=== PATIENT | male | born 1930 | race Caucasian/White ===

== ENCOUNTER 2018-05-31 17:57 | Emergency (ER) | payer OTHER ==
[2018-05-31] MEDS ORDERED: FENTANYL CITR 100 MCG/2 ML ONE (18:58)
[2018-05-31] MEDS ORDERED: FAMOTIDINE 20 MG/2 ML VIAL IV ONE ×2 (18:59→22:12)
[2018-05-31 19:17] LABS: Protime INR 1.39
[2018-05-31 19:31] LABS: Absolute Lymphocytes (CBC) 0.6 K/uL (0.7-4.9); Absolute Monocytes 0.5 K/uL (0.1-1.3); Absolute Neutrophil 11.8 K/uL (1.8-8.0); Basophils % 1.2 % (0-1.3); Eosinophils % 0.4 % (0-4.4); Hematocrit 46.7 % (39.6-49.0); Lymphocytes % 4.7 % (15.3-44.8); MCH 28.8 pg (27.0-35.0); MCV 88.8 fL (80-100); Monocytes % 3.8 % (3.3-12.3); RBC Red Blood Cell Count 5.26 M/uL (4.33-5.43)
--- NOTE | 2018-05-31 19:47 | RAD REPORT ---
EXAM DESCRIPTION: RAD - Chest Single View - 05/31/2018 7:09 pm CLINICAL HISTORY: Epigastric pain, chest pain radiating to the back COMPARISON: November 19, 2017 TECHNIQUE: AP portable chest image was obtained 1902 hours . FINDINGS: Chronic interstitial lung disease is present with no focal mass or consolidation. Lung mar kings are not clearly different from comparison. Defibrillator is in place. Heart is mildly enlarged but measures smaller than on the prior study. No acute failure or volume overload. No measurable pleu ral effusion and no pneumothorax. No acute bony abnormality seen. No acute aortic findings suspected. IMPRESSION: Chronic interstitial lung disease not clearly different from comparison. Mild cardiomegaly without significant failure or volume overload.
[2018-05-31 19:57] LABS: Blood Morphology Comment NOT SEEN (NOT SEEN); Platelet Estimate ADEQ
[2018-05-31 20:36] LABS: ALT/SGPT 224 U/L (12-78); Albumin 3.5 g/dL (3.4-5.0); Alkaline Phosphatase 154 U/L (45-117); BUN Blood Urea Nitrogen 21 mg/dL (7-18); Bicarbonate 30 mmol/L (21-32); Bilirubin Direct 1.6 mg/dL (0-0.2); Bilirubin Total 2.7 mg/dL (0.2-1.0); Glucose Level 196 mg/dL (74-106); Lipase 107 U/L (73-393); Magnesium 2.1 mg/dL (1.8-2.4); NT PRO-BNP 1543 pg/mL (<450); Potassium 3.9 mmol/L (3.5-5.1); Protein, Total 6.8 g/dL (6.4-8.2); Sodium Level 138 mmol/L (136-145); Troponin (Emerg Dept Use Only) < 0.02 ng/mL (0.0-0.045)
[2018-05-31 20:41] LABS: AST/SGOT 372 U/L (15-37)
--- NOTE | 2018-05-31 21:25 | RAD REPORT ---
EXAM DESCRIPTION: CT - Abdomen Pelvis W Contrast - 05/31/2018 9:15 pm CLINICAL HISTORY: Epigastric pain, history of prostate cancer COMPARISON: CT imaging May 2015 TECHNIQUE: Biphasic, helical CT imaging of the abdomen and pelvis was performed following 100 ml non -ionic IV contrast. No oral contrast administered. All CT scans are performed using dose optimization technique as appropriate and may include automated exposure control or mA/KV adjustment according to patient size. FINDINGS: Trace pleural effusion on the right. No acute lung parenchymal process. Cardiac silhouette is enlarged without pericardial thickening or effusion. A 3 centimeter area of soft tissue opacifica tion is present in the lower left chest on the left. This is similar to 2015 and is most likely gynec omastia. This may be related to prostate cancer treatment. The liver, spleen, and pancreas show no suspicious findings. Gallbladder is distended. Several small gallstones are identified. Gall bladder wall is minimally prominent. Intrahepatic and extrahepatic bi liary tree dilatation are present. No obstructing mass seen. Duct stones can be occult. Symmetric renal function is seen with no hydronephrosis or suspicious renal mass. No pyelonephritis o r acute renal parenchymal process. Renal cysts are present. No adrenal abnormality. Urinary bladder s hows no suspicious finding. No dilated bowel loops or bowel wall thickening. No appendicitis findings. No acute GI process suspec tri. No free air, free fluid or inflammatory stranding. No hernia, mass or bulky lymphadenopathy. Disc and bony degenerative changes are present. No pathologic bone process. IMPRESSION: Distended gallbladder with cholelithiasis. Intrahepatic and extrahepatic biliary tree di latation are seen. No pancreatic or duodenal mass seen. Occult duct stone is suspected. Correlation is needed with bilia ry obstructive clinical or laboratory findings. No acute or GI finding identified. Left-sided neck mass Shannen not substantially different from the 2015 comparison. Trace pleural fluid on the right.
--- NOTE | 2018-05-31 21:28 | EDPHYS ---
Physician Documentation [facility] Name: Valentin Veloz Age: 87 yrs Sex: Male : 1930 Arrival Date: 05/31/2018 Time: 18:00 Bed 23 Private MD: ED Physician Marshal Parks HPI: 05/31 21:08 This 87 yrs old Male presents to ER via Wheelchair with complaints of gs Abdominal Pain. 21:08 The patient presents with abdominal pain in the epigastric area, in the right upper gs quadrant. Onset: The symptoms/episode began/occurred acutely, today. Associated signs and symptoms: Pertinent positives: nausea and vomiting. The symptoms are described as crampy, sharp. Severity of pain: At its worst the pain was moderate in the emergency department the pain is unchanged. The patient has not experienced similar symptoms in the past. Historical: - Allergies: 18:31 Codeine; ss - PMHx: 18:31 CAD; CANCER - PROSTATE; CHF; COPD; Diabetes - NIDDM; High Cholesterol; Hypertension; ss Myocardial infarction; Pacemaker; - Immunization history:: Adult Immunizations up to date. - Social history:: Smoking status: Patient/guardian denies using tobacco. - Ebola Screening: : Patient denies exposure to infectious person Patient denies travel to an Ebola-affected area in the 21 days before illness onset. ROS: 21:08 All other systems are negative. gs Exam: 21:08 Head/Face: Normocephalic, atraumatic. Eyes: Pupils equal round and reactive to light, gs extra-ocular motions intact. Lids and lashes normal. Conjunctiva and sclera are non-icteric and not injected. Cornea within normal limits. Periorbital areas with no swelling, redness, or edema. ENT: Nares patent. No nasal discharge, no septal abnormalities noted. Tympanic membranes are normal and external auditory canals are clear. Oropharynx with no redness, swelling, or masses, exudates, or evidence of obstruction, uvula midline. Mucous membranes moist. Neck: Trachea midline, no thyromegaly or masses palpated, and no cervical lymphadenopathy. Supple, full range of motion without nuchal rigidity, or vertebral point tenderness. No Meningismus. Chest/axilla: Normal chest wall appearance and motion. Nontender with no deformity. No lesions are appreciated. Cardiovascular: Regular rate and rhythm with a normal S1 and S2. No gallops, murmurs, or rubs. Normal PMI, no JVD. No pulse deficits. Respiratory: Lungs have equal breath sounds bilaterally, clear to auscultation and percussion. No rales, rhonchi or wheezes noted. No increased work of breathing, no retractions or nasal flaring. Back: No spinal tenderness. No costovertebral tenderness. Full range of motion. Skin: Warm, dry with normal turgor. Normal color with no rashes, no lesions, and no evidence of cellulitis. MS/ Extremity: Pulses equal, no cyanosis. Neurovascular intact. Full, normal range of motion. Neuro: Awake and alert, GCS 15, oriented to person, place, time, and situation. Cranial nerves II-XII grossly intact. Motor strength 5/5 in all extremities. Sensory grossly intact. Cerebellar exam normal. Normal gait. 21:08 Constitutional: The patient appears alert, awake. 21:08 Abdomen/GI: Palpation: moderate abdominal tenderness, in the epigastric area and right upper quadrant, rebound tenderness, is not appreciated. Vital Signs: 18:31 BP 123 / 78; Pulse 72; Resp 18; Temp 97.0; Pulse Ox 96% on R/A; Weight 104.33 kg; ss Height 5 ft. 10 in. (177.80 cm); Pain 8/10; 19:52 BP 118 / 66; Pulse 68; Resp 16; Pulse Ox 96% on R/A; kr2 21:00 BP 126 / 78; Pulse 89; Resp 18; Pulse Ox 99% on R/A; kr2 22:18 BP 142 / 78; Pulse 73; Resp 18; Pulse Ox 97% ; kr2 23:49 BP 136 / 80; Pulse 72; Resp 17; Pulse Ox 99% ; kr2 18:31 Body Mass Index 33.00 (104.33 kg, 177.80 cm) ss MDM: 18:32 Patient medically screened. gs 21:08 Differential diagnosis: bowel obstruction, cholecystitis, Cholelithiasis, non-specific gs abd pain, pancreatitis. Data reviewed: vital signs, nurses notes. Counseling: I had a detailed discussion with the patient and/or guardian regarding: the historical points, exam findings, and any diagnostic results supporting the discharge/admit diagnosis, the need to transfer to another facility, for higher level of care, no gi does ercp. Response to treatment: the patient's symptoms have mildly improved after treatment. 21:27 ED course: do not have gi that does ercp will need to transfer. 05/31 18:33 Order name: Basic Metabolic Panel; Complete Time: 20:45 05/31 18:33 Order name: CBC with Diff; Complete Time: 20:24 05/31 18:33 Order name: LFT's; Complete Time: 20:45 05/31 18:33 Order name: Magnesium; Complete Time: 20:45 05/31 18:33 Order name: NT PRO-BNP; Complete Time: 20:45 05/31 18:33 Order name: PT-INR; Complete Time: 19:54 05/31 18:33 Order name: Troponin (emerg Dept Use Only); Complete Time: 20:45 05/31 18:33 Order name: XRAY Chest (1 view); Complete Time: 19:54 05/31 18:33 Order name: Lipase; Complete Time: 20:45 05/31 18:33 Order name: CT Abd/Pelvis - W/Contrast; Complete Time: 21:28 05/31 19:35 Order name: Manual Differential; Complete Time: 20:24 EDMS 05/31 20:48 Order name: Blood Culture* 05/31 20:49 Order name: Abdomen Limited US; Complete Time: 22:11 05/31 18:32 Order name: EKG; Complete Time: 18:33 05/31 18:32 Order name: EKG - Nurse/Tech; Complete Time: 18:32 05/31 18:33 Order name: Cardiac monitoring; Complete Time: 18:51 05/31 18:33 Order name: EKG - Nurse/Tech; Complete Time: 18:52 05/31 18:33 Order name: IV Saline Lock; Complete Time: 18:52 05/31 18:33 Order name: Labs collected and sent; Complete Time: 18:52 05/31 18:33 Order name: O2 Per Protocol; Complete Time: 18:52 05/31 18:33 Order name: O2 Sat Monitoring; Complete Time: 18:52 Administered Medications: 18:57 Drug: fentaNYL (PF) 25 mcg Route: IVP; Site: right forearm; kr2 19:15 Follow up: Response: No adverse reaction; Pain is decreased kr2 19:03 Drug: Pepcid 20 mg Route: IVP; Site: right forearm; kr2 20:00 Follow up: Response: No adverse reaction kr2 21:45 Drug: cefOXitin 1 grams Route: IVPB; Infused Over: 30 mins; Site: right antecubital; kr2 22:22 Follow up: Response: No adverse reaction; IV Status: Completed infusion kr2 22:08 Drug: Pepcid 20 mg Route: IVP; Site: right antecubital; kr2 22:29 Follow up: Response: No adverse reaction kr2 22:15 Drug: NS 0.9% 1000 ml Route: IV; Rate: 125 ml/hr; Site: right antecubital; kr2 23:48 Follow up: Response: No adverse reaction; IV Status: Infusion continued upon transfer kr2 22:22 Drug: Zosyn 3.375 grams Route: IVPB; Infused Over: 60 mins; Site: right antecubital; kr2 23:40 Follow up: Response: No adverse reaction; IV Status: Completed infusion kr2 Disposition: 05/31/18 21:[address] [facility]. Diagnosis is Calculus of bile duct with acute cholecystitis with obstruction. - Reason for transfer: Higher level of care. - Accepting physician is tbd. - Condition is Stable. - Problem is new. - Symptoms have improved. Signatures: Dispatcher [employer] EDMS Austyn Padilla MD MD cha Smirch, Shelby, RN RN Marshal Parks MD MD gs Reaves, Karey, RN RN kr2 Corrections: (The following items were deleted from the chart) 23:50 21:28 05/31/2018 21:[address] [facility]. Diagnosis is kr2 Calculus of bile duct with acute cholecystitis with obstruction. Reason for transfer: Higher level of care. Accepting physician is tbd. Condition is Stable. Problem is new. Symptoms have improved. gs
--- NOTE | 2018-05-31 21:28 | ER ---
Nurse's Notes [facility] Name: Valentin Veloz Age: 87 yrs Sex: Male : 1930 Arrival Date: 05/31/2018 Time: 18:00 Bed 23 Private MD: Diagnosis: Calculus of bile duct with acute cholecystitis with obstruction Presentation: 05/31 18:28 Presenting complaint: Patient states: sharp, epigastric pain that radiates towards back ss that began at 1500 this afternoon. Denies fever, feeling ill. Reports a bloating feeling in abd. Transition of care: patient was not received from another setting of care. Onset of symptoms was May 31, 2018. Risk Assessment: Do you want to hurt yourself or someone else? Patient reports no desire to harm self or others. Initial Sepsis Screen: Does the patient meet any 2 criteria? No. Patient's initial sepsis screen is negative. Does the patient have a suspected source of infection? No. Patient's initial sepsis screen is negative. Care prior to arrival: None. 18:28 Method Of Arrival: Wheelchair ss 18:28 Acuity: EMILY 2 ss Historical: - Allergies: 18:31 Codeine; ss - PMHx: 18:31 CAD; CANCER - PROSTATE; CHF; COPD; Diabetes - NIDDM; High Cholesterol; Hypertension; ss Myocardial infarction; Pacemaker; - Immunization history:: Adult Immunizations up to date. - Social history:: Smoking status: Patient/guardian denies using tobacco. - Ebola Screening: : Patient denies exposure to infectious person Patient denies travel to an Ebola-affected area in the 21 days before illness onset. Screenin:30 Abuse screen: Denies threats or abuse. Denies injuries from another. Nutritional kr2 screening: No deficits noted. Tuberculosis screening: No symptoms or risk factors identified. Fall Risk Gait- Weak (10 pts.). Assessment: 18:30 General: Appears in no apparent distress. uncomfortable, well groomed, well developed, kr2 well nourished, Behavior is calm, cooperative, appropriate for age. Pain: Complains of pain in right upper quadrant and epigastric area Pain does not radiate. Pain currently is 8 out of 10 on a pain scale. Quality of pain is described as aching, sharp, shooting, Is continuous, Alleviated by rest, Aggravated by increased activity. Neuro: Level of Consciousness is awake, alert, obeys commands, Oriented to person, place, time, situation. Cardiovascular: Capillary refill < 3 seconds in bilateral fingers Patient's skin is warm and dry. Respiratory: Airway is patent Respiratory effort is even, unlabored, Respiratory pattern is regular, symmetrical. GI: Bowel sounds present X 4 quads. Abd is soft X 4 quads Abdomen is tender to palpation in epigastric area, right upper quadrant and left upper quadrant Reports nausea. EENT: Oral mucosa is moist. Derm: Skin is intact, with poor turgor Skin is pink, warm \T\ dry. Musculoskeletal: Circulation, motion, and sensation intact. 19:30 Reassessment: Patient appears in no apparent distress at this time. Patient and/or kr2 family updated on plan of care and expected duration. Pain level reassessed. Patient is alert, oriented x 3, equal unlabored respirations, skin warm/dry/pink. States pain is decreased. 20:30 Reassessment: Patient appears in no apparent distress at this time. Patient and/or kr2 family updated on plan of care and expected duration. Pain level reassessed. Patient is alert, oriented x 3, equal unlabored respirations, skin warm/dry/pink. Patient states feeling better. 21:30 Reassessment: Patient appears in no apparent distress at this time. Patient and/or kr2 family updated on plan of care and expected duration. Pain level reassessed. Patient is alert, oriented x 3, equal unlabored respirations, skin warm/dry/pink. 22:30 Reassessment: Patient appears in no apparent distress at this time. Patient and/or kr2 family updated on plan of care and expected duration. Pain level reassessed. Patient is alert, oriented x 3, equal unlabored respirations, skin warm/dry/pink. Patient states feeling better. 23:30 Reassessment: No changes from previously documented assessment. kr2 Vital Signs: 18:31 BP 123 / 78; Pulse 72; Resp 18; Temp 97.0; Pulse Ox 96% on R/A; Weight 104.33 kg; ss Height 5 ft. 10 in. (177.80 cm); Pain 8/10; 19:52 BP 118 / 66; Pulse 68; Resp 16; Pulse Ox 96% on R/A; kr2 21:00 BP 126 / 78; Pulse 89; Resp 18; Pulse Ox 99% on R/A; kr2 22:18 BP 142 / 78; Pulse 73; Resp 18; Pulse Ox 97% ; kr2 23:49 BP 136 / 80; Pulse 72; Resp 17; Pulse Ox 99% ; kr2 18:31 Body Mass Index 33.00 (104.33 kg, 177.80 cm) ED Course: 18:00 Patient arrived in ED. mr 18:21 Marshal Parks MD is Attending Physician. gs 18:23 Frances Avitia, NORA is Primary Nurse. kr2 18:30 Triage completed. ss 18:30 Patient has correct armband on for positive identification. Placed in gown. Bed in low kr2 position. Call light in reach. Side rails up X2. Adult w/ patient. machinist helper on. Pulse ox on. NIBP on. Door closed. Warm blanket given. Head of bed elevated. 18:31 Arm band placed on right wrist. ss 18:45 Inserted saline lock: 22 gauge in right forearm, using aseptic technique. kr2 19:10 XRAY Chest (1 view) In Process Unspecified. EDMS 21:[address] via stretcher. nj 21:15 CT completed. Patient tolerated procedure well. Patient moved back from CT. nj 21:15 CT Abd/Pelvis - W/Contrast In Process Unspecified. EDMS 21:46 Abdomen Limited US In Process Unspecified. EDMS 23:46 No provider procedures requiring assistance completed. Patient transferred, IV remains kr2 in place. Administered Medications: 18:57 Drug: fentaNYL (PF) 25 mcg Route: IVP; Site: right forearm; kr2 19:15 Follow up: Response: No adverse reaction; Pain is decreased kr2 19:03 Drug: Pepcid 20 mg Route: IVP; Site: right forearm; kr2 20:00 Follow up: Response: No adverse reaction kr2 21:45 Drug: cefOXitin 1 grams Route: IVPB; Infused Over: 30 mins; Site: right antecubital; kr2 22:22 Follow up: Response: No adverse reaction; IV Status: Completed infusion kr2 22:08 Drug: Pepcid 20 mg Route: IVP; Site: right antecubital; kr2 22:29 Follow up: Response: No adverse reaction kr2 22:15 Drug: NS 0.9% 1000 ml Route: IV; Rate: 125 ml/hr; Site: right antecubital; kr2 23:48 Follow up: Response: No adverse reaction; IV Status: Infusion continued upon transfer kr2 22:22 Drug: Zosyn 3.375 grams Route: IVPB; Infused Over: 60 mins; Site: right antecubital; kr2 23:40 Follow up: Response: No adverse reaction; IV Status: Completed infusion kr2 Outcome: 21:28 ER care complete, transfer ordered by . 23:46 Transferred by ground EMS [place]. Transfer form completed. kr2 23:46 Condition: stable 23:46 Instructed on the need for transfer, Demonstrated understanding of instructions. 23:50 Patient left the ED. kr2 Signatures: Dispatcher [employer] ED JimAnny Shelby, Dago Caba RN, Gregory, MD MD Frances Avitia RN RN kr2 Corrections: (The following items were deleted from the chart) 19:20 18:57 fentaNYL (PF) 25 mcg IVP in right antecubital kr2 kr2 19:20 19:03 Pepcid 20 mg IVP in right antecubital kr2 kr2 22:22 22:08 Zosyn 3.375 grams IVPB in right antecubital over 60 mins kr2 kr2 23:44 19:54 Reassessment: Patient appears in no apparent distress at this time. Patient kr2 and/or family updated on plan of care and expected duration. Pain level reassessed. Patient is alert, oriented x 3, equal unlabored respirations, skin warm/dry/pink. States pain is decreased kr2
--- NOTE | 2018-05-31 22:02 | RAD REPORT ---
EXAM DESCRIPTION: US - Abdomen Exam Limited - 05/31/2018 9:46 pm CLINICAL HISTORY: Abdominal pain, abnormal CT study COMPARISON: None. FINDINGS: Gallbladder is distended. Multiple small gallstones are present and there is a small quant ity of sludge. No wall thickening or pericholecystic fluid. Biliary tree is not as prominent as suspe cted by the CT study. Collective findings are suspicious for duct stone. IMPRESSION: Multi stone cholelithiasis. Suboptimally visualized biliary tree does not appear dilated. However, CT findings are clear for bili mariela tree dilatation and duct stone is suspected.
[2018-05-31] MEDS ORDERED: NA CHLORIDE 0.9% 1,000 ML ONE (22:11)
[2018-05-31] MEDS ORDERED: NA CHLORIDE 0.9% 100 ML IV ONE (22:11)
[2018-05-31] MEDS ORDERED: PIPER/TAZO/NS 3.375gm 3.375 GM/100 ML BAG ONE (22:12)
[2018-05-31] MEDS ORDERED: CEFOXITIN/SWI 1gm 1 GM/10 ML SYR ONE (22:12)
[2018-05-31 23:54] VITALS: TEMP 97
[2018-05-31 23:59] VITALS: BP 136/80; O2SAT 99
--- NOTE | 2018-06-01 10:39 | EKG ---
Test Date: 2018-05-31 Test Time: 18:33:38 Report Programmer: MEASUREMENT RESULTS: Intervals: Rate: 72 ID: [id number]: [id number] QT: 450 QTc: 492 [place]: P: ID: QRS: [id number] T: -63 INTERPRETIVE STATEMENTS: Atrial fibrillation with premature ventricular or aberrantly conducted complexes Low voltage QRS Intraventricular conduction delay ST & T wave abnormality, consider inferior ischemia or digitalis effect Cannot rule out anterior infarct Prolonged QT Abnormal ECG Compared to ECG 07/25/2017 10:16:56 Low QRS voltage now present Left-axis deviation no longer present Electronically Signed On 06-01-18 10:39:19 [employer] MANAGER by Reynaldo Kim
== END 2018-05-31 23:50 | disposition short-term general hospital (02) ==
LOC: ER 17:57
DX: K80.43 Calculus of bile duct with acute cholecystitis with obstruction (principal); I10 Essential (primary) hypertension; I25.2 Old myocardial infarction; Z88.5 Allergy status to narcotic agent; Z95.0 Presence of cardiac pacemaker
CPT/HCPCS: 36415; 71045; 74177; 76705; 80048; 80076; 83690; 83735; 83880; 84484; 85025; 85610; 87040 ×2; 87205 ×3; 93005; J2543; J3010; J7030; Q9967; 99285

== ENCOUNTER 2019-01-26 12:19 | Inpatient (IN) | payer OTHER ==
--- OUTSIDE RECORDS SUMMARY | 2019-01-26 12:23 | XMS REPORT ---
:1930 [facility] Address [address] [place] [address] Dr. Dar[address] [place] [address] Care Team Providers Name Role Phone DHARMESH DIAS Unavailable Unavailable Problems This patient has no known problems. Allergies, Adverse Reactions, Alerts This patient has no known allergies or adverse reactions. Medications This patient has no known medications. Results Test Description Test Time Test Comments Text Results Atomic Results Result Comments POCT-GLUCOSE METER 2018-06-09 18:41:00 Test Item Value Reference Range Comments POC-GLUCOSE METER (BEAKER) (test 148 mg/dL 70-110 TESTED AT [facility] [address] [facility] rtqx=1781) [facility] [address] TISSUE [id number] 16:35:00Surgical Pathology Report Case: [id number] Authorizing Provider: Haroldo Figueroa MD Collected: 06/08/2018 1444 Ordering Location: [facility] PERIOPERATIVE Received: 06/08/2018 1551 SERVICES Pathologist: Anny Chapman MD Specimen: Gallbladder GALLBLADDER, CHOLECYSTECTOMY: - MARKED ACUTE AND CHRONIC CHOLECYSTITIS - CHOLELITHIASIS Signing PathologistDirect Phone Line: [phone] signed by Anny Chapman MD on 06/09/2018 at 4:35 PMCholedocholithiasis Gallbladder The specimen is received in formalin-filled container labeled with the patient's information and labeled "gallbladder". It consists of an intact gallbladder measuring 8 x 2.5 cm with a gallbladder wall thickness of 0.2 cm. The gallbladder lumen is filled with green thick fluid and multiple brown smooth stones measuring up to 0.5 cm. The mucosa is cabrera-red and velvety with yellow stippling throughout. No masses are seen.Section code: A1, margin en face; A2, gallbladder wall. CG/ewPerformed.POCT-GLUCOSE [id number] 11:52:00 Test Item Value Reference Range Comments POC-GLUCOSE METER (BEAKER) 191 mg/dL 70-110 TESTED AT [address] (test xnxm=6639) [place] [address] POCT-GLUCOSE [id number] 08:05:00 Test Item Value Reference Range Comments POC-GLUCOSE METER (BEAKER) 219 mg/dL 70-110 TESTED AT [address] (test ssce=5140) [place] [address] B-TYPE NATRIURETIC FACTOR (BNP)2018-06-09 07:22:00 Test Item Value Reference Range Comments B-TYPE NATRIURETIC PEPTIDE (BEAKER) (test 257 pg/mL 0-100 qcsa=143) POCT-GLUCOSE [id number] 21:45:00 Test Item Value Reference Range Comments POC-GLUCOSE METER (BEAKER) 165 mg/dL 70-110 TESTED AT [address] (test plhj=1617) [place] [address] RAD, CHEST, 1 VIEW, NON [id number] 18:25:00Reason for exam:->pacemaker check Should this be performed at the bedside?->YesFINAL REPORT Chest, 1 view Clinical history: pacemaker check Comparison: NoneDiscussion: 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 There is no pneumothorax. Small bilateral pleural effusions are seen with bibasilar atelectasis or airspace disease. The cardiac silhouette is enlarged with asymmetric left-sided perihilar edema. No acute osseous abnormality. Signed: [facility] Verified Date/Time: 06/08/2018 18:25:31 Reading Location: [facility] B1 [id number] Consult Reading Room POCT-GLUCOSE [id number] 16:08:00 Test Item Value Reference Range Comments POC-GLUCOSE METER (BEAKER) 154 mg/dL 70-110 TESTED AT [address] (test ivqv=7198) [place] [address] POCT-GLUCOSE [id number] 11:33:00 Test Item Value Reference Range Comments POC-GLUCOSE METER (BEAKER) 161 mg/dL 70-110 [address] (test udis=1631) [facility] [address] POCT-GLUCOSE [id number] 08:46:00 Test Item Value Reference Range Comments POC-GLUCOSE METER (BEAKER) 146 mg/dL 70-110 TESTED AT [facility] [address] [facility] (test jwut=0251) [facility] [address] [id number] 07:15:00 Test Item Value Reference Range Comments MAGNESIUM (BEAKER) (test 2.1 mg/dL 1.6-2.6 Specimen moderately hemolyzed lfol=397) [id number] 07:15:00 Test Item Value Reference Range Comments PHOSPHORUS (BEAKER) (test 3.4 mg/dL 2.3-4.7 Specimen moderately hemolyzed sokj=885) BASIC METABOLIC [id number] 07:15:00 Test Item Value Reference Range Comments SODIUM (BEAKER) (test 143 meq/L 136-145 gkjk=547) POTASSIUM (BEAKER) (test 4.3 meq/L 3.5-5.1 Specimen moderately lbuu=835) hemolyzed CHLORIDE (BEAKER) (test 97 meq/L 98-107 plmd=574) CO2 (BEAKER) (test 39 meq/L 22-29 mvtj=247) BLOOD UREA NITROGEN 10 mg/dL 7-21 (BEAKER) (test amaj=895) CREATININE (BEAKER) (test 0.63 mg/dL 0.57-1.25 Specimen moderately ekea=269) hemolyzed GLUCOSE RANDOM (BEAKER) 143 mg/dL 70-105 (test poay=522) CALCIUM (BEAKER) (test 9.4 mg/dL 8.4-10.2 hcme=982) EGFR (BEAKER) (test 121 mL/min/1.73 sq m ESTIMATED GFR IS NOT hbxc=5497) ACCURATE CREATININE CLEARANCE IN PREDICTING GLOMERULAR FILTRATION RATE. ESTIMATED GFR IS NOT APPLICABLE FOR DIALYSIS PATIENTS. HEPATIC FUNCTION [id number] 07:15:00 Test Item Value Reference Range Comments TOTAL PROTEIN (BEAKER) (test 6.1 gm/dL 6.0-8.3 Specimen moderately hemolyzed tjac=126) ALBUMIN (BEAKER) (test 3.3 g/dL 3.5-5.0 Specimen moderately hemolyzed dafc=3348) BILIRUBIN TOTAL (BEAKER) (test 1.2 mg/dL 0.2-1.2 Specimen moderately hemolyzed tjle=293) BILIRUBIN DIRECT (BEAKER) 0.5 mg/dL 0.1-0.5 Specimen moderately hemolyzed (test cyiu=686) ALKALINE PHOSPHATASE (BEAKER) 129 U/L 40-150 (test itzt=296) AST (SGOT) (BEAKER) (test 29 U/L 5-34 Specimen moderately hemolyzed tchn=286) ALT (SGPT) (BEAKER) (test 69 U/L 6-55 Specimen moderately cvmv=528) hemolyzed PROTHROMBIN [id number] 07:14:00 Test Item Value Reference Range Comments PROTIME (BEAKER) (test fnxk=864) 14.1 seconds 11.7-14.7 INR (BEAKER) (test plnc=705) 1.1 <=5.9 RECOMMENDED COUMADIN/WARFARIN INR THERAPY RANGESSTANDARD DOSE: 2.0 - 3.0 Includes: PROPHYLAXIS forvenous thrombosis, systemic embolization; TREATMENT for venous thrombosis and/or pulmonary embolus.HIGH RISK: Target INR is 2.5-3.5 for patients with mechanical heart valves.POCT-GLUCOSE [id number] 07:06:00 Test Item Value Reference Range Comments POC-GLUCOSE METER (BEAKER) 179 mg/dL 70-110 TESTED AT [facility] [address] [facility] (test iqzd=1919) [facility] [address] CBC W/PLT COUNT & AUTO [id number] 06:58:00 Test Item Value Reference Range Comments WHITE BLOOD CELL COUNT (BEAKER) (test vcli=756) 9.0 K/ L 3.5-10.5 RED BLOOD CELL COUNT (BEAKER) (test qqjd=523) 5.09 M/ L 4.63-6.08 HEMOGLOBIN (BEAKER) (test vosw=952) 14.7 GM/DL 13.7-17.5 HEMATOCRIT (BEAKER) (test hcbj=228) 46.7 % 40.1-51.0 MEAN CORPUSCULAR VOLUME (BEAKER) (test ohxj=892) 91.7 fL 79.0-92.2 MEAN CORPUSCULAR HEMOGLOBIN (BEAKER) (test 28.9 pg 25.7-32.2 onoz=634) MEAN CORPUSCULAR HEMOGLOBIN CONC (BEAKER) (test 31.5 GM/DL 32.3-36.5 ihpl=487) RED CELL DISTRIBUTION WIDTH (BEAKER) (test 14.1 % 11.6-14.4 rebt=294) PLATELET COUNT (BEAKER) (test sxqf=532) 195 K/CU MM 150-450 MEAN PLATELET VOLUME (BEAKER) (test bqyi=659) 10.8 fL 9.4-12.4 NUCLEATED RED BLOOD CELLS (BEAKER) (test 0 /100 WBC 0-0 rtfe=728) NEUTROPHILS RELATIVE PERCENT (BEAKER) (test 68 % olhp=135) LYMPHOCYTES RELATIVE PERCENT (BEAKER) (test 16 % clda=730) MONOCYTES RELATIVE PERCENT (BEAKER) (test 10 % clal=096) EOSINOPHILS RELATIVE PERCENT (BEAKER) (test 4 % iulu=443) BASOPHILS RELATIVE PERCENT (BEAKER) (test 1 % tadt=136) NEUTROPHILS ABSOLUTE COUNT (BEAKER) (test 6.09 K/ L 1.78-5.38 ucao=605) LYMPHOCYTES ABSOLUTE COUNT (BEAKER) (test 1.42 K/ L 1.32-3.57 rrqg=793) MONOCYTES ABSOLUTE COUNT (BEAKER) (test 0.89 K/ L 0.30-0.82 makq=644) EOSINOPHILS ABSOLUTE COUNT (BEAKER) (test 0.38 K/ L 0.04-0.54 rngk=963) BASOPHILS ABSOLUTE COUNT (BEAKER) (test 0.05 K/ L 0.01-0.08 vibg=977) IMMATURE GRANULOCYTES-RELATIVE PERCENT (BEAKER) 2 % 0-1 (test zauj=6711) POCT-GLUCOSE [id number] 21:03:00 Test Item Value Reference Range Comments POC-GLUCOSE METER (BEAKER) 142 mg/dL 70-110 TESTED AT [facility] [address] [facility] (test xqlx=9646) [facility] [address] [id number] 19:39:00 Test Item Value Reference Range Comments PHOSPHORUS (BEAKER) (test encv=178) 2.2 mg/dL 2.3-4.7 [id number] 19:39:00 Test Item Value Reference Range Comments MAGNESIUM (BEAKER) (test tazv=703) 1.8 mg/dL 1.6-2.6 BASIC METABOLIC [id number] 19:39:00 Test Item Value Reference Range Comments SODIUM (BEAKER) (test 139 meq/L 136-145 ecet=621) POTASSIUM (BEAKER) (test 3.2 meq/L 3.5-5.1 oiff=172) CHLORIDE (BEAKER) (test 97 meq/L 98-107 invd=959) CO2 (BEAKER) (test 35 meq/L 22-29 lckx=106) BLOOD UREA NITROGEN 12 mg/dL 7-21 (BEAKER) (test saeb=413) CREATININE (BEAKER) (test 0.68 mg/dL 0.57-1.25 uhyj=394) GLUCOSE RANDOM (BEAKER) 236 mg/dL 70-105 (test xhqm=196) CALCIUM (BEAKER) (test 9.0 mg/dL 8.4-10.2 tfjr=654) EGFR (BEAKER) (test 111 mL/min/1.73 sq m ESTIMATED GFR IS NOT kuyk=0916) ACCURATE CREATININE CLEARANCE IN PREDICTING GLOMERULAR FILTRATION RATE. ESTIMATED GFR IS NOT APPLICABLE FOR DIALYSIS PATIENTS. HEPATIC FUNCTION [id number] 19:39:00 Test Item Value Reference Range Comments TOTAL PROTEIN (BEAKER) (test rpiy=438) 5.6 gm/dL 6.0-8.3 ALBUMIN (BEAKER) (test ouxm=3645) 3.1 g/dL 3.5-5.0 BILIRUBIN TOTAL (BEAKER) (test dfuu=228) 0.9 mg/dL 0.2-1.2 BILIRUBIN DIRECT (BEAKER) (test shjd=162) 0.6 mg/dL 0.1-0.5 ALKALINE PHOSPHATASE (BEAKER) (test wfje=766) 125 U/L 40-150 AST (SGOT) (BEAKER) (test yjor=030) 22 U/L 5-34 ALT (SGPT) (BEAKER) (test zpxk=688) 71 U/L 6-55 PROTHROMBIN [id number] 19:34:00 Test Item Value Reference Range Comments PROTIME (BEAKER) (test osxw=574) 15.1 seconds 11.7-14.7 INR (BEAKER) (test gduu=770) 1.2 <=5.9 RECOMMENDED COUMADIN/WARFARIN INR THERAPY RANGESSTANDARD DOSE: 2.0 - 3.0 Includes: PROPHYLAXIS forvenous thrombosis, systemic embolization; TREATMENT for venous thrombosis and/or pulmonary embolus.HIGH RISK: Target INR is 2.5-3.5 for patients with mechanical heart valves.CBC W/PLT COUNT & AUTO [id number] 19:18:00 Test Item Value Reference Range Comments WHITE BLOOD CELL COUNT (BEAKER) (test egnp=162) 8.0 K/ L 3.5-10.5 RED BLOOD CELL COUNT (BEAKER) (test hqhj=483) 4.71 M/ L 4.63-6.08 HEMOGLOBIN (BEAKER) (test qctt=351) 13.5 GM/DL 13.7-17.5 HEMATOCRIT (BEAKER) (test dqwb=129) 42.6 % 40.1-51.0 MEAN CORPUSCULAR VOLUME (BEAKER) (test mtlv=808) 90.4 fL 79.0-92.2 MEAN CORPUSCULAR HEMOGLOBIN (BEAKER) (test 28.7 pg 25.7-32.2 wtfc=506) MEAN CORPUSCULAR HEMOGLOBIN CONC (BEAKER) (test 31.7 GM/DL 32.3-36.5 goxd=654) RED CELL DISTRIBUTION WIDTH (BEAKER) (test 14.0 % 11.6-14.4 xuim=827) PLATELET COUNT (BEAKER) (test fwwu=667) 181 K/CU MM 150-450 MEAN PLATELET VOLUME (BEAKER) (test basb=081) 10.6 fL 9.4-12.4 NUCLEATED RED BLOOD CELLS (BEAKER) (test 0 /100 WBC 0-0 eanl=453) NEUTROPHILS RELATIVE PERCENT (BEAKER) (test 65 % relg=892) LYMPHOCYTES RELATIVE PERCENT (BEAKER) (test 19 % orrz=227) MONOCYTES RELATIVE PERCENT (BEAKER) (test 10 % bmzl=154) EOSINOPHILS RELATIVE PERCENT (BEAKER) (test 3 % ofyg=851) BASOPHILS RELATIVE PERCENT (BEAKER) (test 1 % oieu=931) NEUTROPHILS ABSOLUTE COUNT (BEAKER) (test 5.19 K/ L 1.78-5.38 kppq=493) LYMPHOCYTES ABSOLUTE COUNT (BEAKER) (test 1.50 K/ L 1.32-3.57 cvno=382) MONOCYTES ABSOLUTE COUNT (BEAKER) (test 0.82 K/ L 0.30-0.82 tywn=400) EOSINOPHILS ABSOLUTE COUNT (BEAKER) (test 0.23 K/ L 0.04-0.54 gzlx=073) BASOPHILS ABSOLUTE COUNT (BEAKER) (test 0.06 K/ L 0.01-0.08 bdhd=955) IMMATURE GRANULOCYTES-RELATIVE PERCENT (BEAKER) 3 % 0-1 (test yxgc=7629) POCT-GLUCOSE [id number] 17:55:00 Test Item Value Reference Range Comments POC-GLUCOSE METER (BEAKER) 305 mg/dL 70-110 Notified NORA MAJOR/TESTED AT [facility] (test ytxz=2531) [address] [place] [address] POCT-GLUCOSE [id number] 11:56:00 Test Item Value Reference Range Comments POC-GLUCOSE METER (BEAKER) 137 mg/dL 70-110 TESTED AT [address] (test wlnq=0955) [place] [address] POCT-GLUCOSE [id number] 09:01:00 Test Item Value Reference Range Comments POC-GLUCOSE METER (BEAKER) 158 mg/dL 70-110 TESTED AT [address] (test boec=6922) [place] [address] BLOOD [id number] 05:00:00 Test Item Value Reference Range Comments CULTURE (BEAKER) (test pkdn=9372) No growth in 5 days BLOOD [id number] 05:00:00 Test Item Value Reference Range Comments CULTURE (BEAKER) (test pxqw=2128) No growth in 5 days POCT-GLUCOSE [id number] 21:31:00 Test Item Value Reference Range Comments POC-GLUCOSE METER (BEAKER) 297 mg/dL 70-110 TESTED AT [address] (test mnoh=5633) [place] [id number] POCT-GLUCOSE [id number] 17:26:00 Test Item Value Reference Range Comments POC-GLUCOSE METER (BEAKER) 154 mg/dL 70-110 TESTED AT [address] (test umkq=7490) [place] [address] POCT-GLUCOSE [id number] 15:17:00 Test Item Value Reference Range Comments POC-GLUCOSE METER (BEAKER) 154 mg/dL 70-110 TESTED AT [address] (test ajly=1628) [place] [address] [place], [id number] 13:54:00INTRA OP IMAGINGReason for exam:->ABNORMAL IMAGINGFINAL REPORT ERCP 4 views 06/06/2018 1:49 PM CLINICAL HISTORY: Instrument localization COMPARISON: None available IMPRESSION : Please correlate imaging report findings with the procedure note prepared by Dr. Hinojosa, as an intra-procedure imaging consultation was not requested. Reported fluoroscopy time: 91.0 seconds. Signed: Yunier Boyd Verified Date/Time: 06/06/2018 13:54:44 Reading Location: [facility] Radiology Reading Room Electronically signed by: YUNIER BOYD M.D. on 01:54 PMCOMPREHENSIVE METABOLIC [id number] 11:44:00 Test Item Value Reference Range Comments TOTAL PROTEIN (BEAKER) 5.9 gm/dL 6.0-8.3 (test qivj=045) ALBUMIN (BEAKER) (test 3.3 g/dL 3.5-5.0 vcyq=8815) ALKALINE PHOSPHATASE 146 U/L 40-150 (BEAKER) (test plcu=365) BILIRUBIN TOTAL (BEAKER) 1.1 mg/dL 0.2-1.2 (test jhmx=831) SODIUM (BEAKER) (test 141 meq/L 136-145 rwnt=097) POTASSIUM (BEAKER) (test 4.2 meq/L 3.5-5.1 ctgg=254) CHLORIDE (BEAKER) (test 99 meq/L 98-107 aprf=416) CO2 (BEAKER) (test 37 meq/L 22-29 loza=975) BLOOD UREA NITROGEN 10 mg/dL 7-21 (BEAKER) (test wtuf=254) CREATININE (BEAKER) (test 0.61 mg/dL 0.57-1.25 leeh=158) GLUCOSE RANDOM (BEAKER) 152 mg/dL 70-105 (test pzqd=214) CALCIUM (BEAKER) (test 9.2 mg/dL 8.4-10.2 szdz=482) AST (SGOT) (BEAKER) (test 29 U/L 5-34 rhiv=460) ALT (SGPT) (BEAKER) (test 99 U/L 6-55 vyap=169) EGFR (BEAKER) (test 125 mL/min/1.73 sq ESTIMATED GFR IS NOT vovl=5763) m ACCURATE CREATININE CLEARANCE IN PREDICTING GLOMERULAR FILTRATION RATE. ESTIMATED GFR IS NOT APPLICABLE FOR DIALYSIS PATIENTS. POCT-GLUCOSE [id number] 08:58:00 Test Item Value Reference Range Comments POC-GLUCOSE METER (BEAKER) 174 mg/dL 70-110 TESTED AT [address] (test jygq=0956) [place] [id number] CBC (HEMOGRAM ONLY)2018-06-06 06:47:00 Test Item Value Reference Range Comments WHITE BLOOD CELL COUNT (BEAKER) (test tomc=345) 7.8 K/ L 3.5-10.5 RED BLOOD CELL COUNT (BEAKER) (test xfec=399) 4.65 M/ L 4.63-6.08 HEMOGLOBIN (BEAKER) (test olys=462) 13.6 GM/DL 13.7-17.5 HEMATOCRIT (BEAKER) (test fezq=281) 42.3 % 40.1-51.0 MEAN CORPUSCULAR VOLUME (BEAKER) (test etyt=047) 91.0 fL 79.0-92.2 MEAN CORPUSCULAR HEMOGLOBIN (BEAKER) (test 29.2 pg 25.7-32.2 enga=450) MEAN CORPUSCULAR HEMOGLOBIN CONC (BEAKER) (test 32.2 GM/DL 32.3-36.5 mnyl=704) RED CELL DISTRIBUTION WIDTH (BEAKER) (test 14.2 % 11.6-14.4 xkgj=779) PLATELET COUNT (BEAKER) (test rmun=105) 161 K/CU MM 150-450 MEAN PLATELET VOLUME (BEAKER) (test uedz=900) 10.9 fL 9.4-12.4 NUCLEATED RED BLOOD CELLS (BEAKER) (test 0 /100 WBC 0-0 fjlb=429) POCT-GLUCOSE [id number] 21:43:00 Test Item Value Reference Range Comments POC-GLUCOSE METER (BEAKER) 213 mg/dL 70-110 TESTED AT [address] (test cauu=4827) [place] [address] POCT-GLUCOSE [id number] 18:37:00 Test Item Value Reference Range Comments POC-GLUCOSE METER (BEAKER) 144 mg/dL 70-110 TESTED AT [address] (test cuxc=1894) [place] [address] POCT-GLUCOSE [id number] 12:41:00 Test Item Value Reference Range Comments POC-GLUCOSE METER (BEAKER) 171 mg/dL 70-110 TESTED AT [address] (test wpdv=2789) [facility] [address] POCT-GLUCOSE [id number] 08:33:00 Test Item Value Reference Range Comments POC-GLUCOSE METER (BEAKER) 165 mg/dL 70-110 TESTED AT [address] (test bgbg=9559) [facility] [address] POCT-GLUCOSE [id number] 08:27:00 Test Item Value Reference Range Comments POC-GLUCOSE METER (BEAKER) 165 mg/dL 70-110 TESTED AT [address] (test hnbm=3476) [facility] [address] VANCOMYCIN LEVEL, [id number] 07:59:00 Test Item Value Reference Range Comments VANCOMYCIN TROUGH (BEAKER) (test oeii=577) 15.0 ug/mL 10.0-20.0 CBC (HEMOGRAM ONLY)2018-06-05 06:50:00 Test Item Value Reference Range Comments WHITE BLOOD CELL COUNT (BEAKER) (test udyy=755) 7.3 K/ L 3.5-10.5 RED BLOOD CELL COUNT (BEAKER) (test zndg=910) 5.05 M/ L 4.63-6.08 HEMOGLOBIN (BEAKER) (test rzar=807) 14.6 GM/DL 13.7-17.5 HEMATOCRIT (BEAKER) (test ijwp=244) 45.6 % 40.1-51.0 MEAN CORPUSCULAR VOLUME (BEAKER) (test dxmp=104) 90.3 fL 79.0-92.2 MEAN CORPUSCULAR HEMOGLOBIN (BEAKER) (test 28.9 pg 25.7-32.2 clzh=010) MEAN CORPUSCULAR HEMOGLOBIN CONC (BEAKER) (test 32.0 GM/DL 32.3-36.5 uiyw=345) RED CELL DISTRIBUTION WIDTH (BEAKER) (test 14.0 % 11.6-14.4 jycq=490) PLATELET COUNT (BEAKER) (test vtwp=554) 146 K/CU MM 150-450 MEAN PLATELET VOLUME (BEAKER) (test cecl=009) 10.5 fL 9.4-12.4 NUCLEATED RED BLOOD CELLS (BEAKER) (test 0 /100 WBC 0-0 dzrz=582) COMPREHENSIVE METABOLIC [id number] 05:48:00 Test Item Value Reference Range Comments TOTAL PROTEIN (BEAKER) 5.6 gm/dL 6.0-8.3 (test phqu=740) ALBUMIN (BEAKER) (test 3.1 g/dL 3.5-5.0 ypgw=3135) ALKALINE PHOSPHATASE 145 U/L 40-150 (BEAKER) (test virw=261) BILIRUBIN TOTAL (BEAKER) 1.2 mg/dL 0.2-1.2 (test gbgj=151) SODIUM (BEAKER) (test 139 meq/L 136-145 tnmb=481) POTASSIUM (BEAKER) (test 3.4 meq/L 3.5-5.1 pjxe=257) CHLORIDE (BEAKER) (test 101 meq/L 98-107 ayeq=302) CO2 (BEAKER) (test 30 meq/L 22-29 llhn=429) BLOOD UREA NITROGEN 11 mg/dL 7-21 (BEAKER) (test uxnz=371) CREATININE (BEAKER) (test 0.59 mg/dL 0.57-1.25 gsnk=032) GLUCOSE RANDOM (BEAKER) 151 mg/dL 70-105 (test zbvd=724) CALCIUM (BEAKER) (test 8.6 mg/dL 8.4-10.2 dtfg=857) AST (SGOT) (BEAKER) (test 35 U/L 5-34 zsyj=849) ALT (SGPT) (BEAKER) (test 134 U/L 6-55 euni=714) EGFR (BEAKER) (test 130 mL/min/1.73 sq ESTIMATED GFR IS NOT kyfp=4741) m ACCURATE CREATININE CLEARANCE IN PREDICTING GLOMERULAR FILTRATION RATE. ESTIMATED GFR IS NOT APPLICABLE FOR DIALYSIS PATIENTS. POCT-GLUCOSE [id number] 21:00:00 Test Item Value Reference Range Comments POC-GLUCOSE METER (BEAKER) 204 mg/dL 70-110 TESTED AT [address] (test jbnh=8484) [facility] [address] POCT-GLUCOSE [id number] 17:17:00 Test Item Value Reference Range Comments POC-GLUCOSE METER (BEAKER) 156 mg/dL 70-110 TESTED AT [place] [id number] [facility] (test idzr=7175) [facility] [address] POCT-GLUCOSE [id number] 12:42:00 Test Item Value Reference Range Comments POC-GLUCOSE METER (BEAKER) 201 mg/dL 70-110 TESTED AT [facility] [address] [facility] (test haqd=1784) [facility] [address] POCT-GLUCOSE [id number] 08:34:00 Test Item Value Reference Range Comments POC-GLUCOSE METER (BEAKER) 150 mg/dL 70-110 TESTED AT [place] [id number] [facility] (test hofr=5565) [facility] [place] [address] BASIC METABOLIC [id number] 05:20:00 Test Item Value Reference Range Comments SODIUM (BEAKER) (test 138 meq/L 136-145 qaqf=433) POTASSIUM (BEAKER) (test 3.4 meq/L 3.5-5.1 zgtl=879) CHLORIDE (BEAKER) (test 100 meq/L 98-107 rswu=700) CO2 (BEAKER) (test 32 meq/L 22-29 nnuq=468) BLOOD UREA NITROGEN 13 mg/dL 7-21 (BEAKER) (test rsdn=919) CREATININE (BEAKER) (test 0.60 mg/dL 0.57-1.25 dxza=117) GLUCOSE RANDOM (BEAKER) 143 mg/dL 70-105 (test jrwu=497) CALCIUM (BEAKER) (test 8.4 mg/dL 8.4-10.2 ymqb=282) EGFR (BEAKER) (test 128 mL/min/1.73 sq m ESTIMATED GFR IS NOT gyzl=2668) ACCURATE CREATININE CLEARANCE IN PREDICTING GLOMERULAR FILTRATION RATE. ESTIMATED GFR IS NOT APPLICABLE FOR DIALYSIS PATIENTS. CBC (HEMOGRAM ONLY)2018-06-04 05:02:00 Test Item Value Reference Range Comments WHITE BLOOD CELL COUNT (BEAKER) (test deko=070) 6.1 K/ L 3.5-10.5 RED BLOOD CELL COUNT (BEAKER) (test ezzo=751) 4.77 M/ L 4.63-6.08 HEMOGLOBIN (BEAKER) (test mily=162) 13.7 GM/DL 13.7-17.5 HEMATOCRIT (BEAKER) (test yerf=507) 43.0 % 40.1-51.0 MEAN CORPUSCULAR VOLUME (BEAKER) (test jlue=456) 90.1 fL 79.0-92.2 MEAN CORPUSCULAR HEMOGLOBIN (BEAKER) (test 28.7 pg 25.7-32.2 pbus=490) MEAN CORPUSCULAR HEMOGLOBIN CONC (BEAKER) (test 31.9 GM/DL 32.3-36.5 jlcu=181) RED CELL DISTRIBUTION WIDTH (BEAKER) (test 14.0 % 11.6-14.4 wjkm=772) PLATELET COUNT (BEAKER) (test xzvg=485) 139 K/CU MM 150-450 MEAN PLATELET VOLUME (BEAKER) (test wmzk=213) 10.8 fL 9.4-12.4 NUCLEATED RED BLOOD CELLS (BEAKER) (test 0 /100 WBC 0-0 rgsu=150) POCT-GLUCOSE [id number] 20:49:00 Test Item Value Reference Range Comments POC-GLUCOSE METER (BEAKER) 219 mg/dL 70-110 TESTED AT [address] (test qqra=5074) [place] [id number] POCT-GLUCOSE [id number] 16:44:00 Test Item Value Reference Range Comments POC-GLUCOSE METER (BEAKER) 148 mg/dL 70-110 TESTED AT [address] (test iynv=3098) [facility] [place] [address] POCT-GLUCOSE [id number] 12:31:00 Test Item Value Reference Range Comments POC-GLUCOSE METER (BEAKER) 206 mg/dL 70-110 TESTED AT [address] (test gbww=1404) [facility] [place] [address] CBC W/PLT COUNT & AUTO [id number] 08:49:00 Test Item Value Reference Range Comments WHITE BLOOD CELL COUNT (BEAKER) (test ynap=168) 9.0 K/ L 3.5-10.5 RED BLOOD CELL COUNT (BEAKER) (test oajt=750) 4.85 M/ L 4.63-6.08 HEMOGLOBIN (BEAKER) (test cajc=127) 14.1 GM/DL 13.7-17.5 HEMATOCRIT (BEAKER) (test zorg=428) 44.4 % 40.1-51.0 MEAN CORPUSCULAR VOLUME (BEAKER) (test uixi=791) 91.5 fL 79.0-92.2 MEAN CORPUSCULAR HEMOGLOBIN (BEAKER) (test 29.1 pg 25.7-32.2 bhsb=910) MEAN CORPUSCULAR HEMOGLOBIN CONC (BEAKER) (test 31.8 GM/DL 32.3-36.5 bufh=634) RED CELL DISTRIBUTION WIDTH (BEAKER) (test 14.0 % 11.6-14.4 omtg=154) PLATELET COUNT (BEAKER) (test earq=265) 145 K/CU MM 150-450 MEAN PLATELET VOLUME (BEAKER) (test nsko=364) 10.8 fL 9.4-12.4 NUCLEATED RED BLOOD CELLS (BEAKER) (test 0 /100 WBC 0-0 ihzd=924) NEUTROPHILS RELATIVE PERCENT (BEAKER) (test 82 % lzee=956) LYMPHOCYTES RELATIVE PERCENT (BEAKER) (test 7 % psle=048) MONOCYTES RELATIVE PERCENT (BEAKER) (test 9 % fbca=767) EOSINOPHILS RELATIVE PERCENT (BEAKER) (test 0 % wepp=659) BASOPHILS RELATIVE PERCENT (BEAKER) (test 0 % lrbd=039) NEUTROPHILS ABSOLUTE COUNT (BEAKER) (test 7.40 K/ L 1.78-5.38 jdxh=598) LYMPHOCYTES ABSOLUTE COUNT (BEAKER) (test 0.65 K/ L 1.32-3.57 vhre=284) MONOCYTES ABSOLUTE COUNT (BEAKER) (test 0.78 K/ L 0.30-0.82 bipk=304) EOSINOPHILS ABSOLUTE COUNT (BEAKER) (test 0.04 K/ L 0.04-0.54 maws=316) BASOPHILS ABSOLUTE COUNT (BEAKER) (test 0.03 K/ L 0.01-0.08 usvm=721) IMMATURE GRANULOCYTES-RELATIVE PERCENT (BEAKER) 1 % 0-1 (test nqin=5586) POCT-GLUCOSE [id number] 08:22:00 Test Item Value Reference Range Comments POC-GLUCOSE METER (BEAKER) 158 mg/dL 70-110 TESTED AT [facility] [address] [facility] (test byzw=2101) [facility] [place] [address] VANCOMYCIN LEVEL, [id number] 07:54:00 Test Item Value Reference Range Comments VANCOMYCIN TROUGH (BEAKER) (test vich=835) 10.9 ug/mL 10.0-20.0 BASIC METABOLIC [id number] 07:49:00 Test Item Value Reference Range Comments SODIUM (BEAKER) (test 137 meq/L 136-145 qyfb=087) POTASSIUM (BEAKER) (test 3.5 meq/L 3.5-5.1 qpkv=453) CHLORIDE (BEAKER) (test 100 meq/L 98-107 olrn=266) CO2 (BEAKER) (test 28 meq/L 22-29 urhj=322) BLOOD UREA NITROGEN 19 mg/dL 7-21 (BEAKER) (test hyty=410) CREATININE (BEAKER) (test 0.66 mg/dL 0.57-1.25 bebg=347) GLUCOSE RANDOM (BEAKER) 149 mg/dL 70-105 (test xvuu=940) CALCIUM (BEAKER) (test 8.5 mg/dL 8.4-10.2 rvgb=193) EGFR (BEAKER) (test 114 mL/min/1.73 sq m ESTIMATED GFR IS NOT decx=3335) ACCURATE CREATININE CLEARANCE IN PREDICTING GLOMERULAR FILTRATION RATE. ESTIMATED GFR IS NOT APPLICABLE FOR DIALYSIS PATIENTS. Specimen slightly ictericHEPATIC FUNCTION [id number] 07:49:00 Test Item Value Reference Range Comments TOTAL PROTEIN (BEAKER) (test wnwy=062) 5.9 gm/dL 6.0-8.3 ALBUMIN (BEAKER) (test oguf=7643) 3.4 g/dL 3.5-5.0 BILIRUBIN TOTAL (BEAKER) (test iebf=590) 2.5 mg/dL 0.2-1.2 BILIRUBIN DIRECT (BEAKER) (test rsff=263) 1.8 mg/dL 0.1-0.5 ALKALINE PHOSPHATASE (BEAKER) (test yqyq=018) 134 U/L 40-150 AST (SGOT) (BEAKER) (test sopl=682) 117 U/L 5-34 ALT (SGPT) (BEAKER) (test ynro=796) 259 U/L 6-55 Specimen slightly ictericPOCT-GLUCOSE [id number] 21:25:00 Test Item Value Reference Range Comments POC-GLUCOSE METER (BEAKER) 223 mg/dL 70-110 TESTED AT [address] (test kodh=2005) [facility] [address] POCT-GLUCOSE [id number] 17:09:00 Test Item Value Reference Range Comments POC-GLUCOSE METER (BEAKER) 161 mg/dL 70-110 TESTED AT [address] (test vafb=1180) [facility] [address] POCT-GLUCOSE [id number] 10:58:00 Test Item Value Reference Range Comments POC-GLUCOSE METER (BEAKER) 113 mg/dL 70-110 TESTED AT [facility] [address] [facility] (test yuym=7490) [facility] [address] CBC W/PLT COUNT & AUTO [id number] 09:48:00 Test Item Value Reference Range Comments WHITE BLOOD CELL COUNT (BEAKER) (test tdqx=866) 16.1 K/ L 3.5-10.5 RED BLOOD CELL COUNT (BEAKER) (test jgea=202) 4.85 M/ L 4.63-6.08 HEMOGLOBIN (BEAKER) (test veeg=539) 13.8 GM/DL 13.7-17.5 HEMATOCRIT (BEAKER) (test aial=372) 43.6 % 40.1-51.0 MEAN CORPUSCULAR VOLUME (BEAKER) (test jubf=470) 89.9 fL 79.0-92.2 MEAN CORPUSCULAR HEMOGLOBIN (BEAKER) (test 28.5 pg 25.7-32.2 wqfg=410) MEAN CORPUSCULAR HEMOGLOBIN CONC (BEAKER) (test 31.7 GM/DL 32.3-36.5 wgqu=901) RED CELL DISTRIBUTION WIDTH (BEAKER) (test 14.2 % 11.6-14.4 exic=520) PLATELET COUNT (BEAKER) (test emla=617) 181 K/CU MM 150-450 MEAN PLATELET VOLUME (BEAKER) (test lklv=756) 10.8 fL 9.4-12.4 NUCLEATED RED BLOOD CELLS (BEAKER) (test 0 /100 WBC 0-0 jlgx=677) NEUTROPHILS RELATIVE PERCENT (BEAKER) (test 87 % blgg=866) LYMPHOCYTES RELATIVE PERCENT (BEAKER) (test 5 % imnf=150) MONOCYTES RELATIVE PERCENT (BEAKER) (test 7 % pocr=228) EOSINOPHILS RELATIVE PERCENT (BEAKER) (test 0 % yqma=627) BASOPHILS RELATIVE PERCENT (BEAKER) (test 0 % zprq=352) NEUTROPHILS ABSOLUTE COUNT (BEAKER) (test 13.95 K/ L 1.78-5.38 qwac=224) LYMPHOCYTES ABSOLUTE COUNT (BEAKER) (test 0.81 K/ L 1.32-3.57 sxub=964) MONOCYTES ABSOLUTE COUNT (BEAKER) (test 1.17 K/ L 0.30-0.82 meop=522) EOSINOPHILS ABSOLUTE COUNT (BEAKER) (test 0.01 K/ L 0.04-0.54 jvfa=886) BASOPHILS ABSOLUTE COUNT (BEAKER) (test 0.02 K/ L 0.01-0.08 zmdz=483) IMMATURE GRANULOCYTES-RELATIVE PERCENT (BEAKER) 1 % 0-1 (test esrl=1630) POCT-GLUCOSE [id number] 08:08:00 Test Item Value Reference Range Comments POC-GLUCOSE METER (BEAKER) 175 mg/dL 70-110 TESTED AT [facility] [address] [facility] (test ncem=3415) [facility] [address] BASIC METABOLIC [id number] 05:28:00 Test Item Value Reference Range Comments SODIUM (BEAKER) (test 141 meq/L 136-145 djjo=052) POTASSIUM (BEAKER) (test 3.7 meq/L 3.5-5.1 Specimen slightly fdda=061) hemolyzed CHLORIDE (BEAKER) (test 104 meq/L 98-107 oamr=830) CO2 (BEAKER) (test 27 meq/L 22-29 qoir=746) BLOOD UREA NITROGEN 23 mg/dL 7-21 (BEAKER) (test qftl=519) CREATININE (BEAKER) (test 0.82 mg/dL 0.57-1.25 Specimen slightly vecv=714) hemolyzed GLUCOSE RANDOM (BEAKER) 158 mg/dL 70-105 (test hfzn=935) CALCIUM (BEAKER) (test 9.0 mg/dL 8.4-10.2 khux=094) EGFR (BEAKER) (test 89 mL/min/1.73 sq m ESTIMATED GFR IS NOT icxo=9164) ACCURATE CREATININE CLEARANCE IN PREDICTING GLOMERULAR FILTRATION RATE. ESTIMATED GFR IS NOT APPLICABLE FOR DIALYSIS PATIENTS. Specimen slightly ictericHEPATIC FUNCTION [id number] 05:28:00 Test Item Value Reference Range Comments TOTAL PROTEIN (BEAKER) (test 6.0 gm/dL 6.0-8.3 Specimen slightly hemolyzed vpbz=573) ALBUMIN (BEAKER) (test 3.4 g/dL 3.5-5.0 Specimen slightly hemolyzed ccca=8973) BILIRUBIN TOTAL (BEAKER) (test 5.7 mg/dL 0.2-1.2 Specimen slightly hemolyzed sghe=163) BILIRUBIN DIRECT (BEAKER) (test 4.0 mg/dL 0.1-0.5 Specimen slightly hemolyzed gzvv=617) ALKALINE PHOSPHATASE (BEAKER) 129 U/L 40-150 (test qafv=914) AST (SGOT) (BEAKER) (test 216 U/L 5-34 Specimen slightly hemolyzed gsqd=326) ALT (SGPT) (BEAKER) (test 358 U/L 6-55 Specimen slightly hemolyzed ssjw=304) Specimen slightly ictericFL, [id number] 00:14:00Reason for exam:-> CHOLEDOCHOLITHIASISFINAL REPORT ERCP: Comparison exam: Three C-arm images are provided. Introduction of contrast demonstrates multiple possible filling defects within the common bile duct. The final image demonstrates a stent placed across the common bile duct. A radiologist was not present duringthe performance of the procedure. Please see the procedure note for additional details. Fluoroscopy total 50.2 seconds Signed: Boris Valverde MDReport Verified Date/Time: 06/02/2018 00:14:16 Reading Location: [address] Reading Room POCT-GLUCOSE [id number] 23:14:00 Test Item Value Reference Range Comments POC-GLUCOSE METER (BEAKER) 176 mg/dL 70-110 TESTED AT [address] (test eost=6440) [place] [address] LACTIC ACID, VENOUS, WHOLE [id number] 17:47:00 Test Item Value Reference Range Comments LACTATE BLOOD VENOUS (2) 2.4 mmol/L 0.5-2.2 Specimen slightly hemolyzed (BEAKER) (test efob=4348) Specimen slightly ictericPOCT-GLUCOSE [id number] 17:31:00 Test Item Value Reference Range Comments POC-GLUCOSE METER (BEAKER) 219 mg/dL 70-110 TESTED AT [address] (test xscv=9812) [place] [address] POCT-GLUCOSE [id number] 13:48:00 Test Item Value Reference Range Comments POC-GLUCOSE METER (BEAKER) 209 mg/dL 70-110 TESTED AT [address] (test ncys=7876) [facility] [address] CBC W/PLT COUNT & AUTO [id number] 08:21:00 Test Item Value Reference Range Comments WHITE BLOOD CELL COUNT (BEAKER) (test rrfo=442) 21.6 K/ L 3.5-10.5 RED BLOOD CELL COUNT (BEAKER) (test hsqs=670) 5.77 M/ L 4.63-6.08 HEMOGLOBIN (BEAKER) (test rorc=484) 16.3 GM/DL 13.7-17.5 HEMATOCRIT (BEAKER) (test yxua=179) 52.1 % 40.1-51.0 MEAN CORPUSCULAR VOLUME (BEAKER) (test pgsq=598) 90.3 fL 79.0-92.2 MEAN CORPUSCULAR HEMOGLOBIN (BEAKER) (test 28.2 pg 25.7-32.2 ylem=454) MEAN CORPUSCULAR HEMOGLOBIN CONC (BEAKER) (test 31.3 GM/DL 32.3-36.5 dzqd=226) RED CELL DISTRIBUTION WIDTH (BEAKER) (test 13.8 % 11.6-14.4 fuxc=375) PLATELET COUNT (BEAKER) (test shhd=826) 262 K/CU MM 150-450 MEAN PLATELET VOLUME (BEAKER) (test gosq=141) 10.7 fL 9.4-12.4 NUCLEATED RED BLOOD CELLS (BEAKER) (test 0 /100 WBC 0-0 drus=409) (CELLAVISION MANUAL DIFF)2018-06-01 08:21:00 Test Item Value Reference Range Comments NEUTROPHILS - REL (CELLAVISION)(BEAKER) (test 65 % wjdd=2702) LYMPHOCYTES - REL (CELLAVISION)(BEAKER) (test 1 % xell=4426) MONOCYTES - REL (CELLAVISION)(BEAKER) (test 3 % vltw=0470) BANDS - REL (CELLAVISION)(BEAKER) (test 30 % 0-10 eofh=7324) ATYPICAL LYMPHOCYTES - REL (CELLAVISION)(BEAKER) 1 % 0-0 (test bicd=0746) NEUTROPHILS - ABS (CELLAVISION)(BEAKER) (test 14.04 K/ul 1.78-5.38 nmkw=9384) LYMPHOCYTES - ABS (CELLAVISION)(BEAKER) (test 0.22 K/ul 1.32-3.57 silx=7080) MONOCYTES - ABS (CELLAVISION)(BEAKER) (test 0.65 K/uL 0.30-0.82 wggv=9824) BANDS - ABS (CELLAVISION)(BEAKER) (test 6.48 K/uL 0.00-0.80 iyaz=5165) ATYPICAL LYMPHOCYTES - ABS (CELLAVISION)(BEAKER) 0.22 K/uL 0.00-0.00 (test rzdc=8678) TOTAL COUNTED (BEAKER) (test ehhd=7070) 100 WBC MORPHOLOGY (BEAKER) (test cmfj=219) Normal PLT MORPHOLOGY (BEAKER) (test vuvc=430) Normal POIKILOCYTES (BEAKER) (test xhkr=716) 1+ few ARTIFACT (CELLAVISION)(BEAKER) (test clju=5812) Present PLATELET CONCENTRATION (CELLAVISION)(BEAKER) Adequate (test yrbi=5066) Received comment: User comments: Slide comments:BASIC METABOLIC [id number] 08:12:00 Test Item Value Reference Range Comments SODIUM (BEAKER) (test 137 meq/L 136-145 smrh=588) POTASSIUM (BEAKER) (test 4.0 meq/L 3.5-5.1 xfif=992) CHLORIDE (BEAKER) (test 99 meq/L 98-107 qqlw=597) CO2 (BEAKER) (test 20 meq/L 22-29 qiyk=464) BLOOD UREA NITROGEN 18 mg/dL 7-21 (BEAKER) (test dgqn=781) CREATININE (BEAKER) (test 0.83 mg/dL 0.57-1.25 jxmi=290) GLUCOSE RANDOM (BEAKER) 213 mg/dL 70-105 (test vfkt=182) CALCIUM (BEAKER) (test 9.6 mg/dL 8.4-10.2 fpak=737) EGFR (BEAKER) (test 88 mL/min/1.73 sq m ESTIMATED GFR IS NOT qlad=2499) ACCURATE CREATININE CLEARANCE IN PREDICTING GLOMERULAR FILTRATION RATE. ESTIMATED GFR IS NOT APPLICABLE FOR DIALYSIS PATIENTS. Specimen moderately ictericHEPATIC FUNCTION [id number] 08:12:00 Test Item Value Reference Range Comments TOTAL PROTEIN (BEAKER) (test cxlr=238) 7.3 gm/dL 6.0-8.3 ALBUMIN (BEAKER) (test jdea=2240) 4.4 g/dL 3.5-5.0 BILIRUBIN TOTAL (BEAKER) (test dgfm=089) 5.6 mg/dL 0.2-1.2 BILIRUBIN DIRECT (BEAKER) (test jfrw=492) 3.9 mg/dL 0.1-0.5 ALKALINE PHOSPHATASE (BEAKER) (test komq=563) 166 U/L 40-150 AST (SGOT) (BEAKER) (test mpdx=144) 497 U/L 5-34 ALT (SGPT) (BEAKER) (test fkbf=356) 492 U/L 6-55 Specimen moderately ictericPOCT-GLUCOSE [id number] 06:47:00 Test Item Value Reference Range Comments POC-GLUCOSE METER (BEAKER) 222 mg/dL 70-110 TESTED AT [facility] [address] [facility] (test gcxh=8084) [facility] [address]
--- OUTSIDE RECORDS SUMMARY | 2019-01-26 12:23 | XMS REPORT | Clinical Summary ---
:1930 Author Organization [facility] Address [address] [place] [address] Care Team Providers Name Role Phone Unavailable Primary Care Provider Unavailable Allergies Active Allergy Reactions Severity Noted Date Comments Codeine 06/01/2018 "Weird dreams" Medications Medication Sig Dispensed Refills Start Date End Date Status DULoxetine Take 60 mg by 0 Active (CYMBALTA) 60 MG mouth daily. capsuleIndications : Diabetic Peripheral Neuropathy finasteride Take 5 mg by 0 Active (PROSCAR) 5 mg mouth daily. tabletIndications: benign prostatic hyperplasia with lower urinary tract sx omega-3 fatty Take 1 g by mouth 0 Active acids-fish oil 2 (two) times 340-1,000 mg Cap daily. per capsule furosemide (LASIX) Take 20 mg by 0 Active 20 MG mouth 2 (two) tabletIndications: times daily. edema metFORMIN Take 500 mg by 0 Active (GLUCOPHAGE) 500 mouth 2 (two) MG tablet times daily with breakfast and dinner. rivaroxaban Take 20 mg by 0 Active (XARELTO) 20 mg mouth daily with Tab tablet dinner. simvastatin Take 40 mg by 0 Active (ZOCOR) 40 MG mouth nightly. tablet sotalol AF Take 80 mg by 0 Active (BETAPACE AF) 80 mouth 2 (two) MG tablet times daily. tamsulosin Take 0.4 mg by 0 Active (FLOMAX) 0.4 mg mouth nightly. Cap 24 hr capsule aspirin 81 MG EC Take 81 mg by 0 Active tablet mouth daily. psyllium 0.52 gram Take 0.52 g by 0 Active capsule mouth 2 (two) times daily. calcium carbonate Take 1 tablet 0 06/09/2018 Active (TUMS) 500 mg (500 mg total) by chewable tablet mouth daily. acetaminophen Take 1 tablet 20 tablet 0 06/09/2018 Active (TYLENOL) 325 MG (325 mg total) by tablet mouth every 6 (six) hours as needed for Pain. calcium carbonate Take 1 tablet by 0 Discontinued (TUMS) 500 mg mouth 3 (three) 8 chewable tablet times daily with meals. polyethylene Take 17 g by 510 g 0 06/10/2018 glycol (GLYCOLAX) mouth daily for 9 17 gram packet 30 days. senna-docusate Take 1 tablet by 60 tablet 0 06/09/2018 (SENOKOT S) 8.6-50 mouth 2 (two) 9 mg per tablet times daily as needed for Constipation for up to 30 days. Active Problems Problem Noted Date Gallstones with biliary obstruction 06/01/2018 Encounters Date Type Specialty Care Team Description 06/08/2018 Anesthesia Event Cole Ochoa MD 06/08/2018 Surgery [place], LAPAROSCOPY,CHOLECYSTECT SARAH Fournier MD 06/06/2018 Anesthesia Event Dyan Duarte MD 06/06/2018 Anesthesia Event Gastroenterology Carola Morales, REAL ESTATE DEVELOPMENT MANAGER 06/06/2018 Surgery Gastroenterology Micaela, ERCP,BALLOON SWEEPING Sameer Traore MD 06/03/2018 Orders Only General Internal Medicine 06/01/2018 Anesthesia Event Gastroenterology Bonnie Capone, REAL ESTATE DEVELOPMENT MANAGER 06/01/2018 Surgery Gastroenterology Sharla, ERCP Jl Fox MD 06/01/2018 [facility] [place] Gallstones with biliary obstruction (Primary Dx); - Encounter Anmol-Omar Choledocholithiasis with acute cholecystitis; 06/09/2018 [place], Depression, unspecified depression type; Hyperlipidemia, unspecified hyperlipidemia type; Changela, Atrial fibrillation, unspecified type (HCC) MD Royce Hay Amna, MD Pathak, Yashash D Tirukkovallur i, Srilakshmi, MD after 01/25/2018 Social History Tobacco Use Types Packs/Day Years Used Date Former Smoker Smokeless Tobacco: Never Used Sex Assigned at Date Recorded Not on file Job Start Date Occupation Industry Not on file Not on file Not on file Travel History Travel Start Travel End No recent travel history available. Last Filed Vital Signs Vital Sign Reading Time Taken Blood Pressure 118/61 06/09/2018 2:20 PM RESUME SPECIALIST Pulse 62 06/09/2018 2:20 PM RESUME SPECIALIST Temperature 36.5 C (97.7 F) 06/09/2018 2:20 PM RESUME SPECIALIST Respiratory Rate 17 06/09/2018 2:20 PM RESUME SPECIALIST Oxygen Saturation 93% 06/09/2018 2:20 PM RESUME SPECIALIST Inhaled Oxygen Concentration - - Weight 106 kg (233 lb 9.6 oz) 06/01/2018 1:02 AM RESUME SPECIALIST Height 177.8 cm (5' 10") 06/01/2018 6:08 PM RESUME SPECIALIST Body Mass Index 33.52 06/01/2018 1:02 AM RESUME SPECIALIST Plan of Treatment Not on file Implants Explanted Type Area Flight Engineer Device Shelf Model / Identifier Expiration Serial / Lot Date Stent Bili Advanix [id number] - [facility]#[id number] Stents-Pe [place] [id number] / Implanted: Qty: 1 on 06/01/2018 by Jl Magdaleno MD [facility] SCI: PERIPHERAL REF#[id number] / Explanted: Qty: 1 on 06/06/2018 INTERV [id number] Procedures Procedure Name Priority Date/Time Associated Diagnosis Comments RHYTHM STRIP - SCAN 09/12/2018 9:20 AM CDT ARRYTHMIA IMPLANT 08/18/2018 3:51 PM REPORT - SCAN RESUME SPECIALIST ARRYTHMIA IMPLANT 06/24/2018 9:40 AM REPORT - SCAN RESUME SPECIALIST RHYTHM STRIP - SCAN 06/24/2018 9:40 AM RESUME SPECIALIST REPORT OF PROCEDURE 06/11/2018 11:22 AM - ENDOSCOPY URL RESUME SPECIALIST POCT-GLUCOSE METER Routine 06/09/2018 6:39 PM Results for this RESUME SPECIALIST procedure are in the results section. POCT-GLUCOSE METER Routine 06/09/2018 11:43 AM Results for this RESUME SPECIALIST procedure are in the results section. POCT-GLUCOSE METER Routine 06/09/2018 8:02 AM Results for this RESUME SPECIALIST procedure are in the results section. ECG 12-LEAD Routine 06/09/2018 6:25 AM RESUME SPECIALIST Procedure Note - Interface, External Ris In - 06/09/2018 6:29 AM RESUME SPECIALIST Ventricular Rate 68 BPM Atrial Rate 113 BPM QRS Duration 116 ms Q-T Interval 460 ms QTC Calculation(Bazett) 489 ms R Van Horne -53 degrees T Van Horne -68 degrees Atrial fibrillation Left axis deviation Possible Lateral infarct , age undetermined Inferior infarct , age undetermined Abnormal ECG When compared with ECG of 03-JUN-2018 05:43, No significant change was found ECG 12-LEAD Routine 06/09/2018 6:25 Results for AM RESUME SPECIALIST this procedure are in the results section. B-TYPE NATRIURETIC Routine 06/09/2018 5:49 Results for FACTOR (BNP) AM RESUME SPECIALIST this procedure are in the results section. POCT-GLUCOSE METER Routine 06/08/2018 9:37 Results for PM RESUME SPECIALIST this procedure are in the results section. XR CHEST 1 VIEW STAT 06/08/2018 6:20 Results for PORTABLE/BEDSIDE PM RESUME SPECIALIST this procedure are in the results section. POCT-GLUCOSE METER Routine 06/08/2018 4:05 Results for PM RESUME SPECIALIST this procedure are in the results section. TISSUE EXAM AP Routine 06/08/2018 2:44 Results for PM RESUME SPECIALIST this procedure are in the results section. LAPAROSCOPY,CHOLECYS 06/08/2018 1:45 Choledocholithiasis TECTOMY PM RESUME SPECIALIST POCT-GLUCOSE METER Routine 06/08/2018 11:31 Results for AM RESUME SPECIALIST this procedure are in the results section. POCT-GLUCOSE METER Routine 06/08/2018 8:43 Results for AM RESUME SPECIALIST this procedure are in the results section. POCT-GLUCOSE METER Routine 06/08/2018 7:05 Results for AM RESUME SPECIALIST this procedure are in the results section. CBC W/PLT COUNT & Routine 06/08/2018 6:36 Results for AUTO DIFFERENTIAL AM RESUME SPECIALIST this procedure are in the results section. PROTHROMBIN TIME/INR Routine 06/08/2018 6:36 Results for AM RESUME SPECIALIST this procedure are in the results section. HEPATIC FUNCTION Routine 06/08/2018 6:36 Results for PANEL AM RESUME SPECIALIST this procedure are in the results section. PHOSPHORUS Routine 06/08/2018 6:36 Results for AM RESUME SPECIALIST this procedure are in the results section. MAGNESIUM Routine 06/08/2018 6:36 Results for AM RESUME SPECIALIST this procedure are in the results section. BASIC METABOLIC Routine 06/08/2018 6:36 Results for PANEL (7) AM RESUME SPECIALIST this procedure are in the results section. CBC W/PLT COUNT & Routine 06/08/2018 6:36 Results for AUTO DIFFERENTIAL AM RESUME SPECIALIST this procedure are in the results section. POCT-GLUCOSE METER Routine 06/07/2018 9:01 Results for PM RESUME SPECIALIST this procedure are in the results section. CBC W/PLT COUNT & Routine 06/07/2018 7:00 Results for AUTO DIFFERENTIAL PM RESUME SPECIALIST this procedure are in the results section. PROTHROMBIN TIME/INR Routine 06/07/2018 7:00 Results for PM RESUME SPECIALIST this procedure are in the results section. HEPATIC FUNCTION Routine 06/07/2018 7:00 Results for PANEL PM RESUME SPECIALIST this procedure are in the results section. PHOSPHORUS Routine 06/07/2018 7:00 Results for PM RESUME SPECIALIST this procedure are in the results section. MAGNESIUM Routine 06/07/2018 7:00 Results for PM RESUME SPECIALIST this procedure are in the results section. BASIC METABOLIC Routine 06/07/2018 7:00 Results for PANEL (7) PM RESUME SPECIALIST this procedure are in the results section. CBC W/PLT COUNT & Routine 06/07/2018 7:00 Results for AUTO DIFFERENTIAL PM RESUME SPECIALIST this procedure are in the results section. POCT-GLUCOSE METER Routine 06/07/2018 5:54 Results for PM RESUME SPECIALIST this procedure are in the results section. TRANSFUSION SERVICE 06/07/2018 5:52 REPORT - SCAN PM RESUME SPECIALIST ECHOCARDIOGRAM 06/07/2018 12:20 REPORT - SCAN PM RESUME SPECIALIST PERIPHERAL VASCULAR 06/07/2018 12:20 REPORT - SCAN PM RESUME SPECIALIST POCT-GLUCOSE METER Routine 06/07/2018 11:44 Results for AM RESUME SPECIALIST this procedure are in the results section. STRESS ECHO WITH Routine 06/07/2018 9:25 Results for CONTRAST & TRACING AM RESUME SPECIALIST this procedure are in the results section. POCT-GLUCOSE METER Routine 06/07/2018 8:48 Results for AM RESUME SPECIALIST this procedure are in the results section. 2D ECHO W/ DOPPLER Routine 06/07/2018 7:55 Results for (CW/PW/COLOR) AM RESUME SPECIALIST this procedure are in the results section. POCT-GLUCOSE METER Routine 06/06/2018 9:17 Results for PM RESUME SPECIALIST this procedure are in the results section. POCT-GLUCOSE METER Routine 06/06/2018 5:22 Results for PM RESUME SPECIALIST this procedure are in the results section. TYPE AND SCREEN, Routine 06/06/2018 4:44 Results for AUTOMATED PM RESUME SPECIALIST this procedure are in the results section. POCT-GLUCOSE METER Routine 06/06/2018 2:57 Results for PM RESUME SPECIALIST this procedure are in the results section. FL ERCP Routine 06/06/2018 11:55 Results for AM RESUME SPECIALIST this procedure are in the results section. COMPREHENSIVE Routine 06/06/2018 10:02 Results for METABOLIC PANEL AM RESUME SPECIALIST this procedure are in the results section. PROCEDURE W/ C-ARM 06/06/2018 10:00 Common bile duct (CBD) AM RESUME SPECIALIST obstruction ERCP,BALLOON 06/06/2018 10:00 Common bile duct (CBD) SWEEPING AM RESUME SPECIALIST obstruction POCT-GLUCOSE METER Routine 06/06/2018 8:55 Results for AM RESUME SPECIALIST this procedure are in the results section. CBC (HEMOGRAM ONLY) Routine 06/06/2018 5:30 Results for AM RESUME SPECIALIST this procedure are in the results section. POCT-GLUCOSE METER Routine 06/05/2018 9:02 Results for PM RESUME SPECIALIST this procedure are in the results section. POCT-GLUCOSE METER Routine 06/05/2018 6:24 Results for PM RESUME SPECIALIST this procedure are in the results section. POCT-GLUCOSE METER Routine 06/05/2018 12:37 Results for PM RESUME SPECIALIST this procedure are in the results section. POCT-GLUCOSE METER Routine 06/05/2018 8:24 Results for AM RESUME SPECIALIST this procedure are in the results section. POCT-GLUCOSE METER Routine 06/05/2018 7:35 Results for AM RESUME SPECIALIST this procedure are in the results section. CBC (HEMOGRAM ONLY) Routine 06/05/2018 6:37 Results for AM RESUME SPECIALIST this procedure are in the results section. COMPREHENSIVE Routine 06/05/2018 5:00 Results for METABOLIC PANEL AM RESUME SPECIALIST this procedure are in the results section. VANCOMYCIN LEVEL, Timed 06/05/2018 5:00 Results for TROUGH AM RESUME SPECIALIST this procedure are in the results section. POCT-GLUCOSE METER Routine 06/04/2018 8:58 Results for PM RESUME SPECIALIST this procedure are in the results section. POCT-GLUCOSE METER Routine 06/04/2018 5:15 Results for PM RESUME SPECIALIST this procedure are in the results section. POCT-GLUCOSE METER Routine 06/04/2018 12:34 Results for PM RESUME SPECIALIST this procedure are in the results section. POCT-GLUCOSE METER Routine 06/04/2018 7:59 Results for AM RESUME SPECIALIST this procedure are in the results section. BASIC METABOLIC Routine 06/04/2018 4:37 Results for PANEL (7) AM RESUME SPECIALIST this procedure are in the results section. CBC (HEMOGRAM ONLY) Routine 06/04/2018 4:37 Results for AM RESUME SPECIALIST this procedure are in the results section. POCT-GLUCOSE METER Routine 06/03/2018 8:41 Results for PM RESUME SPECIALIST this procedure are in the results section. POCT-GLUCOSE METER Routine 06/03/2018 4:42 Results for PM RESUME SPECIALIST this procedure are in the results section. POCT-GLUCOSE METER Routine 06/03/2018 11:22 Results for AM RESUME SPECIALIST this procedure are in the results section. POCT-GLUCOSE METER Routine 06/03/2018 7:37 Results for AM RESUME SPECIALIST this procedure are in the results section. CBC W/PLT COUNT & Routine 06/03/2018 6:12 Results for AUTO DIFFERENTIAL AM RESUME SPECIALIST this procedure are in the results section. VANCOMYCIN LEVEL, Timed 06/03/2018 6:12 Results for TROUGH AM RESUME SPECIALIST this procedure are in the results section. CBC W/PLT COUNT & Routine 06/03/2018 6:12 Results for AUTO DIFFERENTIAL AM RESUME SPECIALIST this procedure are in the results section. HEPATIC FUNCTION Routine 06/03/2018 6:12 Results for PANEL AM RESUME SPECIALIST this procedure are in the results section. BASIC METABOLIC Routine 06/03/2018 6:12 Results for PANEL (7) AM RESUME SPECIALIST this procedure are in the results section. ECG 12-LEAD Routine 06/03/2018 5:43 Results for AM RESUME SPECIALIST this procedure are in the results section. ECG 12-LEAD Routine 06/03/2018 5:43 AM RESUME SPECIALIST Procedure Note - Interface, External Ris In - 06/03/2018 10:14 AM RESUME SPECIALIST Ventricular Rate 76 BPM Atrial Rate 86 BPM QRS Duration 114 ms Q-T Interval 396 ms QTC Calculation(Bazett) 445 ms R Van Horne -18 degrees T Van Horne 260 degrees Atrial fibrillation with premature ventricular or aberrantly conducted complexes Low voltage QRS Incomplete left bundle branch block Nonspecific T wave abnormality Abnormal ECG No previous ECGs available POCT-GLUCOSE METER Routine 06/02/2018 9:23 PM Results for this RESUME SPECIALIST procedure are in the results section. POCT-GLUCOSE METER Routine 06/02/2018 5:03 PM Results for this RESUME SPECIALIST procedure are in the results section. POCT-GLUCOSE METER Routine 06/02/2018 10:36 AM Results for this RESUME SPECIALIST procedure are in the results section. CBC W/PLT COUNT & STAT 06/02/2018 9:25 AM Results for this AUTO DIFFERENTIAL RESUME SPECIALIST procedure are in the results section. CBC W/PLT COUNT & STAT 06/02/2018 9:25 AM Results for this AUTO DIFFERENTIAL RESUME SPECIALIST procedure are in the results section. POCT-GLUCOSE METER Routine 06/02/2018 7:55 AM Results for this RESUME SPECIALIST procedure are in the results section. HEPATIC FUNCTION Routine 06/02/2018 4:35 AM Results for this PANEL RESUME SPECIALIST procedure are in the results section. BASIC METABOLIC PANEL Routine 06/02/2018 4:35 AM Results for this (7) RESUME SPECIALIST procedure are in the results section. POCT-GLUCOSE METER Routine 06/01/2018 11:12 PM Results for this RESUME SPECIALIST procedure are in the results section. REPORT OF PROCEDURE - 06/01/2018 9:45 PM ENDOSCOPY URL RESUME SPECIALIST FL ERCP Routine 06/01/2018 9:45 PM Results for this RESUME SPECIALIST procedure are in the results section. ERCP,BILIARY STENT 06/01/2018 8:00 PM Choledocholithiasis RESUME SPECIALIST ERCP 06/01/2018 8:00 PM Choledocholithiasis RESUME SPECIALIST BLOOD CULTURE Routine 06/01/2018 7:25 PM Results for this RESUME SPECIALIST procedure are in the results section. BLOOD CULTURE Routine 06/01/2018 7:25 PM Results for this RESUME SPECIALIST procedure are in the results section. POCT-GLUCOSE METER Routine 06/01/2018 5:29 PM Results for this RESUME SPECIALIST procedure are in the results section. LACTIC ACID, VENOUS Routine 06/01/2018 5:08 PM Results for this RESUME SPECIALIST procedure are in the results section. POCT-GLUCOSE METER Routine 06/01/2018 12:01 PM Results for this RESUME SPECIALIST procedure are in the results section. (CELLAVISION MANUAL Routine 06/01/2018 6:54 AM Results for this DIFF) RESUME SPECIALIST procedure are in the results section. CBC W/PLT COUNT & Routine 06/01/2018 6:54 AM Results for this AUTO DIFFERENTIAL RESUME SPECIALIST procedure are in the results section. CBC W/PLT COUNT & Routine 06/01/2018 6:54 AM Results for this AUTO DIFFERENTIAL RESUME SPECIALIST procedure are in the results section. HEPATIC FUNCTION Routine 06/01/2018 6:54 AM Results for this PANEL RESUME SPECIALIST procedure are in the results section. BASIC METABOLIC PANEL Routine 06/01/2018 6:54 AM Results for this (7) RESUME SPECIALIST procedure are in the results section. POCT-GLUCOSE METER Routine 06/01/2018 6:44 AM Results for this RESUME SPECIALIST procedure are in the results section. after 01/25/2018 Results RHYTHM STRIP - SCAN (09/12/2018 9:20 AM CDT)Only the most recent of2 resultswithin the time period is included. Narrative Performed At ARRYTHMIA IMPLANT REPORT - SCAN (08/18/2018 3:51 PM RESUME SPECIALIST)Only the most recent of2 resultswithin the time period is included. Narrative Performed At REPORT OF PROCEDURE - ENDOSCOPY URL (06/11/2018 11:22 AM RESUME SPECIALIST) Narrative Performed At POC-Glucose meter (06/09/2018 6:39 PM RESUME SPECIALIST)Only the most recent of37 resultswithin the time period is included. POC-Glucose Meter 148 (H)Comment: TESTED AT 70 - 110 mg/dL [facility] [address] [facility] [place] [address] Specimen Blood Performing Organization Address City/[facility]/Zipcode Phone Number [address] [address] CENTER ECG 12 lead (06/09/2018 6:25 AM RESUME SPECIALIST)Only the most recent of2 resultswithin the time period is included. Specimen Narrative Performed At Ventricular Rate 68 BPM GE MUSE Atrial Rate 113 BPM QRS Duration 116 ms Q-T Interval 460 ms QTC Calculation(Bazett) 489 ms R Van Horne -53 degrees T Van Horne -68 degrees Atrial fibrillation Left axis deviation Possible Lateral infarct , age undetermined Inferior infarct , age undetermined Nonspecific T wave abnormality Abnormal ECG When compared with ECG of 03-JUN-2018 05:43, Criteria for Inferior wall infarct are now present. Confirmed by Evette FRANCIS MICHAEL ([id number]) on 06/10/2018 7:07:22 AM Procedure Note Interface, External Ris In - 06/10/2018 7:07 AM RESUME SPECIALIST Ventricular Rate 68 BPM Atrial Rate 113 BPM QRS Duration 116 ms Q-T Interval 460 ms QTC Calculation(Bazett) 489 ms R Van Horne -53 degrees T Van Horne -68 degrees Atrial fibrillation Left axis deviation Possible Lateral infarct , age undetermined Inferior infarct , age undetermined Nonspecific T wave abnormality Abnormal ECG When compared with ECG of 03-JUN-2018 05:43, Criteria for Inferior wall infarct are now present. Confirmed by Evette FRANCIS MICHAEL ([id number]) on 06/10/2018 7:07:22 AM Performing Organization Address City/State/Zipcode Phone Number [place] B-type Natriuretic Factor (BNP) (06/09/2018 5:49 AM RESUME SPECIALIST) BNP 257 (H) 0 - 100 pg/mL [facility] Specimen Blood Performing Organization Address City/State/Zipcode Phone Number [facility] [address] [place] [address] [phone] CENTER XR chest 1 view portable / bedside (06/08/2018 6:20 PM RESUME SPECIALIST) Specimen Narrative Performed At FINAL REPORT GE RIS Chest, 1 view Clinical history: pacemaker check Comparison: None Discussion: 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 There is no pneumothorax. Small bilateral pleural effusions are seen with bibasilar atelectasis or airspace disease. The cardiac silhouette is enlarged with asymmetric left-sided perihilar edema. No acute osseous abnormality. Signed: Chris Edmond MD Report Verified Date/Time:06/08/2018 18:25:31 Reading Location: [facility] C013 Consult Reading Room Procedure Note Interface, External Ris In - 06/08/2018 7:19 PM RESUME SPECIALIST FINAL REPORT Chest, 1 view Clinical history: pacemaker check Comparison: None Discussion: 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 There is no pneumothorax. Small bilateral pleural effusions are seen with bibasilar atelectasis or airspace disease. The cardiac silhouette is enlarged with asymmetric left-sided perihilar edema. No acute osseous abnormality. Signed: Chris Edmond MD Report Verified Date/Time: 06/08/2018 18:25:31 Reading Location: [facility] B1 [id number] Consult Reading Room Performing Organization Address City/State/Zipcode Phone Number GE RIS Tissue Exam (06/08/2018 2:44 PM RESUME SPECIALIST) Case Report Surgical Pathology Report Case: [id number] [facility] Authorizing Provider:Haroldo Figueroa MD Collected: 06/08/2018 1444 [facility] Ordering Location: [facility] Received: 06/08/2018 1551 SERVICES Pathologist: Anny Chapman MD Specimen:Gallbladder DIAGNOSIS GALLBLADDER, CHOLECYSTECTOMY: [facility] - MARKED ACUTE AND CHRONIC CHOLECYSTITIS [facility] - CHOLELITHIASIS Signing Pathologist Direct Phone Line: [phone] CLINICAL HISTORY Choledocholithiasis [facility] SPECIMEN SOURCE Gallbladder [facility] GROSS DESCRIPTION The specimen is received in formalin-filled container labeled with the patient's information and labeled "gallbladder". It consists of an intact gallbladder measuring 8 x 2.5 cm with a gallbladder wall [facility] thickness of 0.2 cm. The gallbladder lumen is filled with green thick fluid and multiple brown smooth stones measuring up to 0.5 cm. The mucosa is cabrera-red and velvety with yellow stippling throughout. No masses are seen. [facility] Section code: A1, margin en face; A2, gallbladder wall. CG/ew MICROSCOPIC DESCRIPTION Performed. [facility] Specimen Tissue Performing Organization Address City/State/Zipcode Phone Number [facility] [address] [place] [address] CENTER CBC with platelet count + automated diff (06/08/2018 6:36 AM RESUME SPECIALIST)Only the most recent of5 resultswithin the time period is included. WBC 9.0 3.5 - 10.5 K/L [facility] RBC 5.09 4.63 - 6.08 M/L [facility] Hemoglobin 14.7 13.7 - 17.5 GM/DL [facility] Hematocrit 46.7 40.1 - 51.0 % [facility] MCV 91.7 79.0 - 92.2 fL [facility] MCH 28.9 25.7 - 32.2 pg [facility] MCHC 31.5 (L) 32.3 - 36.5 GM/DL [facility] RDW 14.1 11.6 - 14.4 % [facility] Platelets 195 150 - 450 K/CU MM [facility] MPV 10.8 9.4 - 12.4 fL [facility] nRBC 0 0 - 0 /100 WBC [facility] % Neutros 68 % [facility] % Lymphs 16 % [facility] % Monos 10 % [facility] % Eos 4 % [facility] % Baso 1 % [facility] # Neutros 6.09 (H) 1.78 - 5.38 K/L [facility] # Lymphs 1.42 1.32 - 3.57 K/L [facility] # Monos 0.89 (H) 0.30 - 0.82 K/L [facility] # Eos 0.38 0.04 - 0.54 K/L [facility] # Baso 0.05 0.01 - 0.08 K/L [facility] Immature Granulocytes-Relative 2 (H) 0 - 1 % [facility] Specimen Blood Performing Organization Address City/State/[facility] Phone Number [facility] [address] [place] [address] CENTER Prothrombin time/INR (06/08/2018 6:36 AM RESUME SPECIALIST)Only the most recent of2 resultswithin the time period is included. Protime 14.1 11.7 - 14.7 seconds [facility] INR 1.1 <=5.9 [facility] Specimen Blood Narrative Performed At RECOMMENDED COUMADIN/WARFARIN INR THERAPY [facility] RANGES STANDARD DOSE: 2.0 - 3.0 Includes: PROPHYLAXIS for venous thrombosis, systemic embolization; TREATMENT for venous thrombosis and/or pulmonary embolus. HIGH RISK: Target INR is 2.5-3.5 for patients with mechanical heart valves. Performing Organization Address City/[facility]/Zipcode Phone Number [facility] [address] [place], [place] [phone] CENTER Phosphorus (06/08/2018 6:36 AM RESUME SPECIALIST)Only the most recent of2 resultswithin the time period is included. Phosphorus 3.4Comment: Specimen 2.3 - 4.7 mg/dL [facility] hemolyzed [facility] Specimen Blood Performing Organization Address [facility] Phone Number [address] [phone] CENTER Magnesium (06/08/2018 6:36 AM RESUME SPECIALIST)Only the most recent of2 resultswithin the time period is included. Magnesium 2.1Comment: Specimen 1.6 - 2.6 mg/dL [facility] hemolyzed [facility] Specimen Blood Performing Organization Address [facility] Phone Number [address] [address] [phone] [place] Hepatic function panel (06/08/2018 6:36 AM RESUME SPECIALIST)Only the most recent of5 resultswithin the time period is included. Protein, Total 6.1Comment: Specimen 6.0 - 8.3 gm/dL [facility] hemolyzed [facility] Albumin 3.3 (L)Comment: Specimen 3.5 - 5.0 g/dL [facility] moderately hemolyzed [facility] Total Bilirubin 1.2Comment: Specimen 0.2 - 1.2 mg/dL [facility] hemolyzed [facility] Bilirubin, Direct 0.5Comment: Specimen 0.1 - 0.5 mg/dL [facility] moderately hemolyzed [facility] Alkaline Phosphatase 129 40 - 150 U/L [facility] AST 29Comment: Specimen 5 - 34 U/L [facility] moderately hemolyzed [facility] ALT 69 (H)Comment: Specimen 6 - 55 U/L [facility] Spec[facility] Blood Performing Organization Address City/[facility]/Zipcode Phone Number [facility] [address] [place] [address] [phone] [place] Basic Metabolic Panel (06/08/2018 6:36 AM RESUME SPECIALIST)Only the most recent of6 resultswithin the time period is included. Sodium 143 136 - 145 meq/L [facility] Potassium 4.3Comment: Specimen 3.5 - 5.1 meq/L [facility] hemolyzed [facility] Chloride 97 (L) 98 - 107 meq/L [facility] CO2 39 (H) 22 - 29 meq/L [facility] BUN 10 7 - 21 mg/dL [facility] Creatinine 0.63Comment: Specimen 0.57 - 1.25 mg/dL [facility] hemolyzed [facility] Glucose 143 (H) 70 - 105 mg/dL [facility] Calcium 9.4 8.4 - 10.2 mg/dL [facility] EGFR 121Comment: ESTIMATED GFR IS mL/min/1.73 sq m [facility] NOT ACCURATE CREATININE [facility] CLEARANCE IN PREDICTING GLOMERULAR FILTRATION RATE. ESTIMATED GFR IS NOT APPLICABLE FOR DIALYSIS PATIENTS. Specimen Blood Performing Organization Address [facility]/Zipcode Phone Number [facility] [address] [place] [address] [place] TRANSFUSION SERVICE REPORT - SCAN (06/07/2018 5:52 PM RESUME SPECIALIST) Narrative Performed At ECHOCARDIOGRAM REPORT - SCAN (06/07/2018 12:20 PM RESUME SPECIALIST) Narrative Performed At PERIPHERAL VASCULAR REPORT - SCAN (06/07/2018 12:20 PM RESUME SPECIALIST) Narrative Performed At STRESS ECHO With Contrast & Tracing (06/07/2018 9:25 AM RESUME SPECIALIST) Ejection Fraction [facility] ECHO HEARTLAB MKCKESSON CPACS Specimen Narrative Performed At Stress Echocardiography Report [facility] ECHO HEARTLAB MKCK[facility] Demographics Patient Name Daniel VELOZ of Study06/07/2018 [id number] Gender Male Visit Number [id number] [id number] Room [id number] Number Date of Birth2Referring Sweta Aviles Physician Age87 year(s)Content Architect Shannon Olivarez [facility] Interpreting Chon Soria MD Physician Fellow Letty Guardado MD Procedure Type of Study Stress procedure:STRESS ECHO/TMT W/DOP&TRAC (Routine) Indications:Pre-op. Clinical History HGB 13.6 HCT 42.3 % DM, A-fib, CAD, PPM, HLD Contrast Medium: Definity. Amount - 2 ml Height: 70 inches Weight: 105.69 kg (233 lbs) BSA: 2.23 m^2 BMI: 33.43 kg/m^2 HR: 78 bpm BP: 126/65 mmHg Rest ECG Atrial fibrillation with incomplete LBBB Standing HR:80 bpmStanding BP:126/65 mmHg Stress Stress Type: Pharmacologic Peak HR: 151 bpm HR Response: Normal Peak BP: 125/66 mmHg BP Response: Normal Predicted HR: 134 bpm HR BP Product: 82119 % of predicted HR: 113Max Infusion: 40 mcg/kg/min Test Duration: 24:50 min Reason for Termination: Target heart rate Stress Interpretation Target heart rate was achieved. Baseline findings: Paradoxical motion of the septum is noted likely due to pacemaker. Mild global hypokinesis. Mid dose (20mcg) findings: All segments contract normally with appropriate augmentation of LV function. High dose (40mcg): All segments contract normally with appropriate augmentation of LV function. Appropriate blood pressure and heart rate response to escalating doses of dobutamine. Results Global LVEF (rest): Mildly depressed (LVEF 40-50%) Global LVEF (stress): Normal (LVEF >50%) ECG Atrial fibrillation with incomplete LBBB. No significant ST-T wave changes. Arrhythmias Multifocal PVCs. Occasional triplets. Symptoms No symptoms during stress test. Stress Protocol: Pharmacologic - Dobutamine +--------+-----+------+ +------+-----+--- -----+--+--------+----+------+ !Stage # !Time !Dosage!Other !Dosage!Heart!Blood !CP!Pain!Pain!Pain! !! !!Medication!!Rate !Pressure!!Location!Type!Action! +--------+-----+------+ +------+-----+--- -----+--+--------+----+------+ !1.0 !02:30!10.00 !!!88 !118/63!!!! ! +--------+-----+------+ +------+-----+--- -----+--+--------+----+------+ !2.0 !06:20!20.00 !!!110!125/66 !!!!! +--------+-----+------+ +------+-----+--- -----+--+--------+----+------+ !3.0 !09:00!30.00 !!!118!118/67 !!!!! +--------+-----+------+ +------+-----+--- -----+--+--------+----+------+ !4.0 !11:40!40.00 !!!151!121/63 !!!!! +--------+-----+------+ +------+-----+--- -----+--+--------+----+------+ !Recovery!24:50!!! !80 !123/65!!!! ! +--------+-----+------+ +------+-----+--- -----+--+--------+----+------+ Summary This is a negative Echocardiographic Stress Test. Previous Study No prior studies available for comparison. Signature Procedure Note Interface, External Ris In - 06/07/2018 11:46 AM RESUME SPECIALIST Stress Echocardiography Report Demographics Patient Name VALENTIN VELOZ Date of Study 06/07/2018 Gender Male Visit Number [id number] Race Room Number [id number] Number Date of 1930 Referring Sweta Aviles Physician Age 87 year(s) Content Architect Shannon Olivarez [facility] Interpreting Chon Soria MD Physician Fellow Letty Guardado MD Procedure Type of Study Stress procedure:STRESS ECHO/TMT W/DOP&TRAC (Routine) Indications:Pre-op. Clinical History HGB 13.6 HCT 42.3 % DM, A-fib, CAD, PPM, HLD Contrast Medium: Definity. Amount - 2 ml Height: 70 inches Weight: 105.69 kg (233 lbs) BSA: 2.23 m^2 BMI: 33.43 kg/m^2 HR: 78 bpm BP: 126/65 mmHg Rest ECG Atrial fibrillation with incomplete LBBB Standing HR:80 bpmStanding BP:126/65 mmHg Stress Stress Type: Pharmacologic Peak HR: 151 bpm HR Response: Normal Peak BP: 125/66 mmHg BP Response: Normal Predicted HR: 134 bpm HR BP Product: 01780 % of predicted HR: 113 Max Infusion: 40 mcg/kg/min Test Duration: 24:50 min Reason for Termination: Target heart rate Stress Interpretation Target heart rate was achieved. Baseline findings: Paradoxical motion of the septum is noted likely due to pacemaker. Mild global hypokinesis. Mid dose (20mcg) findings: All segments contract normally with appropriate augmentation of LV function. High dose (40mcg): All segments contract normally with appropriate augmentation of LV function. Appropriate blood pressure and heart rate response to escalating doses of dobutamine. Results Global LVEF (rest): Mildly depressed (LVEF 40-50%) Global LVEF (stress): Normal (LVEF >50%) ECG Atrial fibrillation with incomplete LBBB. No significant ST-T wave changes. Arrhythmias Multifocal PVCs. Occasional triplets. Symptoms No symptoms during stress test. Stress Protocol: Pharmacologic - Dobutamine +--------+-----+------+ +------+-----+--------+--+--------+----+------ + !Stage # !Time !Dosage!Other !Dosage!Heart!Blood !CP!Pain !Pain!Pain ! ! ! ! !Medication! !Rate !Pressure! !Location!Type!Action ! +--------+-----+------+ +------+-----+--------+--+--------+----+------ + !1.0 !02:30!10.00 ! ! !88 !118/63 ! ! ! ! ! +--------+-----+------+ +------+-----+--------+--+--------+----+------ + !2.0 !06:20!20.00 ! ! !110 !125/66 ! ! ! ! ! +--------+-----+------+ +------+-----+--------+--+--------+----+------ + !3.0 !09:00!30.00 ! ! !118 !118/67 ! ! ! ! ! +--------+-----+------+ +------+-----+--------+--+--------+----+------ + !4.0 !11:40!40.00 ! ! !151 !121/63 ! ! ! ! ! +--------+-----+------+ +------+-----+--------+--+--------+----+------ + !Recovery!24:50! ! ! !80 !123/65 ! ! ! ! ! +--------+-----+------+ +------+-----+--------+--+--------+----+------ + Summary This is a negative Echocardiographic Stress Test. Previous Study No prior studies available for comparison. Signature Performing Organization Address City/State/Zipcode Phone Number [facility] ECHO HEARTLAB [employer] 2D Echo W/Doppler(CW/PW/Color) (06/07/2018 7:55 AM RESUME SPECIALIST) Ejection Fraction [facility] ECHO HEARTMusic Cave Studios [facility] Specimen Narrative Performed At Transthoracic Echocardiography Report (TTE) [facility] [employer] Demographics Patient Name VALENTIN VELOZ Date of Study 06/07/2018 [id number] GenderMale Visit Number [id number] WaltCaamelia [id number] Room Number 2454 Number Date of Birth1930 Referring Physician Krishan Rios Age87 year(s) Content Architect Samir Jain InterpretingChon Soria MD Physician Fellow Letty Guardado MD Procedure Type of Study TTE procedure:2DECHO W DOPPLER(CW/PW/COLOR) (Routine) Indications:Preop cardiac evaluation. Clinical History HGB 13.6 HCT 42.3 % CHF COPD CAD DM HTN SC PACEMAKER Contrast Medium: Definity. Height: 70 inches Weight: 105.69 kg (233 lbs) BSA: 2.23 m^2 BMI: 33.43 kg/m^2 HR: 69 bpm BP: 95/51 mmHg Summary 1. Normal LV size. LV function is mildly reduced. LVEF is 45-49% 2. Diastology: Inconclusive due to pacing 3. Normal RV size. Depressed RV function 4. No significant valvular heart disease 5. Mild TR. Estimated PASP is 45-50 mm Hg 6. No pericardial effusion Previous Study No previous study available for comparison. Signature Findings Technical Quality: Technically difficult exam. Rhythm/BPIrregular rhythm during the exam. Left Ventricle LV endocardium is incompletely visualized despite IV ultrasound enhancing agent. Th e left ventricle is chamber size (by vol index) is normal (male - LVED vol - 34-74ml/m2). Mi ld concentric LV hypertrophy. LV EF by Loja's method of disk assessment is mi ldly reduced (45-49%) . De gree of diastolic dysfunction (LAP assessment) is in conclusive due to arrhythmia . Left AtriumLA is incompletely visualized. LA size appears mildly enlarged (35-41 ml/m2) based on available views . Right VentricleNormal RV size. Depressed RV function RV pacing wire is visualized . Right Atrium The RA is partially visualized. RA appears enlarged based on available views. Aortic Valve Mild AoV cusp thickening. Mi ld AoV cusp calcification. Ao V cusp mobility is normal . Mitral Valve MV is partially visualized. No rmal MV structure by available views. Tr phyllis mitral regurgitation. Tricuspid ValveTV structure is normal. Mi ld tricuspid regurgitation. Es timated peak systolic pressure is at least 45-50 mm Hg. Pulmonic Valve Normal PV structure and function by limited views an d Doppler. AortaAortic root size (SInus of Valsalva diameter) is no rmal . PericardiumNo significant pericardial effusion is visualized. IVC/SVC/PA/PV/PleuralThe estimated RA pressure by IVC dynamics 11-15mmHg . Chambers/Structures Left Atrium LA Volume: 90.47 ml LA Area: 29.26 cm^2 LA Vol. Index: 41 ml/m^2 Left Ventricle LVIDd: 5.26 cm LVEDV:131.65 ml LVIDs: 4.67 cm LVESV:73.75 ml LV Septum Diastolic: 1.06 cmLVEF 2D Cube: 48.7 % LV Septum Systolic: 1.12 cm LV PW Diastolic: 1.17 cmLV FS: 11.2 % LV PW Systolic: 1.07 cm LVEDV Loja's:78.29 mlLVEDVI: 35 ml/m^2 LVESV Loja's:45.95 mlLVESVI: 21 ml/m^2 LVEF Loja's: 41.3 % LVOT Diameter: 2.13 cm LVEF: 44 % Right Ventricle TAPSE: 2.68 cm Aorta Ao Root S of Urmila.: 3.28 cm Doppler/Quantitative Measurements Aortic Valve Peak Velocity: 1.05 m/s Mean Velocity: 0.76 m/s Peak Gradient: 4.44 mmHgMean Gradient: 2.6 mmHg AV Area (continuity): 2.82 cm^2 AV VTI: 23.05 cm AV DVI: 0.79 LVOT Peak Velocity: 0.9 m/sPeak Gradient: 3.29 mmHg Mean Velocity: 0.62 m/s Mean Gradient: 1.76 mmHg LVOT Diameter: 2.13 cmLVOT VTI: 18.23 cm LVOT Area: 3.56 cm^2LVOT SV:64.93 ml LVOT CO: 4.48 l/min LVOT CI: 2.01 l/min/m^2 Tricuspid Valve TR Velocity: 3.03 m/s TR Gradient: 36.75 mmHg Procedure Note Interface, External Ris In - 06/07/2018 11:40 AM RESUME SPECIALIST Transthoracic Echocardiography Report (TTE) Demographics Patient Name VALENTIN VELOZ Date of Study 06/07/2018 Gender Male Visit Number [id number] Race Room Number 2454 Number Date of 1930 Referring Physician Krishan Rios Age 87 year(s) Content Architect Samir Jain Interpreting Chon Soria MD Physician Fellow Letty Guardado MD Procedure Type of Study TTE procedure:2DECHO W DOPPLER(CW/PW/COLOR) (Routine) Indications:Preop cardiac evaluation. Clinical History HGB 13.6 HCT 42.3 % CHF COPD CAD DM HTN SC PACEMAKER Contrast Medium: Definity. Height: 70 inches Weight: 105.69 kg (233 lbs) BSA: 2.23 m^2 BMI: 33.43 kg/m^2 HR: 69 bpm BP: 95/51 mmHg Summary 1. Normal LV size. LV function is mildly reduced. LVEF is 45-49% 2. Diastology: Inconclusive due to pacing 3. Normal RV size. Depressed RV function 4. No significant valvular heart disease 5. Mild TR. Estimated PASP is 45-50 mm Hg 6. No pericardial effusion Previous Study No previous study available for comparison. Signature Findings Technical Quality: Technically difficult exam. Rhythm/BP Irregular rhythm during the exam. Left Ventricle LV endocardium is incompletely visualized despite IV ultrasound enhancing agent. The left ventricle is chamber size (by vol index) is normal (male - LVED vol - 34-74ml/m2). Mild concentric LV hypertrophy. LVEF by Loja's method of disk assessment is mildly reduced (45-49%) . Degree of diastolic dysfunction (LAP assessment) is inconclusive due to arrhythmia . Left Atrium LA is incompletely visualized. LA size appears mildly enlarged (35-41 ml/m2) based on available views . Right Ventricle Normal RV size. Depressed RV function RV pacing wire is visualized . Right Atrium The RA is partially visualized. RA appears enlarged based on available views. Aortic Valve Mild AoV cusp thickening. Mild AoV cusp calcification. AoV cusp mobility is normal . Mitral Valve MV is partially visualized. Normal MV structure by available views. Trace mitral regurgitation. Tricuspid Valve TV structure is normal. Mild tricuspid regurgitation. Estimated peak systolic pressure is at least 45-50 mmHg. Pulmonic Valve Normal PV structure and function by limited views and Doppler. Aorta Aortic root size (SInus of Valsalva diameter) is normal . Pericardium No significant pericardial effusion is visualized. IVC/SVC/PA/PV/Pleural The estimated RA pressure by IVC dynamics 11-15mmHg . Chambers/Structures Left Atrium LA Volume: 90.47 ml LA Area: 29.26 cm^2 LA Vol. Index: 41 ml/m^2 Left Ventricle LVIDd: 5.26 cm LVEDV:131.65 ml LVIDs: 4.67 cm LVESV:73.75 ml LV Septum Diastolic: 1.06 cm LVEF 2D Cube: 48.7 % LV Septum Systolic: 1.12 cm LV PW Diastolic: 1.17 cm LV FS: 11.2 % LV PW Systolic: 1.07 cm LVEDV Loja's:78.29 ml LVEDVI: 35 ml/m^2 LVESV Loja's:45.95 ml LVESVI: 21 ml/m^2 LVEF Loja's: 41.3 % LVOT Diameter: 2.13 cm LVEF: 44 % Right Ventricle TAPSE: 2.68 cm Aorta Ao Root S of Urmila.: 3.28 cm Doppler/Quantitative Measurements Aortic Valve Peak Velocity: 1.05 m/s Mean Velocity: 0.76 m/s Peak Gradient: 4.44 mmHg Mean Gradient: 2.6 mmHg AV Area (continuity): 2.82 cm^2 AV VTI: 23.05 cm AV DVI: 0.79 LVOT Peak Velocity: 0.9 m/s Peak Gradient: 3.29 mmHg Mean Velocity: 0.62 m/s Mean Gradient: 1.76 mmHg LVOT Diameter: 2.13 cm LVOT VTI: 18.23 cm LVOT Area: 3.56 cm^2 LVOT SV:64.93 ml LVOT CO: 4.48 l/min LVOT CI: 2.01 l/min/m^2 Tricuspid Valve TR Velocity: 3.03 m/s TR Gradient: 36.75 mmHg Performing Organization Address City/State/Zipcode Phone Number [facility] ECHO HEARTLAB MKCKESSON CPACS Type and screen, automated (06/06/2018 4:44 PM RESUME SPECIALIST) ABO/RH AUTOMATED (BEAKER) O POSITIVE [facility] Ab Scrn NEGATIVE [facility] Specimen Blood Performing Organization Address [facility] Phone Number [facility] [address] [place], [place] [phone] [place] ERCP (06/06/2018 11:55 AM RESUME SPECIALIST)Only the most recent of2 resultswithin the time period is included. Specimen Narrative Performed At FINAL REPORT [facility] ERCP 4 views 06/06/2018 1:49 PM CLINICAL HISTORY: Instrument localization COMPARISON: None available IMPRESSION: Please correlate imaging report findings with the procedure note prepared by Dr. Hinojosa, as an intra-procedure imaging consultation was not requested. Reported fluoroscopy time: 91.0 seconds. Signed: Yunier Esparza MD Report Verified Date/Time:06/06/2018 13:54:44 Reading Location: [facility] Radiology Reading Room Procedure Note Interface, External Ris In - 06/06/2018 1:57 PM RESUME SPECIALIST FINAL REPORT ERCP 4 views 06/06/2018 1:49 PM CLINICAL HISTORY: Instrument localization COMPARISON: None available IMPRESSION: Please correlate imaging report findings with the procedure note prepared by Dr. Hinojosa, as an intra-procedure imaging consultation was not requested. Reported fluoroscopy time: 91.0 seconds. Signed: Yunier Esparza MD Report Verified Date/Time: 06/06/2018 13:54:44 Reading Location: [facility] Radiology Reading Room Performing Organization Address City/[facility] Phone Number [facility] Comprehensive metabolic panel (06/06/2018 10:02 AM RESUME SPECIALIST)Only the most recent of2 resultswithin the time period is included. Protein, Total 5.9 (L) 6.0 - 8.3 gm/dL [facility] Albumin 3.3 (L) 3.5 - 5.0 g/dL [facility] Alkaline Phosphatase 146 40 - 150 U/L [facility] Total Bilirubin 1.1 0.2 - 1.2 mg/dL [facility] Sodium 141 136 - 145 meq/L [facility] Potassium 4.2 3.5 - 5.1 meq/L [facility] Chloride 99 98 - 107 meq/L [facility] CO2 37 (H) 22 - 29 meq/L [facility] BUN 10 7 - 21 mg/dL [facility] Creatinine 0.61 0.57 - 1.25 mg/dL [facility] Glucose 152 (H) 70 - 105 mg/dL [facility] Calcium 9.2 8.4 - 10.2 mg/dL [facility] AST 29 5 - 34 U/L [facility] ALT 99 (H) 6 - 55 U/L [facility] EGFR 125Comment: ESTIMATED mL/min/1.73 sq m [facility] GFR IS NOT ACCURATE [facility] CREATININE CLEARANCE IN PREDICTING GLOMERULAR FILTRATION RATE. ESTIMATED GFR IS NOT APPLICABLE FOR DIALYSIS PATIENTS. Specimen Blood Performing Organization Address City/State/Zipcode Phone Number [facility] [address] [place] [address] CENTER CBC (Hemogram only) (06/06/2018 5:30 AM RESUME SPECIALIST)Only the most recent of3 resultswithin the time period is included. WBC 7.8 3.5 - 10.5 K/L [facility] RBC 4.65 4.63 - 6.08 M/L [facility] Hemoglobin 13.6 (L) 13.7 - 17.5 GM/DL [facility] Hematocrit 42.3 40.1 - 51.0 % [facility] MCV 91.0 79.0 - 92.2 fL [facility] MCH 29.2 25.7 - 32.2 pg [facility] MCHC 32.2 (L) 32.3 - 36.5 GM/DL [facility] RDW 14.2 11.6 - 14.4 % [facility] Platelets 161 150 - 450 K/CU MM [facility] MPV 10.9 9.4 - 12.4 fL [facility] nRBC 0 0 - 0 /100 WBC [facility] Specimen Blood Performing Organization Address [facility] Phone Number [address] [address] [place] Vancomycin level, trough (06/05/2018 5:00 AM RESUME SPECIALIST)Only the most recent of2 resultswithin the time period is included. Vancomycin Tr 15.0 10.0 - 20.0 ug/mL [facility] Specimen Blood Performing Organization Address [facility] Phone Number [address] [address] [phone] [place] REPORT OF PROCEDURE - ENDOSCOPY URL (06/01/2018 9:45 PM RESUME SPECIALIST) Narrative Performed At Blood culture (06/01/2018 7:25 PM RESUME SPECIALIST)Only the most recent of2 resultswithin the time period is included. Result No growth in 5 days [facility] Specimen Blood Performing Organization Address City/[facility] Cent[facility]ode Phone Number [address] [address] CENTER Lactic acid, venous, whole blood (06/01/2018 5:08 PM RESUME SPECIALIST) Lactate, Venous 2.4 (H)Comment: Specimen 0.5 - 2.2 mmol/L [facility] slightly hemolyzed [facility] [place] Specimen Blood Narrative Performed At Specimen slightly icteric [facility] Performing Organization Address City/State/Zipcode Phone Number [facility] [address] [place] [address] [phone] CENTER Manual Differential (06/01/2018 6:54 AM RESUME SPECIALIST) % Neutros 65 % [facility] % Lymphs 1 % [facility] % Monos 3 % [facility] % Bands 30 (H) 0 - 10 % [facility] % Atypical Lymphs 1 (H) 0 - 0 % [facility] # Neutros 14.04 (H) 1.78 - 5.38 K/ul [facility] # Lymphs 0.22 (L) 1.32 - 3.57 K/ul [facility] # Monos 0.65 0.30 - 0.82 K/uL [facility] # Bands 6.48 (H) 0.00 - 0.80 K/uL [facility] # Atypical Lymphs 0.22 (H) 0.00 - 0.00 K/uL [facility] Total Counted 100 [facility] WBC Morphology Normal [facility] Platelet Morphology Normal [facility] Poikilocytes 1+ few [facility] Artifact Present [facility] Platelet Conc Adequate [facility] Specimen Blood Narrative Performed At Received comment: [facility] User comments: Slide comments: Performing Organization Address City/State/Zipcode Phone Number [facility] [address] [place] [address] [phone] CENTER after 01/25/2018 Insurance Payer Benefit Plan / Group Subscriber ID Type Phone Address MEDICARE MEDICARE A B xxxxxxxxxxx Medicare Advance Directives For more information, please contact:[facility] [place], [place] [phone] Code Status Date Activated Date Inactivated Comments Full Code 06/01/2018 1:33 AM This code status was determined by: Patient
[2019-01-26] MEDS ORDERED: CEFTRIAXONE/SWI 1gm 1 GM/10 ML SYR ONE (13:34)
[2019-01-26] MEDS ORDERED: VANCOMYCIN 1.75 GM in NA CHLORIDE 0.9% 500 ML IVPB ONE (14:00)
[2019-01-26] MEDS ORDERED: VANCOMYCIN 1.5 GM in NA CHLORIDE 0.9% 500 ML IVPB ONE (14:00)
[2019-01-26 14:05] LABS: Absolute Lymphocytes (CBC) 1.7 K/uL (0.7-4.9); Basophils % 0.3 % (0-1.3); Hematocrit 38.6 % (39.6-49.0); Lymphocytes % 15.7 % (15.3-44.8); RBC Red Blood Cell Count 4.83 M/uL (4.33-5.43)
[2019-01-26 14:31] LABS: BUN Blood Urea Nitrogen 22 mg/dL (7-18); Bicarbonate 31 mmol/L (21-32); Glucose Level 98 mg/dL (74-106); Potassium 4.6 mmol/L (3.5-5.1); Sodium Level 140 mmol/L (136-145)
--- NOTE | 2019-01-26 14:48 | RAD REPORT ---
EXAM DESCRIPTION: RAD - Foot Left 3 View - 01/26/2019 2:38 pm CLINICAL HISTORY: Left Foot pain FINDINGS: No fracture or dislocation is seen. Osteoporosis Mild degenerative changes involve the first DIP joint.
--- NOTE | 2019-01-26 15:32 | RAD REPORT ---
EXAM DESCRIPTION: US - Extremity Venous Uni Ltd - 01/26/2019 3:01 pm CLINICAL HISTORY: Left leg pain and swelling COMPARISON: None. TECHNIQUE: Real-time sonographic evaluation of the left lower extremity deep venous system was perfo rmed. FINDINGS: Normal compressibility, flow augmentation, phasic flow and spontaneous flow are identified in the left lower extremity common femoral, superficial femoral, popliteal and posterior tibial vein s. No intraluminal filling defects seen. IMPRESSION: No DVT in the left lower extremity.
--- NOTE | 2019-01-26 16:19 | ER ---
Nurse's Notes [facility] Name: Valentin Veloz Age: 88 yrs Sex: Male : 1930 Arrival Date: 01/26/2019 Time: 12:23 Bed 8 Private MD: Diagnosis: Cellulitis, swelling and eccymosis to left leg and foot Presentation: 01/26 12:55 Presenting complaint: Patient states[facility] foot, pt denies injury, also denies fever, SOB or chest pain. Transition of care: patient was not received from another setting of care. Onset of symptoms was January 26, 2019. Risk Assessment: Do you want to hurt yourself or someone else? Patient reports no desire to harm self or others. Initial Sepsis Screen: Does the patient meet any 2 criteria? No. Patient's initial sepsis screen is negative. Care prior to arrival: None. 12:55 Method Of Arrival: Ambulatory 12:55 Acuity: EMILY 3 ph 19:44 Initial Sepsis Screen: Does the patient have a suspected source of infection? No. jd3 Patient's initial sepsis screen is negative. Historical: - Allergies: 12:56 Codeine; ph - PMHx: 12:56 CAD; CANCER - PROSTATE; CHF; COPD; Diabetes - NIDDM; High Cholesterol; Hypertension; ph Myocardial infarction; Pacemaker; - Immunization history:: Adult Immunizations unknown. - Social history:: Smoking status: unknown. - Ebola Screening: : Patient negative for fever greater than or equal to 101.5 degrees Fahrenheit, and additional compatible Ebola Virus Disease symptoms. Screenin:20 Abuse screen: Denies threats or abuse. Denies injuries from another. Nutritional sg screening: No deficits noted. Tuberculosis screening: No symptoms or risk factors identified. Never had TB. Fall Risk None identified. Assessment: 14:20 General: Appears in no apparent distress. well groomed, well developed, well nourished, sg Behavior is calm, cooperative, appropriate for age. Pain: Complains of pain in left foot Quality of pain is described as aching, sharp, throbbing. Neuro: Level of Consciousness is awake, alert, obeys commands, Oriented to person, place, time, situation, Clinical Specialty Rep are equal bilaterally Moves all extremities. Speech is normal, Facial symmetry appears normal. Cardiovascular: Capillary refill is sluggish in bilateral fingers toes Patient's skin is warm and dry. Chest pain is denied. Respiratory: Airway is patent Respiratory effort is even, unlabored, Respiratory pattern is regular, symmetrical. GI: Abdomen is round non-distended, obese, Bowel sounds present X 4 quads. Reports normal bowel habits, tolerance of fluids, tolerance of food. : No signs and/or symptoms were reported regarding the genitourinary system. EENT: No signs and/or symptoms were reported regarding the EENT system. Derm: Skin is pink, warm \\T\\ dry. Bruising that is dark purple, yellow, on left foot. Musculoskeletal: Circulation, motion, and sensation intact. Range of motion: intact in all extremities, Swelling present in left foot. 14:42 Reassessment: Left voicemail with ultrasound to get ETA. sv 15:25 Reassessment: Patient appears in no apparent distress at this time. Patient and/or sg family updated on plan of care and expected duration. Pain level reassessed. pt sitting upright in bed at this time, pt family at bedside at this time. 16:57 Reassessment: Patient appears in no apparent distress at this time. Patient and/or sg family updated on plan of care and expected duration. Pain level reassessed. Patient is alert, oriented x 3, equal unlabored respirations, skin warm/dry/pink. at bedside at this time. 17:30 Reassessment: Patient appears in no apparent distress at this time. Patient and/or sg family updated on plan of care and expected duration. Pain level reassessed. pt given Heart Healthy tray, tolerated well. pt awaiting admission/transfer at this time, pt stated understanding. will continue to monitor. 18:00 Reassessment: Patient appears in no apparent distress at this time. pt to be sg transferred to receiving facility, pt reports " I want to stay here, I dont want to go up into the medical center." notified, awaiting to speak with pt at this time, will continue to monitor. 19:23 General: Appears in no apparent distress. comfortable, well groomed, Behavior is calm, jd3 cooperative, appropriate for age. Pain: Denies pain. Neuro: Level of Consciousness is awake, alert, obeys commands, Oriented to person, place, time, situation. Cardiovascular: Patient's skin is warm and dry. Respiratory: Airway is patent Respiratory effort is even, unlabored, Respiratory pattern is regular, symmetrical, Denies cough, shortness of breath. GI: Abdomen is round non-distended, Patient currently denies constipation, diarrhea, nausea, vomiting. : No signs and/or symptoms were reported regarding the genitourinary system. EENT: No signs and/or symptoms were reported regarding the EENT system. Derm: Skin is intact, Skin is dry, Skin is normal, Skin temperature is warm Bruising that is dark purple, yellow, on left foot. Musculoskeletal: Circulation, motion, and sensation intact. Range of motion: intact in all extremities, Swelling present in left foot. 20:00 Reassessment: Patient appears in no apparent distress at this time. Patient and/or jd3 family updated on plan of care and expected duration. Pain level reassessed. Patient is alert, oriented x 3, equal unlabored respirations, skin warm/dry/pink. Vital Signs: 12:56 BP 127 / 73; Pulse 61; Resp 18; Temp 97.7; Pulse Ox 95% on R/A; Weight 104.33 kg; Pain ph 4/10; 13:30 BP 132 / 72; Pulse 68; Resp 17; Pulse Ox 96% ; sg 14:30 BP 130 / 70; Pulse 67; Resp 18; Pulse Ox 96% on R/A; sg 15:50 BP 132 / 77; Pulse 67; Resp 17; Pulse Ox 96% on R/A; sg 16:52 BP 148 / 80; Pulse 66; Resp 17; Pulse Ox 96% on R/A; Pain 3/10; sg 19:25 BP 133 / 97; Pulse 79; Resp 17 S; Pulse Ox 96% on R/A; jd3 ED Course: 12:23 Patient arrived in ED. mr 12:32 Angel Carrillo MD is Attending Physician. kdr 12:56 Triage completed. ph 12:57 Arm band placed on Patient placed in an exam room, on a stretcher. ph 13:15 Patient has correct armband on for positive identification. Bed in low position. Call sg light in reach. Side rails up X2. Pulse ox on. Sitter at bedside. 13:35 Servando Emerson RN is Primary Nurse. sg 13:45 First set of blood cultures drawn by me. sg 13:45 Missed attempt(s): 20 gauge in left antecubital area. Bleeding controlled, band aid sg applied, catheter tip intact. 14:00 Initial lab(s) drawn, by me, sent to lab. Second set of blood cultures drawn by me. sg Inserted saline lock: 22 gauge in right forearm, using aseptic technique. Blood collected. 14:40 Foot Left 3 View XRAY In Process Unspecified. EDMS 15:03 US Extremity Venous Unilateral Ltd In Process Unspecified. EDMS 16:39 Assisted with urinal. sg 18:50 Ed Tran DO is Hospitalizing Provider. kdr 19:07 Primary Nurse role handed off by Servando Emerson RN ea 19:07 Mira Jaffe, NORA is Primary Nurse. ea 19:59 No provider procedures requiring assistance completed. Patient admitted, IV remains in jd3 place. Administered Medications: 14:00 Drug: Rocephin - (cefTRIAXone) 1 grams {Note: medication administered slow IV push as sg per pharmacy instructions.} Route: IVPB; Infused Over: 30 mins; Site: right forearm; 14:20 Follow up: Response: No adverse reaction sg 14:20 Drug: vancoMYCIN 1.5 grams {Note: 1.75 grams administered as per pharamacy order.} sg Route: IVPB; Rate: calculated rate; Site: right forearm; 14:49 Follow up: IV Pause: 01/26/2019 14:49; IV Pause Reason: Patient to Ultrasound sg 15:10 Follow up: IV Resume: 01/26/2019 15:10; IV Resume Reason: Patient returned from sg Ultrasound Outcome: 16:17 ER care complete, transfer ordered by . kdr 18:52 Decision to Hospitalize by Provider. kdr 19:59 Admitted to Med/surg accompanied by tech, via wheelchair, room 221, with chart, Report jd3 called to Iliana MELENDEZ 19:59 Condition: stable 19:59 Instructed on the need for admit, Demonstrated understanding of instructions. 20:21 Patient left the ED. jd3 Signatures: Dispatcher [employer] Ronna Yuen RN RN Servando Emerson RN RN Angel Carrillo MD MD kdr Rivera, Nickie Mejía RN RN Mira Jaffe RN RN ea Davies, Jonathon, RN RN jd3
--- NOTE | 2019-01-26 16:20 | EDPHYS ---
Physician Documentation [facility] Name: Valentin Veloz Age: 88 yrs Sex: Male : 1930 Arrival Date: 01/26/2019 Time: 12:23 Bed 8 Private MD: ED Physician Angel Carrillo HPI: 01/26 16:10 This 88 yrs old Male presents to ER via Ambulatory with complaints of left kdr foot Swelling. 16:10 The patient presents with an abrasion, swelling, tenderness. The complaints affect the kdr left foot. Context: The problem was sustained at home, resulted from an unknown cause, Mechanism of Injury: Unknown the patient can fully bear weight, the patient is able to ambulate, with mild difficulty. Onset: The symptoms/episode began/occurred suddenly, 2 day(s) ago. Modifying factors: The symptoms are alleviated by nothing, the symptoms are aggravated by weight bearing, movement, wearing shoes. Associated signs and symptoms: The patient has no apparent associated signs or symptoms. Severity of symptoms: At their worst the symptoms were mild, moderate, just prior to arrival, in the emergency department the symptoms are unchanged. The patient has not experienced similar symptoms in the past. The patient has not recently seen a physician, The patient has been recently seen by a physician: the patient's primary care provider. Historical: - Allergies: 12:56 Codeine; ph - PMHx: 12:56 CAD; CANCER - PROSTATE; CHF; COPD; Diabetes - NIDDM; High Cholesterol; Hypertension; ph Myocardial infarction; Pacemaker; - Immunization history:: Adult Immunizations unknown. - Social history:: Smoking status: unknown. - Ebola Screening: : Patient negative for fever greater than or equal to 101.5 degrees Fahrenheit, and additional compatible Ebola Virus Disease symptoms. ROS: 16:10 Constitutional: Negative for fever, chills, and weight loss, Eyes: Negative for injury, kdr pain, redness, and discharge, ENT: Negative for injury, pain, and discharge, Neck: Negative for injury, pain, and swelling, Cardiovascular: Negative for chest pain, palpitations, and edema, Respiratory: Negative for shortness of breath, cough, wheezing, and pleuritic chest pain, Abdomen/GI: Negative for abdominal pain, nausea, vomiting, diarrhea, and constipation, Back: Negative for injury and pain, : Negative for injury, bleeding, discharge, and swelling, Neuro: Negative for headache, weakness, numbness, tingling, and seizure activity. Psych: Negative for depression, anxiety, suicide ideation, homicidal ideation, and hallucinations, Allergy/Immunology: Negative for hives, rash, and allergies, Endocrine: Negative for neck swelling, polydipsia, polyuria, polyphagia, and marked weight changes, Hematologic/Lymphatic: Negative for swollen nodes, abnormal bleeding, and unusual bruising. 16:10 MS/extremity: Positive for abrasion, swelling, tenderness, of the lateral aspect of left foot, medial aspect of left foot, left huitron, anterior aspect of left ankle and dorsum of left foot. 16:10 Skin: Positive for discoloration, ecchymosis, erythema, of the lateral side of left foot, lateral side of left heel, left Achilles, left lateral malleolus, left medial malleolus, medial aspect of left heel and instep of left foot. Exam: 16:10 Constitutional: This is a well developed, well nourished patient who is awake, alert, kdr and in no acute distress. Head/Face: Normocephalic, atraumatic. Neck: Trachea midline, no thyromegaly or masses palpated, and no cervical lymphadenopathy. Supple, full range of motion without nuchal rigidity, or vertebral point tenderness. No Meningismus. Chest/axilla: Normal chest wall appearance and motion. Nontender with no deformity. No lesions are appreciated. Cardiovascular: Regular rate and rhythm with a normal S1 and S2. No gallops, murmurs, or rubs. Normal PMI, no JVD. No pulse deficits. Respiratory: Lungs have equal breath sounds bilaterally, clear to auscultation and percussion. No rales, rhonchi or wheezes noted. No increased work of breathing, no retractions or nasal flaring. Abdomen/GI: Soft, non-tender, with normal bowel sounds. No distension or tympany. No guarding or rebound. No evidence of tenderness throughout. 16:10 Back: No spinal tenderness. No costovertebral tenderness. Full range of motion. Skin: Warm, dry with normal turgor. Normal color with no rashes, no lesions, and no evidence of cellulitis. Neuro: Awake and alert, GCS 15, oriented to person, place, time, and situation. Cranial nerves II-XII grossly intact. Motor strength 5/5 in all extremities. Sensory grossly intact. Cerebellar exam normal. Normal gait. Psych: Awake, alert, with orientation to person, place and time. Behavior, mood, and affect are within normal limits. 16:10 Abdomen/GI: Inspection: obese 16:10 Musculoskeletal/extremity: Extremities: grossly normal except: abrasion, decreased ROM, ecchymosis, erythema, laceration, pain, swelling, tenderness. Vital Signs: 12:56 BP 127 / 73; Pulse 61; Resp 18; Temp 97.7; Pulse Ox 95% on R/A; Weight 104.33 kg; Pain ph 4/10; 13:30 BP 132 / 72; Pulse 68; Resp 17; Pulse Ox 96% ; sg 14:30 BP 130 / 70; Pulse 67; Resp 18; Pulse Ox 96% on R/A; sg 15:50 BP 132 / 77; Pulse 67; Resp 17; Pulse Ox 96% on R/A; sg 16:52 BP 148 / 80; Pulse 66; Resp 17; Pulse Ox 96% on R/A; Pain 3/10; sg 19:25 BP 133 / 97; Pulse 79; Resp 17 S; Pulse Ox 96% on R/A; jd3 MDM: 16:10 Data reviewed: vital signs, nurses notes, lab test result(s), radiologic studies. kdr Counseling: I had a detailed discussion with the patient and/or guardian regarding: the historical points, exam findings, and any diagnostic results supporting the discharge/admit diagnosis, lab results, radiology results. 16:17 Patient medically screened. kdr 18:52 ED course: The patient refused to be transferred to the [place]. We did get acceptance but kdr the patient stated he did not want to go [place]. 01/26 13:28 Order name: CBC with Diff; Complete Time: 15:14 kdr 01/26 13:28 Order name: Chem 7; Complete Time: 15:14 kdr 01/26 13:28 Order name: US Extremity Venous Unilateral Ltd; Complete Time: 16:09 kdr 01/26 13:28 Order name: Foot Left 3 View XRAY; Complete Time: 15:14 kdr 01/26 13:28 Order name: Blood Culture Adult (2) kdr 01/26 16:39 Order name: Diet Heart Healthy; Complete Time: 16:40 sg Administered Medications: 14:00 Drug: Rocephin - (cefTRIAXone) 1 grams {Note: medication administered slow IV push as sg per pharmacy instructions.} Route: IVPB; Infused Over: 30 mins; Site: right forearm; 14:20 Follow up: Response: No adverse reaction 14:20 Drug: vancoMYCIN 1.5 grams {Note: 1.75 grams administered as per pharamacy order.} sg Route: IVPB; Rate: calculated rate; Site: right forearm; 14:49 Follow up: IV Pause: 01/26/2019 14:49; IV Pause Reason: Patient to Ultrasound sg 15:10 Follow up: IV Resume: 01/26/2019 15:10; IV Resume Reason: Patient returned from sg Ultrasound Disposition: 01/26/19 18:52 Hospitalization ordered by Ed Tran for Inpatient Admission. Preliminary diagnosis is Cellulitis, swelling and eccymosis to left leg and foot. - Bed requested for Telemetry/MedSurg (Inpatient). - Status is Inpatient Admission. jd3 - Condition is Fair. - Problem is new. - Symptoms have improved. UTI on Admission? No Signatures: Dispatcher [employer] EDMS Diane Shepherd RN RN Servando Emerson RN RN Angel Carrillo MD MD kdr Hall, Patricia, RN RN Ramón Rojas RN RN jd3 Corrections: (The following items were deleted from the chart) 18:49 16:17 01/26/2019 16:17 Transfer ordered to [facility]. Diagnosis is custom; Cellulitis of Left Foot and Ankle. Reason for transfer: Higher level of care. Accepting physician is [place] [facility]. Condition is Fair. Problem is new. Symptoms are unchanged. kdr 19:40 18:52 Hospitalization Ordered by Ed Tran DO for Inpatient Admission. Preliminary diagnosis is Cellulitis, swelling and eccymosis to left leg and foot. Bed requested for Telemetry/MedSurg (Inpatient). Status is Inpatient Admission. Condition is Fair. Problem is new. Symptoms have improved. UTI on Admission? No. kdr 20:21 19:40 01/26/2019 18:52 Hospitalization Ordered by Ed Tran DO for Inpatient jd3 Admission. Preliminary diagnosis is Cellulitis, swelling and eccymosis to left leg and foot. Bed requested for Telemetry/MedSurg (Inpatient). Status is Inpatient Admission. Condition is Fair. Problem is new. Symptoms have improved. UTI on Admission? No. mw
--- NOTE | 2019-01-26 19:02 | P.HP ---
Certification for Inpatient Patient admitted to: Inpatient With expected LOS: >2 Midnights Patient will require the following post-hospital care: Home Health Services Practitioner: I am a practitioner with admitting privileges, knowledge of patient current condition, hospital course, and medical plan of care. Services: Services provided to patient in accordance with Admission requirements found in Title 42 Section 412.3 of the Code of Federal Regulations Patient History Date of Service: 01/26/19 Primary Care Provider: [facility] Reason for admission: Pain, erythema and swelling to the left lower extremity History of Present Illness: 88-year-old male presented to the emergency room with increasing pain , swelling and erythema to the left lower extremity. Patient with underlying diabetes mellitus type 2, [id number], atrial fibrillation on chronic anti coalition therapy with pacemaker, COPD, diabetic neuropathy and CHF. Patient reported 2 days ago that he start to have increasing pain, swelling and erythema to the left lower extremity. Pain was about a 5/10. He did not report any fall that he could recall. Patient does have diabetic neuropathy. Pain continued to get worse. He denied any fever, chills, chest pain or shortness of breath. He came to the ER for further evaluation. In the ER patient evaluated. White count 10.8, hemoglobin 12.2. Sodium 140, potassium 4.6. BUN of 22, creatinine 0.68 with a GFR of 90. Glucose 98. Patient had noticeable ecchymosis, erythema, swelling to the left lower extremity. X-ray shows no fracture. Venous Doppler negative for DVT. Due to the severity of his symptoms the patient was admitted for treatment and further evaluation. When I saw the patient ER, he appeared comfortable. Patient was to be transferred to the [facility] but patient declined the transfer. Allergies No Known Allergies Allergy (Verified 07/25/17 12:48) Home medications list reviewed: Yes Home Medications: Albuterol Neb [Proventil 0.083% Neb Soln] 1 vial IH QIDP PRN 04/15/17 Albuterol Sulfate [Proair Respiclick] 2 puff IH Q6HP PRN 04/15/17 Aspirin [Aspirin EC 81 MG] 81 mg PO DAILY 04/15/17 Budesonide/Formoterol Fumarate [Symbicort 160-4.5 Mcg Inhaler] 2 puff IH BID Cholecalciferol (Vitamin D3) [Vitamin D3] 400 unit PO DAILY 04/15/17 Colchicine 0.6 mg PO DAILY 04/15/17 Cyanocobalamin (Vitamin B-12) [B-12] 500 mcg PO DAILY 04/15/17 Gabapentin [Neurontin*] 300 mg PO BID 04/15/17 Metformin HCl [Glucophage*] 500 mg PO BIDWM 04/15/17 Polyvinyl Alcohol [Artificial Tears] 1 drop EACH EYE QID 04/15/17 Rivaroxaban [Xarelto] 20 mg PO 1700 04/15/17 Furosemide [Lasix*] 40 mg PO DAILY #30 tab 07/27/17 - Past Medical/Surgical History Diabetic: Yes -: Diabetes mellitus type 2, non-insulin dependent -: History [place], CAD -: Diabetic neuropathy -: COPD -: Diastolic CHF -: AFib, chronic anti coagulation therapy, pacemaker -: History prostate cancer -: pacer/ defib, back surgery, protate surgery, TURP -: BACK SURGERIES X3 -: PROSTATE SURGERY -: TURP Psychosocial/ Personal History: Patient lives with son - Family History Father -: Heart disease Mother -: Heart disease - Social History Smoking Status: Unknown if ever smoked Alcohol use: No CD- Drugs: No Caffeine use: No Place of Residence: Home Review of Systems General: As per HPI Eyes: Unremarkable ENT: Unremarkable Respiratory: Unremarkable Cardiovascular: Edema, As per HPI Gastrointestinal: Unremarkable Genitourinary: Unremarkable Musculoskeletal: Leg Pain, Foot Pain, Pedal edema, As per HPI Integumentary: Bruising, As per HPI Neurological: Unremarkable Lymphatics: Unremarkable Physical Examination - Physical Exam General: Alert, In no apparent distress, Oriented x3, Cooperative HEENT: Atraumatic, Normocephalic, PERRLA, Mucous membr. moist/pink Neck: Supple, No Thyromegaly Respiratory: Clear to auscultation bilaterally, Normal air movement Cardiovascular: Normal pulses, Regular rate/rhythm Gastrointestinal: Normal bowel sounds, Soft and benign, Non-distended, No tenderness, No masses, No rebound, No guarding Musculoskeletal: Other (Erythema, swelling and ecchymosis to the left lower extremity primarily to the foot. Mild pain noted. Erythema noted of the foot and slightly above the ankle. 1 to 2+ edema noted) Integumentary: Other (As above) Neurological: Normal speech, Normal strength at 5/5 x4 extr, Normal tone, Normal affect, Other (Patient uses cane at home) - Studies Laboratory Data (last 24 hrs) 01/26/19 13:53: Sodium 140, Potassium 4.6, BUN 22 H, Creatinine 0.68, Glucose 98 01/26/19 13:53: WBC 10.8, Hgb 12.2 L, Hct 38.6 L, Plt Count 238 Assessment and Plan - Plan Impression: Left lower extremity cellulitis with ecchymosis on chronic anti coagulation therapy Chronic atrial fibrillation on chronic anti coagulation therapy with pacemaker Acute on chronic diastolic CHF Diabetes mellitus type 2, non insulin dependent Diabetic neuropathy COPD Fall risk Plan: Left lower extremity cellulitis with ecchymosis on chronic anti coagulation therapy: Patient will be admitted for further evaluation and treatment. Patient was to be transferred but patient declined transfer to the [facility]. Therefore patient admitted to this hospital. Will continue with vancomycin and cefepime IV for the cellulitis. Blood cultures obtained. Patient previously on Xarelto 20 mg daily. Will decrease to 15 mg daily due to the ecchymosis. What physical therapy assess ambulation. Patient would benefit with home health and physical therapy at discharge. X-ray shows no fracture. Venous Doppler negative. Will provide medication for pain. Will elevate leg when sitting or lying. Anticipate discharge in the next 2-3 days with clinical improvement. Daytime hospitalist team will continue his care. Chronic atrial fibrillation on chronic anti coagulation therapy with pacemaker: Xarelto has been decreased to 15 mg daily. Will need to obtain and restart other home medication. Will monitor and adjust appropriately. Acute on chronic diastolic CHF: Mild pitting edema noted to the lower extremities. Will increase Lasix to 40 mg twice daily. Previous previously on 40 mg daily. Will teach on 1500 cc per day fluid restriction. Diabetes mellitus type 2, non insulin dependent: Will hold metformin at this time. Will provide insulin sliding scale and Accu-Cheks. Diabetic neuropathy: Restart home medication of gabapentin 300 mg 1 pill twice daily. Will provide medication for pain as needed. Will physical therapy assess ambulation. Patient would benefit with home health at discharge. COPD: Continue COPD medication. Maintain sats above 90%. Fall risk: Physical therapy assess ambulation. Fall precaution in place. Patient would benefit with home health and physical therapy at discharge Discharge Plan: Home Plan to discharge in: 72 Hours - Advance Directives Does patient have a Living Will: No Does patient have a Durable POA for Healthcare: No - Code Status/Comfort Care Code Status Assessed: Yes (Patient is full code) Time Spent Managing Pts Care (In Minutes): 55
[2019-01-26] MEDS ORDERED: TRAMADOL HCL 50 MG TAB PO PRN (19:54)
[2019-01-26] MEDS ORDERED: ACETAMINOPHEN 500 MG TAB PO PRN (19:54)
[2019-01-26] MEDS ORDERED: ONDANSETRON 4 MG/2 ML VIAL IV PRN (19:54)
[2019-01-26] MEDS ORDERED: HYDROCODONE/APAP 5/325 MG TAB PO PRN (19:54)
[2019-01-26] MEDS ORDERED: ALBUTEROL 2.5 MG/3 ML NEB SOL NEB PRN (21:00)
[2019-01-26] MEDS: INSULIN -REGULAR HUMAN 50 UNIT/0.5 ML ML SQ SCH (21:00)
[2019-01-26] MEDS: GABAPENTIN 300 MG CAP PO SCH (21:06)
[2019-01-26] MEDS: ARFORMOTEROL TARTRATE 15 MCG/2 ML VIAL.NEB NEB SCH (22:15)
[2019-01-26] MEDS: IPRATROPIUM BROM 0.5MG/2.5ML NEB PRN (22:15)
[2019-01-27] MEDS ORDERED: VANCOMYCIN 1 GM/VIAL ONE (00:52)
[2019-01-27] MEDS ORDERED: NA CHLORIDE 0.9% 500 ML ONE (00:55)
[2019-01-27] MEDS ORDERED: VANCOMYCIN 2 GM in NA CHLORIDE 0.9% 500 ML IVPB SCH (02:00)
[2019-01-27 04:39] LABS: Urine Appearance CLEAR; Urine Bilirubin NEGATIVE (NEG); Urine Blood NEGATIVE (NEG); Urine Color YELLOW; Urine Glucose NEGATIVE (NEG); Urine Microscopic Reflex ORDER UMIC; Urine Protein NEGATIVE (NEG); Urine Urobilinogen 0.2 mg/dL (0.2-1.0)
[2019-01-27 04:53] LABS: Urine Bacteria <20 /HPF (NONE SEEN); Urine Culture Reflex Order REFLEXED; Urine RBC <5 /HPF (NONE SEEN)
[2019-01-27 06:36] LABS: Absolute Lymphocytes (CBC) 1.8 K/uL (0.7-4.9); Basophils % 0.3 % (0-1.3); Hematocrit 41.4 % (39.6-49.0); Lymphocytes % 19.9 % (15.3-44.8); RBC Red Blood Cell Count 5.17 M/uL (4.33-5.43)
[2019-01-27 06:45] LABS: BUN Blood Urea Nitrogen 16 mg/dL (7-18); Bicarbonate 31 mmol/L (21-32); Glucose Level 112 mg/dL (74-106); Magnesium 2.4 mg/dL (1.8-2.4); Potassium 4.2 mmol/L (3.5-5.1); Sodium Level 140 mmol/L (136-145)
[2019-01-27] MEDS: INSULIN -REGULAR HUMAN 50 UNIT/0.5 ML ML SQ SCH ×4 (07:30→21:00)
[2019-01-27] MEDS: ARFORMOTEROL TARTRATE 15 MCG/2 ML VIAL.NEB NEB SCH ×2 (08:15→20:00)
[2019-01-27] MEDS ORDERED: CEFEPIME/SWI 1gm 10 ML IV SCH (09:00)
[2019-01-27] MEDS ORDERED: CEFEPIME 1 GM/VIAL IV SCH ×2 (09:00)
[2019-01-27] MEDS: FUROSEMIDE 40 MG TABLET PO SCH ×2 (11:00→16:31)
[2019-01-27] MEDS: GABAPENTIN 300 MG CAP PO SCH ×2 (11:01→21:24)
--- NOTE | 2019-01-27 11:19 | P.PN ---
Subjective Date of Service: 01/27/19 Primary Care Provider: [facility] Chief Complaint: Pain, erythema and swelling to the left lower extremity Patient seen and examined at bedside with RN. Chart reviewed. Case discussed with patient at bedside. Currently patient is doing much better than before. No complaints to offer at this time. Review of Systems 10-point ROS is otherwise unremarkable Physical Examination - Vital Signs Temperature: 97.3 F Blood Pressure: 135/60 Pulse: 55 Respirations: 17 Pulse Ox (%): 98 - Physical Exam General: Alert, In no apparent distress HEENT: Atraumatic, PERRLA, EOMI Neck: Supple, JVD not distended Respiratory: Clear to auscultation bilaterally, Normal air movement Cardiovascular: Regular rate/rhythm, Normal S1 S2 Gastrointestinal: Normal bowel sounds, No tenderness Musculoskeletal: Tenderness, Warmth, Other (Left lower foot with increased swelling erythema and tenderness. Mild bruising noted on the dorsal aspect as well.) Integumentary: No rashes Neurological: Normal speech, Normal tone, Normal affect Lymphatics: No axilla or inguinal lymphadenopathy - Studies Laboratory Data (last 24 hrs) 01/26/19 13:53: Sodium 140, Potassium 4.6, BUN 22 H, Creatinine 0.68, Glucose 98 01/26/19 13:53: WBC 10.8, Hgb 12.2 L, Hct 38.6 L, Plt Count 238 Microbiology Data (last 24 hrs): 01/26/19 14:00 Blood - Blood Anaerobic Blood Culture - Final Medications List Reviewed: Yes Assessment And Plan - Current Problems (Diagnosis) (1) Cellulitis of left leg Onset Date: 11/06/16 Current Visit: No Status: Acute Plan: Left lower leg cellulitis most likely secondary to chronic edema -ultrasound of the leg negative for any acute DVT -foot x-ray negative for any acute fractures -will continue with IV antibiotics at this time switched to doxycycline -elevated wrapped the leg here in the hospital (2) Congestive heart failure with left ventricular systolic dysfunction Onset Date: 04/16/17 Current Visit: No Status: Chronic (3) Atrial fibrillation Onset Date: 04/16/17 Current Visit: No Status: Chronic Qualifiers: Atrial fibrillation type: chronic Qualified Code(s): I48.2 - Chronic atrial fibrillation (4) COPD (chronic obstructive pulmonary disease) Current Visit: No Status: Chronic Qualifiers: COPD type: chronic bronchitis (5) Diabetes mellitus Onset Date: 04/16/17 Current Visit: No Status: Chronic Qualifiers: Diabetes mellitus type: type 2 Diabetes mellitus long-term insulin use: without 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
--- NOTE | 2019-01-27 12:50 | RAD REPORT ---
EXAM DESCRIPTION: CT - Low Extremity Wo Cont - 01/27/2019 12:33 pm CLINICAL HISTORY: Left leg pain, left leg soft tissue swelling, skin discoloration COMPARISON: Left foot films January 26 TECHNIQUE: Axial 2 millimeter thick images of the left lower extremity performed with sagittal and c oronal reformatted images generated and reviewed. The CT scan was performed using dose optimization techniques as appropriate to a performed exam incl uding one or more of the following: Automated exposure control, adjustment of the mA and/or kV accord ing to patient size (this includes techniques or standardized protocols for targeted exams where dose is matched to indication/reason for exam) and use of iterative reconstruction technique. FINDINGS: A small effusion is present at the knee joint. Advanced degenerative changes are seen in t he medial and lateral compartments with marginal spurring and lateral compartment narrowing. Degenera tive meniscal calcifications are present. Prominent patella femoral joint space narrowing seen with m arginal spurring. Sub chondral degenerative cystic changes are seen. Patella primarily articulates wi th the lateral femoral condyle. No fractures identified. There is no cortical thinning or disruption of the tibia and fibula. No dest ructive bone process or other acute finding seen. Patient has degenerative change at the tibiotalar j oint space. No destructive component. Soft tissue edema is present in the subcutaneous tissues. This involves the left leg from knee to ank le. No air or foreign body in the soft tissues. No drainable fluid collection. No hematoma, mass, ish ma or other acute finding of the musculature. IMPRESSION: Edema changes are present in the subcutaneous fatty tissues left lower leg. No air, fore ign body or focal fluid collection. Moderate knee and more mild to moderate ankle degenerative changes are present as detailed. No acute or destructive bone process seen.
[2019-01-27] MEDS: RIVAROXABAN 15 MG TABLET PO SCH (16:28)
[2019-01-27] MEDS: DOXYCYCLINE 100 MG in NA CHLORIDE 0.9% 100 ML IVPB SCH (21:25)
[2019-01-28 05:34] LABS: Absolute Lymphocytes (CBC) 1.8 K/uL (0.7-4.9); Basophils % 0.5 % (0-1.3); Hematocrit 38.3 % (39.6-49.0); Lymphocytes % 20.5 % (15.3-44.8); RBC Red Blood Cell Count 4.83 M/uL (4.33-5.43)
[2019-01-28 05:56] LABS: BUN Blood Urea Nitrogen 16 mg/dL (7-18); Bicarbonate 32 mmol/L (21-32); Glucose Level 120 mg/dL (74-106); Magnesium 2.4 mg/dL (1.8-2.4); Potassium 3.3 mmol/L (3.5-5.1); Sodium Level 141 mmol/L (136-145)
[2019-01-28] MEDS ORDERED: POTASSIUM 25 MEQ EFFERV TAB PO ONE (06:04)
[2019-01-28] MEDS: INSULIN -REGULAR HUMAN 50 UNIT/0.5 ML ML SQ SCH ×4 (07:30→21:00)
[2019-01-28] MEDS: ARFORMOTEROL TARTRATE 15 MCG/2 ML VIAL.NEB NEB SCH ×2 (07:55→20:15)
[2019-01-28] MEDS: IPRATROPIUM BROM 0.5MG/2.5ML NEB PRN (07:55)
[2019-01-28] MEDS: FUROSEMIDE 40 MG TABLET PO SCH ×2 (08:15→16:14)
[2019-01-28] MEDS: GABAPENTIN 300 MG CAP PO SCH ×2 (08:15→20:16)
[2019-01-28] MEDS: DOXYCYCLINE 100 MG in NA CHLORIDE 0.9% 100 ML IVPB SCH ×2 (08:15→20:16)
--- NOTE | 2019-01-28 11:05 | P.PN ---
Subjective Date of Service: 01/28/19 Primary Care Provider: [facility] Chief Complaint: Pain, erythema and swelling to the left lower extremity Patient seen and examined at bedside with RN. Chart reviewed. Case discussed with patient at bedside. Currently patient is doing much better than before. No complaints to offer at this time. Review of Systems 10-point ROS is otherwise unremarkable Physical Examination - Vital Signs Temperature: 98 F Blood Pressure: 123/61 Pulse: 76 Respirations: 18 Pulse Ox (%): 98 - Physical Exam General: Alert, In no apparent distress HEENT: Atraumatic, PERRLA, EOMI Neck: Supple, JVD not distended Respiratory: Clear to auscultation bilaterally, Normal air movement Cardiovascular: Regular rate/rhythm, Normal S1 S2 Gastrointestinal: Normal bowel sounds, No tenderness Musculoskeletal: Erythema, Tenderness, Warmth Integumentary: No rashes Neurological: Normal speech, Normal tone, Normal affect Lymphatics: No axilla or inguinal lymphadenopathy - Studies Microbiology Data (last 24 hrs): 01/26/19 14:00 Blood - Blood Anaerobic Blood Culture - Final Medications List Reviewed: Yes Assessment And Plan - Current Problems (Diagnosis) (1) Cellulitis of left leg Onset Date: 11/06/16 Current Visit: No Status: Acute Plan: Left lower leg cellulitis most likely secondary to chronic edema -ultrasound of the leg negative for any acute DVT -foot x-ray negative for any acute fractures -Currently on IV doxycycline. Will continue. -elevated wrapped the leg here in the hospital (2) Congestive heart failure with left ventricular systolic dysfunction Onset Date: 04/16/17 Current Visit: No Status: Chronic (3) Atrial fibrillation Onset Date: 04/16/17 Current Visit: No Status: Chronic Qualifiers: Atrial fibrillation type: chronic Qualified Code(s): I48.2 - Chronic atrial fibrillation (4) COPD (chronic obstructive pulmonary disease) Current Visit: No Status: Chronic Qualifiers: COPD type: chronic bronchitis (5) Diabetes mellitus Onset Date: 04/16/17 Current Visit: No Status: Chronic Qualifiers: Diabetes mellitus type: type 2 Diabetes mellitus chcf insulin use: without chcf use Diabetes mellitus complication status: with unspecified complications (6) Hyperlipidemia Current Visit: No Status: Chronic Qualifiers: Hyperlipidemia type: unspecified Qualified Code(s): E78.5 - Hyperlipidemia , unspecified (7) Hypertension Current Visit: No Status: Chronic Qualifiers: Hypertension type: essential hypertension Qualified Code(s): I10 - Essential (primary) hypertension - Plan Pending clinical improvement at this time Discharge Plan: Home Plan to discharge in: Greater than 2 days - Code Status/Comfort Care Code Status Assessed: Yes Critical Care: No
[2019-01-28] MEDS: RIVAROXABAN 15 MG TABLET PO SCH (16:14)
[2019-01-29 02:24] VITALS: O2SAT 95
[2019-01-29 04:43] VITALS: BMI 32.5
[2019-01-29 06:29] LABS: Absolute Lymphocytes (CBC) 1.8 K/uL (0.7-4.9); Basophils % 0.4 % (0-1.3); Hematocrit 39.8 % (39.6-49.0); Lymphocytes % 21.1 % (15.3-44.8); MPV 8.6 fL (7.6-11.3); RBC Red Blood Cell Count 5.05 M/uL (4.33-5.43)
[2019-01-29 06:42] LABS: BUN Blood Urea Nitrogen 18 mg/dL (7-18); Bicarbonate 32 mmol/L (21-32); Glucose Level 126 mg/dL (74-106); Magnesium 2.3 mg/dL (1.8-2.4); Potassium 3.4 mmol/L (3.5-5.1); Sodium Level 140 mmol/L (136-145)
[2019-01-29] MEDS: INSULIN -REGULAR HUMAN 50 UNIT/0.5 ML ML SQ SCH ×2 (07:30→11:30)
[2019-01-29] MEDS: ARFORMOTEROL TARTRATE 15 MCG/2 ML VIAL.NEB NEB SCH (07:50)
[2019-01-29] MEDS: DOXYCYCLINE 100 MG in NA CHLORIDE 0.9% 100 ML IVPB SCH (08:20)
[2019-01-29] MEDS: FUROSEMIDE 40 MG TABLET PO SCH (08:21)
[2019-01-29] MEDS: GABAPENTIN 300 MG CAP PO SCH (08:21)
[2019-01-29] MEDS ORDERED: POTASSIUM 25 MEQ EFFERV TAB PO ONE (09:00)
--- NOTE | 2019-01-29 12:09 | P.DS ---
Admission Date: 01/26/19 Discharge Date: 01/29/19 Primary Care Provider: [facility] Disposition: ROUTINE DISCHARGE Discharge Condition: GOOD Reason for Admission: Pain, erythema and swelling to the left lower extremity - Problems (1) Cellulitis of left leg Onset Date: 11/06/16 Current Visit: No Status: Acute (2) Congestive heart failure with left ventricular systolic dysfunction Onset Date: 04/16/17 Current Visit: No Status: Chronic (3) Atrial fibrillation Onset Date: 04/16/17 Current Visit: No Status: Chronic Qualifiers: Atrial fibrillation type: chronic Qualified Code(s): I48.2 - Chronic atrial fibrillation (4) COPD (chronic obstructive pulmonary disease) Current Visit: No Status: Chronic Qualifiers: COPD type: chronic bronchitis (5) Diabetes mellitus Onset Date: 04/16/17 Current Visit: No Status: Chronic Qualifiers: Diabetes mellitus type: type 2 Diabetes mellitus care home insulin use: without 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 Patient with underlying diabetes mellitus type 2, [id number], atrial fibrillation on chronic anti coalition therapy with pacemaker, COPD, diabetic neuropathy and CHF. Patient reported 2 days ago that he start to have increasing pain, swelling and erythema to the left lower extremity. Pain was about a 5/10. He did not report any fall that he could recall. Patient does have diabetic neuropathy. Pain continued to get worse. He denied any fever, chills, chest pain or shortness of breath. He came to the ER for further evaluation. In the ER patient evaluated. White count 10.8, hemoglobin 12.2. Sodium 140, potassium 4.6. BUN of 22, creatinine 0.68 with a GFR of 90. Glucose 98. Patient had noticeable ecchymosis, erythema, swelling to the left lower extremity. X-ray shows no fracture. Venous Doppler negative for DVT. Due to the severity of his symptoms the patient was admitted for treatment and further evaluation. When I saw the patient ER, he appeared comfortable. Patient was to be transferred to the [facility] but patient declined the transfer. Hospital Course: Overall during the hospital stay Pt remained stable. Pt was admitted to the hospital for LLE cellulitis. Was Started on IV abx. Had marked improvement and thus was DC on PO abx. Vital Signs/Physical Exam: Temp Pulse Resp BP Pulse Ox 97.1 F 79 20 124/82 98 01/29/19 09:00 01/29/19 09:00 01/29/19 09:00 01/29/19 09:00 01/29/19 09:00 General: Alert, In no apparent distress HEENT: Atraumatic, PERRLA, EOMI Neck: Supple, JVD not distended Respiratory: Clear to auscultation bilaterally, Normal air movement Cardiovascular: Regular rate/rhythm, Normal S1 S2 Gastrointestinal: Normal bowel sounds, No tenderness Musculoskeletal: No tenderness Integumentary: No rashes Neurological: Normal speech, Normal tone, Normal affect Lymphatics: No axilla or inguinal lymphadenopathy Laboratory Data at Discharge: WBC 8.7 K/uL (4.3-10.9) 01/29/19 06:18 Hgb 13.1 g/dL (13.6-17.9) L 01/29/19 06:18 Hct 39.8 % (39.6-49.0) 01/29/19 06:18 Plt Count 229 K/uL (152-406) 01/29/19 06:18 Sodium 140 mmol/L (136-145) 01/29/19 06:18 Potassium 3.4 mmol/L (3.5-5.1) L 01/29/19 06:18 BUN 18 mg/dL (7-18) 01/29/19 06:18 Creatinine 0.68 mg/dL (0.55-1.3) 01/29/19 06:18 Glucose 126 mg/dL (74-106) H 01/29/19 06:18 Magnesium 2.3 mg/dL (1.8-2.4) 01/29/19 06:18 Home Medications: Albuterol Neb [Proventil 0.083% Neb Soln] 1 vial IH QIDP PRN 04/15/17 Albuterol Sulfate [Proair Respiclick] 2 puff IH BID 04/15/17 Aspirin [Aspirin EC 81 MG] 81 mg PO DAILY 04/15/17 Budesonide/Formoterol Fumarate [Symbicort 160-4.5 Mcg Inhaler] 2 puff IH BID Cholecalciferol (Vitamin D3) [Vitamin D3] 400 unit PO DAILY 04/15/17 Cyanocobalamin (Vitamin B-12) [B-12] 500 mcg PO DAILY 04/15/17 Gabapentin [Neurontin*] 300 mg PO BID 04/15/17 Metformin HCl [Glucophage*] 500 mg PO BIDWM 04/15/17 Polyvinyl Alcohol [Artificial Tears] 1 drop EACH EYE QID 04/15/17 Rivaroxaban [Xarelto] 20 mg PO 1700 04/15/17 Furosemide [Lasix*] 40 mg PO DAILY #30 tab 07/27/17 Doxycycline Hyclate 100 mg PO BID #28 tablet 01/29/19 New Medications: Doxycycline Hyclate 100 mg PO BID #28 tablet Diet: Regular Activity: Ad alessio
[2019-01-29 14:05] VITALS: BP 120/73; TEMP 97.6
== END 2019-01-29 14:56 | disposition home or self-care (01) | DRG 602 ==
LOC: ER 12:19 → ERHOLD 18:49 → 2ND 19:53
PROVIDERS: ADMIT Family Medicine; ATTEND Family Medicine
DX: L03.116 Cellulitis of left lower limb (principal); I50.33 Acute on chronic diastolic (congestive) heart failure; I25.10 Atherosclerotic heart disease of native coronary artery without angina pectoris; J44.9 Chronic obstructive pulmonary disease, unspecified; E11.40 Type 2 diabetes mellitus with diabetic neuropathy, unspecified; I48.2 Chronic atrial fibrillation; E78.5 Hyperlipidemia, unspecified; I10 Essential (primary) hypertension; I25.2 Old myocardial infarction; Z91.81 History of falling; Z79.01 Long term (current) use of anticoagulants; Z85.46 Personal history of malignant neoplasm of prostate
CPT/HCPCS: 36415; 73700; 80048; 81003; 81015; 82962; 83735; 84132; 84145; 85025; 87040; 87086; 87088; 93971; 94640; 96365; 96375; 97116; 97161; 99285; J0692; J0696; J7605

== ENCOUNTER 2019-06-23 16:10 | Emergency (ER) | payer OTHER ==
--- OUTSIDE RECORDS SUMMARY | 2019-06-23 16:13 | XMS REPORT ---
:1930 [facility] Address [address] [place] [address] Dr. Darling [address] [place] [address] Care Team Providers Name Role Phone DHARMESH [...] (BEAKER) (test 148 mg/dL 70-110 TESTED AT [facility] [address] [facility] htvu=[id number]) [facility] [address] TISSUE [id number] 16:35:00Surgical Pathology Report Case: [id number] Authorizing Provider: Haroldo Figueroa MD Collected: 06/08/2018 1444 Ordering Location: 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 CG/ewPerformed.POCT-GLUCOSE [id number] 11:52:00 Test Item Value Reference Range Comments POC-GLUCOSE METER (BEAKER) 191 mg/dL 70-110 TESTED AT [address] (test xdrs=6016) [place] [address] POCT-GLUCOSE [id number] 08:05:00 Test Item Value Reference Range Comments POC-GLUCOSE METER (BEAKER) 219 mg/dL 70-110 TESTED AT [address] (test yxjv=5099) [place] [address] B-TYPE NATRIURETIC FACTOR (BNP)2018-06-09 07:22:00 Test Item Value Reference Range Comments B-TYPE NATRIURETIC PEPTIDE (BEAKER) (test 257 pg/mL 0-100 sfqe=864) POCT-GLUCOSE [id number] 21:45:00 Test Item Value Reference Range Comments POC-GLUCOSE METER (BEAKER) 165 mg/dL 70-110 TESTED AT [address] (test gmdj=9328) [place] [address] RAD, CHEST, 1 VIEW, NON [id number] 18:25:00Reason for exam:->pacemaker check Should this be performed at the bedside?->YesFINAL REPORT Chest, 1 view Clinical history: pacemaker check Comparison: NoneDiscussion: 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 There is no pneumothorax. Small bilateral pleural effusions are seen with bibasilar atelectasis or airspace disease. The cardiac silhouette is enlarged with asymmetric left-sided perihilar edema. No acute osseous abnormality. Signed: Elieser Edmond [facility] Verified Date/Time: 06/08/2018 18:25:31 Reading Location: [facility] B1 [id number] Consult Reading Room POCT-GLUCOSE [id number] 16:08:00 Test Item Value Reference Range Comments POC-GLUCOSE METER (BEAKER) 154 mg/dL 70-110 TESTED AT [address] (test ctlh=4464) [place] [address] POCT-GLUCOSE [id number] 11:33:00 Test Item Value Reference Range Comments POC-GLUCOSE METER (BEAKER) 161 mg/dL 70-110 [address] (test okjj=0949) [facility] [address] POCT-GLUCOSE [id number] 08:46:00 Test Item Value Reference Range Comments POC-GLUCOSE METER (BEAKER) 146 mg/dL 70-110 TESTED AT [facility] [address] [facility] (test rogc=8236) [facility] [address] [id number] 07:15:00 Test Item Value Reference Range Comments MAGNESIUM (BEAKER) (test 2.1 mg/dL 1.6-2.6 Specimen moderately hemolyzed vjgd=498) [id number] 07:15:00 Test Item Value Reference Range Comments PHOSPHORUS (BEAKER) (test 3.4 mg/dL 2.3-4.7 Specimen moderately hemolyzed kvam=978) BASIC METABOLIC [id number] 07:15:00 Test Item Value Reference Range Comments SODIUM (BEAKER) (test 143 meq/L 136-145 vgwy=814) POTASSIUM (BEAKER) (test 4.3 meq/L 3.5-5.1 Specimen moderately tafl=209) hemolyzed CHLORIDE (BEAKER) (test 97 meq/L 98-107 dsoh=153) CO2 (BEAKER) (test 39 meq/L 22-29 vzyn=262) BLOOD UREA NITROGEN 10 mg/dL 7-21 (BEAKER) (test kfqn=456) CREATININE (BEAKER) (test 0.63 mg/dL 0.57-1.25 Specimen moderately rtxc=061) hemolyzed GLUCOSE RANDOM (BEAKER) 143 mg/dL 70-105 (test ygwe=660) CALCIUM (BEAKER) (test 9.4 mg/dL 8.4-10.2 mwvq=251) EGFR (BEAKER) (test 121 mL/min/1.73 sq m ESTIMATED GFR IS NOT ndir=9739) ACCURATE CREATININE CLEARANCE IN PREDICTING GLOMERULAR FILTRATION RATE. ESTIMATED GFR IS NOT APPLICABLE FOR DIALYSIS PATIENTS. HEPATIC FUNCTION [id number] 07:15:00 Test Item Value Reference Range Comments TOTAL PROTEIN (BEAKER) (test 6.1 gm/dL 6.0-8.3 Specimen moderately hemolyzed dfbb=911) ALBUMIN (BEAKER) (test 3.3 g/dL 3.5-5.0 Specimen moderately hemolyzed xlpm=3056) BILIRUBIN TOTAL (BEAKER) (test 1.2 mg/dL 0.2-1.2 Specimen moderately hemolyzed zwpa=897) BILIRUBIN DIRECT (BEAKER) 0.5 mg/dL 0.1-0.5 Specimen moderately hemolyzed (test tbtf=522) ALKALINE PHOSPHATASE (BEAKER) 129 U/L 40-150 (test sjyo=809) AST (SGOT) (BEAKER) (test 29 U/L 5-34 Specimen moderately hemolyzed qvso=576) ALT (SGPT) (BEAKER) (test 69 U/L 6-55 Specimen moderately pqff=911) hemolyzed PROTHROMBIN [id number] 07:14:00 Test Item Value Reference Range Comments PROTIME (BEAKER) (test tyih=756) 14.1 seconds 11.7-14.7 INR (BEAKER) (test rufi=981) 1.1 <=5.9 RECOMMENDED COUMADIN/WARFARIN INR THERAPY RANGESSTANDARD DOSE: 2.0 - 3.0 Includes: PROPHYLAXIS forvenous thrombosis, systemic embolization; TREATMENT for venous thrombosis and/or pulmonary embolus.HIGH RISK: Target INR is 2.5-3.5 for patients with mechanical heart valves.POCT-GLUCOSE [id number] 07:06:00 Test Item Value Reference Range Comments POC-GLUCOSE METER (BEAKER) 179 mg/dL 70-110 TESTED AT [facility] [address] [facility] (test nzra=2306) [facility] [address] CBC W/PLT COUNT & AUTO [id number] 06:58:00 Test Item Value Reference Range Comments WHITE BLOOD CELL COUNT (BEAKER) (test oarb=069) 9.0 K/ L 3.5-10.5 RED BLOOD CELL COUNT (BEAKER) (test ycon=576) 5.09 M/ L 4.63-6.08 HEMOGLOBIN (BEAKER) (test eefl=114) 14.7 GM/DL 13.7-17.5 HEMATOCRIT (BEAKER) (test odft=916) 46.7 % 40.1-51.0 MEAN CORPUSCULAR VOLUME (BEAKER) (test cujm=548) 91.7 fL 79.0-92.2 MEAN CORPUSCULAR HEMOGLOBIN (BEAKER) (test 28.9 pg 25.7-32.2 mazj=128) MEAN CORPUSCULAR HEMOGLOBIN CONC (BEAKER) (test 31.5 GM/DL 32.3-36.5 qidd=646) RED CELL DISTRIBUTION WIDTH (BEAKER) (test 14.1 % 11.6-14.4 gwhb=989) PLATELET COUNT (BEAKER) (test oxuy=268) 195 K/CU MM 150-450 MEAN PLATELET VOLUME (BEAKER) (test yzdd=912) 10.8 fL 9.4-12.4 NUCLEATED RED BLOOD CELLS (BEAKER) (test 0 /100 WBC 0-0 jqkp=535) NEUTROPHILS RELATIVE PERCENT (BEAKER) (test 68 % ukuf=001) LYMPHOCYTES RELATIVE PERCENT (BEAKER) (test 16 % cbfb=042) MONOCYTES RELATIVE PERCENT (BEAKER) (test 10 % sslq=602) EOSINOPHILS RELATIVE PERCENT (BEAKER) (test 4 % ilmb=347) BASOPHILS RELATIVE PERCENT (BEAKER) (test 1 % jwbn=029) NEUTROPHILS ABSOLUTE COUNT (BEAKER) (test 6.09 K/ L 1.78-5.38 txjc=752) LYMPHOCYTES ABSOLUTE COUNT (BEAKER) (test 1.42 K/ L 1.32-3.57 eahu=267) MONOCYTES ABSOLUTE COUNT (BEAKER) (test 0.89 K/ L 0.30-0.82 aejh=012) EOSINOPHILS ABSOLUTE COUNT (BEAKER) (test 0.38 K/ L 0.04-0.54 gbbc=675) BASOPHILS ABSOLUTE COUNT (BEAKER) (test 0.05 K/ L 0.01-0.08 vsbc=567) IMMATURE GRANULOCYTES-RELATIVE PERCENT (BEAKER) 2 % 0-1 (test nijy=1820) POCT-GLUCOSE [id number] 21:03:00 Test Item Value Reference Range Comments POC-GLUCOSE METER (BEAKER) 142 mg/dL 70-110 TESTED AT [facility] [address] [facility] (test nzaz=3561) [facility] [address] [id number] 19:39:00 Test Item Value Reference Range Comments PHOSPHORUS (BEAKER) (test qdrc=072) 2.2 mg/dL 2.3-4.7 [id number] 19:39:00 Test Item Value Reference Range Comments MAGNESIUM (BEAKER) (test qegy=809) 1.8 mg/dL 1.6-2.6 BASIC METABOLIC [id number] 19:39:00 Test Item Value Reference Range Comments SODIUM (BEAKER) (test 139 meq/L 136-145 hdgd=701) POTASSIUM (BEAKER) (test 3.2 meq/L 3.5-5.1 zjwt=636) CHLORIDE (BEAKER) (test 97 meq/L 98-107 ggjr=937) CO2 (BEAKER) (test 35 meq/L 22-29 gocb=800) BLOOD UREA NITROGEN 12 mg/dL 7-21 (BEAKER) (test amch=088) CREATININE (BEAKER) (test 0.68 mg/dL 0.57-1.25 lwed=276) GLUCOSE RANDOM (BEAKER) 236 mg/dL 70-105 (test lytx=514) CALCIUM (BEAKER) (test 9.0 mg/dL 8.4-10.2 xals=998) EGFR (BEAKER) (test 111 mL/min/1.73 sq m ESTIMATED GFR IS NOT lnid=6310) ACCURATE CREATININE CLEARANCE IN PREDICTING GLOMERULAR FILTRATION RATE. ESTIMATED GFR IS NOT APPLICABLE FOR DIALYSIS PATIENTS. HEPATIC FUNCTION [id number] 19:39:00 Test Item Value Reference Range Comments TOTAL PROTEIN (BEAKER) (test lkfy=694) 5.6 gm/dL 6.0-8.3 ALBUMIN (BEAKER) (test emxp=1424) 3.1 g/dL 3.5-5.0 BILIRUBIN TOTAL (BEAKER) (test hnqk=592) 0.9 mg/dL 0.2-1.2 BILIRUBIN DIRECT (BEAKER) (test wufe=210) 0.6 mg/dL 0.1-0.5 ALKALINE PHOSPHATASE (BEAKER) (test svfx=472) 125 U/L 40-150 AST (SGOT) (BEAKER) (test rluv=143) 22 U/L 5-34 ALT (SGPT) (BEAKER) (test bvbx=075) 71 U/L 6-55 PROTHROMBIN [id number] 19:34:00 Test Item Value Reference Range Comments PROTIME (BEAKER) (test fasl=679) 15.1 seconds 11.7-14.7 INR (BEAKER) (test fdon=242) 1.2 <=5.9 RECOMMENDED COUMADIN/WARFARIN INR THERAPY RANGESSTANDARD DOSE: 2.0 - 3.0 Includes: PROPHYLAXIS forvenous thrombosis, systemic embolization; TREATMENT for venous thrombosis and/or pulmonary embolus.HIGH RISK: Target INR is 2.5-3.5 for patients with mechanical heart valves.CBC W/PLT COUNT & AUTO [id number] 19:18:00 Test Item Value Reference Range Comments WHITE BLOOD CELL COUNT (BEAKER) (test kmei=889) 8.0 K/ L 3.5-10.5 RED BLOOD CELL COUNT (BEAKER) (test cweg=323) 4.71 M/ L 4.63-6.08 HEMOGLOBIN (BEAKER) (test izsv=850) 13.5 GM/DL 13.7-17.5 HEMATOCRIT (BEAKER) (test nblv=817) 42.6 % 40.1-51.0 MEAN CORPUSCULAR VOLUME (BEAKER) (test cuwm=432) 90.4 fL 79.0-92.2 MEAN CORPUSCULAR HEMOGLOBIN (BEAKER) (test 28.7 pg 25.7-32.2 hzhh=204) MEAN CORPUSCULAR HEMOGLOBIN CONC (BEAKER) (test 31.7 GM/DL 32.3-36.5 swso=202) RED CELL DISTRIBUTION WIDTH (BEAKER) (test 14.0 % 11.6-14.4 awix=825) PLATELET COUNT (BEAKER) (test szex=159) 181 K/CU MM 150-450 MEAN PLATELET VOLUME (BEAKER) (test ewwf=339) 10.6 fL 9.4-12.4 NUCLEATED RED BLOOD CELLS (BEAKER) (test 0 /100 WBC 0-0 gxwx=387) NEUTROPHILS RELATIVE PERCENT (BEAKER) (test 65 % wpmz=489) LYMPHOCYTES RELATIVE PERCENT (BEAKER) (test 19 % ytxe=342) MONOCYTES RELATIVE PERCENT (BEAKER) (test 10 % shpv=242) EOSINOPHILS RELATIVE PERCENT (BEAKER) (test 3 % gsfe=585) BASOPHILS RELATIVE PERCENT (BEAKER) (test 1 % bpfr=649) NEUTROPHILS ABSOLUTE COUNT (BEAKER) (test 5.19 K/ L 1.78-5.38 ujik=296) LYMPHOCYTES ABSOLUTE COUNT (BEAKER) (test 1.50 K/ L 1.32-3.57 mzjo=229) MONOCYTES ABSOLUTE COUNT (BEAKER) (test 0.82 K/ L 0.30-0.82 dggr=437) EOSINOPHILS ABSOLUTE COUNT (BEAKER) (test 0.23 K/ L 0.04-0.54 trjf=382) BASOPHILS ABSOLUTE COUNT (BEAKER) (test 0.06 K/ L 0.01-0.08 hsds=527) IMMATURE GRANULOCYTES-RELATIVE PERCENT (BEAKER) 3 % 0-1 (test ywbp=5938) POCT-GLUCOSE [id number] 17:55:00 Test Item Value Reference Range Comments POC-GLUCOSE METER (BEAKER) 305 mg/dL 70-110 Notified NORA MAJOR/TESTED AT [facility] (test ghcw=5520) [address] [place] [address] POCT-GLUCOSE [id number] 11:56:00 Test Item Value Reference Range Comments POC-GLUCOSE METER (BEAKER) 137 mg/dL 70-110 TESTED AT [address] (test izgi=0204) [place] [address] POCT-GLUCOSE [id number] 09:01:00 Test Item Value Reference Range Comments POC-GLUCOSE METER (BEAKER) 158 mg/dL 70-110 TESTED AT [address] (test xybq=3687) [place] [address] BLOOD [id number] 05:00:00 Test Item Value Reference Range Comments CULTURE (BEAKER) (test cscx=7178) No growth in 5 days BLOOD [id number] 05:00:00 Test Item Value Reference Range Comments CULTURE (BEAKER) (test svke=8095) No growth in 5 days POCT-GLUCOSE [id number] 21:31:00 Test Item Value Reference Range Comments POC-GLUCOSE METER (BEAKER) 297 mg/dL 70-110 TESTED AT [address] (test pqvn=8943) [place] [id number] POCT-GLUCOSE [id number] 17:26:00 Test Item Value Reference Range Comments POC-GLUCOSE METER (BEAKER) 154 mg/dL 70-110 TESTED AT [address] (test opoq=3703) [place] [address] POCT-GLUCOSE [id number] 15:17:00 Test Item Value Reference Range Comments POC-GLUCOSE METER (BEAKER) 154 mg/dL 70-110 TESTED AT [address] (test xqaw=2843) [place] [address] [place], [id number] 13:54:00INTRA OP IMAGINGReason for exam:->ABNORMAL IMAGINGFINAL REPORT ERCP 4 views 06/06/2018 1:49 PM CLINICAL HISTORY: Instrument localization COMPARISON: None available IMPRESSION : Please correlate imaging report findings with the procedure note prepared by Dr. Hinojosa, as an intra-procedure imaging consultation was not requested. Reported fluoroscopy time: 91.0 seconds. Signed: Yunier Boyd Verified Date/Time: 06/06/2018 13:54:44 Reading Location: [facility] Radiology Reading Room Electronically signed by: YUNIER BOYD M.D. on 01:54 PMCOMPREHENSIVE METABOLIC [id number] 11:44:00 Test Item Value Reference Range Comments TOTAL PROTEIN (BEAKER) 5.9 gm/dL 6.0-8.3 (test jvnj=362) ALBUMIN (BEAKER) (test 3.3 g/dL 3.5-5.0 bymf=5989) ALKALINE PHOSPHATASE 146 U/L 40-150 (BEAKER) (test ouzs=427) BILIRUBIN TOTAL (BEAKER) 1.1 mg/dL 0.2-1.2 (test ppsu=198) SODIUM (BEAKER) (test 141 meq/L 136-145 xfoj=477) POTASSIUM (BEAKER) (test 4.2 meq/L 3.5-5.1 ozcv=446) CHLORIDE (BEAKER) (test 99 meq/L 98-107 mdwp=482) CO2 (BEAKER) (test 37 meq/L 22-29 wwrz=169) BLOOD UREA NITROGEN 10 mg/dL 7-21 (BEAKER) (test bkxe=542) CREATININE (BEAKER) (test 0.61 mg/dL 0.57-1.25 ntfh=752) GLUCOSE RANDOM (BEAKER) 152 mg/dL 70-105 (test jnxd=022) CALCIUM (BEAKER) (test 9.2 mg/dL 8.4-10.2 bhab=843) AST (SGOT) (BEAKER) (test 29 U/L 5-34 cjvn=140) ALT (SGPT) (BEAKER) (test 99 U/L 6-55 vnkh=797) EGFR (BEAKER) (test 125 mL/min/1.73 sq ESTIMATED GFR IS NOT vbej=6355) m ACCURATE CREATININE CLEARANCE IN PREDICTING GLOMERULAR FILTRATION RATE. ESTIMATED GFR IS NOT APPLICABLE FOR DIALYSIS PATIENTS. POCT-GLUCOSE [id number] 08:58:00 Test Item Value Reference Range Comments POC-GLUCOSE METER (BEAKER) 174 mg/dL 70-110 TESTED AT [address] (test ient=4665) [place] [id number] CBC (HEMOGRAM ONLY)2018-06-06 06:47:00 Test Item Value Reference Range Comments WHITE BLOOD CELL COUNT (BEAKER) (test otgn=812) 7.8 K/ L 3.5-10.5 RED BLOOD CELL COUNT (BEAKER) (test gtiv=054) 4.65 M/ L 4.63-6.08 HEMOGLOBIN (BEAKER) (test pozm=939) 13.6 GM/DL 13.7-17.5 HEMATOCRIT (BEAKER) (test zxll=160) 42.3 % 40.1-51.0 MEAN CORPUSCULAR VOLUME (BEAKER) (test bngl=759) 91.0 fL 79.0-92.2 MEAN CORPUSCULAR HEMOGLOBIN (BEAKER) (test 29.2 pg 25.7-32.2 rgjh=694) MEAN CORPUSCULAR HEMOGLOBIN CONC (BEAKER) (test 32.2 GM/DL 32.3-36.5 tnkt=289) RED CELL DISTRIBUTION WIDTH (BEAKER) (test 14.2 % 11.6-14.4 toos=195) PLATELET COUNT (BEAKER) (test jabz=517) 161 K/CU MM 150-450 MEAN PLATELET VOLUME (BEAKER) (test symm=387) 10.9 fL 9.4-12.4 NUCLEATED RED BLOOD CELLS (BEAKER) (test 0 /100 WBC 0-0 noxe=617) POCT-GLUCOSE [id number] 21:43:00 Test Item Value Reference Range Comments POC-GLUCOSE METER (BEAKER) 213 mg/dL 70-110 TESTED AT [address] (test uavu=6560) [place] [id number] POCT-GLUCOSE [id number] 18:37:00 Test Item Value Reference Range Comments POC-GLUCOSE METER (BEAKER) 144 mg/dL 70-110 TESTED AT [address] (test xngp=2280) [place] [address] POCT-GLUCOSE [id number] 12:41:00 Test Item Value Reference Range Comments POC-GLUCOSE METER (BEAKER) 171 mg/dL 70-110 TESTED AT [address] (test dzxm=3200) [facility] [address] POCT-GLUCOSE [id number] 08:33:00 Test Item Value Reference Range Comments POC-GLUCOSE METER (BEAKER) 165 mg/dL 70-110 TESTED AT [address] (test kcjd=0801) [facility] [address] POCT-GLUCOSE [id number] 08:27:00 Test Item Value Reference Range Comments POC-GLUCOSE METER (BEAKER) 165 mg/dL 70-110 TESTED AT [address] (test elyz=4016) [facility] [address] VANCOMYCIN LEVEL, [id number] 07:59:00 Test Item Value Reference Range Comments VANCOMYCIN TROUGH (BEAKER) (test wlae=892) 15.0 ug/mL 10.0-20.0 CBC (HEMOGRAM ONLY)2018-06-05 06:50:00 Test Item Value Reference Range Comments WHITE BLOOD CELL COUNT (BEAKER) (test fblx=639) 7.3 K/ L 3.5-10.5 RED BLOOD CELL COUNT (BEAKER) (test fzey=072) 5.05 M/ L 4.63-6.08 HEMOGLOBIN (BEAKER) (test krqy=642) 14.6 GM/DL 13.7-17.5 HEMATOCRIT (BEAKER) (test turi=384) 45.6 % 40.1-51.0 MEAN CORPUSCULAR VOLUME (BEAKER) (test itez=056) 90.3 fL 79.0-92.2 MEAN CORPUSCULAR HEMOGLOBIN (BEAKER) (test 28.9 pg 25.7-32.2 ghig=437) MEAN CORPUSCULAR HEMOGLOBIN CONC (BEAKER) (test 32.0 GM/DL 32.3-36.5 vshv=932) RED CELL DISTRIBUTION WIDTH (BEAKER) (test 14.0 % 11.6-14.4 cdbc=522) PLATELET COUNT (BEAKER) (test iads=679) 146 K/CU MM 150-450 MEAN PLATELET VOLUME (BEAKER) (test homm=156) 10.5 fL 9.4-12.4 NUCLEATED RED BLOOD CELLS (BEAKER) (test 0 /100 WBC 0-0 fooq=123) COMPREHENSIVE METABOLIC [id number] 05:48:00 Test Item Value Reference Range Comments TOTAL PROTEIN (BEAKER) 5.6 gm/dL 6.0-8.3 (test diva=673) ALBUMIN (BEAKER) (test 3.1 g/dL 3.5-5.0 dofl=6677) ALKALINE PHOSPHATASE 145 U/L 40-150 (BEAKER) (test penk=566) BILIRUBIN TOTAL (BEAKER) 1.2 mg/dL 0.2-1.2 (test pahu=011) SODIUM (BEAKER) (test 139 meq/L 136-145 yrvu=974) POTASSIUM (BEAKER) (test 3.4 meq/L 3.5-5.1 zhoh=797) CHLORIDE (BEAKER) (test 101 meq/L 98-107 iwce=663) CO2 (BEAKER) (test 30 meq/L 22-29 sfwg=963) BLOOD UREA NITROGEN 11 mg/dL 7-21 (BEAKER) (test pkii=012) CREATININE (BEAKER) (test 0.59 mg/dL 0.57-1.25 rykm=681) GLUCOSE RANDOM (BEAKER) 151 mg/dL 70-105 (test czye=850) CALCIUM (BEAKER) (test 8.6 mg/dL 8.4-10.2 vvao=579) AST (SGOT) (BEAKER) (test 35 U/L 5-34 iuxc=655) ALT (SGPT) (BEAKER) (test 134 U/L 6-55 rgar=682) EGFR (BEAKER) (test 130 mL/min/1.73 sq ESTIMATED GFR IS NOT ndcu=4579) m ACCURATE CREATININE CLEARANCE IN PREDICTING GLOMERULAR FILTRATION RATE. ESTIMATED GFR IS NOT APPLICABLE FOR DIALYSIS PATIENTS. POCT-GLUCOSE [id number] 21:00:00 Test Item Value Reference Range Comments POC-GLUCOSE METER (BEAKER) 204 mg/dL 70-110 TESTED AT [address] (test fawh=7188) [facility] [address] POCT-GLUCOSE [id number] 17:17:00 Test Item Value Reference Range Comments POC-GLUCOSE METER (BEAKER) 156 mg/dL 70-110 TESTED AT [place] [id number] [facility] (test lxys=9208) [facility] [address] POCT-GLUCOSE [id number] 12:42:00 Test Item Value Reference Range Comments POC-GLUCOSE METER (BEAKER) 201 mg/dL 70-110 TESTED AT [facility] [address] [facility] (test dzvp=4780) [facility] [address] POCT-GLUCOSE [id number] 08:34:00 Test Item Value Reference Range Comments POC-GLUCOSE METER (BEAKER) 150 mg/dL 70-110 TESTED AT [place] [id number] [facility] (test mdgi=1324) [facility] [address] BASIC METABOLIC [id number] 05:20:00 Test Item Value Reference Range Comments SODIUM (BEAKER) (test 138 meq/L 136-145 qprk=816) POTASSIUM (BEAKER) (test 3.4 meq/L 3.5-5.1 qtgu=946) CHLORIDE (BEAKER) (test 100 meq/L 98-107 rqdh=103) CO2 (BEAKER) (test 32 meq/L 22-29 hdcu=014) BLOOD UREA NITROGEN 13 mg/dL 7-21 (BEAKER) (test gdjc=217) CREATININE (BEAKER) (test 0.60 mg/dL 0.57-1.25 mebg=706) GLUCOSE RANDOM (BEAKER) 143 mg/dL 70-105 (test wdyz=545) CALCIUM (BEAKER) (test 8.4 mg/dL 8.4-10.2 wpiw=025) EGFR (BEAKER) (test 128 mL/min/1.73 sq m ESTIMATED GFR IS NOT yumo=6152) ACCURATE CREATININE CLEARANCE IN PREDICTING GLOMERULAR FILTRATION RATE. ESTIMATED GFR IS NOT APPLICABLE FOR DIALYSIS PATIENTS. CBC (HEMOGRAM ONLY)2018-06-04 05:02:00 Test Item Value Reference Range Comments WHITE BLOOD CELL COUNT (BEAKER) (test xfyi=361) 6.1 K/ L 3.5-10.5 RED BLOOD CELL COUNT (BEAKER) (test vgxu=773) 4.77 M/ L 4.63-6.08 HEMOGLOBIN (BEAKER) (test nprm=947) 13.7 GM/DL 13.7-17.5 HEMATOCRIT (BEAKER) (test yepo=435) 43.0 % 40.1-51.0 MEAN CORPUSCULAR VOLUME (BEAKER) (test eyjh=176) 90.1 fL 79.0-92.2 MEAN CORPUSCULAR HEMOGLOBIN (BEAKER) (test 28.7 pg 25.7-32.2 utns=370) MEAN CORPUSCULAR HEMOGLOBIN CONC (BEAKER) (test 31.9 GM/DL 32.3-36.5 ffvv=122) RED CELL DISTRIBUTION WIDTH (BEAKER) (test 14.0 % 11.6-14.4 rfrg=177) PLATELET COUNT (BEAKER) (test ysrs=842) 139 K/CU MM 150-450 MEAN PLATELET VOLUME (BEAKER) (test owdw=972) 10.8 fL 9.4-12.4 NUCLEATED RED BLOOD CELLS (BEAKER) (test 0 /100 WBC 0-0 bykr=884) POCT-GLUCOSE [id number] 20:49:00 Test Item Value Reference Range Comments POC-GLUCOSE METER (BEAKER) 219 mg/dL 70-110 TESTED AT [address] (test oyoo=1347) [place] [id number] POCT-GLUCOSE [id number] 16:44:00 Test Item Value Reference Range Comments POC-GLUCOSE METER (BEAKER) 148 mg/dL 70-110 TESTED AT [address] (test zdnu=0525) [facility] [address] POCT-GLUCOSE [id number] 12:31:00 Test Item Value Reference Range Comments POC-GLUCOSE METER (BEAKER) 206 mg/dL 70-110 TESTED AT [address] (test wzsz=4520) [facility] [id number] CBC W/PLT COUNT & AUTO [id number] 08:49:00 Test Item Value Reference Range Comments WHITE BLOOD CELL COUNT (BEAKER) (test llvk=837) 9.0 K/ L 3.5-10.5 RED BLOOD CELL COUNT (BEAKER) (test dxxe=823) 4.85 M/ L 4.63-6.08 HEMOGLOBIN (BEAKER) (test ylck=063) 14.1 GM/DL 13.7-17.5 HEMATOCRIT (BEAKER) (test qvjs=444) 44.4 % 40.1-51.0 MEAN CORPUSCULAR VOLUME (BEAKER) (test oeph=372) 91.5 fL 79.0-92.2 MEAN CORPUSCULAR HEMOGLOBIN (BEAKER) (test 29.1 pg 25.7-32.2 mtxg=197) MEAN CORPUSCULAR HEMOGLOBIN CONC (BEAKER) (test 31.8 GM/DL 32.3-36.5 hbhs=197) RED CELL DISTRIBUTION WIDTH (BEAKER) (test 14.0 % 11.6-14.4 ddcl=102) PLATELET COUNT (BEAKER) (test rhns=747) 145 K/CU MM 150-450 MEAN PLATELET VOLUME (BEAKER) (test arot=781) 10.8 fL 9.4-12.4 NUCLEATED RED BLOOD CELLS (BEAKER) (test 0 /100 WBC 0-0 wqlx=347) NEUTROPHILS RELATIVE PERCENT (BEAKER) (test 82 % trgq=313) LYMPHOCYTES RELATIVE PERCENT (BEAKER) (test 7 % fqgj=928) MONOCYTES RELATIVE PERCENT (BEAKER) (test 9 % fmnd=103) EOSINOPHILS RELATIVE PERCENT (BEAKER) (test 0 % wapv=191) BASOPHILS RELATIVE PERCENT (BEAKER) (test 0 % rvll=312) NEUTROPHILS ABSOLUTE COUNT (BEAKER) (test 7.40 K/ L 1.78-5.38 bjus=825) LYMPHOCYTES ABSOLUTE COUNT (BEAKER) (test 0.65 K/ L 1.32-3.57 dgrp=928) MONOCYTES ABSOLUTE COUNT (BEAKER) (test 0.78 K/ L 0.30-0.82 xvnn=402) EOSINOPHILS ABSOLUTE COUNT (BEAKER) (test 0.04 K/ L 0.04-0.54 jute=725) BASOPHILS ABSOLUTE COUNT (BEAKER) (test 0.03 K/ L 0.01-0.08 vqhp=453) IMMATURE GRANULOCYTES-RELATIVE PERCENT (BEAKER) 1 % 0-1 (test ooup=8970) POCT-GLUCOSE [id number] 08:22:00 Test Item Value Reference Range Comments POC-GLUCOSE METER (BEAKER) 158 mg/dL 70-110 TESTED AT [facility] [address] [facility] (test fzob=7198) [facility] [address] VANCOMYCIN LEVEL, [id number] 07:54:00 Test Item Value Reference Range Comments VANCOMYCIN TROUGH (BEAKER) (test rqjd=286) 10.9 ug/mL 10.0-20.0 BASIC METABOLIC [id number] 07:49:00 Test Item Value Reference Range Comments SODIUM (BEAKER) (test 137 meq/L 136-145 mwrz=332) POTASSIUM (BEAKER) (test 3.5 meq/L 3.5-5.1 iglx=602) CHLORIDE (BEAKER) (test 100 meq/L 98-107 rumh=926) CO2 (BEAKER) (test 28 meq/L 22-29 jdue=338) BLOOD UREA NITROGEN 19 mg/dL 7-21 (BEAKER) (test tdpr=950) CREATININE (BEAKER) (test 0.66 mg/dL 0.57-1.25 spql=908) GLUCOSE RANDOM (BEAKER) 149 mg/dL 70-105 (test cnzb=869) CALCIUM (BEAKER) (test 8.5 mg/dL 8.4-10.2 ticd=877) EGFR (BEAKER) (test 114 mL/min/1.73 sq m ESTIMATED GFR IS NOT gmey=5917) ACCURATE CREATININE CLEARANCE IN PREDICTING GLOMERULAR FILTRATION RATE. ESTIMATED GFR IS NOT APPLICABLE FOR DIALYSIS PATIENTS. Specimen slightly ictericHEPATIC FUNCTION [id number] 07:49:00 Test Item Value Reference Range Comments TOTAL PROTEIN (BEAKER) (test nqif=526) 5.9 gm/dL 6.0-8.3 ALBUMIN (BEAKER) (test muty=7967) 3.4 g/dL 3.5-5.0 BILIRUBIN TOTAL (BEAKER) (test dmqf=593) 2.5 mg/dL 0.2-1.2 BILIRUBIN DIRECT (BEAKER) (test qkrs=199) 1.8 mg/dL 0.1-0.5 ALKALINE PHOSPHATASE (BEAKER) (test huir=845) 134 U/L 40-150 AST (SGOT) (BEAKER) (test ofof=012) 117 U/L 5-34 ALT (SGPT) (BEAKER) (test shlm=608) 259 U/L 6-55 Specimen slightly ictericPOCT-GLUCOSE [id number] 21:25:00 Test Item Value Reference Range Comments POC-GLUCOSE METER (BEAKER) 223 mg/dL 70-110 TESTED AT [address] (test gwpk=8682) [facility] [address] POCT-GLUCOSE [id number] 17:09:00 Test Item Value Reference Range Comments POC-GLUCOSE METER (BEAKER) 161 mg/dL 70-110 TESTED AT [address] (test xnif=7715) [facility] [address] POCT-GLUCOSE [id number] 10:58:00 Test Item Value Reference Range Comments POC-GLUCOSE METER (BEAKER) 113 mg/dL 70-110 TESTED AT [facility] [address] [facility] (test leev=7642) [facility] [address] CBC W/PLT COUNT & AUTO [id number] 09:48:00 Test Item Value Reference Range Comments WHITE BLOOD CELL COUNT (BEAKER) (test atcm=996) 16.1 K/ L 3.5-10.5 RED BLOOD CELL COUNT (BEAKER) (test wbdy=440) 4.85 M/ L 4.63-6.08 HEMOGLOBIN (BEAKER) (test znpy=416) 13.8 GM/DL 13.7-17.5 HEMATOCRIT (BEAKER) (test sihe=361) 43.6 % 40.1-51.0 MEAN CORPUSCULAR VOLUME (BEAKER) (test tdvh=236) 89.9 fL 79.0-92.2 MEAN CORPUSCULAR HEMOGLOBIN (BEAKER) (test 28.5 pg 25.7-32.2 rdsn=877) MEAN CORPUSCULAR HEMOGLOBIN CONC (BEAKER) (test 31.7 GM/DL 32.3-36.5 mdtx=781) RED CELL DISTRIBUTION WIDTH (BEAKER) (test 14.2 % 11.6-14.4 czfq=869) PLATELET COUNT (BEAKER) (test vihc=568) 181 K/CU MM 150-450 MEAN PLATELET VOLUME (BEAKER) (test llie=806) 10.8 fL 9.4-12.4 NUCLEATED RED BLOOD CELLS (BEAKER) (test 0 /100 WBC 0-0 tdzc=744) NEUTROPHILS RELATIVE PERCENT (BEAKER) (test 87 % xhzh=848) LYMPHOCYTES RELATIVE PERCENT (BEAKER) (test 5 % asnx=558) MONOCYTES RELATIVE PERCENT (BEAKER) (test 7 % xasp=657) EOSINOPHILS RELATIVE PERCENT (BEAKER) (test 0 % wswz=864) BASOPHILS RELATIVE PERCENT (BEAKER) (test 0 % cjem=301) NEUTROPHILS ABSOLUTE COUNT (BEAKER) (test 13.95 K/ L 1.78-5.38 eden=870) LYMPHOCYTES ABSOLUTE COUNT (BEAKER) (test 0.81 K/ L 1.32-3.57 pert=216) MONOCYTES ABSOLUTE COUNT (BEAKER) (test 1.17 K/ L 0.30-0.82 rdll=513) EOSINOPHILS ABSOLUTE COUNT (BEAKER) (test 0.01 K/ L 0.04-0.54 tcrm=724) BASOPHILS ABSOLUTE COUNT (BEAKER) (test 0.02 K/ L 0.01-0.08 quwj=578) IMMATURE GRANULOCYTES-RELATIVE PERCENT (BEAKER) 1 % 0-1 (test line=0994) POCT-GLUCOSE [id number] 08:08:00 Test Item Value Reference Range Comments POC-GLUCOSE METER (BEAKER) 175 mg/dL 70-110 TESTED AT [facility] [address] [facility] (test whwn=0170) [facility] [address] BASIC METABOLIC [id number] 05:28:00 Test Item Value Reference Range Comments SODIUM (BEAKER) (test 141 meq/L 136-145 vcuq=868) POTASSIUM (BEAKER) (test 3.7 meq/L 3.5-5.1 Specimen slightly hcmp=844) hemolyzed CHLORIDE (BEAKER) (test 104 meq/L 98-107 lmqz=243) CO2 (BEAKER) (test 27 meq/L 22-29 raro=291) BLOOD UREA NITROGEN 23 mg/dL 7-21 (BEAKER) (test ynpk=868) CREATININE (BEAKER) (test 0.82 mg/dL 0.57-1.25 Specimen slightly fzhw=648) hemolyzed GLUCOSE RANDOM (BEAKER) 158 mg/dL 70-105 (test ctkq=127) CALCIUM (BEAKER) (test 9.0 mg/dL 8.4-10.2 hlnc=468) EGFR (BEAKER) (test 89 mL/min/1.73 sq m ESTIMATED GFR IS NOT iqiy=7109) ACCURATE CREATININE CLEARANCE IN PREDICTING GLOMERULAR FILTRATION RATE. ESTIMATED GFR IS NOT APPLICABLE FOR DIALYSIS PATIENTS. Specimen slightly ictericHEPATIC FUNCTION [id number] 05:28:00 Test Item Value Reference Range Comments TOTAL PROTEIN (BEAKER) (test 6.0 gm/dL 6.0-8.3 Specimen slightly hemolyzed ndvl=484) ALBUMIN (BEAKER) (test 3.4 g/dL 3.5-5.0 Specimen slightly hemolyzed ogdc=7107) BILIRUBIN TOTAL (BEAKER) (test 5.7 mg/dL 0.2-1.2 Specimen slightly hemolyzed vavc=491) BILIRUBIN DIRECT (BEAKER) (test 4.0 mg/dL 0.1-0.5 Specimen slightly hemolyzed miyy=190) ALKALINE PHOSPHATASE (BEAKER) 129 U/L 40-150 (test bzym=623) AST (SGOT) (BEAKER) (test 216 U/L 5-34 Specimen slightly hemolyzed jgwm=820) ALT (SGPT) (BEAKER) (test 358 U/L 6-55 Specimen slightly hemolyzed cncd=903) Specimen slightly ictericFL, [id number] 00:14:00Reason for exam:-> CHOLEDOCHOLITHIASISFINAL REPORT ERCP: Comparison [...] MDReport Verified Date/Time: 06/02/2018 00:14:16 Reading Location: [address] Reading Room POCT-GLUCOSE [id number] 23:14:00 Test Item Value Reference Range Comments POC-GLUCOSE METER (BEAKER) 176 mg/dL 70-110 TESTED AT [address] (test xfmk=8823) [place] [address] LACTIC ACID, VENOUS, WHOLE [id number] 17:47:00 Test Item Value Reference Range Comments LACTATE BLOOD VENOUS (2) 2.4 mmol/L 0.5-2.2 Specimen slightly hemolyzed (BEAKER) (test qtac=7372) Specimen slightly ictericPOCT-GLUCOSE [id number] 17:31:00 Test Item Value Reference Range Comments POC-GLUCOSE METER (BEAKER) 219 mg/dL 70-110 TESTED AT [address] (test oyom=0823) [place] [address] POCT-GLUCOSE [id number] 13:48:00 Test Item Value Reference Range Comments POC-GLUCOSE METER (BEAKER) 209 mg/dL 70-110 TESTED AT [address] (test knvb=6112) [facility] [address] CBC W/PLT COUNT & AUTO [id number] 08:21:00 Test Item Value Reference Range Comments WHITE BLOOD CELL COUNT (BEAKER) (test muwv=234) 21.6 K/ L 3.5-10.5 RED BLOOD CELL COUNT (BEAKER) (test eqvy=470) 5.77 M/ L 4.63-6.08 HEMOGLOBIN (BEAKER) (test dllt=353) 16.3 GM/DL 13.7-17.5 HEMATOCRIT (BEAKER) (test nayq=771) 52.1 % 40.1-51.0 MEAN CORPUSCULAR VOLUME (BEAKER) (test jdcn=849) 90.3 fL 79.0-92.2 MEAN CORPUSCULAR HEMOGLOBIN (BEAKER) (test 28.2 pg 25.7-32.2 urwf=617) MEAN CORPUSCULAR HEMOGLOBIN CONC (BEAKER) (test 31.3 GM/DL 32.3-36.5 lary=600) RED CELL DISTRIBUTION WIDTH (BEAKER) (test 13.8 % 11.6-14.4 ywvd=221) PLATELET COUNT (BEAKER) (test omhj=131) 262 K/CU MM 150-450 MEAN PLATELET VOLUME (BEAKER) (test lqzh=665) 10.7 fL 9.4-12.4 NUCLEATED RED BLOOD CELLS (BEAKER) (test 0 /100 WBC 0-0 saiu=940) (CELLAVISION MANUAL DIFF)2018-06-01 08:21:00 Test Item Value Reference Range Comments NEUTROPHILS - REL (CELLAVISION)(BEAKER) (test 65 % mvmp=5027) LYMPHOCYTES - REL (CELLAVISION)(BEAKER) (test 1 % dhme=0616) MONOCYTES - REL (CELLAVISION)(BEAKER) (test 3 % ahag=5595) BANDS - REL (CELLAVISION)(BEAKER) (test 30 % 0-10 ekyq=5201) ATYPICAL LYMPHOCYTES - REL (CELLAVISION)(BEAKER) 1 % 0-0 (test zoxf=8643) NEUTROPHILS - ABS (CELLAVISION)(BEAKER) (test 14.04 K/ul 1.78-5.38 kqvn=5551) LYMPHOCYTES - ABS (CELLAVISION)(BEAKER) (test 0.22 K/ul 1.32-3.57 rggx=7755) MONOCYTES - ABS (CELLAVISION)(BEAKER) (test 0.65 K/uL 0.30-0.82 fwgm=2066) BANDS - ABS (CELLAVISION)(BEAKER) (test 6.48 K/uL 0.00-0.80 agsv=8181) ATYPICAL LYMPHOCYTES - ABS (CELLAVISION)(BEAKER) 0.22 K/uL 0.00-0.00 (test ccsr=5066) TOTAL COUNTED (BEAKER) (test ynoz=8176) 100 WBC MORPHOLOGY (BEAKER) (test idmy=156) Normal PLT MORPHOLOGY (BEAKER) (test mbsg=188) Normal POIKILOCYTES (BEAKER) (test cusz=494) 1+ few ARTIFACT (CELLAVISION)(BEAKER) (test xawb=6661) Present PLATELET CONCENTRATION (CELLAVISION)(BEAKER) Adequate (test ywar=3326) Received comment: User comments: Slide comments:BASIC METABOLIC [id number] 08:12:00 Test Item Value Reference Range Comments SODIUM (BEAKER) (test 137 meq/L 136-145 mkej=576) POTASSIUM (BEAKER) (test 4.0 meq/L 3.5-5.1 okmz=988) CHLORIDE (BEAKER) (test 99 meq/L 98-107 goap=008) CO2 (BEAKER) (test 20 meq/L 22-29 cqeu=661) BLOOD UREA NITROGEN 18 mg/dL 7-21 (BEAKER) (test ygbl=986) CREATININE (BEAKER) (test 0.83 mg/dL 0.57-1.25 uxsh=279) GLUCOSE RANDOM (BEAKER) 213 mg/dL 70-105 (test stow=021) CALCIUM (BEAKER) (test 9.6 mg/dL 8.4-10.2 evdc=108) EGFR (BEAKER) (test 88 mL/min/1.73 sq m ESTIMATED GFR IS NOT beue=9521) ACCURATE CREATININE CLEARANCE IN PREDICTING GLOMERULAR FILTRATION RATE. ESTIMATED GFR IS NOT APPLICABLE FOR DIALYSIS PATIENTS. Specimen moderately ictericHEPATIC FUNCTION [id number] 08:12:00 Test Item Value Reference Range Comments TOTAL PROTEIN (BEAKER) (test qqvg=643) 7.3 gm/dL 6.0-8.3 ALBUMIN (BEAKER) (test ikqt=1025) 4.4 g/dL 3.5-5.0 BILIRUBIN TOTAL (BEAKER) (test srql=349) 5.6 mg/dL 0.2-1.2 BILIRUBIN DIRECT (BEAKER) (test mgkb=694) 3.9 mg/dL 0.1-0.5 ALKALINE PHOSPHATASE (BEAKER) (test zffl=656) 166 U/L 40-150 AST (SGOT) (BEAKER) (test aoej=346) 497 U/L 5-34 ALT (SGPT) (BEAKER) (test xgxa=953) 492 U/L 6-55 Specimen moderately ictericPOCT-GLUCOSE [id number] 06:47:00 Test Item Value Reference Range Comments POC-GLUCOSE METER (BEAKER) 222 mg/dL 70-110 TESTED AT [facility] [address] [facility] (test kjfc=9101) [facility] [address]
[2019-06-23] MEDS ORDERED: DERMABOND SKIN ADHESIVE TOP ONE (16:42)
[2019-06-23] MEDS ORDERED: TETANUS & DIPHTHERIA TOX,ADULT 0.5 ML VIAL ONE (16:42)
--- NOTE | 2019-06-23 16:59 | RAD REPORT ---
EXAM DESCRIPTION: CT - Head C Spine Mpr Wo Con - 06/23/2019 4:37 pm CLINICAL HISTORY: Head and neck injury status post fall. Head and neck pain COMPARISON: None. TECHNIQUE: Computed axial tomography of the head and cervical spine was obtained. Sagittal and coronal reconstruction was performed. All CT scans are performed using dose optimization technique as appropriate and may include automated exposure control or mA/KV adjustment according to patient size. FINDINGS: A 3.6 centimeter lens shaped mass is present along the left frontal convexity. The ventricles are normal caliber. Low-density within the left cerebellum likely secondary to old inf arction. A cervical fracture is not visualized. No dislocation is noted. Central disc herniations C2-3 Spondylosis C3-4, C4-5, C5-6 and C6-7. Central disc herniation C5-6. Moderate central spinal stenosis . Moderate to marked foraminal stenosis IMPRESSION: 3.6 centimeter lens shaped mass is present along the left frontal convexity. This can be seen with meningioma as well as an isodense epidural hematoma. It is recommended that the patient zavala ve a CT scan with contrast for further evaluation. The examination was discussed with Harvey in the Emergency Room Cervical fracture is not visualized
--- NOTE | 2019-06-23 17:07 | RAD REPORT ---
EXAM DESCRIPTION: CT - Facial Bones W/ Mpr - 06/23/2019 4:37 pm CLINICAL HISTORY: Facial injury status post fall COMPARISON: None TECHNIQUE: Computed axial tomography of the face was obtained. Coronal and sagittal reconstruction w as performed. All CT scans are performed using dose optimization technique as appropriate and may include automated exposure control or mA/KV adjustment according to patient size. FINDINGS: Laceration involves the nose. No acute fracture. Couple of tiny densities are present with in the nasal soft tissue. I suspect these are chronic which should be correlated clinically. A TMJ dislocation is not noted. The globes are intact. Fluid within the sinuses is not seen. IMPRESSION: Negative for a facial fracture.
[2019-06-23 17:30] LABS: Absolute Lymphocytes (CBC) 1.5 K/uL (0.7-4.9); Basophils % 0.5 % (0-1.3); Hematocrit 39.6 % (39.6-49.0); Lymphocytes % 20.5 % (15.3-44.8); MPV 8.5 fL (7.6-11.3); RBC Red Blood Cell Count 5.03 M/uL (4.33-5.43)
[2019-06-23 17:32] LABS: Protime INR 1.36
[2019-06-23 17:45] LABS: Albumin 3.2 g/dL (3.4-5.0); Bilirubin Total 0.3 mg/dL (0.2-1.0); Potassium 3.6 mmol/L (3.5-5.1); Protein, Total 6.5 g/dL (6.4-8.2)
--- NOTE | 2019-06-23 17:47 | RAD REPORT ---
EXAM DESCRIPTION: CT - Head Brain W Cont - 06/23/2019 5:36 pm CLINICAL HISTORY: Brain mass COMPARISON: Unenhanced CT head June 23, 2019 TECHNIQUE: Computed axial tomography of the head was obtained..enhanced images obtained. 50 cc Isovu e-[address] scans are performed using dose optimization technique as appropriate and may include automated exposure control or mA/KV adjustment according to patient size. FINDINGS: The 3.6 centimeter lens shaped mass along the left frontal convexity demonstrates enhancem ent consistent with a meningioma. There is no surrounding vasogenic edema IMPRESSION: 3.6 centimeter meningioma along the left frontal convexity.
--- NOTE | 2019-06-23 19:06 | ER ---
Nurse's Notes [facility] Name: Valentin Veloz Age: 88 yrs Sex: Male : 1930 Arrival Date: 06/23/2019 Time: 16:14 Bed 26 Private MD: Diagnosis: Meningioma;Laceration without foreign body of nose;Fall on same level, unspecified Presentation: 06/23 16:17 Presenting complaint: Patient states: Lost balance and fell while ambulating in restroom approximately 30 minutes ago. Denies LOC. + blood thinners. C/o pain to L side of forehead. and nose. Avulsion noted to bridge of nose. Care prior to arrival: None. Mechanism of Injury: Fall from standing position. Trauma event details: Injury occurred in the [facility], Injury occurred: at home. Injury occurred: June 23, 2019 Injury occurred at: 16:00. 16:17 Acuity: EMILY 2 ss 16:17 Method Of Arrival: Wheelchair ss 16:17 Transition of care: patient was not received from another setting of care. Onset of ss symptoms was June 23, 2019. Risk Assessment: Do you want to hurt yourself or someone else? Patient reports no desire to harm self or others. Initial Sepsis Screen: Does the patient have a suspected source of infection? No. Patient's initial sepsis screen is negative. 16:20 Initial Sepsis Screen: Does the patient meet any 2 criteria? No. Patient's initial ca1 sepsis screen is negative. Trauma Activation: Alert Physician: ED Physician; Name: ; Notified At: ; Arrived At: Physician: General Surgeon; Name: ; Notified At: ; Arrived At: Physician: Radiology; Name: ; Notified At: ; Arrived At: Physician: Respiratory; Name: ; Notified At: ; Arrived At: Physician: Lab; Name: ; Notified At: ; Arrived At: Historical: - Allergies: 16:26 Codeine; ss - PMHx: 16:26 CAD; CANCER - PROSTATE; CHF; Diabetes - NIDDM; COPD; High Cholesterol; Hypertension; ss Myocardial infarction; Pacemaker; - Immunization history: Last tetanus immunization: - up to date. - Social history:: Smoking status: Patient/guardian denies using tobacco. - Ebola Screening: : Patient denies exposure to infectious person Patient denies travel to an Ebola-affected area in the 21 days before illness onset. Screenin:20 Nutritional screening: No deficits noted. Fall Risk Fall in past 12 months (25 points). ca1 Ambulatory Aid- Crutches/Cane/Walker (15 pts). Mental Status- Overestimates/Forgets Limitations (15 pts.). Total [place] Fall Scale indicates High Risk Score (45 or more points). Fall prevention measures have been instituted. Side Rails Up X 2 Family Present and informed to notify staff if the need to leave the bedside As available patient and family educated on Fall Prevention Program and Strategies. 16:24 Abuse screen: Denies threats or abuse. Denies injuries from another. Tuberculosis ca1 screening: No symptoms or risk factors identified. Primary Survey: 16:24 NO uncontrolled hemorrhage observed. A: The patient is alert. Airway: patent. ca1 Breathing/Chest: Respiratory pattern: regular, Respiratory effort: spontaneous, unlabored, Chest inspection: symmetrical rise and fall of the chest. Circulation: Heart tones present. Pulses: palpable bilateral radial, brachial, femoral, popliteal, posterior tibial and and dorsalis pedis arteries.. Skin color: pink, Skin temperature: warm, dry. Disability Alert. Exposure/Environment: All clothing and personal items were removed. Forensic evidence collection is not deemed to be indicated at this time. Items placed in patient belonging bag. There is no evidence of uncontrolled external bleeding. Obvious injury(ies) are noted at this time: Abrasion on L elbow, partially avulsed skin on top of nose, A warming method has been applied: A warm blanket has been provided to the patient. 17:12 Reassessment Airway Airway Breathing/Chest Respiratory pattern Regular Respiratory ca1 effort Spontaneous Unlabored Breath sounds Clear Chest inspection Symmetrical Circulation Heart tones Present Pulses Palpable Color Muir Temperature Warm Dry Disability Alert. Assessment: 16:15 Reassessment: THANH Gabriel at bedside. ca1 16:20 General: Appears in no apparent distress. comfortable, Behavior is calm, cooperative, ca1 appropriate for age. Pain: Complains of pain in forehead and nose Pain does not radiate. Pain currently is 3 out of 10 on a pain scale. Neuro: Level of Consciousness is awake, alert, obeys commands, Oriented to person, place, time, situation, none. Cardiovascular: Heart tones S1 S2 present Capillary refill < 3 seconds Patient's skin is warm and dry. Respiratory: Airway is patent Respiratory effort is even, unlabored, Respiratory pattern is regular, symmetrical, Breath sounds are clear bilaterally. 16:20 GI: Abdomen is round non-distended, Bowel sounds present X 4 quads. Abd is soft and non ca1 tender X 4 quads. : No signs and/or symptoms were reported regarding the genitourinary system. EENT: No signs and/or symptoms were reported regarding the EENT system. Derm: Skin is fragile, is thin, Skin is pink, warm \T\ dry. Musculoskeletal: Circulation, motion, and sensation intact. Capillary refill < 3 seconds, Range of motion: intact in all extremities. Injury Description: Abrasion sustained to palmar aspect of left forearm is dirty, was sustained less than 30 minutes ago. Avulsion sustained to nose is partial was sustained less than 30 minutes ago. 17:58 Reassessment: Patient appears in no apparent distress at this time. Patient is alert, ca1 oriented x 3, equal unlabored respirations, skin warm/dry/pink. 18:45 Reassessment: Patient appears in no apparent distress at this time. Patient is alert, ca1 oriented x 3, equal unlabored respirations, skin warm/dry/pink. THANH Gabriel at bedside discussing CT result. Vital Signs: 16:18 Resp 18; Temp 98.2; Weight 102.06 kg; Height 5 ft. 10 in. (177.80 cm); Pain 4/10; ss 16:46 BP 148 / 65; Pulse 87; em 17:11 BP 112 / 83; Pulse 79; Resp 17 S; Pulse Ox 92% on R/A; ca1 17:58 BP 123 / 69; Pulse 82; Resp 17 S; Pulse Ox 92% on R/A; ca1 18:48 BP 136 / 75; Pulse 78; Resp 18 S; Pulse Ox 91% on R/A; ca1 16:18 Body Mass Index 32.28 (102.06 kg, 177.80 cm) ss Sharath Coma Score: 16:18 Eye Response: spontaneous(4). Verbal Response: oriented(5). Motor Response: obeys ss commands(6). Total: 15. Trauma Score (Adult): 16:18 Eye Response: spontaneous(1); Verbal Response: oriented(1); Motor Response: obeys ss commands(2); Systolic BP: > 89 mm Hg(4); Respiratory Rate: 10 to 29 per min(4); [place] Score: 15; Trauma Score: 12 ED Course: 16:14 Patient arrived in ED. ss 16:15 Chanelle Varela RN is Primary Nurse. ca1 16:19 Harvey Duque NP is PHCP. pm1 16:19 Angel Carrillo MD is Attending Physician. pm1 16:20 Pulse ox on. NIBP on. Warm blanket given. ca1 16:20 Arm band placed on right wrist. Patient wound covered with wet dressing at this time ca1 per provider instruction. 16:20 Thermoregulation: warm blanket given to patient. ca1 16:23 Triage completed. ss 16:24 Patient has correct armband on for positive identification. Bed in low position. Call ca1 light in reach. Side rails up X2. 16:24 Patient maintains SpO2 saturation greater than 95% on room air. ca1 16:38 CT Head C Spine In Process Unspecified. EDMS 16:38 CT Facial Bones W/O Con In Process Unspecified. EDMS 16:58 Radiology exam delayed due to lab results not completed at this time. (BUN/Creatinine) nj IV insertion attempt and/or patient not having appropriate IV at this time. 17:10 Inserted saline lock: 22 gauge in right antecubital area, using aseptic technique. em 17:36 CT Head Brain w Cont In Process Unspecified. EDMS 18:00 Wound care: to laceration located on nose was cleaned with Hibiclens, irrigated with ca1 normal saline, dressed with 4X4s, Patient tolerated well. 18:47 Assist provider with laceration repair on nose that was between 2.6 to 7.5 cm using ca1 Dermabond. Set up tray. Performed by Harvey Duque NP Patient tolerated well. 19:18 IV discontinued, intact, bleeding controlled, No redness/swelling at site. Pressure ca1 dressing applied. Administered Medications: 16:46 Drug: Tetanus-Diphtheria Toxoid Adult 0.5 ml {Photographer: [employer]. Exp: em 07/06/2021. Lot #: [id number]. } Route: IM; Site: right gluteus; 17:09 Follow up: Response: No adverse reaction em Output: 18:48 Urine: 0ml; Total: 0ml. ca1 Outcome: 19:04 Discharge ordered by . pm1 19:18 Discharged to home via wheelchair, with family. ca1 19:18 Condition: stable 19:18 Discharge instructions given to patient, Instructed on discharge instructions, follow up and referral plans. Demonstrated understanding of instructions, follow-up care, wound care. 19:18 Patient's length of stay in the Emergency Department was greater than [address] has ca1 to be repeated with contrast upon recommendation of RadiologistPatient's length of stay extended due to 19:19 Patient left the ED. ca1 Signatures: Dispatcher [employer] EDVickey Mckinney, GUSTAVO KIDDN Naida Post RN RN ss Harvey Duque NP WRONG ADDRESS CLERK pm1 Dago Sotelo Cheryl, RN RN ca1 Corrections: (The following items were deleted from the chart) 18:48 16:29 No provider procedures requiring assistance completed. ca1 ca1
--- NOTE | 2019-06-23 19:06 | EDPHYS ---
Physician Documentation [facility] Name: Valentin Veloz Age: 88 yrs Sex: Male : 1930 Arrival Date: 06/23/2019 Time: 16:14 Bed 26 Private MD: ED Physician Angel Carrillo HPI: 06/23 16:38 This 88 yrs old Male presents to ER via Wheelchair with complaints of Fall pm1 Injury. 16:38 Details of fall: The patient fell from an upright position, while standing, from pm1 wheelchair, and struck floor and possibly the edge of the door jam per son. Onset: The symptoms/episode began/occurred just prior to arrival. Associated injuries: The patient sustained injury to the head, Laceration to bridge of nose. Severity of symptoms: in the emergency department the symptoms are actually worse. The patient has not experienced similar symptoms in the past. The patient has not recently seen a physician. Patient was getting up from his wheelchair and fell forward presenting with laceration to bridge of his nose and contusion to forehead. No LOC or neck pain. Patient's fall was witnessed by his son who helped him get up. Patient without any pain present to any other location than the bridge of his nose. Historical: - Allergies: 16:26 Codeine; ss - PMHx: 16:26 CAD; CANCER - PROSTATE; CHF; Diabetes - NIDDM; COPD; High Cholesterol; Hypertension; ss Myocardial infarction; Pacemaker; - Immunization history: Last tetanus immunization: - up to date. - Social history:: Smoking status: Patient/guardian denies using tobacco. - Ebola Screening: : Patient denies exposure to infectious person Patient denies travel to an Ebola-affected area in the 21 days before illness onset. ROS: 16:38 Constitutional: Negative for fever, chills, and weight loss, Eyes: Negative for injury, pm1 pain, redness, and discharge, ENT: Negative for injury, pain, and discharge, Neck: Negative for injury, pain, and swelling, Cardiovascular: Negative for chest pain, palpitations, and edema, Respiratory: Negative for shortness of breath, cough, wheezing, and pleuritic chest pain, Abdomen/GI: Negative for abdominal pain, nausea, vomiting, diarrhea, and constipation, Back: Negative for injury and pain, MS/Extremity: Negative for injury and deformity. 16:38 Neuro: Negative for headache, weakness, numbness, tingling, and seizure. 16:38 Skin: Positive for laceration(s), of the nose, forehead contusion. Exam: 16:38 Constitutional: This is a well developed, well nourished patient who is awake, alert, pm1 and in no acute distress. 16:38 Eyes: Pupils equal round and reactive to light, extra-ocular motions intact. Lids and lashes normal. Conjunctiva and sclera are non-icteric and not injected. Cornea within normal limits. Periorbital areas with no swelling, redness, or edema. ENT: Nares patent. No nasal discharge, no septal abnormalities noted. Tympanic membranes are normal and external auditory canals are clear. Oropharynx with no redness, swelling, or masses, exudates, or evidence of obstruction, uvula midline. Mucous membranes moist. Neck: Trachea midline, no thyromegaly or masses palpated, and no cervical lymphadenopathy. Supple, full range of motion without nuchal rigidity, or vertebral point tenderness. No Meningismus. Chest/axilla: Normal chest wall appearance and motion. Nontender with no deformity. No lesions are appreciated. Cardiovascular: Regular rate and rhythm with a normal S1 and S2. No gallops, murmurs, or rubs. Normal PMI, no JVD. No pulse deficits. Respiratory: Lungs have equal breath sounds bilaterally, clear to auscultation and percussion. No rales, rhonchi or wheezes noted. No increased work of breathing, no retractions or nasal flaring. Back: No spinal tenderness. No costovertebral tenderness. Full range of motion. Skin: Warm, dry with normal turgor. Normal color with no rashes, no lesions, and no evidence of cellulitis. MS/ Extremity: Pulses equal, no cyanosis. Neurovascular intact. Full, normal range of motion. 16:38 Head/face: Noted is no obvious of injury or deformity except contusion, that is superficial, of the forehead, a laceration(s), of the bridge of nose, of the irregular flap. 16:38 Neuro: Orientation: is normal, Motor: is normal, moves all fours. Vital Signs: 16:18 Resp 18; Temp 98.2; Weight 102.06 kg; Height 5 ft. 10 in. (177.80 cm); Pain 4/10; ss 16:46 BP 148 / 65; Pulse 87; em 17:11 BP 112 / 83; Pulse 79; Resp 17 S; Pulse Ox 92% on R/A; ca1 17:58 BP 123 / 69; Pulse 82; Resp 17 S; Pulse Ox 92% on R/A; ca1 18:48 BP 136 / 75; Pulse 78; Resp 18 S; Pulse Ox 91% on R/A; ca1 16:18 Body Mass Index 32.28 (102.06 kg, 177.80 cm) ss Pilot Coma Score: 16:18 Eye Response: spontaneous(4). Verbal Response: oriented(5). Motor Response: obeys ss commands(6). Total: 15. Trauma Score (Adult): 16:18 Eye Response: spontaneous(1); Verbal Response: oriented(1); Motor Response: obeys ss commands(2); Systolic BP: > 89 mm Hg(4); Respiratory Rate: 10 to 29 per min(4); Sharath Score: 15; Trauma Score: 12 Laceration: 21:23 Wound Repair of 3cm ( 1.2in ) subcutaneous laceration to bridge of nose. Irregularly pm1 shaped.. Distal neuro/vascular/tendon intact. Wound prep: Extensive cleansing with hibiclenz by nurse, Wound irrigation with saline by nurse, Wound explored extensively, Copious irrigation. Skin closed with 1-0 Adhesive skin closure using Dermabond. Patient tolerated well. MDM: 16:25 Patient medically screened. pm1 17:04 Data reviewed: vital signs. Counseling: I had a detailed discussion with the patient pm1 and/or guardian regarding: Need for additional imaging of the brain with IV contrast to evaluate the mass seen by Dr. Eddy to determine if mass or blood. 19:04 Data interpreted: Pulse oximetry: on room air is 91 %. Interpretation: normal for COPD pm1 hx. 19:04 Counseling: I had a detailed discussion with the patient and/or guardian regarding: the pm1 historical points, exam findings, and any diagnostic results supporting the discharge/admit diagnosis, lab results, radiology results, the need for outpatient follow up, Patient with history of prostate cancer. Stressed need to follow up meningioma. With history of cancer, size, and gender higher possibility meningioma is cancerous, to return to the emergency department if symptoms worsen or persist or if there are any questions or concerns that arise at home. 06/23 17:12 Order name: CBC with Diff; Complete Time: 17:51 pm1 06/23 17:12 Order name: PT-INR; Complete Time: 17:51 pm1 06/23 16:28 Order name: CT Head C Spine; Complete Time: 17:11 pm1 06/23 16:28 Order name: CT Facial Bones W/O Con; Complete Time: 17:51 pm1 06/23 16:51 Order name: CT Head Brain w Cont; Complete Time: 18:02 pm1 06/23 17:12 Order name: CMP; Complete Time: 17:51 pm1 06/23 16:28 Order name: Dermabond; Complete Time: 16:32 pm1 Administered Medications: 16:46 Drug: Tetanus-Diphtheria Toxoid Adult 0.5 ml {Tag Meter Operator: Jugo. Exp: em 07/06/2021. Lot #: [id number]. } Route: IM; Site: right gluteus; 17:09 Follow up: Response: No adverse reaction em Disposition: 06/23/19 19:04 Discharged to Home. Impression: Meningioma, Laceration without foreign body of nose, Fall on same level, unspecified. - Condition is Stable. - Discharge Instructions: Facial Laceration, Meningioma. - Medication Reconciliation Form, Thank You Letter, Antibiotic Education, Prescription Opioid Use form. - Follow up: Emergency Department; When: As needed; Reason: Worsening of condition. Follow up: Private Physician; When: 2 - 3 days; Reason: Recheck today's complaints, Continuance of care, Re-evaluation by your physician. - Problem is new. - Symptoms have improved. Addendum: 06/26/2019 06:42 Co-signature as Attending Physician, Angel Carrillo MD I agree with the assessment and k dr plan of care. PA/CHILD'S NURSE's history reviewed, patient interviewed, and examined. Signatures: Dispatcher [employer] EDRI Angel Carirllo MD MD kdr Munoz, Edgar, SALES AGENT PROTECTIVE SERVICE SALES AGENT PROTECTIVE SERVICE em Naida Crawford RN RN ss Harvey Duque, CHILD'S NURSE CHILD'S NURSE pm1 Chanelle Varela RN RN ca1 Corrections: (The following items were deleted from the chart) 06/23 19:19 19:04 06/23/2019 19:04 Discharged to Home. Impression: Meningioma; Laceration without ca1 foreign body of nose; Fall on same level, unspecified. Condition is Stable. Forms are Medication Reconciliation Form, Thank You Letter, Antibiotic Education, Prescription Opioid Use. Follow up: Emergency Department; When: As needed; Reason: Worsening of condition. Follow up: Private Physician; When: 2 - 3 days; Reason: Recheck today's complaints, Continuance of care, Re-evaluation by your physician. Problem is new. Symptoms have improved. pm1
[2019-06-23 20:24] VITALS: BP 136/75
[2019-06-23 20:36] VITALS: TEMP 98.8; O2SAT 100
== END 2019-06-23 19:19 | disposition home or self-care (01) ==
LOC: ER 16:10
PROC: 0JQ10ZZ Repair Face Subcutaneous Tissue and Fascia, Open Approach (ICD-10-PCS; principal; 2019-06-23)
DX: S01.21XA Laceration without foreign body of nose, initial encounter (principal); D32.9 Benign neoplasm of meninges, unspecified; W01.198A Fall on same level from slipping, tripping and stumbling with subsequent striking against other object, initial encounter; Y93.9 Activity, unspecified; Y92.9 Unspecified place or not applicable; I10 Essential (primary) hypertension; Z23 Encounter for immunization; Z88.5 Allergy status to narcotic agent; Z85.46 Personal history of malignant neoplasm of prostate; Z95.0 Presence of cardiac pacemaker
CPT/HCPCS: 85025; 36415; 85610; 80053; 70460; 70450; 72125; 70486; 76377; 90471; 90714; 99285; 12013; Q9967

== ENCOUNTER 2019-09-09 15:12 | Emergency (ER) | payer OTHER ==
--- OUTSIDE RECORDS SUMMARY | 2019-09-09 15:16 | XMS REPORT ---
:1930 [facility] Address [address] [place] [address] Dr. 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 CG/ewPerformed.POCT-GLUCOSE [id number] 11:52:00 Test Item Value Reference Range Comments POC-GLUCOSE METER (BEAKER) 191 mg/dL 70-110 TESTED AT [address] (test lkoc=3288) [place] [address] POCT-GLUCOSE [id number] 08:05:00 Test Item Value Reference Range Comments POC-GLUCOSE METER (BEAKER) 219 mg/dL 70-110 TESTED AT [address] (test kpvp=0288) [place] [address] B-TYPE NATRIURETIC FACTOR (BNP)2018-06-09 07:22:00 Test Item Value Reference Range Comments B-TYPE NATRIURETIC PEPTIDE (BEAKER) (test 257 pg/mL 0-100 tvrh=834) POCT-GLUCOSE [id number] 21:45:00 Test Item Value Reference Range Comments POC-GLUCOSE METER (BEAKER) 165 mg/dL 70-110 TESTED AT [address] (test jmdw=2597) [place] [address] RAD, CHEST, 1 VIEW, NON [id number] 18:25:00Reason for exam:->pacemaker check Should this be performed at the bedside?->YesFINAL REPORT Chest, 1 view Clinical history: pacemaker check Comparison: NoneDiscussion: 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 There is no pneumothorax. Small bilateral pleural effusions are seen with bibasilar atelectasis or airspace disease. The cardiac silhouette is enlarged with asymmetric left-sided perihilar edema. No acute osseous abnormality. Signed: Eliesre Edmond [facility] Verified Date/Time: 06/08/2018 18:25:31 Reading Location: [facility] B1 [id number] Consult Reading Room POCT-GLUCOSE [id number] 16:08:00 Test Item Value Reference Range Comments POC-GLUCOSE METER (BEAKER) 154 mg/dL 70-110 TESTED AT [address] (test zqtw=0509) [place] [address] POCT-GLUCOSE [id number] 11:33:00 Test Item Value Reference Range Comments POC-GLUCOSE METER (BEAKER) 161 mg/dL 70-110 [address] (test zeqs=9476) [facility] [address] POCT-GLUCOSE [id number] 08:46:00 Test Item Value Reference Range Comments POC-GLUCOSE METER (BEAKER) 146 mg/dL 70-110 TESTED AT [facility] [address] [facility] (test usdm=9895) [facility] [address] [id number] 07:15:00 Test Item Value Reference Range Comments MAGNESIUM (BEAKER) (test 2.1 mg/dL 1.6-2.6 Specimen moderately hemolyzed xcsf=834) [id number] 07:15:00 Test Item Value Reference Range Comments PHOSPHORUS (BEAKER) (test 3.4 mg/dL 2.3-4.7 Specimen moderately hemolyzed nliw=680) BASIC METABOLIC [id number] 07:15:00 Test Item Value Reference Range Comments SODIUM (BEAKER) (test 143 meq/L 136-145 riaa=249) POTASSIUM (BEAKER) (test 4.3 meq/L 3.5-5.1 Specimen moderately chhz=913) hemolyzed CHLORIDE (BEAKER) (test 97 meq/L 98-107 fyjq=896) CO2 (BEAKER) (test 39 meq/L 22-29 gqto=941) BLOOD UREA NITROGEN 10 mg/dL 7-21 (BEAKER) (test newp=334) CREATININE (BEAKER) (test 0.63 mg/dL 0.57-1.25 Specimen moderately wrhv=045) hemolyzed GLUCOSE RANDOM (BEAKER) 143 mg/dL 70-105 (test cxgi=673) CALCIUM (BEAKER) (test 9.4 mg/dL 8.4-10.2 dood=012) EGFR (BEAKER) (test 121 mL/min/1.73 sq m ESTIMATED GFR IS NOT clkx=9604) ACCURATE CREATININE CLEARANCE IN PREDICTING GLOMERULAR FILTRATION RATE. ESTIMATED GFR IS NOT APPLICABLE FOR DIALYSIS PATIENTS. HEPATIC FUNCTION [id number] 07:15:00 Test Item Value Reference Range Comments TOTAL PROTEIN (BEAKER) (test 6.1 gm/dL 6.0-8.3 Specimen moderately hemolyzed mmfl=533) ALBUMIN (BEAKER) (test 3.3 g/dL 3.5-5.0 Specimen moderately hemolyzed aztk=9647) BILIRUBIN TOTAL (BEAKER) (test 1.2 mg/dL 0.2-1.2 Specimen moderately hemolyzed aaat=080) BILIRUBIN DIRECT (BEAKER) 0.5 mg/dL 0.1-0.5 Specimen moderately hemolyzed (test zbzi=758) ALKALINE PHOSPHATASE (BEAKER) 129 U/L 40-150 (test vnej=062) AST (SGOT) (BEAKER) (test 29 U/L 5-34 Specimen moderately hemolyzed ipyq=894) ALT (SGPT) (BEAKER) (test 69 U/L 6-55 Specimen moderately iizb=678) hemolyzed PROTHROMBIN [id number] 07:14:00 Test Item Value Reference Range Comments PROTIME (BEAKER) (test qzei=049) 14.1 seconds 11.7-14.7 INR (BEAKER) (test jmpb=918) 1.1 <=5.9 RECOMMENDED COUMADIN/WARFARIN INR THERAPY RANGESSTANDARD DOSE: 2.0 - 3.0 Includes: PROPHYLAXIS forvenous thrombosis, systemic embolization; TREATMENT for venous thrombosis and/or pulmonary embolus.HIGH RISK: Target INR is 2.5-3.5 for patients with mechanical heart valves.POCT-GLUCOSE [id number] 07:06:00 Test Item Value Reference Range Comments POC-GLUCOSE METER (BEAKER) 179 mg/dL 70-110 TESTED AT [facility] [address] [facility] (test rucj=2457) [facility] [address] CBC W/PLT COUNT & AUTO [id number] 06:58:00 Test Item Value Reference Range Comments WHITE BLOOD CELL COUNT (BEAKER) (test yqfb=196) 9.0 K/ L 3.5-10.5 RED BLOOD CELL COUNT (BEAKER) (test qdys=091) 5.09 M/ L 4.63-6.08 HEMOGLOBIN (BEAKER) (test kuqb=814) 14.7 GM/DL 13.7-17.5 HEMATOCRIT (BEAKER) (test thcm=294) 46.7 % 40.1-51.0 MEAN CORPUSCULAR VOLUME (BEAKER) (test mcey=733) 91.7 fL 79.0-92.2 MEAN CORPUSCULAR HEMOGLOBIN (BEAKER) (test 28.9 pg 25.7-32.2 eoym=169) MEAN CORPUSCULAR HEMOGLOBIN CONC (BEAKER) (test 31.5 GM/DL 32.3-36.5 ahic=833) RED CELL DISTRIBUTION WIDTH (BEAKER) (test 14.1 % 11.6-14.4 dbho=274) PLATELET COUNT (BEAKER) (test vemw=283) 195 K/CU MM 150-450 MEAN PLATELET VOLUME (BEAKER) (test lgkr=677) 10.8 fL 9.4-12.4 NUCLEATED RED BLOOD CELLS (BEAKER) (test 0 /100 WBC 0-0 fwid=808) NEUTROPHILS RELATIVE PERCENT (BEAKER) (test 68 % auqm=497) LYMPHOCYTES RELATIVE PERCENT (BEAKER) (test 16 % laos=910) MONOCYTES RELATIVE PERCENT (BEAKER) (test 10 % vupq=304) EOSINOPHILS RELATIVE PERCENT (BEAKER) (test 4 % wmqy=313) BASOPHILS RELATIVE PERCENT (BEAKER) (test 1 % gsmy=381) NEUTROPHILS ABSOLUTE COUNT (BEAKER) (test 6.09 K/ L 1.78-5.38 bwnp=427) LYMPHOCYTES ABSOLUTE COUNT (BEAKER) (test 1.42 K/ L 1.32-3.57 phkr=703) MONOCYTES ABSOLUTE COUNT (BEAKER) (test 0.89 K/ L 0.30-0.82 hypl=748) EOSINOPHILS ABSOLUTE COUNT (BEAKER) (test 0.38 K/ L 0.04-0.54 sped=509) BASOPHILS ABSOLUTE COUNT (BEAKER) (test 0.05 K/ L 0.01-0.08 jxqr=295) IMMATURE GRANULOCYTES-RELATIVE PERCENT (BEAKER) 2 % 0-1 (test vcdn=4904) POCT-GLUCOSE [id number] 21:03:00 Test Item Value Reference Range Comments POC-GLUCOSE METER (BEAKER) 142 mg/dL 70-110 TESTED AT [facility] [address] [facility] (test kdng=2474) [facility] [address] [id number] 19:39:00 Test Item Value Reference Range Comments PHOSPHORUS (BEAKER) (test enca=915) 2.2 mg/dL 2.3-4.7 [id number] 19:39:00 Test Item Value Reference Range Comments MAGNESIUM (BEAKER) (test kmxt=533) 1.8 mg/dL 1.6-2.6 BASIC METABOLIC [id number] 19:39:00 Test Item Value Reference Range Comments SODIUM (BEAKER) (test 139 meq/L 136-145 bbpp=381) POTASSIUM (BEAKER) (test 3.2 meq/L 3.5-5.1 fbah=634) CHLORIDE (BEAKER) (test 97 meq/L 98-107 knwz=797) CO2 (BEAKER) (test 35 meq/L 22-29 ngay=587) BLOOD UREA NITROGEN 12 mg/dL 7-21 (BEAKER) (test droj=844) CREATININE (BEAKER) (test 0.68 mg/dL 0.57-1.25 ytki=441) GLUCOSE RANDOM (BEAKER) 236 mg/dL 70-105 (test ezpl=848) CALCIUM (BEAKER) (test 9.0 mg/dL 8.4-10.2 tgux=797) EGFR (BEAKER) (test 111 mL/min/1.73 sq m ESTIMATED GFR IS NOT froh=9403) ACCURATE CREATININE CLEARANCE IN PREDICTING GLOMERULAR FILTRATION RATE. ESTIMATED GFR IS NOT APPLICABLE FOR DIALYSIS PATIENTS. HEPATIC FUNCTION [id number] 19:39:00 Test Item Value Reference Range Comments TOTAL PROTEIN (BEAKER) (test jaic=277) 5.6 gm/dL 6.0-8.3 ALBUMIN (BEAKER) (test rqfh=3621) 3.1 g/dL 3.5-5.0 BILIRUBIN TOTAL (BEAKER) (test objm=277) 0.9 mg/dL 0.2-1.2 BILIRUBIN DIRECT (BEAKER) (test vttp=041) 0.6 mg/dL 0.1-0.5 ALKALINE PHOSPHATASE (BEAKER) (test qzhl=486) 125 U/L 40-150 AST (SGOT) (BEAKER) (test vwop=929) 22 U/L 5-34 ALT (SGPT) (BEAKER) (test uhak=296) 71 U/L 6-55 PROTHROMBIN [id number] 19:34:00 Test Item Value Reference Range Comments PROTIME (BEAKER) (test cqhx=928) 15.1 seconds 11.7-14.7 INR (BEAKER) (test zchd=015) 1.2 <=5.9 RECOMMENDED COUMADIN/WARFARIN INR THERAPY RANGESSTANDARD DOSE: 2.0 - 3.0 Includes: PROPHYLAXIS forvenous thrombosis, systemic embolization; TREATMENT for venous thrombosis and/or pulmonary embolus.HIGH RISK: Target INR is 2.5-3.5 for patients with mechanical heart valves.CBC W/PLT COUNT & AUTO [id number] 19:18:00 Test Item Value Reference Range Comments WHITE BLOOD CELL COUNT (BEAKER) (test ibif=231) 8.0 K/ L 3.5-10.5 RED BLOOD CELL COUNT (BEAKER) (test adkb=893) 4.71 M/ L 4.63-6.08 HEMOGLOBIN (BEAKER) (test grvv=221) 13.5 GM/DL 13.7-17.5 HEMATOCRIT (BEAKER) (test iyyw=429) 42.6 % 40.1-51.0 MEAN CORPUSCULAR VOLUME (BEAKER) (test xyfs=356) 90.4 fL 79.0-92.2 MEAN CORPUSCULAR HEMOGLOBIN (BEAKER) (test 28.7 pg 25.7-32.2 ypxe=472) MEAN CORPUSCULAR HEMOGLOBIN CONC (BEAKER) (test 31.7 GM/DL 32.3-36.5 epll=996) RED CELL DISTRIBUTION WIDTH (BEAKER) (test 14.0 % 11.6-14.4 gvcq=465) PLATELET COUNT (BEAKER) (test qbcc=297) 181 K/CU MM 150-450 MEAN PLATELET VOLUME (BEAKER) (test qdhj=015) 10.6 fL 9.4-12.4 NUCLEATED RED BLOOD CELLS (BEAKER) (test 0 /100 WBC 0-0 uokv=027) NEUTROPHILS RELATIVE PERCENT (BEAKER) (test 65 % gfza=919) LYMPHOCYTES RELATIVE PERCENT (BEAKER) (test 19 % majy=355) MONOCYTES RELATIVE PERCENT (BEAKER) (test 10 % vrqp=493) EOSINOPHILS RELATIVE PERCENT (BEAKER) (test 3 % nxlc=892) BASOPHILS RELATIVE PERCENT (BEAKER) (test 1 % ubnh=791) NEUTROPHILS ABSOLUTE COUNT (BEAKER) (test 5.19 K/ L 1.78-5.38 pouz=680) LYMPHOCYTES ABSOLUTE COUNT (BEAKER) (test 1.50 K/ L 1.32-3.57 wxsz=494) MONOCYTES ABSOLUTE COUNT (BEAKER) (test 0.82 K/ L 0.30-0.82 xufw=711) EOSINOPHILS ABSOLUTE COUNT (BEAKER) (test 0.23 K/ L 0.04-0.54 naip=614) BASOPHILS ABSOLUTE COUNT (BEAKER) (test 0.06 K/ L 0.01-0.08 afli=147) IMMATURE GRANULOCYTES-RELATIVE PERCENT (BEAKER) 3 % 0-1 (test sbjg=7999) POCT-GLUCOSE [id number] 17:55:00 Test Item Value Reference Range Comments POC-GLUCOSE METER (BEAKER) 305 mg/dL 70-110 Notified NORA MAJOR/TESTED AT [facility] (test lhfm=8191) [address] [place] [address] POCT-GLUCOSE [id number] 11:56:00 Test Item Value Reference Range Comments POC-GLUCOSE METER (BEAKER) 137 mg/dL 70-110 TESTED AT [address] (test gnpm=2834) [place] [address] POCT-GLUCOSE [id number] 09:01:00 Test Item Value Reference Range Comments POC-GLUCOSE METER (BEAKER) 158 mg/dL 70-110 TESTED AT [address] (test kpvp=5453) [place] [address] BLOOD [id number] 05:00:00 Test Item Value Reference Range Comments CULTURE (BEAKER) (test elqc=4738) No growth in 5 days BLOOD [id number] 05:00:00 Test Item Value Reference Range Comments CULTURE (BEAKER) (test yrld=8589) No growth in 5 days POCT-GLUCOSE [id number] 21:31:00 Test Item Value Reference Range Comments POC-GLUCOSE METER (BEAKER) 297 mg/dL 70-110 TESTED AT [address] (test eyoy=6273) [place] [address] POCT-GLUCOSE [id number] 17:26:00 Test Item Value Reference Range Comments POC-GLUCOSE METER (BEAKER) 154 mg/dL 70-110 TESTED AT [address] (test opap=9913) [place] [address] POCT-GLUCOSE [id number] 15:17:00 Test Item Value Reference Range Comments POC-GLUCOSE METER (BEAKER) 154 mg/dL 70-110 TESTED AT [address] (test uepb=3619) [place] [address] [place], [id number] 13:54:00INTRA OP IMAGINGReason for exam:->ABNORMAL IMAGINGFINAL REPORT ERCP 4 views 06/06/2018 1:49 PM CLINICAL HISTORY: Instrument localization COMPARISON: None available IMPRESSION : Please correlate imaging report findings with the procedure note prepared by Dr. Hinojosa, as an intra-procedure imaging consultation was not requested. Reported fluoroscopy time: 91.0 seconds. Signed: Yunier Boyd Verified Date/Time: 06/06/2018 13:54:44 Reading Location: [facility] Radiology Reading Room Electronically signed by: YUNIER BOYD M.D. on 01:54 PMCOMPREHENSIVE METABOLIC [id number] 11:44:00 Test Item Value Reference Range Comments TOTAL PROTEIN (BEAKER) 5.9 gm/dL 6.0-8.3 (test ggtt=541) ALBUMIN (BEAKER) (test 3.3 g/dL 3.5-5.0 gmpk=2711) ALKALINE PHOSPHATASE 146 U/L 40-150 (BEAKER) (test bara=895) BILIRUBIN TOTAL (BEAKER) 1.1 mg/dL 0.2-1.2 (test qjqy=138) SODIUM (BEAKER) (test 141 meq/L 136-145 ceza=574) POTASSIUM (BEAKER) (test 4.2 meq/L 3.5-5.1 drjs=652) CHLORIDE (BEAKER) (test 99 meq/L 98-107 ufdq=351) CO2 (BEAKER) (test 37 meq/L 22-29 dcyn=540) BLOOD UREA NITROGEN 10 mg/dL 7-21 (BEAKER) (test rztu=557) CREATININE (BEAKER) (test 0.61 mg/dL 0.57-1.25 rqzu=252) GLUCOSE RANDOM (BEAKER) 152 mg/dL 70-105 (test xsvg=874) CALCIUM (BEAKER) (test 9.2 mg/dL 8.4-10.2 yori=703) AST (SGOT) (BEAKER) (test 29 U/L 5-34 bxux=989) ALT (SGPT) (BEAKER) (test 99 U/L 6-55 frkg=103) EGFR (BEAKER) (test 125 mL/min/1.73 sq ESTIMATED GFR IS NOT wfjd=5440) m ACCURATE CREATININE CLEARANCE IN PREDICTING GLOMERULAR FILTRATION RATE. ESTIMATED GFR IS NOT APPLICABLE FOR DIALYSIS PATIENTS. POCT-GLUCOSE [id number] 08:58:00 Test Item Value Reference Range Comments POC-GLUCOSE METER (BEAKER) 174 mg/dL 70-110 TESTED AT [address] (test dgjj=9614) [place] [id number] CBC (HEMOGRAM ONLY)2018-06-06 06:47:00 Test Item Value Reference Range Comments WHITE BLOOD CELL COUNT (BEAKER) (test jrcq=036) 7.8 K/ L 3.5-10.5 RED BLOOD CELL COUNT (BEAKER) (test gvyi=605) 4.65 M/ L 4.63-6.08 HEMOGLOBIN (BEAKER) (test auvs=598) 13.6 GM/DL 13.7-17.5 HEMATOCRIT (BEAKER) (test mhje=178) 42.3 % 40.1-51.0 MEAN CORPUSCULAR VOLUME (BEAKER) (test fkog=349) 91.0 fL 79.0-92.2 MEAN CORPUSCULAR HEMOGLOBIN (BEAKER) (test 29.2 pg 25.7-32.2 exdj=966) MEAN CORPUSCULAR HEMOGLOBIN CONC (BEAKER) (test 32.2 GM/DL 32.3-36.5 kkki=195) RED CELL DISTRIBUTION WIDTH (BEAKER) (test 14.2 % 11.6-14.4 irri=774) PLATELET COUNT (BEAKER) (test sbqk=246) 161 K/CU MM 150-450 MEAN PLATELET VOLUME (BEAKER) (test anwv=540) 10.9 fL 9.4-12.4 NUCLEATED RED BLOOD CELLS (BEAKER) (test 0 /100 WBC 0-0 jvtx=552) POCT-GLUCOSE [id number] 21:43:00 Test Item Value Reference Range Comments POC-GLUCOSE METER (BEAKER) 213 mg/dL 70-110 TESTED AT [address] (test kxqt=0232) [place] [id number] POCT-GLUCOSE [id number] 18:37:00 Test Item Value Reference Range Comments POC-GLUCOSE METER (BEAKER) 144 mg/dL 70-110 TESTED AT [address] (test dnay=9229) [place] [address] POCT-GLUCOSE [id number] 12:41:00 Test Item Value Reference Range Comments POC-GLUCOSE METER (BEAKER) 171 mg/dL 70-110 TESTED AT [address] (test uhfl=6711) [facility] [address] POCT-GLUCOSE [id number] 08:33:00 Test Item Value Reference Range Comments POC-GLUCOSE METER (BEAKER) 165 mg/dL 70-110 TESTED AT [address] (test onhs=7739) [facility] [address] POCT-GLUCOSE [id number] 08:27:00 Test Item Value Reference Range Comments POC-GLUCOSE METER (BEAKER) 165 mg/dL 70-110 TESTED AT [address] (test pcyc=3714) [facility] [address] VANCOMYCIN LEVEL, [id number] 07:59:00 Test Item Value Reference Range Comments VANCOMYCIN TROUGH (BEAKER) (test dgks=556) 15.0 ug/mL 10.0-20.0 CBC (HEMOGRAM ONLY)2018-06-05 06:50:00 Test Item Value Reference Range Comments WHITE BLOOD CELL COUNT (BEAKER) (test yetu=287) 7.3 K/ L 3.5-10.5 RED BLOOD CELL COUNT (BEAKER) (test uhzq=730) 5.05 M/ L 4.63-6.08 HEMOGLOBIN (BEAKER) (test xown=558) 14.6 GM/DL 13.7-17.5 HEMATOCRIT (BEAKER) (test kfyv=918) 45.6 % 40.1-51.0 MEAN CORPUSCULAR VOLUME (BEAKER) (test vkfa=043) 90.3 fL 79.0-92.2 MEAN CORPUSCULAR HEMOGLOBIN (BEAKER) (test 28.9 pg 25.7-32.2 nsna=965) MEAN CORPUSCULAR HEMOGLOBIN CONC (BEAKER) (test 32.0 GM/DL 32.3-36.5 daot=066) RED CELL DISTRIBUTION WIDTH (BEAKER) (test 14.0 % 11.6-14.4 dmxn=012) PLATELET COUNT (BEAKER) (test viei=134) 146 K/CU MM 150-450 MEAN PLATELET VOLUME (BEAKER) (test dqhf=790) 10.5 fL 9.4-12.4 NUCLEATED RED BLOOD CELLS (BEAKER) (test 0 /100 WBC 0-0 fpue=135) COMPREHENSIVE METABOLIC [id number] 05:48:00 Test Item Value Reference Range Comments TOTAL PROTEIN (BEAKER) 5.6 gm/dL 6.0-8.3 (test rldj=710) ALBUMIN (BEAKER) (test 3.1 g/dL 3.5-5.0 avjf=3280) ALKALINE PHOSPHATASE 145 U/L 40-150 (BEAKER) (test xdxg=283) BILIRUBIN TOTAL (BEAKER) 1.2 mg/dL 0.2-1.2 (test becn=753) SODIUM (BEAKER) (test 139 meq/L 136-145 rqgx=594) POTASSIUM (BEAKER) (test 3.4 meq/L 3.5-5.1 qcpg=311) CHLORIDE (BEAKER) (test 101 meq/L 98-107 ukle=389) CO2 (BEAKER) (test 30 meq/L 22-29 tsbh=761) BLOOD UREA NITROGEN 11 mg/dL 7-21 (BEAKER) (test zzmj=013) CREATININE (BEAKER) (test 0.59 mg/dL 0.57-1.25 rwkl=939) GLUCOSE RANDOM (BEAKER) 151 mg/dL 70-105 (test lhsv=156) CALCIUM (BEAKER) (test 8.6 mg/dL 8.4-10.2 fttg=904) AST (SGOT) (BEAKER) (test 35 U/L 5-34 ctbb=928) ALT (SGPT) (BEAKER) (test 134 U/L 6-55 avpj=024) EGFR (BEAKER) (test 130 mL/min/1.73 sq ESTIMATED GFR IS NOT xobo=1392) m ACCURATE CREATININE CLEARANCE IN PREDICTING GLOMERULAR FILTRATION RATE. ESTIMATED GFR IS NOT APPLICABLE FOR DIALYSIS PATIENTS. POCT-GLUCOSE [id number] 21:00:00 Test Item Value Reference Range Comments POC-GLUCOSE METER (BEAKER) 204 mg/dL 70-110 TESTED AT [address] (test nygr=0940) [facility] [address] POCT-GLUCOSE [id number] 17:17:00 Test Item Value Reference Range Comments POC-GLUCOSE METER (BEAKER) 156 mg/dL 70-110 TESTED AT [place] [id number] [facility] (test sngm=3426) [facility] [address] POCT-GLUCOSE [id number] 12:42:00 Test Item Value Reference Range Comments POC-GLUCOSE METER (BEAKER) 201 mg/dL 70-110 TESTED AT [facility] [address] [facility] (test rhhr=5697) [facility] [address] POCT-GLUCOSE [id number] 08:34:00 Test Item Value Reference Range Comments POC-GLUCOSE METER (BEAKER) 150 mg/dL 70-110 TESTED AT [place] [id number] [facility] (test wtol=2848) [facility] [address] BASIC METABOLIC [id number] 05:20:00 Test Item Value Reference Range Comments SODIUM (BEAKER) (test 138 meq/L 136-145 kxai=632) POTASSIUM (BEAKER) (test 3.4 meq/L 3.5-5.1 ytcn=817) CHLORIDE (BEAKER) (test 100 meq/L 98-107 nnpw=938) CO2 (BEAKER) (test 32 meq/L 22-29 absv=966) BLOOD UREA NITROGEN 13 mg/dL 7-21 (BEAKER) (test gwya=917) CREATININE (BEAKER) (test 0.60 mg/dL 0.57-1.25 cvab=557) GLUCOSE RANDOM (BEAKER) 143 mg/dL 70-105 (test xctx=731) CALCIUM (BEAKER) (test 8.4 mg/dL 8.4-10.2 qfim=634) EGFR (BEAKER) (test 128 mL/min/1.73 sq m ESTIMATED GFR IS NOT blar=4989) ACCURATE CREATININE CLEARANCE IN PREDICTING GLOMERULAR FILTRATION RATE. ESTIMATED GFR IS NOT APPLICABLE FOR DIALYSIS PATIENTS. CBC (HEMOGRAM ONLY)2018-06-04 05:02:00 Test Item Value Reference Range Comments WHITE BLOOD CELL COUNT (BEAKER) (test utaj=702) 6.1 K/ L 3.5-10.5 RED BLOOD CELL COUNT (BEAKER) (test ddkg=090) 4.77 M/ L 4.63-6.08 HEMOGLOBIN (BEAKER) (test ovbf=473) 13.7 GM/DL 13.7-17.5 HEMATOCRIT (BEAKER) (test rith=280) 43.0 % 40.1-51.0 MEAN CORPUSCULAR VOLUME (BEAKER) (test uvki=816) 90.1 fL 79.0-92.2 MEAN CORPUSCULAR HEMOGLOBIN (BEAKER) (test 28.7 pg 25.7-32.2 whgo=443) MEAN CORPUSCULAR HEMOGLOBIN CONC (BEAKER) (test 31.9 GM/DL 32.3-36.5 tknw=209) RED CELL DISTRIBUTION WIDTH (BEAKER) (test 14.0 % 11.6-14.4 yloe=717) PLATELET COUNT (BEAKER) (test hrxx=806) 139 K/CU MM 150-450 MEAN PLATELET VOLUME (BEAKER) (test lkck=672) 10.8 fL 9.4-12.4 NUCLEATED RED BLOOD CELLS (BEAKER) (test 0 /100 WBC 0-0 kgor=593) POCT-GLUCOSE [id number] 20:49:00 Test Item Value Reference Range Comments POC-GLUCOSE METER (BEAKER) 219 mg/dL 70-110 TESTED AT [address] (test hiud=5255) [place] [id number] POCT-GLUCOSE [id number] 16:44:00 Test Item Value Reference Range Comments POC-GLUCOSE METER (BEAKER) 148 mg/dL 70-110 TESTED AT [address] (test uphw=5606) [facility] [id number] POCT-GLUCOSE [id number] 12:31:00 Test Item Value Reference Range Comments POC-GLUCOSE METER (BEAKER) 206 mg/dL 70-110 TESTED AT [address] (test eryp=6569) [facility] [id number] CBC W/PLT COUNT & AUTO [id number] 08:49:00 Test Item Value Reference Range Comments WHITE BLOOD CELL COUNT (BEAKER) (test lzjm=814) 9.0 K/ L 3.5-10.5 RED BLOOD CELL COUNT (BEAKER) (test fuki=958) 4.85 M/ L 4.63-6.08 HEMOGLOBIN (BEAKER) (test wkkb=166) 14.1 GM/DL 13.7-17.5 HEMATOCRIT (BEAKER) (test jlit=051) 44.4 % 40.1-51.0 MEAN CORPUSCULAR VOLUME (BEAKER) (test fiku=901) 91.5 fL 79.0-92.2 MEAN CORPUSCULAR HEMOGLOBIN (BEAKER) (test 29.1 pg 25.7-32.2 bgwd=165) MEAN CORPUSCULAR HEMOGLOBIN CONC (BEAKER) (test 31.8 GM/DL 32.3-36.5 bjyk=310) RED CELL DISTRIBUTION WIDTH (BEAKER) (test 14.0 % 11.6-14.4 qbpk=091) PLATELET COUNT (BEAKER) (test llqa=685) 145 K/CU MM 150-450 MEAN PLATELET VOLUME (BEAKER) (test fevl=792) 10.8 fL 9.4-12.4 NUCLEATED RED BLOOD CELLS (BEAKER) (test 0 /100 WBC 0-0 zdve=474) NEUTROPHILS RELATIVE PERCENT (BEAKER) (test 82 % efhn=731) LYMPHOCYTES RELATIVE PERCENT (BEAKER) (test 7 % lcbr=204) MONOCYTES RELATIVE PERCENT (BEAKER) (test 9 % hrcx=271) EOSINOPHILS RELATIVE PERCENT (BEAKER) (test 0 % bfiu=793) BASOPHILS RELATIVE PERCENT (BEAKER) (test 0 % hrvh=901) NEUTROPHILS ABSOLUTE COUNT (BEAKER) (test 7.40 K/ L 1.78-5.38 wfbl=036) LYMPHOCYTES ABSOLUTE COUNT (BEAKER) (test 0.65 K/ L 1.32-3.57 lgnm=009) MONOCYTES ABSOLUTE COUNT (BEAKER) (test 0.78 K/ L 0.30-0.82 paqw=038) EOSINOPHILS ABSOLUTE COUNT (BEAKER) (test 0.04 K/ L 0.04-0.54 mnit=639) BASOPHILS ABSOLUTE COUNT (BEAKER) (test 0.03 K/ L 0.01-0.08 izpj=463) IMMATURE GRANULOCYTES-RELATIVE PERCENT (BEAKER) 1 % 0-1 (test gshv=8737) POCT-GLUCOSE [id number] 08:22:00 Test Item Value Reference Range Comments POC-GLUCOSE METER (BEAKER) 158 mg/dL 70-110 TESTED AT [facility] [address] [facility] (test wuty=7204) [facility] [id number] VANCOMYCIN LEVEL, [id number] 07:54:00 Test Item Value Reference Range Comments VANCOMYCIN TROUGH (BEAKER) (test swfu=794) 10.9 ug/mL 10.0-20.0 BASIC METABOLIC [id number] 07:49:00 Test Item Value Reference Range Comments SODIUM (BEAKER) (test 137 meq/L 136-145 xfnd=012) POTASSIUM (BEAKER) (test 3.5 meq/L 3.5-5.1 dwda=681) CHLORIDE (BEAKER) (test 100 meq/L 98-107 vjbp=568) CO2 (BEAKER) (test 28 meq/L 22-29 xhnb=320) BLOOD UREA NITROGEN 19 mg/dL 7-21 (BEAKER) (test llqf=537) CREATININE (BEAKER) (test 0.66 mg/dL 0.57-1.25 snmq=854) GLUCOSE RANDOM (BEAKER) 149 mg/dL 70-105 (test derm=327) CALCIUM (BEAKER) (test 8.5 mg/dL 8.4-10.2 opfm=996) EGFR (BEAKER) (test 114 mL/min/1.73 sq m ESTIMATED GFR IS NOT wfis=6723) ACCURATE CREATININE CLEARANCE IN PREDICTING GLOMERULAR FILTRATION RATE. ESTIMATED GFR IS NOT APPLICABLE FOR DIALYSIS PATIENTS. Specimen slightly ictericHEPATIC FUNCTION [id number] 07:49:00 Test Item Value Reference Range Comments TOTAL PROTEIN (BEAKER) (test hauw=759) 5.9 gm/dL 6.0-8.3 ALBUMIN (BEAKER) (test zmeg=5177) 3.4 g/dL 3.5-5.0 BILIRUBIN TOTAL (BEAKER) (test lozb=477) 2.5 mg/dL 0.2-1.2 BILIRUBIN DIRECT (BEAKER) (test aful=320) 1.8 mg/dL 0.1-0.5 ALKALINE PHOSPHATASE (BEAKER) (test gtrk=176) 134 U/L 40-150 AST (SGOT) (BEAKER) (test zrdz=529) 117 U/L 5-34 ALT (SGPT) (BEAKER) (test vfxc=530) 259 U/L 6-55 Specimen slightly ictericPOCT-GLUCOSE [id number] 21:25:00 Test Item Value Reference Range Comments POC-GLUCOSE METER (BEAKER) 223 mg/dL 70-110 TESTED AT [address] (test tuqe=8777) [facility] [id number] POCT-GLUCOSE [id number] 17:09:00 Test Item Value Reference Range Comments POC-GLUCOSE METER (BEAKER) 161 mg/dL 70-110 TESTED AT [address] (test wnyp=0102) [facility] [facility] [address] POCT-GLUCOSE [id number] 10:58:00 Test Item Value Reference Range Comments POC-GLUCOSE METER (BEAKER) 113 mg/dL 70-110 TESTED AT [facility] [address] [facility] (test cfve=0170) [facility] [address] CBC W/PLT COUNT & AUTO [id number] 09:48:00 Test Item Value Reference Range Comments WHITE BLOOD CELL COUNT (BEAKER) (test ksor=456) 16.1 K/ L 3.5-10.5 RED BLOOD CELL COUNT (BEAKER) (test tbrq=494) 4.85 M/ L 4.63-6.08 HEMOGLOBIN (BEAKER) (test utmp=030) 13.8 GM/DL 13.7-17.5 HEMATOCRIT (BEAKER) (test jpqy=675) 43.6 % 40.1-51.0 MEAN CORPUSCULAR VOLUME (BEAKER) (test fwqq=292) 89.9 fL 79.0-92.2 MEAN CORPUSCULAR HEMOGLOBIN (BEAKER) (test 28.5 pg 25.7-32.2 uvqg=920) MEAN CORPUSCULAR HEMOGLOBIN CONC (BEAKER) (test 31.7 GM/DL 32.3-36.5 jwbp=218) RED CELL DISTRIBUTION WIDTH (BEAKER) (test 14.2 % 11.6-14.4 kayu=906) PLATELET COUNT (BEAKER) (test axui=268) 181 K/CU MM 150-450 MEAN PLATELET VOLUME (BEAKER) (test xfgq=157) 10.8 fL 9.4-12.4 NUCLEATED RED BLOOD CELLS (BEAKER) (test 0 /100 WBC 0-0 qkhf=199) NEUTROPHILS RELATIVE PERCENT (BEAKER) (test 87 % kmyk=158) LYMPHOCYTES RELATIVE PERCENT (BEAKER) (test 5 % xixm=013) MONOCYTES RELATIVE PERCENT (BEAKER) (test 7 % hwbg=948) EOSINOPHILS RELATIVE PERCENT (BEAKER) (test 0 % sppp=664) BASOPHILS RELATIVE PERCENT (BEAKER) (test 0 % pexj=096) NEUTROPHILS ABSOLUTE COUNT (BEAKER) (test 13.95 K/ L 1.78-5.38 wghd=562) LYMPHOCYTES ABSOLUTE COUNT (BEAKER) (test 0.81 K/ L 1.32-3.57 dziw=732) MONOCYTES ABSOLUTE COUNT (BEAKER) (test 1.17 K/ L 0.30-0.82 nyha=617) EOSINOPHILS ABSOLUTE COUNT (BEAKER) (test 0.01 K/ L 0.04-0.54 phbi=082) BASOPHILS ABSOLUTE COUNT (BEAKER) (test 0.02 K/ L 0.01-0.08 cnbi=239) IMMATURE GRANULOCYTES-RELATIVE PERCENT (BEAKER) 1 % 0-1 (test wdrl=4728) POCT-GLUCOSE [id number] 08:08:00 Test Item Value Reference Range Comments POC-GLUCOSE METER (BEAKER) 175 mg/dL 70-110 TESTED AT [facility] [address] [facility] (test cttr=8033) [facility] [address] BASIC METABOLIC [id number] 05:28:00 Test Item Value Reference Range Comments SODIUM (BEAKER) (test 141 meq/L 136-145 zujc=180) POTASSIUM (BEAKER) (test 3.7 meq/L 3.5-5.1 Specimen slightly qlxt=006) hemolyzed CHLORIDE (BEAKER) (test 104 meq/L 98-107 ypji=877) CO2 (BEAKER) (test 27 meq/L 22-29 ltbl=243) BLOOD UREA NITROGEN 23 mg/dL 7-21 (BEAKER) (test ybqt=540) CREATININE (BEAKER) (test 0.82 mg/dL 0.57-1.25 Specimen slightly erzh=980) hemolyzed GLUCOSE RANDOM (BEAKER) 158 mg/dL 70-105 (test hkhx=512) CALCIUM (BEAKER) (test 9.0 mg/dL 8.4-10.2 dldg=792) EGFR (BEAKER) (test 89 mL/min/1.73 sq m ESTIMATED GFR IS NOT rexq=2948) ACCURATE CREATININE CLEARANCE IN PREDICTING GLOMERULAR FILTRATION RATE. ESTIMATED GFR IS NOT APPLICABLE FOR DIALYSIS PATIENTS. Specimen slightly ictericHEPATIC FUNCTION [id number] 05:28:00 Test Item Value Reference Range Comments TOTAL PROTEIN (BEAKER) (test 6.0 gm/dL 6.0-8.3 Specimen slightly hemolyzed zmmq=522) ALBUMIN (BEAKER) (test 3.4 g/dL 3.5-5.0 Specimen slightly hemolyzed jpib=6334) BILIRUBIN TOTAL (BEAKER) (test 5.7 mg/dL 0.2-1.2 Specimen slightly hemolyzed ydiq=384) BILIRUBIN DIRECT (BEAKER) (test 4.0 mg/dL 0.1-0.5 Specimen slightly hemolyzed vmib=944) ALKALINE PHOSPHATASE (BEAKER) 129 U/L 40-150 (test ezyp=083) AST (SGOT) (BEAKER) (test 216 U/L 5-34 Specimen slightly hemolyzed jvza=117) ALT (SGPT) (BEAKER) (test 358 U/L 6-55 Specimen slightly hemolyzed qwcd=334) Specimen slightly ictericFL, [id number] 00:14:00Reason for exam:-> CHOLEDOCHOLITHIASISFINAL REPORT ERCP: Comparison [...] MDReport Verified Date/Time: 06/02/2018 00:14:16 Reading Location: [address] Reading Room POCT-GLUCOSE [id number] 23:14:00 Test Item Value Reference Range Comments POC-GLUCOSE METER (BEAKER) 176 mg/dL 70-110 TESTED AT [address] (test foqs=5950) [place] [address] LACTIC ACID, VENOUS, WHOLE [id number] 17:47:00 Test Item Value Reference Range Comments LACTATE BLOOD VENOUS (2) 2.4 mmol/L 0.5-2.2 Specimen slightly hemolyzed (BEAKER) (test ncsk=0143) Specimen slightly ictericPOCT-GLUCOSE [id number] 17:31:00 Test Item Value Reference Range Comments POC-GLUCOSE METER (BEAKER) 219 mg/dL 70-110 TESTED AT [address] (test tmfp=9780) [place] [address] POCT-GLUCOSE [id number] 13:48:00 Test Item Value Reference Range Comments POC-GLUCOSE METER (BEAKER) 209 mg/dL 70-110 TESTED AT [address] (test owrn=2361) [facility] [address] CBC W/PLT COUNT & AUTO [id number] 08:21:00 Test Item Value Reference Range Comments WHITE BLOOD CELL COUNT (BEAKER) (test bkue=009) 21.6 K/ L 3.5-10.5 RED BLOOD CELL COUNT (BEAKER) (test cmmb=364) 5.77 M/ L 4.63-6.08 HEMOGLOBIN (BEAKER) (test wltz=026) 16.3 GM/DL 13.7-17.5 HEMATOCRIT (BEAKER) (test faoo=635) 52.1 % 40.1-51.0 MEAN CORPUSCULAR VOLUME (BEAKER) (test bfco=304) 90.3 fL 79.0-92.2 MEAN CORPUSCULAR HEMOGLOBIN (BEAKER) (test 28.2 pg 25.7-32.2 xeog=385) MEAN CORPUSCULAR HEMOGLOBIN CONC (BEAKER) (test 31.3 GM/DL 32.3-36.5 aaey=298) RED CELL DISTRIBUTION WIDTH (BEAKER) (test 13.8 % 11.6-14.4 pand=859) PLATELET COUNT (BEAKER) (test njjs=737) 262 K/CU MM 150-450 MEAN PLATELET VOLUME (BEAKER) (test gxbn=698) 10.7 fL 9.4-12.4 NUCLEATED RED BLOOD CELLS (BEAKER) (test 0 /100 WBC 0-0 axdf=637) (CELLAVISION MANUAL DIFF)2018-06-01 08:21:00 Test Item Value Reference Range Comments NEUTROPHILS - REL (CELLAVISION)(BEAKER) (test 65 % aoor=5347) LYMPHOCYTES - REL (CELLAVISION)(BEAKER) (test 1 % hvkg=1385) MONOCYTES - REL (CELLAVISION)(BEAKER) (test 3 % pryj=5767) BANDS - REL (CELLAVISION)(BEAKER) (test 30 % 0-10 cvjd=0543) ATYPICAL LYMPHOCYTES - REL (CELLAVISION)(BEAKER) 1 % 0-0 (test mgkk=5434) NEUTROPHILS - ABS (CELLAVISION)(BEAKER) (test 14.04 K/ul 1.78-5.38 xxrb=4958) LYMPHOCYTES - ABS (CELLAVISION)(BEAKER) (test 0.22 K/ul 1.32-3.57 dzuh=0456) MONOCYTES - ABS (CELLAVISION)(BEAKER) (test 0.65 K/uL 0.30-0.82 fhmd=6739) BANDS - ABS (CELLAVISION)(BEAKER) (test 6.48 K/uL 0.00-0.80 vjmv=5950) ATYPICAL LYMPHOCYTES - ABS (CELLAVISION)(BEAKER) 0.22 K/uL 0.00-0.00 (test hvbs=0144) TOTAL COUNTED (BEAKER) (test ggzr=3107) 100 WBC MORPHOLOGY (BEAKER) (test kiic=266) Normal PLT MORPHOLOGY (BEAKER) (test ilvp=247) Normal POIKILOCYTES (BEAKER) (test hgzb=405) 1+ few ARTIFACT (CELLAVISION)(BEAKER) (test xvmz=3305) Present PLATELET CONCENTRATION (CELLAVISION)(BEAKER) Adequate (test yhps=9401) Received comment: User comments: Slide comments:BASIC METABOLIC [id number] 08:12:00 Test Item Value Reference Range Comments SODIUM (BEAKER) (test 137 meq/L 136-145 hgzb=703) POTASSIUM (BEAKER) (test 4.0 meq/L 3.5-5.1 vtqn=330) CHLORIDE (BEAKER) (test 99 meq/L 98-107 uudi=358) CO2 (BEAKER) (test 20 meq/L 22-29 yjtg=941) BLOOD UREA NITROGEN 18 mg/dL 7-21 (BEAKER) (test rtgu=061) CREATININE (BEAKER) (test 0.83 mg/dL 0.57-1.25 cndg=326) GLUCOSE RANDOM (BEAKER) 213 mg/dL 70-105 (test owuy=113) CALCIUM (BEAKER) (test 9.6 mg/dL 8.4-10.2 vjyz=647) EGFR (BEAKER) (test 88 mL/min/1.73 sq m ESTIMATED GFR IS NOT munu=0983) ACCURATE CREATININE CLEARANCE IN PREDICTING GLOMERULAR FILTRATION RATE. ESTIMATED GFR IS NOT APPLICABLE FOR DIALYSIS PATIENTS. Specimen moderately ictericHEPATIC FUNCTION [id number] 08:12:00 Test Item Value Reference Range Comments TOTAL PROTEIN (BEAKER) (test gafu=727) 7.3 gm/dL 6.0-8.3 ALBUMIN (BEAKER) (test zsfg=8822) 4.4 g/dL 3.5-5.0 BILIRUBIN TOTAL (BEAKER) (test nuit=658) 5.6 mg/dL 0.2-1.2 BILIRUBIN DIRECT (BEAKER) (test eyua=028) 3.9 mg/dL 0.1-0.5 ALKALINE PHOSPHATASE (BEAKER) (test ghuf=564) 166 U/L 40-150 AST (SGOT) (BEAKER) (test ebyk=577) 497 U/L 5-34 ALT (SGPT) (BEAKER) (test ofdd=201) 492 U/L 6-55 Specimen moderately ictericPOCT-GLUCOSE [id number] 06:47:00 Test Item Value Reference Range Comments POC-GLUCOSE METER (BEAKER) 222 mg/dL 70-110 TESTED AT [facility] [address] [facility] (test hidv=8923) [facility] [address]
[2019-09-09] MEDS ORDERED: LIDOCAINE VISCOUS 2% SOLN 15 ML UDC ONE (16:26)
[2019-09-09 17:08] LABS: Absolute Lymphocytes (CBC) 1.7 K/uL (0.7-4.9); Basophils % 0.4 % (0-1.3); Hematocrit 41.4 % (39.6-49.0); Lymphocytes % 11.2 % (15.3-44.8); MPV 8.7 fL (7.6-11.3); RBC Red Blood Cell Count 5.39 M/uL (4.33-5.43)
[2019-09-09 17:09] LABS: Protime INR 1.45
[2019-09-09 17:33] LABS: ALT/SGPT 17 U/L (12-78); AST/SGOT 12 U/L (15-37); Albumin 3.6 g/dL (3.4-5.0); Alkaline Phosphatase 94 U/L (45-117); BUN Blood Urea Nitrogen 20 mg/dL (7-18); Bicarbonate 33 mmol/L (21-32); Bilirubin Total 0.4 mg/dL (0.2-1.0); Glucose Level 122 mg/dL (74-106); Potassium 4.4 mmol/L (3.5-5.1); Protein, Total 7.4 g/dL (6.4-8.2); Sodium Level 141 mmol/L (136-145)
[2019-09-09] MEDS ORDERED: ONDANSETRON 4 MG/2 ML VIAL ONE (17:37)
[2019-09-09] MEDS ORDERED: FENTANYL CITR 100 MCG/2 ML ONE (17:37)
--- NOTE | 2019-09-09 18:23 | RAD REPORT ---
EXAM DESCRIPTION: CT - Abdomen Pelvis W Contrast - 09/09/2019 5:57 pm CLINICAL HISTORY: Abdominal pain hematuria COMPARISON: 2017 and 2013 TECHNIQUE: Computed axial tomography of the abdomen pelvis was obtained. 100 cc Isovue-300 was admin istered intravenously. Oral contrast was not requested which limits evaluation of bowel. All CT scans are performed using dose optimization technique as appropriate and may include automated exposure control or mA/KV adjustment according to patient size. FINDINGS: Small right pleural effusion Cholecystectomy. Pneumobilia. A small right adrenal nodule unchanged probably an adenoma. Small hepatic cysts. Spleen, pancreas, and left adrenal gland unremarkable. Small renal cysts. There is no evidence of diverticulitis. Normal appendix Abdominal aorta is ectatic with an AP diameter of 26 millimeters Small inguinal hernias contain fat IMPRESSION: Small right pleural effusion No acute abnormality involving the abdomen/pelvis
--- NOTE | 2019-09-09 18:41 | ER ---
Nurse's Notes [facility] Name: Valentin Veloz Age: 88 yrs Sex: Male : 1930 Arrival Date: 09/09/2019 Time: 15:16 Bed 4 Private MD: Diagnosis: Retention of urine;Hematuria;Urinary tract infection, site not specified Presentation: 09/08 15:18 Chief complaint: Patient states: Reports trouble peeing this morning, blood and clots ca1 in the urine. Reports similar symptoms about a year ago. Reports history of prostate cancer. Denies fever, cough and congestions. Reports burning, urinary urgency and frequency. Coronavirus screen: Patient denies fever greater than 100.4F, cough, shortness of breath, or difficulty breathing. Proceed with normal triage process. Ebola Screen: Patient negative for fever greater than or equal to 101.5 degrees Fahrenheit, and additional compatible Ebola Virus Disease symptoms Patient denies exposure to infectious person. Patient denies travel to an Ebola-affected area in the 21 days before illness onset. No symptoms or risks identified at this time. Initial Sepsis Screen: Does the patient meet any 2 criteria? No. Patient's initial sepsis screen is negative. Does the patient have a suspected source of infection? No. Patient's initial sepsis screen is negative. Risk Assessment: Do you want to hurt yourself or someone else? Patient reports no desire to harm self or others. Onset of symptoms was September 09, 2019. 15:18 Method Of Arrival: Ambulatory ca1 15:18 Acuity: EMILY 3 ca1 Triage Assessment: 15:20 General: Appears in no apparent distress. comfortable, Behavior is cooperative, bp appropriate for age, anxious. Pain: Denies pain. EENT: No deficits noted. Neuro: No deficits noted. Cardiovascular: No deficits noted. Respiratory: No deficits noted. GI: No signs and/or symptoms were reported involving the gastrointestinal system. : Reports HEMATURIA. Derm: No deficits noted. Musculoskeletal: No deficits noted. Historical: - Allergies: 15:25 Codeine; ca1 - PMHx: 15:25 CAD; CANCER - PROSTATE; CHF; COPD; Diabetes - NIDDM; High Cholesterol; Hypertension; ca1 Myocardial infarction; Pacemaker; - Immunization history:: Adult Immunizations up to date, Pneumococcal vaccine is up to date, Flu vaccine is up to date. - Social history:: Smoking status: Patient denies any tobacco usage or history of. Screenin:38 Abuse screen: Denies threats or abuse. Denies injuries from another. Nutritional bp screening: No deficits noted. Tuberculosis screening: No symptoms or risk factors identified. Fall Risk None identified. Assessment: 15:38 General: SEE TRIAGE NOTE. bp 16:41 Reassessment: Patient appears in no apparent distress at this time. unable to retract em foreskin and insert Carcamo, provider notified, unable to obtain UA, moderate amount of bloody urine noted while trying to inserting catheter, pt reports relief from procedure. 17:13 Reassessment: UNABLE TO PASS CARCAMO WITH PROVIDER ASSISTANCE. bp 18:22 Reassessment: PT RETURNED FROM CT. DISPO PENDING CT RESULTS. bp 19:10 Reassessment: Patient appears in no apparent distress at this time. Patient and/or jb4 family updated on plan of care and expected duration. Pain level reassessed. Patient is alert, oriented x 3, equal unlabored respirations, skin warm/dry/pink. Pt reports pain is better. Given a warm blanket per request. placed on 2L NC due to desat to 84% on RA. 19:20 Reassessment: O2 increased to 95 % on 2L NC. jb4 21:43 Reassessment: Patient appears in no apparent distress at this time. Patient and/or rv family updated on plan of care and expected duration. Pain level reassessed. Patient is alert, oriented x 3, equal unlabored respirations, skin warm/dry/pink. repositioned patient to comfort. bladder scanning done. denies any pain at the moment. able to urinate by himself. instructed patient to provide urine sample, urinal placed within reach of patient. updated on the plan of care. ff up done regarding transfer. 22:03 Reassessment: [facility] DECLINED THE PATIENT'S CASE. PATIENT UPDATED BY THANH SRIVASTAVA. rv PATIENT IS TRYING TO GIVE URINE SAMPLE AT THE MOMENT. UPDATED ON THE PLAN OF CARE, DISCHARGE IF ABLE TO URINATE OR TRANSFER IF UNABLE TO URINATE. Vital Signs: 15:18 BP 130 / 84; Pulse 74; Resp 16 S; Temp 97.6(O); Pulse Ox 98% on R/A; Weight 107.5 kg ca1 (R); Height 5 ft. 9 in. (175.26 cm) (R); Pain 7/10; 16:39 BP 158 / 82; Pulse 87; Resp 18; Pulse Ox 97% on R/A; em 17:30 BP 138 / 79; Pulse 83; Resp 16; Pulse Ox 91% ; bp 18:23 BP 116 / 70; Pulse 84; Resp 16; Pulse Ox 94% ; bp 19:30 BP 125 / 72; Pulse 78; Resp 18; Pulse Ox 97% on 2 lpm NC; jb4 20:00 BP 118 / 77; Pulse 78; Resp 16; Pulse Ox 95% on 2 lpm NC; rv 21:00 BP 132 / 67; Pulse 70; Resp 16; Pulse Ox 95% on 2 lpm NC; rv 21:30 BP 95 / 61; Pulse 76; Resp 16; Pulse Ox 95% on 2 lpm NC; rv 22:00 BP 126 / 69; Pulse 77; Resp 16; Pulse Ox 94% on 2 lpm NC; rv 15:18 Body Mass Index 35.00 (107.50 kg, 175.26 cm) ca1 ED Course: 15:16 Patient arrived in ED. fj1 15:24 Triage completed. ca1 15:25 Arm band placed on right wrist. ca1 15:26 Kenan Harris, RN is Primary Nurse. bp 15:31 Harvey Duque NP is PHCP. pm1 15:31 Angel Carrillo MD is Attending Physician. pm1 15:38 Patient has correct armband on for positive identification. Bed in low position. Call bp light in reach. Side rails up X2. 15:52 Bladder scan completed. 339 mL. em 16:50 Initial lab(s) drawn, by [facility], sent to lab. Inserted saline lock: 20 gauge in right em antecubital area, using aseptic technique. Blood collected. 16:58 Radiology exam delayed due to lab results not completed at this time. (BUN/Creatinine). bq 17:57 CT Abd/Pelvis - IV Contrast Only In Process Unspecified. EDMS 19:23 Primary Nurse role handed off by Kenan Harris, NORA jb4 19:23 Beau Welch, RN is Primary Nurse. jb4 19:35 called [facility] spoke to [facility] she stated they needed the papers refaxed. mw2 19:37 Refaxed patients clinicals to the [place]. mw2 20:43 Called [facility] back spoke to [facility] she stated they got the patients clinicals and will mw2 have the Doctor look at them. 21:57 [facility] called back and stated they are declining the transfer and to tell mw2 the patient that he needs to come in on Wednesday or Wednesday for a Urology walk-in. Administered Medications: 17:40 Drug: fentaNYL (PF) 25 mcg Route: IVP; Site: right antecubital; bp 19:00 Follow up: Response: No adverse reaction; Pain is decreased; RASS: Alert and Calm (0) jb4 17:40 Drug: Zofran (Ondansetron) 4 mg Route: IVP; Site: right antecubital; bp 19:00 Follow up: Response: No adverse reaction jb4 Outcome: 18:40 ER care complete, transfer ordered by MD. pm1 22:44 Discharge ordered by MD. pm1 23:44 Patient left the ED. mw2 Signatures: Dispatcher [employer] EDDebby Means Edgar, RN RN Harvey Parnell, ORTHOPEDIC PHYSICIAN ORTHOPEDIC PHYSICIAN pm1 Beau Welch, RN NORA jb4 Kenan Harris RN RN Emy Valero mw2 Mychal Myers RN NROA Chanelle Varela RN Amador Arguello fj
--- NOTE | 2019-09-09 18:41 | EDPHYS ---
Physician Documentation [facility] Name: Valentin Veloz Age: 88 yrs Sex: Male : 1930 Arrival Date: 09/09/2019 Time: 15:16 Bed 4 Private MD: ED Physician Angel Carrillo HPI: 09/08 15:59 This 88 yrs old Male presents to ER via Ambulatory with complaints of pm1 Hematuria and Urinary retention. 15:59 The patient presents with urinary symptoms, retention, Hematuria. Onset: The pm1 symptoms/episode began/occurred this morning. Modifying factors: The symptoms are alleviated by nothing, the symptoms are aggravated by inability to urinate. Associated signs and symptoms: Pertinent positives: abdominal pain, suprapubic area, Pertinent negatives: constipation, fever, nausea, vomiting. Severity of symptoms: in the emergency department the symptoms are actually worse. The patient has experienced similar episodes in the past, a few times. It is unknown whether or not the patient has recently seen a physician. Patient reports hematuria with burning this AM. After urinating this AM he has not been able to urinate. Historical: - Allergies: 15:25 Codeine; ca1 - PMHx: 15:25 CAD; CANCER - PROSTATE; CHF; COPD; Diabetes - NIDDM; High Cholesterol; Hypertension; ca1 Myocardial infarction; Pacemaker; - Immunization history:: Adult Immunizations up to date, Pneumococcal vaccine is up to date, Flu vaccine is up to date. - Social history:: Smoking status: Patient denies any tobacco usage or history of. ROS: 15:59 Constitutional: Negative for fever, chills, and weight loss, Cardiovascular: Negative pm1 for chest pain, palpitations, and edema, Respiratory: Negative for shortness of breath, cough, wheezing, and pleuritic chest pain. 15:59 Back: Negative for injury and pain. 15:59 Skin: Negative for injury, rash, and discoloration, Neuro: Negative for headache, weakness, numbness, tingling, and seizure. 15:59 Abdomen/GI: Positive for abdominal pain, of the suprapubic area, Negative for nausea, vomiting, and diarrhea. 15:59 : Positive for hematuria, burning with urination, retention, Negative for flank pain. 15:59 All other systems are negative. Exam: 16:00 : 339 mL retained urine per bladder scanner. pm1 16:00 Constitutional: This is a well developed, well nourished patient who is awake, alert, pm1 and in no acute distress. Head/Face: Normocephalic, atraumatic. Neck: Trachea midline, no thyromegaly or masses palpated, and no cervical lymphadenopathy. Supple, full range of motion without nuchal rigidity, or vertebral point tenderness. No Meningismus. Chest/axilla: Normal chest wall appearance and motion. Nontender with no deformity. No lesions are appreciated. Cardiovascular: Regular rate and rhythm with a normal S1 and S2. No gallops, murmurs, or rubs. Normal PMI, no JVD. No pulse deficits. Respiratory: Lungs have equal breath sounds bilaterally, clear to auscultation and percussion. No rales, rhonchi or wheezes noted. No increased work of breathing, no retractions or nasal flaring. 16:00 Back: No spinal tenderness. No costovertebral tenderness. Full range of motion. Skin: Warm, dry with normal turgor. Normal color with no rashes, no lesions, and no evidence of cellulitis. MS/ Extremity: Pulses equal, no cyanosis. Neurovascular intact. Full, normal range of motion. 16:00 Abdomen/GI: Inspection: abdomen appears normal, Bowel sounds: normal, Palpation: soft, in all quadrants, moderate abdominal tenderness, in the suprapubic area, mass, is not appreciated, rebound tenderness, is not appreciated. 16:00 : Male external genitalia: tenderness, of the head of penis and shaft of penis is noted, phimosis with 3 mm opening. 16:00 Neuro: Orientation: is normal, Mentation: is normal, Motor: is normal, moves all fours. Vital Signs: 15:18 BP 130 / 84; Pulse 74; Resp 16 S; Temp 97.6(O); Pulse Ox 98% on R/A; Weight 107.5 kg ca1 (R); Height 5 ft. 9 in. (175.26 cm) (R); Pain 7/10; 16:39 BP 158 / 82; Pulse 87; Resp 18; Pulse Ox 97% on R/A; em 17:30 BP 138 / 79; Pulse 83; Resp 16; Pulse Ox 91% ; bp 18:23 BP 116 / 70; Pulse 84; Resp 16; Pulse Ox 94% ; bp 19:30 BP 125 / 72; Pulse 78; Resp 18; Pulse Ox 97% on 2 lpm NC; jb4 20:00 BP 118 / 77; Pulse 78; Resp 16; Pulse Ox 95% on 2 lpm NC; rv 21:00 BP 132 / 67; Pulse 70; Resp 16; Pulse Ox 95% on 2 lpm NC; rv 21:30 BP 95 / 61; Pulse 76; Resp 16; Pulse Ox 95% on 2 lpm NC; rv 22:00 BP 126 / 69; Pulse 77; Resp 16; Pulse Ox 94% on 2 lpm NC; rv 15:18 Body Mass Index 35.00 (107.50 kg, 175.26 cm) ca1 MDM: 15:33 Patient medically screened. pm1 18:33 Data reviewed: vital signs. Data interpreted: Pulse oximetry: on room air is 94 %. pm1 Interpretation: normal. Counseling: I had a detailed discussion with the patient and/or guardian regarding: the historical points, exam findings, and any diagnostic results supporting the discharge/admit diagnosis, lab results, radiology results, the need to transfer to another facility, [facility] does not immediately have the required specialist. 22:20 Physician consultation: [facility] MD Tiburcio MARCH called back with Dr. Dey and declined pm1 transfer because he has a history of the patient who has had multiple episodes of hematuria and multiple cystoscopies on an outpatient basis. If he were to be transferred to the [facility], they would just discharge him home to follow up with urology on Wednesday or Wednesday. With the current pandemic, they would only accept him if he requires an immediate suprapubic catheter which he does not feel that he needs. 22:27 ED course: Patient was able to urinate by himself and empty his bladder. pm1 22:36 ED course: Patient was able to urinate and empty his bladder without catheterization pm1 therefore I discharge the patient to follow up with his urology as recommended by [facility] . 09/08 15:40 Order name: Urine Microscopic Only; Complete Time: 22:42 pm1 09/08 16:48 Order name: CBC with Diff; Complete Time: 17:22 pm1 09/08 16:48 Order name: CMP; Complete Time: 17:35 pm1 09/08 16:48 Order name: PT-INR; Complete Time: 17:22 pm1 09/08 16:48 Order name: CT Abd/Pelvis - IV Contrast Only; Complete Time: 18:30 pm1 09/08 22:42 Order name: Urine Culture [facility] 09/08 15:40 Order name: Bladder Scanner; Complete Time: 15:52 pm1 09/08 15:42 Order name: Teixeira; Complete Time: 17:13 pm1 09/08 16:48 Order name: IV Saline Lock; Complete Time: 17:13 pm1 Administered Medications: 17:40 Drug: fentaNYL (PF) 25 mcg Route: IVP; Site: right antecubital; bp 19:00 Follow up: Response: No adverse reaction; Pain is decreased; RASS: Alert and Calm (0) jb4 17:40 Drug: Zofran (Ondansetron) 4 mg Route: IVP; Site: right antecubital; bp 19:00 Follow up: Response: No adverse reaction jb4 Disposition: 09/09 06:42 Co-signature as Attending Physician, Angel Carrillo MD I agree with the assessment and kdr plan of care. Disposition: 09/09/19 22:44 Discharged to Home. Impression: Retention of urine, Hematuria, Urinary tract infection, site not specified. - Condition is Stable. - Discharge Instructions: Hematuria, Adult, Acute Urinary Retention, Male, Urinary Tract Infection, Adult. - Prescriptions for Macrobid 100 mg Oral Capsule - take 1 capsule by ORAL route every 12 hours for 10 days; 20 capsule. - Medication Reconciliation Form, Thank You Letter, Antibiotic Education, Prescription Opioid Use form. - Follow up: Emergency Department; When: As needed; Reason: Worsening of condition. Follow up: Private Physician; When: 2 - 3 days; Reason: Recheck today's complaints, Continuance of care, Re-evaluation by your physician. - Problem is new. - Symptoms have improved. Signatures: Dispatcher [employer] [facility] Angel Carrillo MD MD kdr Marinas, Patrick, NP [employer]EL[employer] pm1 Kenan Harris RN RN bp Emy Valero mw2 Chanelle Varela RN RN ca1 Bryson, James RN jb4 Corrections: (The following items were deleted from the chart) 09/08 22:43 18:40 09/09/2019 18:40 Transfer ordered to [facility]. Diagnosis pm1 is Retention of urine; Hematuria, unspecified. Reason for transfer: Specialty. Accepting physician is [facility]. Condition is Stable. Problem is new. Symptoms have improved. pm1 22:44 22:43 09/09/2019 18:40 Transfer ordered to [facility]. Diagnosis pm1 is Urinary tract infection, site not specifiedRetention of urine; Hematuria, unspecified. Reason for transfer: Specialty. Accepting physician is [facility]. Condition is Stable. Problem is new. Symptoms have improved. pm1 23:44 22:44 09/09/2019 22:44 Discharged to Home. Impression: Retention of urine; Hematuria; mw2 Urinary tract infection, site not specified. Condition is Stable. Forms are Medication Reconciliation Form, Thank You Letter, Antibiotic Education, Prescription Opioid Use. Follow up: Emergency Department; When: As needed; Reason: Worsening of condition. Follow up: Private Physician; When: 2 - 3 days; Reason: Recheck today's complaints, Continuance of care, Re-evaluation by your physician. Problem is new. Symptoms have improved. pm1
[2019-09-09] MEDS ORDERED: METOPROLOL TAR 50 MG TAB ONE (22:01)
[2019-09-09] MEDS ORDERED: METOPROLOL TARTRATE 5 MG/5 ML INJ IV ONE (22:01)
[2019-09-09 22:41] LABS: Urine Bacteria >50 /HPF (NONE SEEN); Urine RBC TNTC /HPF (NONE SEEN)
[2019-09-09] MEDS ORDERED: CEFTRIAXONE/SWI 1gm 1 GM/10 ML SYR ONE (22:56)
[2019-09-09 23:50] VITALS: TEMP 97.6
[2019-09-10 00:32] VITALS: BP 126/69; O2SAT 94
== END 2019-09-09 23:44 | disposition home or self-care (01) ==
LOC: ER 15:12
DX: N39.0 Urinary tract infection, site not specified (principal); R31.9 Hematuria, unspecified; I10 Essential (primary) hypertension; I25.2 Old myocardial infarction; Z95.0 Presence of cardiac pacemaker; Z85.46 Personal history of malignant neoplasm of prostate; Z88.5 Allergy status to narcotic agent
CPT/HCPCS: 87088; 85025; 87086; 36415; 85610; 87077; 87186; 81015; 80053; 74177; 96375; 96374; 99284; Q9967; J3010; J0696; J2405

== ENCOUNTER 2020-04-18 16:33 | Inpatient (IN) | payer OTHER ==
--- OUTSIDE RECORDS SUMMARY | 2020-04-18 17:26 | XMS REPORT | Continuity of Care Document ---
:1930 Author Organization [facility] t Address [address] [place] [address] Care Team Providers Name Role Phone SHAKIR DIAS Attending Clinician Unavailable SHAKIR DIAS Admitting Clinician Unavailable Problems Condition Condition Condition Status Onset Resolution Last Treating Co mments Source Name Details Category Date Date Treatment Clinician Date Gallstones Gallstones Disease Active 2017-[address] with with 2-12 [facility] - biliary biliary 00:00: Medical obstructio obstructio 00 Ce nter n n Allergies, Adverse Reactions, Alerts Allergy Allergy Status Severity Reaction(s) Onset Inactive Treating Comm ents Source Name Type Date Date Clinician Erik Isabel Active 2017-06 "[facility] ty to 2-12 dreams" [facility] - adverse 00:00: Medical reaction 00 Center s Social History Social Habit Start Date Stop Date Quantity Comments Source Sex Assigned At [facility] Tobacco use and 2018-06-09 2018-06-09 Never used [facility] - exposure 00:00:00 00:00:00 [facility] Center Smoking Status Start Date Stop Date Source Former smoker 2018-06-09 00:00:00 2018-06-09 00:00:00 [facility] Medications Ordered Filled Start Stop Current Ordering Indication Dosage Frequency Signature Comments Components Source Medication Medication Date Date Medication? Clinician (SIG) Name Name DULoxetine 2017-06 Yes diabetic 60mg QD Take [address] [facility] (CYMBALTA) 2-20 peripheral by mouth [facility] - 60 MG 21:08: neuropathy daily. [facility] capsule 37 Center finasteride 2017-06 Yes benign 5mg QD Take [address] [facility] (PROSCAR) 5 2-20 prostatic by mouth [facility] - mg tablet 21:08: hyperplasia daily. Medical 37 with lower Center urinary tract sx omega-3 2017-06 Yes 1g Q.5D Take [address] [facility] fatty 2-20 by mouth 2 [facility] - acids-fish 21:08: (two) Medica l oil 37 times Center 340-1,000 daily. mg Cap per capsule furosemide 2017-06 Yes edema 20mg Q.5D Take [address] [facility] (LASIX) 20 2-20 by mouth 2 [place] - MG tablet 21:08: (two) Medical 37 times Center daily. metFORMIN 2017-06 Yes 500mg Take [address] [facility] (GLUCOPHAGE 2-20 mg by [facility] - ) 500 MG 21:08: mouth 2 Medica l tablet 37 (two) Center times daily with breakfast and dinner. rivaroxaban 2017-06 Yes 20mg Take [address] [facility] (XARELTO) 2-20 by mouth [facility] - 20 mg Tab 21:08: daily with Me dical tablet 37 dinner. [place] simvastatin 2017-06 Yes 40mg QD Take [address] (ZOCOR) 40 2-20 by mouth [facility] - MG tablet 21:08: nightly. [facility] 37 Center sotalol AF 2017-06 Yes 80mg Q.5D Take [address] (BETAPACE 2-20 by mouth 2 [facility] - AF) 80 MG 21:08: (two) Medical tablet 37 times Center daily. tamsulosin 2017-06 Yes .4mg QD Take 0.[address] [facility] (FLOMAX) 2-20 mg by [facility] - 0.4 mg Cap 21:08: mouth Medica l 24 hr 37 nightly. [place] capsule aspirin 81 2017-06 Yes 81mg QD Take [address] MG EC 2-20 by mouth [facility] - tablet 21:08: daily. Medical Center psyllium 2017-06 Yes .52g Q.5D Take 0.[address] [facility] [facility] 0.52 gram 2-20 g by mouth [facility] - capsule 21:08: 2 (two) Medical 37 times Center daily. calcium 2017-06 Yes 500mg QD Take [address] [facility] carbonate 2-20 tablet [facility] - (TUMS) 500 00:00: (500 mg Medi tiffanie mg chewable 00 total) by Ism ter tablet mouth daily. acetaminoph 2017-06 Yes 325mg Take [address] [facility] en 2-20 tablet [facility] - (TYLENOL) 00:00: (325 mg Medic al 325 MG 00 total) by Center tablet mouth every 6 (six) hours as needed for Pain. Procedures This patient has no known procedures. Results Test Description Test Time Test Comments Results Result Comments Source POCT-GLUCOSE METER 2018-06-09 18:41:00 Test Item Value Reference Range Interpretation Comme nts POC-GLUCOSE METER ([facility]) (test 148 mg/dL 70-110 H TESTED AT [facility] [address] [place] [address] code = 1538) [facility] 7[address] TISSUE [id number] 16:35:00Surgical Pathology Report Case: [id number] Authorizing Provider: Haroldo Figueroa MD Collected: 06/08/2018 1444 Ordering Location: [facility] Received: 06/08/2018 1551 SERVICES Pathologist: Anny Chapman MD Specimen: Gallbladder GALLBLADDER, CHOLECYSTECTOMY: - 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 CG/ewPerformed. POCT-GLUCOSE [id number] 11:52:00 Test Item Value Reference Range Interpretation Comments POC-GLUCOSE METER 191 mg/dL 70-110 H TESTED AT [facility] 6720 ([facility]) (test code = VITOR Perez [facility] 1538) [id number] POCT-GLUCOSE [id number] 08:05:00 Test Item Value Reference Range Interpretation Comments POC-GLUCOSE METER 219 mg/dL 70-110 H TESTED AT [place] [address] ([facility]) (test code = V[address] [place] 1538) [id number] B-TYPE NATRIURETIC FACTOR (BNP)2018-06-09 07:22:00 Test Item Value Reference Range Interpretation Comments B-TYPE NATRIURETIC PEPTIDE ([facility]) 257 pg/mL 0-100 H (test code = 700) POCT-GLUCOSE [id number] 21:45:00 Test Item Value Reference Range Interpretation Comments POC-GLUCOSE METER 165 mg/dL 70-110 H TESTED AT [place] [address] ([facility]) (test code = [place] 1538) [id number] RAD, CHEST, 1 VIEW, NON [id number] 18:25:00Reason for exam:->pacemaker check Should this be performed at the bedside?->YesFINAL REPORT Chest, 1 view Clinical history: pacemaker check Comparison: None Discussion: 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 There is no pneumothorax. Small bilateral pleural effusions are seen with bibasilar atelectasis or airspace disease. The cardiac silhouette is enlarged with asymmetric left-sided perihilar edema. No acute osseous abnormality. Signed: Chris Edmond MDReport Verified Date/Time: 06/08/2018 18:25:31 Reading Location: [address] Consult Reading Room -GLUCOSE [id number] 16:08:00 Test Item Value Reference Range Interpretation Comments POC-GLUCOSE METER 154 mg/dL 70-110 H TESTED AT [place] [address] ([facility]) (test code = VIT[address] Perez [facility] 1538) [id number] POCT-GLUCOSE [id number] 11:33:00 Test Item Value Reference Range Interpretation Comments POC-GLUCOSE METER 161 mg/dL 70-110 H TESTED AT [place] [address] ([facility]) (test code = VITOR Perez [facility] 1538) [id number] POCT-GLUCOSE [id number] 08:46:00 Test Item Value Reference Range Interpretation Comments POC-GLUCOSE METER 146 mg/dL 70-110 H TESTED AT [place] [address] ([facility]) (test code = VITOR Perez [facility] 1538) [id number] 07:15:00 Test Item Value Reference Range Interpretation Comments MAGNESIUM (BEAKER) 2.1 mg/dL 1.6-2.6 Specimen moderately (test code = 627) hemolyzed [id number] 07:15:00 Test Item Value Reference Range Interpretation Comments PHOSPHORUS (BEAKER) 3.4 mg/dL 2.3-4.7 Specimen moderately (test code = 604) hemolyzed BASIC METABOLIC [id number] 07:15:00 Test Item Value Reference Range Interpretation Comments SODIUM (BEAKER) 143 meq/L 136-145 (test code = 381) POTASSIUM (BEAKER) 4.3 meq/L 3.5-5.1 Specimen moderately (test code = 379) hemolyzed CHLORIDE (BEAKER) 97 meq/L 98-107 L (test code = 382) CO2 (BEAKER) (test 39 meq/L 22-29 H code = 355) BLOOD UREA NITROGEN 10 mg/dL 7-21 (BEAKER) (test code = 354) CREATININE (BEAKER) 0.63 mg/dL 0.57-1.25 Specimen moderately (test code = 358) hemolyzed GLUCOSE RANDOM 143 mg/dL 70-105 H (BEAKER) (test code = 652) CALCIUM (BEAKER) 9.4 mg/dL 8.4-10.2 (test code = 697) EGFR (BEAKER) (test 121 mL/min/1.73 ESTIM ATED GFR IS code = 1092) sq m NOT ACCURATE CREATININE CLEARANCE IN PREDICTING GLOMERULAR FILTRATION RATE . ESTIMATED GFR I S NOT APPLICABLE FOR DIALYSIS PATIEN TS. HEPATIC FUNCTION [id number] 07:15:00 Test Item Value Reference Range Interpretation Comments TOTAL PROTEIN (BEAKER) 6.1 gm/dL 6.0-8.3 Speci men moderately (test code = 770) hemolyzed ALBUMIN (BEAKER) (test 3.3 g/dL 3.5-5.0 L Speci men moderately code = 1145) hemolyzed BILIRUBIN TOTAL 1.2 mg/dL 0.2-1.2 Specimen mod erately (BEAKER) (test code = hemoly zed 377) BILIRUBIN DIRECT 0.5 mg/dL 0.1-0.5 Specimen mo derately (BEAKER) (test code = hemoly zed 706) ALKALINE PHOSPHATASE 129 U/L 40-150 (BEAKER) (test code = 346) AST (SGOT) (BEAKER) 29 U/L 5-34 Specimen moderately (test code = 353) hemolyzed ALT (SGPT) (BEAKER) 69 U/L 6-55 H Specimen moderately (test code = 347) hemolyzed PROTHROMBIN [id number] 07:14:00 Test Item Value Reference Range Interpretation Comments PROTIME (BEAKER) (test code = 14.1 seconds 11.7-14.7 759) INR (BEAKER) (test code = 370) 1.1 <=5.9 RECOMMENDED COUMADIN/WARFARIN INR THERAPY RANGESSTANDARD DOSE: 2.0 - 3.0 Includes: PROPHYLAXIS forvenous thrombosis, systemic embolization; TREATMENT for venous thrombosis and/or pulmonary embolus.HIGH RISK: Target INR is 2.5-3.5 for patients with mechanical heart valves.POCT-GLUCOSE [id number] 07:06:00 Test Item Value Reference Range Interpretation Comments POC-GLUCOSE METER 179 mg/dL 70-110 H TESTED AT [facility] 6720 ([facility]) (test code = [place] 1538) [id number] CBC W/PLT COUNT & AUTO [id number] 06:58:00 Test Item Value Reference Range Interpretation Comments WHITE BLOOD CELL COUNT (BEAKER) 9.0 K/ L 3.5-10.5 (test code = 775) RED BLOOD CELL COUNT (BEAKER) 5.09 M/ L 4.63-6.08 (test code = 761) HEMOGLOBIN (BEAKER) (test code = 14.7 GM/DL 13.7-17.5 410) HEMATOCRIT (BEAKER) (test code = 46.7 % 40.1-51.0 411) MEAN CORPUSCULAR VOLUME (BEAKER) 91.7 fL 79.0-92.2 (test code = 753) MEAN CORPUSCULAR HEMOGLOBIN 28.9 pg 25.7-32.2 (BEAKER) (test code = 751) MEAN CORPUSCULAR HEMOGLOBIN CONC 31.5 GM/DL 32.3-36.5 L (BEAKER) (test code = 752) RED CELL DISTRIBUTION WIDTH 14.1 % 11.6-14.4 (BEAKER) (test code = 412) PLATELET COUNT (BEAKER) (test 195 K/CU MM 150-450 code = 756) MEAN PLATELET VOLUME (BEAKER) 10.8 fL 9.4-12.4 (test code = 754) NUCLEATED RED BLOOD CELLS 0 /100 WBC 0-0 (BEAKER) (test code = 413) NEUTROPHILS RELATIVE PERCENT 68 % (BEAKER) (test code = 429) LYMPHOCYTES RELATIVE PERCENT 16 % (BEAKER) (test code = 430) MONOCYTES RELATIVE PERCENT 10 % (BEAKER) (test code = 431) EOSINOPHILS RELATIVE PERCENT 4 % (BEAKER) (test code = 432) BASOPHILS RELATIVE PERCENT 1 % (BEAKER) (test code = 437) NEUTROPHILS ABSOLUTE COUNT 6.09 K/ L 1.78-5.38 H (BEAKER) (test code = 670) LYMPHOCYTES ABSOLUTE COUNT 1.42 K/ L 1.32-3.57 (BEAKER) (test code = 414) MONOCYTES ABSOLUTE COUNT (BEAKER) 0.89 K/ L 0.30-0.82 H (test code = 415) EOSINOPHILS ABSOLUTE COUNT 0.38 K/ L 0.04-0.54 (BEAKER) (test code = 416) BASOPHILS ABSOLUTE COUNT (BEAKER) 0.05 K/ L 0.01-0.08 (test code = 417) IMMATURE GRANULOCYTES-RELATIVE 2 % 0-1 H PERCENT (BEAKER) (test code = 2801) POCT-GLUCOSE [id number] 21:03:00 Test Item Value Reference Range Interpretation Comments POC-GLUCOSE METER 142 mg/dL 70-110 H TESTED AT [facility] 6720 (BEAKER) (test code = [address] [place] [address]) [id number] 19:39:00 Test Item Value Reference Range Interpretation Comments PHOSPHORUS (BEAKER) (test code = 2.2 mg/dL 2.3-4.7 L 604) [id number] 19:39:00 Test Item Value Reference Range Interpretation Comments MAGNESIUM (BEAKER) (test code = 1.8 mg/dL 1.6-2.6 627) BASIC METABOLIC [id number] 19:39:00 Test Item Value Reference Range Interpretation Comments SODIUM (BEAKER) 139 meq/L 136-145 (test code = 381) POTASSIUM (BEAKER) 3.2 meq/L 3.5-5.1 L (test code = 379) CHLORIDE (BEAKER) 97 meq/L 98-107 L (test code = 382) CO2 (BEAKER) (test 35 meq/L 22-29 H code = 355) BLOOD UREA NITROGEN 12 mg/dL 7-21 (BEAKER) (test code = 354) CREATININE (BEAKER) 0.68 mg/dL 0.57-1.25 (test code = 358) GLUCOSE RANDOM 236 mg/dL 70-105 H (BEAKER) (test code = 652) CALCIUM (BEAKER) 9.0 mg/dL 8.4-10.2 (test code = 697) EGFR (BEAKER) (test 111 mL/min/1.73 ESTIM ATED GFR IS code = 1092) sq m NOT ACCURATE CREATININE CLEARANCE IN PREDICTING GLOMERULAR FILTRATION RATE . ESTIMATED GFR I S NOT APPLICABLE FOR DIALYSIS PATIEN TS. HEPATIC FUNCTION [id number] 19:39:00 Test Item Value Reference Range Interpretation Comments TOTAL PROTEIN (BEAKER) (test code = 5.6 gm/dL 6.0-8.3 L 770) ALBUMIN (BEAKER) (test code = 1145) 3.1 g/dL 3.5-5.0 L BILIRUBIN TOTAL (BEAKER) (test code 0.9 mg/dL 0.2-1.2 = 377) BILIRUBIN DIRECT (BEAKER) (test 0.6 mg/dL 0.1-0.5 H code = 706) ALKALINE PHOSPHATASE (BEAKER) (test 125 U/L 40-150 code = 346) AST (SGOT) (BEAKER) (test code = 22 U/L 5-34 353) ALT (SGPT) (BEAKER) (test code = 71 U/L 6-55 H 347) PROTHROMBIN [id number] 19:34:00 Test Item Value Reference Range Interpretation Comments PROTIME (BEAKER) (test code = 15.1 seconds 11.7-14.7 H 759) INR (BEAKER) (test code = 370) 1.2 <=5.9 RECOMMENDED COUMADIN/WARFARIN INR THERAPY RANGESSTANDARD DOSE: 2.0 - 3.0 Includes: PROPHYLAXIS forvenous thrombosis, systemic embolization; TREATMENT for venous thrombosis and/or pulmonary embolus.HIGH RISK: Target INR is 2.5-3.5 for patients with mechanical heart valves.CBC W/PLT COUNT & AUTO DIFFERENTIAL 2018-06-07 19:18:00 Test Item Value Reference Range Interpretation Comments WHITE BLOOD CELL COUNT (BEAKER) 8.0 K/ L 3.5-10.5 (test code = 775) RED BLOOD CELL COUNT (BEAKER) 4.71 M/ L 4.63-6.08 (test code = 761) HEMOGLOBIN (BEAKER) (test code = 13.5 GM/DL 13.7-17.5 L 410) HEMATOCRIT (BEAKER) (test code = 42.6 % 40.1-51.0 411) MEAN CORPUSCULAR VOLUME (BEAKER) 90.4 fL 79.0-92.2 (test code = 753) MEAN CORPUSCULAR HEMOGLOBIN 28.7 pg 25.7-32.2 (BEAKER) (test code = 751) MEAN CORPUSCULAR HEMOGLOBIN CONC 31.7 GM/DL 32.3-36.5 L (BEAKER) (test code = 752) RED CELL DISTRIBUTION WIDTH 14.0 % 11.6-14.4 (BEAKER) (test code = 412) PLATELET COUNT (BEAKER) (test 181 K/CU MM 150-450 code = 756) MEAN PLATELET VOLUME (BEAKER) 10.6 fL 9.4-12.4 (test code = 754) NUCLEATED RED BLOOD CELLS 0 /100 WBC 0-0 (BEAKER) (test code = 413) NEUTROPHILS RELATIVE PERCENT 65 % (BEAKER) (test code = 429) LYMPHOCYTES RELATIVE PERCENT 19 % (BEAKER) (test code = 430) MONOCYTES RELATIVE PERCENT 10 % (BEAKER) (test code = 431) EOSINOPHILS RELATIVE PERCENT 3 % (BEAKER) (test code = 432) BASOPHILS RELATIVE PERCENT 1 % (BEAKER) (test code = 437) NEUTROPHILS ABSOLUTE COUNT 5.19 K/ L 1.78-5.38 (BEAKER) (test code = 670) LYMPHOCYTES ABSOLUTE COUNT 1.50 K/ L 1.32-3.57 (BEAKER) (test code = 414) MONOCYTES ABSOLUTE COUNT (BEAKER) 0.82 K/ L 0.30-0.82 (test code = 415) EOSINOPHILS ABSOLUTE COUNT 0.23 K/ L 0.04-0.54 (BEAKER) (test code = 416) BASOPHILS ABSOLUTE COUNT (BEAKER) 0.06 K/ L 0.01-0.08 (test code = 417) IMMATURE GRANULOCYTES-RELATIVE 3 % 0-1 H PERCENT ([facility]) (test code = 2801) POCT-GLUCOSE [id number] 17:55:00 Test Item Value Reference Range Interpretation Comments POC-GLUCOSE METER 305 mg/dL 70-110 H Notified R Levar MAJOR/TESTED ([facility]) (test code = AT [place] [address] [address]IN [address]) [facility] [address] POCT-GLUCOSE [id number] 11:56:00 Test Item Value Reference Range Interpretation Comments POC-GLUCOSE METER 137 mg/dL 70-110 H TESTED AT [place] [address] ([facility]) (test code = VITOR Perez [facility] 1538) [id number] POCT-GLUCOSE [id number] 09:01:00 Test Item Value Reference Range Interpretation Comments POC-GLUCOSE METER 158 mg/dL 70-110 H TESTED AT [place] [address] ([facility]) (test code = VITOR Perez [facility] 1538) [address] BLOOD [id number] 05:00:00 Test Item Value Reference Range Interpretation Comments CULTURE (BEAKER) (test No growth in 5 days code = 1095) BLOOD [id number] 05:00:00 Test Item Value Reference Range Interpretation Comments CULTURE (BEAKER) (test No growth in 5 days code = 1095) POCT-GLUCOSE [id number] 21:31:00 Test Item Value Reference Range Interpretation Comments POC-GLUCOSE METER 297 mg/dL 70-110 H TESTED AT [place] [address] ([facility]) (test code = VITOR Perez [facility] 1538) [id number] POCT-GLUCOSE [id number] 17:26:00 Test Item Value Reference Range Interpretation Comments POC-GLUCOSE METER 154 mg/dL 70-110 H TESTED AT [place] [address] ([facility]) (test code = VITOR Perez [facility] 1538) [address] POCT-GLUCOSE [id number] 15:17:00 Test Item Value Reference Range Interpretation Comments POC-GLUCOSE METER 154 mg/dL 70-110 H TESTED AT [place] [address] ([facility]) (test code = VITOR Perez [facility] 1538) [address] [place], [id number] 13:54:00INTRA OP IMAGINGReason for exam:->ABNORMAL IMAGING FINAL REPORT ERCP 4 views 06/06/2018 1:49 PM CLINICAL HISTORY: Instrument localization COMPARISON: None available IMPRESSION: Please correlate imaging report findings with the procedure note prepared by Dr. Hinojosa, as an intra-procedure imaging consultation was not requested. Reported fluoroscopy time: 91.0 seconds. Signed: Yunier Esparza Verified Date/Time: 06/06/2018 13:54:44 Reading Location: [facility] Radiology Reading Room COMPREHENSIVE METABOLIC [id number] 11:44:00 Test Item Value Reference Range Interpretation Comments TOTAL PROTEIN 5.9 gm/dL 6.0-8.3 L (BEAKER) (test code = 770) ALBUMIN (BEAKER) 3.3 g/dL 3.5-5.0 L (test code = 1145) ALKALINE PHOSPHATASE 146 U/L 40-150 (BEAKER) (test code = 346) BILIRUBIN TOTAL 1.1 mg/dL 0.2-1.2 (BEAKER) (test code = 377) SODIUM (BEAKER) (test 141 meq/L 136-145 code = 381) POTASSIUM (BEAKER) 4.2 meq/L 3.5-5.1 (test code = 379) CHLORIDE (BEAKER) 99 meq/L 98-107 (test code = 382) CO2 (BEAKER) (test 37 meq/L 22-29 H code = 355) BLOOD UREA NITROGEN 10 mg/dL 7-21 (BEAKER) (test code = 354) CREATININE (BEAKER) 0.61 mg/dL 0.57-1.25 (test code = 358) GLUCOSE RANDOM 152 mg/dL 70-105 H (BEAKER) (test code = 652) CALCIUM (BEAKER) 9.2 mg/dL 8.4-10.2 (test code = 697) AST (SGOT) (BEAKER) 29 U/L 5-34 (test code = 353) ALT (SGPT) (BEAKER) 99 U/L 6-55 H (test code = 347) EGFR (BEAKER) (test 125 ESTIMATE D GFR IS code = 1092) mL/min/1.73 sq NOT ACCURA TE m CREATININE CLEARANCE IN PREDICTING GLOMERULAR FILTRATION RATE . ESTIMATED GFR I S NOT APPLICABLE FOR DIALYSIS PATIEN TS. POCT-GLUCOSE [id number] 08:58:00 Test Item Value Reference Range Interpretation Comments POC-GLUCOSE METER 174 mg/dL 70-110 H TESTED AT [place] [address] ([facility]) (test code = VITOR Perez [place] 1538) [id number] CBC (HEMOGRAM ONLY)2018-06-06 06:47:00 Test Item Value Reference Range Interpretation Comments WHITE BLOOD CELL COUNT (BEAKER) 7.8 K/ L 3.5-10.5 (test code = 775) RED BLOOD CELL COUNT (BEAKER) 4.65 M/ L 4.63-6.08 (test code = 761) HEMOGLOBIN (BEAKER) (test code = 13.6 GM/DL 13.7-17.5 L 410) HEMATOCRIT (BEAKER) (test code = 42.3 % 40.1-51.0 411) MEAN CORPUSCULAR VOLUME (BEAKER) 91.0 fL 79.0-92.2 (test code = 753) MEAN CORPUSCULAR HEMOGLOBIN 29.2 pg 25.7-32.2 (BEAKER) (test code = 751) MEAN CORPUSCULAR HEMOGLOBIN CONC 32.2 GM/DL 32.3-36.5 L (BEAKER) (test code = 752) RED CELL DISTRIBUTION WIDTH 14.2 % 11.6-14.4 (BEAKER) (test code = 412) PLATELET COUNT (BEAKER) (test 161 K/CU MM 150-450 code = 756) MEAN PLATELET VOLUME (BEAKER) 10.9 fL 9.4-12.4 (test code = 754) NUCLEATED RED BLOOD CELLS 0 /100 WBC 0-0 (BEAKER) (test code = 413) POCT-GLUCOSE [id number] 21:43:00 Test Item Value Reference Range Interpretation Comments POC-GLUCOSE METER 213 mg/dL 70-110 H TESTED AT [place] [address] ([facility]) (test code = VITOR Perez [facility] 1538) [id number] POCT-GLUCOSE [id number] 18:37:00 Test Item Value Reference Range Interpretation Comments POC-GLUCOSE METER 144 mg/dL 70-110 H TESTED AT [place] [address] ([facility]) (test code = [facility] Ana [facility] 1538) [address] POCT-GLUCOSE [id number] 12:41:00 Test Item Value Reference Range Interpretation Comments POC-GLUCOSE METER 171 mg/dL 70-110 H TESTED AT [place] [address] ([facility]) (test code = [place] Perez [facility] 1538) [id number] POCT-GLUCOSE [id number] 08:33:00 Test Item Value Reference Range Interpretation Comments POC-GLUCOSE METER 165 mg/dL 70-110 H TESTED AT [place] [address] ([facility]) (test code = [facility] Ana [facility] 1538) [id number] POCT-GLUCOSE [id number] 08:27:00 Test Item Value Reference Range Interpretation Comments POC-GLUCOSE METER 165 mg/dL 70-110 H TESTED AT [place] [address] ([facility]) (test code = [facility] 1538) [id number] VANCOMYCIN LEVEL, [id number] 07:59:00 Test Item Value Reference Range Interpretation Comments VANCOMYCIN TROUGH ([facility]) (test 15.0 ug/mL 10.0-20.0 code = 522) CBC (HEMOGRAM ONLY)2018-06-05 06:50:00 Test Item Value Reference Range Interpretation Comments WHITE BLOOD CELL COUNT ([facility]) 7.3 K/ L 3.5-10.5 (test code = 775) RED BLOOD CELL COUNT ([facility]) 5.05 M/ L 4.63-6.08 (test code = 761) HEMOGLOBIN ([facility]) (test code = 14.6 GM/DL 13.7-17.5 410) HEMATOCRIT ([facility]) (test code = 45.6 % 40.1-51.0 411) MEAN CORPUSCULAR VOLUME ([facility]) 90.3 fL 79.0-92.2 (test code = 753) MEAN CORPUSCULAR HEMOGLOBIN 28.9 pg 25.7-32.2 (AKER) (test code = 751) MEAN CORPUSCULAR HEMOGLOBIN CONC 32.0 GM/DL 32.3-36.5 L ([facility]) (test code = 752) RED CELL DISTRIBUTION WIDTH 14.0 % 11.6-14.4 (AKER) (test code = 412) PLATELET COUNT ([facility]) (test 146 K/CU MM 150-450 L code = 756) MEAN PLATELET VOLUME (BEAKER) 10.5 fL 9.4-12.4 (test code = 754) NUCLEATED RED BLOOD CELLS 0 /100 WBC 0-0 (BEAKER) (test code = 413) COMPREHENSIVE METABOLIC [id number] 05:48:00 Test Item Value Reference Range Interpretation Comments TOTAL PROTEIN 5.6 gm/dL 6.0-8.3 L (BEAKER) (test code = 770) ALBUMIN (BEAKER) 3.1 g/dL 3.5-5.0 L (test code = 1145) ALKALINE PHOSPHATASE 145 U/L 40-150 (BEAKER) (test code = 346) BILIRUBIN TOTAL 1.2 mg/dL 0.2-1.2 (BEAKER) (test code = 377) SODIUM (BEAKER) (test 139 meq/L 136-145 code = 381) POTASSIUM (BEAKER) 3.4 meq/L 3.5-5.1 L (test code = 379) CHLORIDE (BEAKER) 101 meq/L 98-107 (test code = 382) CO2 (BEAKER) (test 30 meq/L 22-29 H code = 355) BLOOD UREA NITROGEN 11 mg/dL 7-21 (BEAKER) (test code = 354) CREATININE (BEAKER) 0.59 mg/dL 0.57-1.25 (test code = 358) GLUCOSE RANDOM 151 mg/dL 70-105 H (BEAKER) (test code = 652) CALCIUM (BEAKER) 8.6 mg/dL 8.4-10.2 (test code = 697) AST (SGOT) (BEAKER) 35 U/L 5-34 H (test code = 353) ALT (SGPT) (BEAKER) 134 U/L 6-55 H (test code = 347) EGFR (BEAKER) (test 130 ESTIMATE D GFR IS code = 1092) mL/min/1.73 sq NOT ACCURA TE m CREATININE CLEARANCE IN PREDICTING GLOMERULAR FILTRATION RATE . ESTIMATED GFR I S NOT APPLICABLE FOR DIALYSIS PATIEN TS. POCT-GLUCOSE [id number] 21:00:00 Test Item Value Reference Range Interpretation Comments POC-GLUCOSE METER 204 mg/dL 70-110 H TESTED AT [facility] 6720 ([facility]) (test code = [place] 1538) [id number] POCT-GLUCOSE [id number] 17:17:00 Test Item Value Reference Range Interpretation Comments POC-GLUCOSE METER 156 mg/dL 70-110 H TESTED AT [facility] 6720 ([facility] (test code = BANNERMONIQUE Perez [facility] 1538) [id number] POCT-GLUCOSE [id number] 12:42:00 Test Item Value Reference Range Interpretation Comments POC-GLUCOSE METER 201 mg/dL 70-110 H TESTED AT [facility] 6720 (BEAKER) (test code = [facility] Ana [facility] 1538) [address] POCT-GLUCOSE [id number] 08:34:00 Test Item Value Reference Range Interpretation Comments POC-GLUCOSE METER 150 mg/dL 70-110 H TESTED AT [facility] 67 ([facility] (test code = [facility] 1538) [address] BASIC METABOLIC [id number] 05:20:00 Test Item Value Reference Range Interpretation Comments SODIUM (BEAKER) 138 meq/L 136-145 (test code = 381) POTASSIUM (BEAKER) 3.4 meq/L 3.5-5.1 L (test code = 379) CHLORIDE (BEAKER) 100 meq/L 98-107 (test code = 382) CO2 (BEAKER) (test 32 meq/L 22-29 H code = 355) BLOOD UREA NITROGEN 13 mg/dL 7-21 (BEAKER) (test code = 354) CREATININE (BEAKER) 0.60 mg/dL 0.57-1.25 (test code = 358) GLUCOSE RANDOM 143 mg/dL 70-105 H (BEAKER) (test code = 652) CALCIUM (BEAKER) 8.4 mg/dL 8.4-10.2 (test code = 697) EGFR (BEAKER) (test 128 mL/min/1.73 ESTIM ATED GFR IS code = 1092) sq m NOT ACCURATE CREATININE CLEARANCE IN PREDICTING GLOMERULAR FILTRATION RATE . ESTIMATED GFR I S NOT APPLICABLE FOR DIALYSIS PATIEN TS. CBC (HEMOGRAM ONLY)2018-06-04 05:02:00 Test Item Value Reference Range Interpretation Comments WHITE BLOOD CELL COUNT (BEAKER) 6.1 K/ L 3.5-10.5 (test code = 775) RED BLOOD CELL COUNT (BEAKER) 4.77 M/ L 4.63-6.08 (test code = 761) HEMOGLOBIN (BEAKER) (test code = 13.7 GM/DL 13.7-17.5 410) HEMATOCRIT (BEAKER) (test code = 43.0 % 40.1-51.0 411) MEAN CORPUSCULAR VOLUME (BEAKER) 90.1 fL 79.0-92.2 (test code = 753) MEAN CORPUSCULAR HEMOGLOBIN 28.7 pg 25.7-32.2 (BEAKER) (test code = 751) MEAN CORPUSCULAR HEMOGLOBIN CONC 31.9 GM/DL 32.3-36.5 L (BEAKER) (test code = 752) RED CELL DISTRIBUTION WIDTH 14.0 % 11.6-14.4 (BEAKER) (test code = 412) PLATELET COUNT (AKER) (test 139 K/CU MM 150-450 L code = 756) MEAN PLATELET VOLUME (BEAKER) 10.8 fL 9.4-12.4 (test code = 754) NUCLEATED RED BLOOD CELLS 0 /100 WBC 0-0 ([facility]) (test code = 413) POCT-GLUCOSE [id number] 20:49:00 Test Item Value Reference Range Interpretation Comments POC-GLUCOSE METER 219 mg/dL 70-110 H TESTED AT [place] [address] ([facility]) (test code = [facility] 1538) [id number] POCT-GLUCOSE [id number] 16:44:00 Test Item Value Reference Range Interpretation Comments POC-GLUCOSE METER 148 mg/dL 70-110 H TESTED AT [place] [address] ([facility]) (test code = [facility] 1538) [address] POCT-GLUCOSE [id number] 12:31:00 Test Item Value Reference Range Interpretation Comments POC-GLUCOSE METER 206 mg/dL 70-110 H TESTED AT [place] [address] ([facility]) (test code = [facility] 1538) [address] CBC W/PLT COUNT & AUTO [id number] 08:49:00 Test Item Value Reference Range Interpretation Comments WHITE BLOOD CELL COUNT (BEAKER) 9.0 K/ L 3.5-10.5 (test code = 775) RED BLOOD CELL COUNT (BEAKER) 4.85 M/ L 4.63-6.08 (test code = 761) HEMOGLOBIN (BEAKER) (test code = 14.1 GM/DL 13.7-17.5 410) HEMATOCRIT (BEAKER) (test code = 44.4 % 40.1-51.0 411) MEAN CORPUSCULAR VOLUME (BEAKER) 91.5 fL 79.0-92.2 (test code = 753) MEAN CORPUSCULAR HEMOGLOBIN 29.1 pg 25.7-32.2 (BEAKER) (test code = 751) MEAN CORPUSCULAR HEMOGLOBIN CONC 31.8 GM/DL 32.3-36.5 L (BEAKER) (test code = 752) RED CELL DISTRIBUTION WIDTH 14.0 % 11.6-14.4 (BEAKER) (test code = 412) PLATELET COUNT (BEAKER) (test 145 K/CU MM 150-450 L code = 756) MEAN PLATELET VOLUME (BEAKER) 10.8 fL 9.4-12.4 (test code = 754) NUCLEATED RED BLOOD CELLS 0 /100 WBC 0-0 (BEAKER) (test code = 413) NEUTROPHILS RELATIVE PERCENT 82 % (BEAKER) (test code = 429) LYMPHOCYTES RELATIVE PERCENT 7 % (BEAKER) (test code = 430) MONOCYTES RELATIVE PERCENT 9 % (BEAKER) (test code = 431) EOSINOPHILS RELATIVE PERCENT 0 % (BEAKER) (test code = 432) BASOPHILS RELATIVE PERCENT 0 % (BEAKER) (test code = 437) NEUTROPHILS ABSOLUTE COUNT 7.40 K/ L 1.78-5.38 H (BEAKER) (test code = 670) LYMPHOCYTES ABSOLUTE COUNT 0.65 K/ L 1.32-3.57 L (BEAKER) (test code = 414) MONOCYTES ABSOLUTE COUNT (BEAKER) 0.78 K/ L 0.30-0.82 (test code = 415) EOSINOPHILS ABSOLUTE COUNT 0.04 K/ L 0.04-0.54 (BEAKER) (test code = 416) BASOPHILS ABSOLUTE COUNT (BEAKER) 0.03 K/ L 0.01-0.08 (test code = 417) IMMATURE GRANULOCYTES-RELATIVE 1 % 0-1 PERCENT (BEAKER) (test code = 2801) POCT-GLUCOSE [id number] 08:22:00 Test Item Value Reference Range Interpretation Comments POC-GLUCOSE METER 158 mg/dL 70-110 H TESTED AT [facility] 6720 (BEAKER) (test code = [place] 1538) [id number] VANCOMYCIN LEVEL, [id number] 07:54:00 Test Item Value Reference Range Interpretation Comments VANCOMYCIN TROUGH (BEAKER) (test 10.9 ug/mL 10.0-20.0 code = 522) BASIC METABOLIC [id number] 07:49:00 Test Item Value Reference Range Interpretation Comments SODIUM (BEAKER) 137 meq/L 136-145 (test code = 381) POTASSIUM (BEAKER) 3.5 meq/L 3.5-5.1 (test code = 379) CHLORIDE (BEAKER) 100 meq/L 98-107 (test code = 382) CO2 (BEAKER) (test 28 meq/L 22-29 code = 355) BLOOD UREA NITROGEN 19 mg/dL 7-21 (BEAKER) (test code = 354) CREATININE (BEAKER) 0.66 mg/dL 0.57-1.25 (test code = 358) GLUCOSE RANDOM 149 mg/dL 70-105 H (BEAKER) (test code = 652) CALCIUM (BEAKER) 8.5 mg/dL 8.4-10.2 (test code = 697) EGFR (BEAKER) (test 114 mL/min/1.73 ESTIM ATED GFR IS code = 1092) sq m NOT ACCURATE CREATININE CLEARANCE IN PREDICTING GLOMERULAR FILTRATION RATE . ESTIMATED GFR I S NOT APPLICABLE FOR DIALYSIS PATIEN TS. Specimen slightly ictericHEPATIC FUNCTION [id number] 07:49:00 Test Item Value Reference Range Interpretation Comments TOTAL PROTEIN (BEAKER) (test code = 5.9 gm/dL 6.0-8.3 L 770) ALBUMIN (BEAKER) (test code = 1145) 3.4 g/dL 3.5-5.0 L BILIRUBIN TOTAL (BEAKER) (test code 2.5 mg/dL 0.2-1.2 H = 377) BILIRUBIN DIRECT (BEAKER) (test 1.8 mg/dL 0.1-0.5 H code = 706) ALKALINE PHOSPHATASE (BEAKER) (test 134 U/L 40-150 code = 346) AST (SGOT) (BEAKER) (test code = 117 U/L 5-34 H 353) ALT (SGPT) (BEAKER) (test code = 259 U/L 6-55 H 347) Specimen slightly ictericPOCT-GLUCOSE [id number] 21:25:00 Test Item Value Reference Range Interpretation Comments POC-GLUCOSE METER 223 mg/dL 70-110 H TESTED AT [facility] 6720 (BEAKER) (test code = [place] 1538) [address] POCT-GLUCOSE [id number] 17:09:00 Test Item Value Reference Range Interpretation Comments POC-GLUCOSE METER 161 mg/dL 70-110 H TESTED AT [place] [id number] (BEAKER) (test code = VITOR Perez [place] 1538) [address] POCT-GLUCOSE [id number] 10:58:00 Test Item Value Reference Range Interpretation Comments POC-GLUCOSE METER 113 mg/dL 70-110 H TESTED AT [place] [address] (BEAKER) (test code = VITOR Perez [facility] 1538) [address] CBC W/PLT COUNT & AUTO [id number] 09:48:00 Test Item Value Reference Range Interpretation Comments WHITE BLOOD CELL COUNT (BEAKER) 16.1 K/ L 3.5-10.5 H (test code = 775) RED BLOOD CELL COUNT (BEAKER) 4.85 M/ L 4.63-6.08 (test code = 761) HEMOGLOBIN (BEAKER) (test code = 13.8 GM/DL 13.7-17.5 410) HEMATOCRIT (BEAKER) (test code = 43.6 % 40.1-51.0 411) MEAN CORPUSCULAR VOLUME (BEAKER) 89.9 fL 79.0-92.2 (test code = 753) MEAN CORPUSCULAR HEMOGLOBIN 28.5 pg 25.7-32.2 (BEAKER) (test code = 751) MEAN CORPUSCULAR HEMOGLOBIN CONC 31.7 GM/DL 32.3-36.5 L (BEAKER) (test code = 752) RED CELL DISTRIBUTION WIDTH 14.2 % 11.6-14.4 (BEAKER) (test code = 412) PLATELET COUNT (BEAKER) (test 181 K/CU MM 150-450 code = 756) MEAN PLATELET VOLUME (BEAKER) 10.8 fL 9.4-12.4 (test code = 754) NUCLEATED RED BLOOD CELLS 0 /100 WBC 0-0 (BEAKER) (test code = 413) NEUTROPHILS RELATIVE PERCENT 87 % (BEAKER) (test code = 429) LYMPHOCYTES RELATIVE PERCENT 5 % (BEAKER) (test code = 430) MONOCYTES RELATIVE PERCENT 7 % (BEAKER) (test code = 431) EOSINOPHILS RELATIVE PERCENT 0 % (BEAKER) (test code = 432) BASOPHILS RELATIVE PERCENT 0 % (BEAKER) (test code = 437) NEUTROPHILS ABSOLUTE COUNT 13.95 K/ L 1.78-5.38 H (BEAKER) (test code = 670) LYMPHOCYTES ABSOLUTE COUNT 0.81 K/ L 1.32-3.57 L (BEAKER) (test code = 414) MONOCYTES ABSOLUTE COUNT (BEAKER) 1.17 K/ L 0.30-0.82 H (test code = 415) EOSINOPHILS ABSOLUTE COUNT 0.01 K/ L 0.04-0.54 L (BEAKER) (test code = 416) BASOPHILS ABSOLUTE COUNT (BEAKER) 0.02 K/ L 0.01-0.08 (test code = 417) IMMATURE GRANULOCYTES-RELATIVE 1 % 0-1 PERCENT (BEAKER) (test code = 2801) POCT-GLUCOSE [id number] 08:08:00 Test Item Value Reference Range Interpretation Comments POC-GLUCOSE METER 175 mg/dL 70-110 H TESTED AT [facility] 6720 (BEAKER) (test code = VITOR Perez [facility] 1538) [address] BASIC METABOLIC [id number] 05:28:00 Test Item Value Reference Range Interpretation Comments SODIUM (BEAKER) 141 meq/L 136-145 (test code = 381) POTASSIUM (BEAKER) 3.7 meq/L 3.5-5.1 Specimen slightly (test code = 379) hemolyzed CHLORIDE (BEAKER) 104 meq/L 98-107 (test code = 382) CO2 (BEAKER) (test 27 meq/L 22-29 code = 355) BLOOD UREA NITROGEN 23 mg/dL 7-21 H (BEAKER) (test code = 354) CREATININE (BEAKER) 0.82 mg/dL 0.57-1.25 Specimen slightly (test code = 358) hemolyzed GLUCOSE RANDOM 158 mg/dL 70-105 H (BEAKER) (test code = 652) CALCIUM (BEAKER) 9.0 mg/dL 8.4-10.2 (test code = 697) EGFR (BEAKER) (test 89 mL/min/1.73 ESTIMA SAKINA GFR IS code = 1092) sq m NOT ACCURATE CREATININE CLEARANCE IN PREDICTING GLOMERULAR FILTRATION RATE . ESTIMATED GFR I S NOT APPLICABLE FOR DIALYSIS PATIEN TS. Specimen slightly ictericHEPATIC FUNCTION [id number] 05:28:00 Test Item Value Reference Range Interpretation Comments TOTAL PROTEIN (BEAKER) 6.0 gm/dL 6.0-8.3 Speci men slightly (test code = 770) hemolyzed ALBUMIN (BEAKER) (test 3.4 g/dL 3.5-5.0 L Speci men slightly code = 1145) hemolyzed BILIRUBIN TOTAL 5.7 mg/dL 0.2-1.2 H Specimen sli ghtly (BEAKER) (test code = hemoly zed 377) BILIRUBIN DIRECT 4.0 mg/dL 0.1-0.5 H Specimen sl ightly (BEAKER) (test code = hemoly zed 706) ALKALINE PHOSPHATASE 129 U/L 40-150 (BEAKER) (test code = 346) AST (SGOT) (BEAKER) 216 U/L 5-34 H Specimen slightly (test code = 353) hemolyzed ALT (SGPT) (BEAKER) 358 U/L 6-55 H Specimen slightly (test code = 347) hemolyzed Specimen slightly ictericFL, [id number] 00:14:00Reason for exam:->CHOLEDOCHOLITHIASISFINAL REPORT ERCP: Comparison exam: Three C-arm images [...] MDReport Verified Date/Time: 06/02/2018 00:14:16 Reading Location: [address] Reading Room POCT-GLUCOSE [id number] 23:14:00 Test Item Value Reference Range Interpretation Comments POC-GLUCOSE METER 176 mg/dL 70-110 H TESTED AT [facility] 6720 (BEAKER) (test code = [place] 1538) [address] LACTIC ACID, VENOUS, WHOLE [id number] 17:47:00 Test Item Value Reference Range Interpretation Comments LACTATE BLOOD VENOUS 2.4 mmol/L 0.5-2.2 H Specime n slightly (2) (BEAKER) (test hemolyzed code = 2872) Specimen slightly ictericPOCT-GLUCOSE [id number] 17:31:00 Test Item Value Reference Range Interpretation Comments POC-GLUCOSE METER 219 mg/dL 70-110 H TESTED AT [facility] 67 ([facility]) (test code = VITOR Perez [place] 1538) [address] POCT-GLUCOSE [id number] 13:48:00 Test Item Value Reference Range Interpretation Comments POC-GLUCOSE METER 209 mg/dL 70-110 H TESTED AT [facility] 67 ([facility]) (test code = VITOR Perez [place] 1538) [address] CBC W/PLT COUNT & AUTO [id number] 08:21:00 Test Item Value Reference Range Interpretation Comments WHITE BLOOD CELL COUNT (BEAKER) 21.6 K/ L 3.5-10.5 H (test code = 775) RED BLOOD CELL COUNT (BEAKER) 5.77 M/ L 4.63-6.08 (test code = 761) HEMOGLOBIN (BEAKER) (test code = 16.3 GM/DL 13.7-17.5 410) HEMATOCRIT (BEAKER) (test code = 52.1 % 40.1-51.0 H 411) MEAN CORPUSCULAR VOLUME (BEAKER) 90.3 fL 79.0-92.2 (test code = 753) MEAN CORPUSCULAR HEMOGLOBIN 28.2 pg 25.7-32.2 (BEAKER) (test code = 751) MEAN CORPUSCULAR HEMOGLOBIN CONC 31.3 GM/DL 32.3-36.5 L (BEAKER) (test code = 752) RED CELL DISTRIBUTION WIDTH 13.8 % 11.6-14.4 (BEAKER) (test code = 412) PLATELET COUNT (BEAKER) (test 262 K/CU MM 150-450 code = 756) MEAN PLATELET VOLUME (BEAKER) 10.7 fL 9.4-12.4 (test code = 754) NUCLEATED RED BLOOD CELLS 0 /100 WBC 0-0 (BEAKER) (test code = 413) (CELLAVISION MANUAL DIFF)2018-06-01 08:21:00 Test Item Value Reference Range Interpretation Comments NEUTROPHILS - REL 65 % (CELLAVISION)(BEAKER) (test code = 2816) LYMPHOCYTES - REL 1 % (CELLAVISION)(BEAKER) (test code = 2817) MONOCYTES - REL 3 % (CELLAVISION)(BEAKER) (test code = 2818) BANDS - REL (CELLAVISION)(BEAKER) 30 % 0-10 H (test code = 2826) ATYPICAL LYMPHOCYTES - REL 1 % 0-0 H (CELLAVISION)(BEAKER) (test code = 2829) NEUTROPHILS - ABS 14.04 K/ul 1.78-5.38 H (CELLAVISION)(BEAKER) (test code = 2830) LYMPHOCYTES - ABS 0.22 K/ul 1.32-3.57 L (CELLAVISION)(BEAKER) (test code = 2831) MONOCYTES - ABS 0.65 K/uL 0.30-0.82 (CELLAVISION)(BEAKER) (test code = 2832) BANDS - ABS (CELLAVISION)(BEAKER) 6.48 K/uL 0.00-0.80 H (test code = 2840) ATYPICAL LYMPHOCYTES - ABS 0.22 K/uL 0.00-0.00 H (CELLAVISION)(BEAKER) (test code = 2858) TOTAL COUNTED (BEAKER) (test code 100 = 1351) WBC MORPHOLOGY (BEAKER) (test code Normal = 487) PLT MORPHOLOGY (BEAKER) (test code Normal = 486) POIKILOCYTES (BEAKER) (test code = 1+ few 966) ARTIFACT (CELLAVISION)(BEAKER) Present (test code = 3432) PLATELET CONCENTRATION Adequate (CELLAVISION)(BEAKER) (test code = 3438) Received comment: User comments: Slide comments:BASIC METABOLIC [id number] 08:12:00 Test Item Value Reference Range Interpretation Comments SODIUM (BEAKER) 137 meq/L 136-145 (test code = 381) POTASSIUM (BEAKER) 4.0 meq/L 3.5-5.1 (test code = 379) CHLORIDE (BEAKER) 99 meq/L 98-107 (test code = 382) CO2 (BEAKER) (test 20 meq/L 22-29 L code = 355) BLOOD UREA NITROGEN 18 mg/dL 7-21 (BEAKER) (test code = 354) CREATININE (BEAKER) 0.83 mg/dL 0.57-1.25 (test code = 358) GLUCOSE RANDOM 213 mg/dL 70-105 H (BEAKER) (test code = 652) CALCIUM (BEAKER) 9.6 mg/dL 8.4-10.2 (test code = 697) EGFR (BEAKER) (test 88 mL/min/1.73 ESTIMA SAKINA GFR IS code = 1092) sq m NOT ACCURATE CREATININE CLEARANCE IN PREDICTING GLOMERULAR FILTRATION RATE . ESTIMATED GFR I S NOT APPLICABLE FOR DIALYSIS PATIEN TS. Specimen moderately ictericHEPATIC FUNCTION [id number] 08:12:00 Test Item Value Reference Range Interpretation Comments TOTAL PROTEIN (BEAKER) (test code = 7.3 gm/dL 6.0-8.3 770) ALBUMIN (BEAKER) (test code = 1145) 4.4 g/dL 3.5-5.0 BILIRUBIN TOTAL (BEAKER) (test code 5.6 mg/dL 0.2-1.2 H = 377) BILIRUBIN DIRECT (BEAKER) (test 3.9 mg/dL 0.1-0.5 H code = 706) ALKALINE PHOSPHATASE (BEAKER) (test 166 U/L 40-150 H code = 346) AST (SGOT) (BEAKER) (test code = 497 U/L 5-34 H 353) ALT (SGPT) (BEAKER) (test code = 492 U/L 6-55 H 347) Specimen moderately ictericPOCT-GLUCOSE [id number] 06:47:00 Test Item Value Reference Range Interpretation Comments POC-GLUCOSE METER 222 mg/dL 70-110 H TESTED AT [facility] 6720 (BEAKER) (test code = [place] 1536) [id number]
--- OUTSIDE RECORDS SUMMARY | 2020-04-18 17:26 | XMS REPORT | Clinical Summary ---
:1930 [facility] Address [address] [place] [address] Care Team Providers Name Role Phone Unavailable Primary Care Provider Unavailable Allergies Active Allergy Reactions Severity Noted Date Comments Codeine 06/01/2018 "Weird dreams" Medications Medication Sig Dispensed Refills Start Date End Date Status DULoxetine (CYMBALTA) Take 60 mg by 0 Active 60 MG mouth daily. capsuleIndications: diabetic peripheral neuropathy finasteride (PROSCAR) Take 5 mg by mouth 0 Active 5 mg daily. tabletIndications: benign prostatic hyperplasia with lower urinary tract sx omega-3 fatty Take 1 g by mouth 0 Active acids-fish oil 2 (two) times 340-1,000 mg Cap per daily. capsule furosemide (LASIX) 20 Take 20 mg by 0 Active MG tabletIndications: mouth 2 (two) edema times daily. metFORMIN (GLUCOPHAGE) Take 500 mg by 0 Active 500 MG tablet mouth 2 (two) times daily with breakfast and dinner. rivaroxaban (XARELTO) Take 20 mg by 0 Active 20 mg Tab tablet mouth daily with dinner. simvastatin (ZOCOR) 40 Take 40 mg by 0 Active MG tablet mouth nightly. sotalol AF (BETAPACE Take 80 mg by 0 Active AF) 80 MG tablet mouth 2 (two) times daily. tamsulosin (FLOMAX) Take 0.4 mg by 0 Active 0.4 mg Cap 24 hr mouth nightly. capsule aspirin 81 MG EC Take 81 mg by 0 Active tablet mouth daily. psyllium 0.52 gram Take 0.52 g by 0 Active capsule mouth 2 (two) times daily. calcium carbonate Take 1 tablet (500 0 06/09/2018 Active (TUMS) 500 mg chewable mg total) by mouth tablet daily. acetaminophen Take 1 tablet (325 20 tablet 0 06/09/2018 Active (TYLENOL) 325 MG mg total) by mouth tablet every 6 (six) hours as needed for Pain. Active Problems Problem Noted Date Gallstones with biliary obstruction 06/01/2018 Social History Tobacco Use Types Packs/Day Years Used Date Former Smoker Smokeless Tobacco: Never Used Sex Assigned at Date Recorded Not on file Last Filed Vital Signs Not on file Plan of Treatment Not on file Results Not on fileafter 04/18/2019 Advance Directives For more information, please contact: [phone] Code Status Date Activated Date Inactivated Comments Full Code 06/01/2018 1:33 AM This code status was determined by: Patient
--- NOTE | 2020-04-18 17:54 | RAD REPORT ---
EXAM DESCRIPTION: RAD - Chest Single View - 04/18/2020 5:45 pm CLINICAL HISTORY: SOB COMPARISON: Portable May 2018, CT study August 2019 TECHNIQUE: AP portable chest image was obtained 04/18/2020 5:45 pm . FINDINGS: Lung volumes are normal range in similar to comparison. Left-sided defibrillator remains i n place. Right-sided pleural effusion is present obscuring the right heart border and right hemidiaph ragm. Baseline interstitial pattern is similar to comparison. Prominent vasculature not significantly different from comparison. Trachea is midline. Heart size within normal range. No pneumothorax. No a cute bony abnormality seen. No acute aortic findings suspected. IMPRESSION: Small to moderate right-sided pleural effusion similar or slightly increased from August 2019 [address] imaging. Mildly prominent vasculature and lung markings similar to comparison.
[2020-04-18 18:14] LABS: Urine Blood NEGATIVE (NEG); Urine Glucose NEGATIVE (NEG); Urine Protein NEGATIVE (NEG); Urine Specific Gravity 1.015 (1.005-1.030)
[2020-04-18 18:27] LABS: Protime INR 3.91
[2020-04-18 18:37] LABS: Absolute Lymphocytes (CBC) 1.3 K/uL (0.7-4.9); Basophils % 0.3 % (0-1.3); Lymphocytes % 13.3 % (15.3-44.8); MPV 8.4 fL (7.6-11.3); RBC Red Blood Cell Count 5.06 M/uL (4.33-5.43)
[2020-04-18 18:41] LABS: Urine Bacteria <20 /HPF (NONE SEEN); Urine RBC <5 /HPF (NONE SEEN)
[2020-04-18 18:42] LABS: Urine Culture Reflex Order REFLEXED; Urine Mucus 1+ /HPF (NONE SEEN)
[2020-04-18 18:49] LABS: ALT/SGPT 18 U/L (12-78); AST/SGOT 16 U/L (15-37); Albumin 3.5 g/dL (3.4-5.0); Alkaline Phosphatase 77 U/L (45-117); BUN Blood Urea Nitrogen 25 mg/dL (7-18); Bicarbonate 35 mmol/L (21-32); Bilirubin Direct 0.2 mg/dL (0-0.2); Bilirubin Total 0.7 mg/dL (0.2-1.0); Glucose Level 118 mg/dL (74-106); Magnesium 1.9 mg/dL (1.8-2.4); NT PRO-BNP 2398 pg/mL (<450); Potassium 3.1 mmol/L (3.5-5.1); Sodium Level 142 mmol/L (136-145); Troponin (Emerg Dept Use Only) < 0.02 ng/mL (0.0-0.045)
--- NOTE | 2020-04-18 19:17 | ER ---
Nurse's Notes [facility] Name: Valentin Veloz Age: 89 yrs Sex: Male : 1930 Arrival Date: 04/18/2020 Time: 16:34 Bed 27 Private MD: Diagnosis: Pleural effusion in other conditions classified elsewhere;Unspecified combined systolic (congestive) and diastolic (congestive) heart failure;Dyspnea Presentation: 04/18 16:36 Chief complaint: Chief complaint: Patient states: SOB that has been going on "for a sv long time." [facility]. 16:47 Coronavirus screen: Client denies travel out of the [place] in the last 14 days. At this sv time, the client does not indicate any symptoms associated with coronavirus-19. Ebola Screen: No symptoms or risks identified at this time. Initial Sepsis Screen: Does the patient meet any 2 criteria? No. Patient's initial sepsis screen is negative. Does the patient have a suspected source of infection? No. Patient's initial sepsis screen is negative. Risk Assessment: Do you want to hurt yourself or someone else? Patient reports no desire to harm self or others. Onset of symptoms is unknown. 16:47 Method Of Arrival: Wheelchair sv 16:47 Acuity: EMILY 2 sv Historical: - Allergies: 16:36 Codeine; sv - PMHx: 16:36 COPD; Hypertension; CAD; CANCER - PROSTATE; CHF; Diabetes - NIDDM; High Cholesterol; sv Myocardial infarction; Pacemaker; - Immunization history:: Adult Immunizations up to date. - Social history:: Smoking status: Patient denies any tobacco usage or history of. Screenin:52 Abuse screen: Denies threats or abuse. Denies injuries from another. Nutritional ca1 screening: No deficits noted. Tuberculosis screening: No symptoms or risk factors identified. Fall Risk Fall in past 12 months (25 points). Secondary diagnosis (15 points) impaired mobility, IV access (20 points). Ambulatory Aid- Crutches/Cane/Walker (15 pts). Total [place] Fall Scale indicates High Risk Score (45 or more points). Fall prevention measures have been instituted. Side Rails Up X 2 Family Present and informed to notify staff if the need to leave the bedside As available patient and family educated on Fall Prevention Program and Strategies. Assessment: 16:52 General: Appears in no apparent distress. comfortable, Behavior is calm, cooperative, ca1 appropriate for age. Pain: Denies pain. Neuro: Level of Consciousness is awake, alert, obeys commands, Oriented to person, place, time, situation. Cardiovascular: Heart tones S1 S2 present Capillary refill < 3 seconds Rhythm is Respiratory: Reports shortness of breath on exertion since 2 weeks. Respiratory: Airway is patent Respiratory effort is even, unlabored, Respiratory pattern is tachypnea Breath sounds with crackles bilaterally. GI: Abdomen is round non-distended, Bowel sounds present X 4 quads. Abd is soft and non tender X 4 quads. : No signs and/or symptoms were reported regarding the genitourinary system. EENT: No signs and/or symptoms were reported regarding the EENT system. Derm: Skin is fragile, is thin, has skin tears on L elbow, R elbow. Musculoskeletal: Circulation, motion, and sensation intact. Capillary refill < 3 seconds. 17:55 Reassessment: Patient appears in no apparent distress at this time. Patient and/or ca1 family updated on plan of care and expected duration. Pain level reassessed. Patient is alert, oriented x 3, equal unlabored respirations, skin warm/dry/pink. 18:40 Reassessment: US at bedside. ca1 18:49 Reassessment: Patient appears in no apparent distress at this time. Patient and/or ca1 family updated on plan of care and expected duration. Pain level reassessed. Patient is alert, oriented x 3, equal unlabored respirations, skin warm/dry/pink. 19:15 Reassessment: Patient and/or family updated on plan of care and expected duration. Pain fu level reassessed. Patient is alert, oriented x 3, equal unlabored respirations, skin warm/dry/pink. O2 sat 88%. O2 started at 2L NC, went up to 96%. 21:00 Reassessment: Patient and/or family updated on plan of care and expected duration. Pain fu level reassessed. Patient is alert, oriented x 3, equal unlabored respirations, skin warm/dry/pink. patient needs to be admitted. patient and son notified. Vital Signs: 16:47 BP 139 / 67; Pulse 83; Resp 32; Temp 97.6; Pulse Ox 95% ; Weight 102.06 kg; Height 5 sv ft. 10 in. (177.80 cm); 17:30 BP 132 / 55; Pulse 72; Resp 19 S; Pulse Ox 95% on R/A; ca1 18:16 BP 124 / 61; Pulse 78; Resp 20 S; Pulse Ox 100% on R/A; ca1 19:01 BP 110 / 52; Pulse 71; Resp 22 S; Pulse Ox 95% on R/A; ca1 19:15 BP 128 / 66; Pulse 73; Resp 25; Pulse Ox 88% on R/A; Pain 0/10; fu 20:00 BP 166 / 94; Pulse 62; Resp 18; Pulse Ox 100% on 2 lpm NC; Pain 0/10; fu 21:21 BP 123 / 68; Pulse 77; Resp 18; Pulse Ox 99% on 2 lpm NC; Pain 0/10; fu 21:30 BP 110 / 55; Pulse 62; Resp 19; Pulse Ox 100% on 2 lpm NC; fu 16:47 Body Mass Index 32.28 (102.06 kg, 177.80 cm) sv ED Course: 16:34 Patient arrived in ED. ds1 16:36 Arm band placed on. sv 16:47 Austyn Mosquera PA is PHCP. cp 16:47 Angel Carrillo MD is Attending Physician. cp 16:48 Triage completed. sv 16:52 No provider procedures requiring assistance completed. ca1 16:55 Patient has correct armband on for positive identification. Placed in gown. Bed in low ca1 position. Call light in reach. Side rails up X2. surveillance monitor on. Pulse ox on. NIBP on. Warm blanket given. Head of bed elevated. 17:12 Chanelle Varela, RN is Primary Nurse. ca1 17:45 XRAY Chest (1 view) In Process Unspecified. EDMS 17:50 Missed attempt(s): 22 gauge in right forearm. Bleeding controlled, band aid applied, ca1 catheter tip intact. 17:50 Initial lab(s) drawn, by me, sent to lab. ca1 18:08 Initial lab(s) drawn, by me, sent to lab. Inserted saline lock: 22 gauge in left ca1 forearm, using aseptic technique. Blood collected. 18:25 Lab(s) recollected, by me, sent to lab. ca1 19:02 US Extremity Venous W Compression Guerrero In Process Unspecified. EDMS 19:15 Ed Tran DO is Hospitalizing Provider. cp 22:00 Patient admitted, IV remains in place. fu Administered Medications: 19:22 Drug: Potassium Chloride 20 mEq Route: IV; Rate: calculated rate; Site: left forearm; fu 19:24 Drug: Potassium Effervescent Tablet 50 mEq Route: PO; fu 20:17 Follow up: Response: No adverse reaction fu 19:54 Drug: Lasix 40 mg Route: IVP; Site: left forearm; fu 20:17 Follow up: Response: No adverse reaction fu 19:54 Drug: Rocephin 1 grams Route: IV; Rate: calculated rate; Site: left forearm; fu 20:18 Follow up: Response: No adverse reaction fu Outcome: 19:16 Decision to Hospitalize by Provider. cp 22:00 Admitted to Med/surg via stretcher, room 224, with oxygen, Report called to NORA Baugh fu by THANH Mccauley 22:00 Condition: good 22:00 Instructed on the need for admit. 22:05 Patient left the ED. fu Signatures: Dispatcher [employer] EDRonna King RN RN Jennie Mayfield ds1 Austyn Mosquera PA PA Neal Norris RN RN fu Chanelle Varela RN RN ca1 Corrections: (The following items were deleted from the chart) 16:48 16:36 Chief complaint: sv sv 18:08 16:52 Missed attempt(s): 22 gauge in right forearm. Bleeding controlled, band aid ca1 applied, catheter tip intact. ca1 18:10 16:52 Respiratory: Airway is patent Respiratory effort is even, unlabored, Respiratory ca1 pattern is tachypnea Breath sounds are clear bilaterally. ca1
--- NOTE | 2020-04-18 19:17 | EDPHYS ---
Physician Documentation [facility] Name: Valentin Veloz Age: 89 yrs Sex: Male : 1930 Arrival Date: 04/18/2020 Time: 16:34 Bed 27 Private MD: ED Physician Angel Carrillo HPI: 04/18 17:35 This 89 yrs old Male presents to ER via Wheelchair with complaints of cp Shortness Of Breath. 17:35 The patient has shortness of breath with light activity, lying flat. Onset: The cp symptoms/episode began/occurred 2 week(s) ago. Duration: The symptoms are continuous, and are steadily getting worse. Historical: - Allergies: 16:36 Codeine; sv - PMHx: 16:36 COPD; Hypertension; CAD; CANCER - PROSTATE; CHF; Diabetes - NIDDM; High Cholesterol; sv Myocardial infarction; Pacemaker; - Immunization history:: Adult Immunizations up to date. - Social history:: Smoking status: Patient denies any tobacco usage or history of. ROS: 17:40 Constitutional: Negative for body aches, chills, fever, poor PO intake. cp 17:40 Eyes: Negative for injury, pain, redness, and discharge. cp Exam: 17:00 ECG was reviewed by the Attending Physician. cp 17:45 Constitutional: The patient appears in no acute distress, alert, awake, cp non-diaphoretic, non-toxic, well developed, well nourished. 17:45 Head/Face: Normocephalic, atraumatic. cp 17:45 Eyes: Periorbital structures: appear normal, Conjunctiva: normal, no exudate, no injection, Lids and lashes: appear normal, bilaterally. 17:45 ENT: External ear(s): are unremarkable, Nose: is normal, Mouth: Lips: moist, Posterior pharynx: Airway: no evidence of obstruction, patent. 17:45 Chest/axilla: Inspection: normal, Palpation: is normal, no crepitus, no tenderness. 17:45 Cardiovascular: Rate: normal, Rhythm: irregular, Edema: ankle edema, that is moderate, JVD: is not appreciated. 17:45 Respiratory: the patient does not display signs of respiratory distress, Respirations: labored breathing, that is mild, shallow respirations, that is mild, Breath sounds: decreased breath sounds, that are moderate, are located in both bases, stridor, is not appreciated, wheezing: is not appreciated. 17:45 Abdomen/GI: Inspection: obese Palpation: abdomen is soft and non-tender, in all quadrants. 17:45 Skin: cellulitis, is not appreciated, no rash present. 17:45 Neuro: Orientation: to person, place \T\ time. Mentation: is normal, Motor: moves all fours, strength is normal. Vital Signs: 16:47 BP 139 / 67; Pulse 83; Resp 32; Temp 97.6; Pulse Ox 95% ; Weight 102.06 kg; Height 5 sv ft. 10 in. (177.80 cm); 17:30 BP 132 / 55; Pulse 72; Resp 19 S; Pulse Ox 95% on R/A; ca1 18:16 BP 124 / 61; Pulse 78; Resp 20 S; Pulse Ox 100% on R/A; ca1 19:01 BP 110 / 52; Pulse 71; Resp 22 S; Pulse Ox 95% on R/A; ca1 19:15 BP 128 / 66; Pulse 73; Resp 25; Pulse Ox 88% on R/A; Pain 0/10; fu 20:00 BP 166 / 94; Pulse 62; Resp 18; Pulse Ox 100% on 2 lpm NC; Pain 0/10; fu 21:21 BP 123 / 68; Pulse 77; Resp 18; Pulse Ox 99% on 2 lpm NC; Pain 0/10; fu 21:30 BP 110 / 55; Pulse 62; Resp 19; Pulse Ox 100% on 2 lpm NC; fu 16:47 Body Mass Index 32.28 (102.06 kg, 177.80 cm) sv MDM: 17:07 Patient medically screened. cp 19:11 Data reviewed: vital signs, nurses notes, lab test result(s), EKG, radiologic studies, cp plain films. 04/18 17:18 Order name: Basic Metabolic Panel; Complete Time: 19:06 cp 04/18 19:06 Interpretation: Normal except: K 3.1; CO2 35; GLUC 118; BUN 25; GFR 89. cp 04/18 17:18 Order name: CBC with Diff cp 04/18 17:18 Order name: LFT's; Complete Time: 19:06 cp 04/18 17:18 Order name: Magnesium; Complete Time: 19:06 cp 04/18 17:18 Order name: NT PRO-BNP; Complete Time: 19:06 cp 04/18 17:18 Order name: PT-INR; Complete Time: 20:01 cp 04/18 17:18 Order name: Troponin (emerg Dept Use Only); Complete Time: 19:06 cp 04/18 17:18 Order name: XRAY Chest (1 view); Complete Time: 19:06 cp 04/18 17:18 Order name: Urine Microscopic Only; Complete Time: 19:06 cp 04/18 17:36 Order name: US Extremity Venous W Compression Guerrero; Complete Time: 20:01 cp 04/18 17:53 Order name: Urine Dipstick--Ancillary (enter results); Complete Time: 19:06 eb 04/18 18:42 Order name: Urine Culture [facility] 04/18 20:19 Order name: COVID-19 bb 04/18 20:51 Order name: CBC Smear Scan [facility] 04/18 17:12 Order name: EKG; Complete Time: 17:12 ca1 04/18 17:12 Order name: EKG - Nurse/Tech; Complete Time: 17:12 ca1 04/18 17:18 Order name: Cardiac monitoring; Complete Time: 17:52 cp 04/18 17:18 Order name: IV Saline Lock; Complete Time: 18:08 cp 04/18 17:18 Order name: Labs collected and sent; Complete Time: 18:08 04/18 17:18 Order name: O2 Per Protocol; Complete Time: 17:52 04/18 17:18 Order name: O2 Sat Monitoring; Complete Time: 17:52 04/18 17:18 Order name: Urine Dipstick-Ancillary (obtain specimen); Complete Time: 17:52 04/18 18:21 Order name: Labs - recollect needed: recollect lavender and green top; Complete Time: eb 18:31 EC:00 Rate is 76 beats/min. Rhythm is irregular. QRS interval is prolonged at 110 msec. QT cp interval is normal. Interpreted by me. Reviewed by me. Administered Medications: 19:22 Drug: Potassium Chloride 20 mEq Route: IV; Rate: calculated rate; Site: left forearm; fu 19:24 Drug: Potassium Effervescent Tablet 50 mEq Route: PO; fu 20:17 Follow up: Response: No adverse reaction fu 19:54 Drug: Lasix 40 mg Route: IVP; Site: left forearm; fu 20:17 Follow up: Response: No adverse reaction fu 19:54 Drug: Rocephin 1 grams Route: IV; Rate: calculated rate; Site: left forearm; fu 20:18 Follow up: Response: No adverse reaction fu Disposition: 04/19 15:50 Co-signature as Attending Physician, Angel Carrillo MD I agree with the assessment and kdr plan of care. Disposition: 04/18/20 19:16 Hospitalization ordered by Ed Tran for Inpatient Admission. Preliminary diagnosis are Pleural effusion in other conditions classified elsewhere, Unspecified combined systolic (congestive) and diastolic (congestive) heart failure, Dyspnea. - Bed requested for Telemetry/MedSurg (Inpatient). - Status is Inpatient Admission. fu - Condition is Fair. - Problem is new. - Symptoms have improved. Signatures: Dispatcher [employer] EDMS Ronna Palomino RN RN sv Rittger, Kevin, MD MD [facility] Garrick Alexandra, ACCOUNTS RECEIVABLE ANALYST-C ACCOUNTS RECEIVABLE ANALYST-[facility] Austyn Mosquera PA PA cp Ijeoma Sullivan, NORA RN Neal Norris RN RN Shaniqua Hsu Cheryl, RN RN ca1 Corrections: (The following items were deleted from the chart) 04/18 20:57 19:16 Hospitalization Ordered by Ed Tran DO for Inpatient Admission. Preliminary cg diagnosis is Pleural effusion in other conditions classified elsewhere; Unspecified combined systolic (congestive) and diastolic (congestive) heart failure; Dyspnea. Bed requested for Telemetry/MedSurg (Inpatient). Status is Inpatient Admission. Condition is Fair. Problem is new. Symptoms have improved. cp 22:05 20:57 04/18/2020 19:16 Hospitalization Ordered by Ed Tran DO for Inpatient fu Admission. 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 Bed requested for Telemetry/MedSurg (Inpatient). Status is Inpatient Admission. Condition is Fair. Problem is new. Symptoms have improved. cg
[2020-04-18] MEDS ORDERED: POTASSIUM 25 MEQ EFFERV TAB ONE (19:24)
[2020-04-18] MEDS ORDERED: KCL 20 MEQ/100 mL IVPB 20 MEQ/100 ML BAG IV ONE (19:25)
[2020-04-18] MEDS ORDERED: NA CHLORIDE 0.9% 250 ML ONE (19:25)
--- NOTE | 2020-04-18 19:31 | RAD REPORT ---
EXAM DESCRIPTION: US - Extrem Venous W Compress Guerrero - 04/18/2020 7:02 pm CLINICAL HISTORY: SWELLING, bilateral leg pain COMPARISON: None. TECHNIQUE: Real-time sonographic evaluation of the bilateral lower extremity common femoral, superfi cial femoral, popliteal and posterior tibial veins was performed. FINDINGS: Normal compressibility, flow augmentation, phasic flow and spontaneous flow are identified in the left and right lower extremity common femoral, superficial femoral, popliteal and posterior t ibial veins. No intraluminal filling defects seen. IMPRESSION: No DVT in either lower extremity.
[2020-04-18] MEDS ORDERED: CEFTRIAXONE/SWI 1gm 1 GM/10 ML SYR ONE (19:42)
[2020-04-18] MEDS ORDERED: FUROSEMIDE 40 MG/4 ML VIAL ONE (19:42)
[2020-04-18 20:50] LABS: Blood Morphology Comment NOTED (NOT SEEN); Hypochromasia 1+; Platelet Estimate ADEQ; White Blood Cell Scan OK (OK)
--- NOTE | 2020-04-18 21:06 | P.HP ---
Certification for Inpatient Patient admitted to: Inpatient With expected LOS: >2 Midnights Patient will require the following post-hospital care: None Practitioner: I am a practitioner with admitting privileges, knowledge of patient current condition, hospital course, and medical plan of care. Services: Services provided to patient in accordance with Admission requirements found in Title 42 Section 412.3 of the Code of Federal Regulations <Garrick Alexandra - Last Filed: 04/18/20 20:59> Patient History Date of Service: 04/18/20 Primary Care Provider: Dr. Mckeon Reason for admission: CHF Exacerbation History of Present Illness: 89-year-old male with history of diabetes mellitus type 2, hypertens ion, hyperlipidemia, atrial fibrillation on chronic anticoagulation therapy, heart failure with reduced ejection fraction presents emergency department for worsening shortness of breath over the last 2 weeks. Patient was seen at the [place] [facility] in there told me need to come to the emergency department for further evaluation as he is trying to obtain home oxygen. Patient's workup in the emergency department revealed hypokalemia with potassium 3.1, elevated BNP 2398, microcytic anemia with hemoglobin 10.8/hematocrit 36, MCV 71.1. Chest x-ray shows small to moderate right-sided pleural effusion similar to were slightly increased from August and mildly prominent vasculature in the markings similar to comparison. Patient with 3+ pitting edema bilaterally to the level of the huitron and patient was hypoxic on room air of 88%. ED provider wishes to admit patient for further evaluation and management. Patient has Medicare in addition to [facility] insurance and declined transfer to [place] stating he would rather be treated here. When I saw the patient in the emergency department he was awake, alert, oriented x3. Patient a little bit tachypneic on nasal cannula satting around 95% on 2-3 L per nasal cannula. Patient states that he does not adhere to fluid restriction. Patient be admitted for further evaluation and management. - Past Medical/Surgical History Diabetic: Yes -: Diabetes mellitus type 2, non-insulin dependent -: History NC, CAD -: Diabetic neuropathy -: COPD -: HFrEF(systolic CHF) -: AFib, chronic anti coagulation therapy, pacemaker -: History prostate cancer -: pacer/ defib, back surgery, protate surgery, TURP -: BACK SURGERIES X3 -: PROSTATE SURGERY -: TURP -: gall bladder sx Psychosocial/ Personal History: Patient lives with son - Family History Father -: Heart disease Mother -: Heart disease, Diabetes - Social History Smoking Status: Former smoker Alcohol use: No CD- Drugs: No Caffeine use: Yes Place of Residence: Home <Garrick Alexandra - Last Filed: 04/18/20 20:59> Date of Service: 04/19/20 Home medications list reviewed: Yes <Ed Tran - Last Filed: 04/19/20 08:11> Allergies codeine Allergy (Verified 01/26/19 20:24) shaking Home Medications: Unobtainable 04/18/20 Review of Systems 10-point ROS is otherwise unremarkable Respiratory: Shortness of Breath Cardiovascular: Orthopnea, Edema <Garrick Alexandra - Last Filed: 04/18/20 20:59> Physical Examination - Physical Exam General: Alert, In no apparent distress, Oriented x3 HEENT: Atraumatic, Normocephalic, PERRLA Neck: Supple Respiratory: Normal air movement, Diminished (Right lower lobe), Crackles/rales (Left lower lobe) Cardiovascular: Normal pulses, Edema (3+ pitting edema bilateral lower extremities), Irregular heart rate/rhythm (Atrial fibrillation, rate controlled) Capillary refill: <2 Seconds Gastrointestinal: Normal bowel sounds, Soft and benign Musculoskeletal: No contractures, No erythema, No tenderness Integumentary: No significant lesion, No tenderness/swelling, No erythema Neurological: Normal speech, Normal strength at 5/5 x4 extr, Normal tone, Sensation intact - Studies Laboratory Data (last 24 hrs) 04/18/20 18:02: PT 44.9 H, INR 3.91 04/18/20 18:02: WBC 9.5, Hgb 10.8 L, Hct 36.0 L, Plt Count 308 04/18/20 18:02: Sodium 142, Potassium 3.1 L, BUN 25 H, Creatinine 0.82, Glucose 118 H, Magnesium 1.9, Total Bilirubin 0.7, AST 16, ALT 18, Alkaline Phosphatase 77 <Garrick Alexandra - Last Filed: 04/18/20 20:59> - Studies Laboratory Data (last 24 hrs) 04/18/20 18:02: PT 44.9 H, INR 3.91 04/18/20 18:02: WBC 9.5, Hgb 10.8 L, Hct 36.0 L, Plt Count 308 04/18/20 18:02: Sodium 142, Potassium 3.1 L, BUN 25 H, Creatinine 0.82, Glucose 118 H, Magnesium 1.9, Total Bilirubin 0.7, AST 16, ALT 18, Alkaline Phosphatase 77 <Ed Tran - Last Filed: 04/19/20 08:11> Assessment and Plan - Plan Assessment Acute on chronic systolic congestive heart failure with hypoxia Atrial fibrillation on chronic anticoagulation therapy Diabetes mellitus type 2 COPD Plan Acute on chronic systolic congestive heart failure with hypoxia: Continue with IV Lasix, fluid restriction, daily weights. Cardiology consult in place. Pat ient educated on need for fluid restriction at home. Echocardiogram ordered. DVT prophylaxis with patient's Xarelto. Patient very poor historian, unaware of what medications he takes. Will need to obtain and verify/reconcile home medications. Appreciate further input from cardiology. Atrial fibrillation on chronic anticoagulation therapy: Have continued patient's Xarelto, this is the only medication he could tell me for sure that he took. Will obtain and verify other home medications. Rate controlled at this time. Will obtain echocardiogram tomorrow. Diabetes mellitus type 2: A.c. HS Accu-Cheks, sliding scale insulin therapy. A1c with morning labs. COPD: P.r.n. nebulizers, appears stable at this time. Discharge Plan: Home Plan to discharge in: Greater than 2 days - Advance Directives Does patient have a Living Will: Yes Does patient have a Durable POA for Healthcare: Yes - Code Status/Comfort Care Code Status Assessed: Yes (Full code) Critical Care: No Time Spent Managing Pts Care (In Minutes): 55 <Garrick Alexandra - Last Filed: 04/18/20 20:59> - Plan Case discussed at length with nurse practitioner. Agree with evaluation, assessment and plan of care. Encouraged 1500 cc per day fluid restriction. Continue IV Lasix. Await echocardiogram. Will discuss case further with Cardiology. What physical therapy assess ambulation. Will review and adjust medication accordingly. Please review details on progress note. <Ed Tran - Last Filed: 04/19/20 08:11>
[2020-04-18] MEDS: INSULIN -REGULAR HUMAN 50 UNIT/0.5 ML ML SQ SCH (22:17)
[2020-04-18] MEDS ORDERED: ONDANSETRON 4 MG/2 ML VIAL IV PRN (22:17)
[2020-04-18] MEDS ORDERED: ALBUTEROL 2.5 MG/3 ML NEB SOL NEB PRN (22:17)
[2020-04-18] MEDS ORDERED: ACETAMINOPHEN 500 MG TAB PO PRN (22:17)
[2020-04-18] MEDS ORDERED: IPRATROPIUM BROM 0.5MG/2.5ML NEB PRN (22:17)
[2020-04-18 23:10] VITALS: BMI 32.9
[2020-04-19] MEDS ORDERED: FUROSEMIDE 40 MG/4 ML VIAL IV SCH (01:00)
[2020-04-19 06:19] LABS: Hematocrit 33.9 % (39.6-49.0); MPV 8.4 fL (7.6-11.3); RBC Red Blood Cell Count 4.81 M/uL (4.33-5.43)
[2020-04-19 06:20] LABS: Absolute Lymphocytes (CBC) 1.2 K/uL (0.7-4.9); Basophils % 0.6 % (0-1.3); Lymphocytes % 16.4 % (15.3-44.8)
[2020-04-19 07:01] LABS: ALT/SGPT 15 U/L (12-78); AST/SGOT 12 U/L (15-37); Albumin 3.2 g/dL (3.4-5.0); Alkaline Phosphatase 71 U/L (45-117); BUN Blood Urea Nitrogen 21 mg/dL (7-18); Bicarbonate 38 mmol/L (21-32); Bilirubin Total 0.5 mg/dL (0.2-1.0); Ferritin 10.5 ng/mL (26-388); Glucose Level 116 mg/dL (74-106); HDL Cholesterol 44 mg/dL (40-60); LDL Cholesterol, Calculated 37 (<130); Magnesium 2.1 mg/dL (1.8-2.4); Potassium 3.1 mmol/L (3.5-5.1); Protein, Total 6.4 g/dL (6.4-8.2); Sodium Level 144 mmol/L (136-145); Thyroid Stimulating Hormone 0.881 uIU/mL (0.360-3.740); Transferrin 276 mg/dL (200-360)
[2020-04-19 07:13] LABS: Blood Morphology Comment NOTED (NOT SEEN); Platelet Estimate ADEQ; White Blood Cell Scan OK (OK)
[2020-04-19 07:14] LABS: Anisocytosis 1+; Hypochromasia 1+
[2020-04-19] MEDS: INSULIN -REGULAR HUMAN 50 UNIT/0.5 ML ML SQ SCH ×4 (07:30→21:24)
--- NOTE | 2020-04-19 08:17 | P.PN ---
Subjective Date of Service: 04/19/20 Primary Care Provider: Dr. Mckeon Chief Complaint: CHF Exacerbation Subjective: Other (Patient reports improvement. Patient has put out more than a L of fluid. Continue to monitor input output and daily weight closely.) Physical Examination - Vital Signs Temperature: 97.9 F Blood Pressure: 122/63 Pulse: 74 Respirations: 20 Pulse Ox (%): 97 - Physical Exam General: Alert, In no apparent distress, Oriented x3, Cooperative HEENT: Atraumatic Neck: Supple Respiratory: Crackles/rales (Crackles) Cardiovascular: Irregular heart rate/rhythm (AFib rate controlled) Gastrointestinal: No tenderness, No masses, No rebound, No guarding Integumentary: Tenderness/swelling (2 to 3+ pitting edema to the lower extremities bilateral) Neurological: Normal speech, Normal strength at 5/5 x4 extr, Normal tone, Normal affect - Studies Laboratory Data (last 24 hrs) 04/18/20 18:02: PT 44.9 H, INR 3.91 04/18/20 18:02: WBC 9.5, Hgb 10.8 L, Hct 36.0 L, Plt Count 308 04/18/20 18:02: Sodium 142, Potassium 3.1 L, BUN 25 H, Creatinine 0.82, Glucose 118 H, Magnesium 1.9, Total Bilirubin 0.7, AST 16, ALT 18, Alkaline Phosphatase 77 Medications List Reviewed: Yes Assessment & Plan Discharge Plan: Other (Home with home health/physical therapy verses skilled placement) Plan to discharge in: 72 Hours Physician Review Additional Text: Impression: Dyspnea, edema to the lower extremities secondary to Acute on chronic systolic congestive heart failure with hypoxia Atrial fibrillation on chronic anticoagulation therapy Diabetes mellitus type 2, controlled COPD Iron deficiency anemia CAD with history of pacemaker/defibrillator Plan Dyspnea, edema to the lower extremities secondary to Acute on chronic systolic congestive heart failure with hypoxia: Will continue to monitor input, output and daily weight closely. Will increase Lasix to 80 mg IV twice daily. Await echocardiogram. Cardiology consulted. Will discuss further. Patient on Xarelto for atrial fibrillation. Will have physical therapy assess ambulation. Await recommendations by physical therapy for the possibility of skilled placement versus home health/physical therapy. Patient will likely require home oxygen at discharge. Will discuss with psychiatric social worker about plan of care. Will also need to discuss with family about home situation and the importance of compliance with his medications and salt restriction. Will teach on 1500 cc per day fluid restriction and low-salt diet. Will make adjustments to medications accordingly. [facility] need [facility]. Anticipate improvement over the next 48 hr. Atrial fibrillation on chronic anticoagulation therapy: Continue with Xarelto. Will need to verify home medication to determine if patient is taking any other medication for atrial fibrillation. Diabetes mellitus type 2, controlled: This is well controlled. Continue Accu- Cheks and sliding scale. Obtain home medication. COPD: Will provide medication. Maintain oxygen above 93%. Patient will likely require home oxygen at discharge. Anemia, iron deficiency anemia: Will start iron supplementation. CAD with history of pacemaker/defibrillator: Cardiology consulted. Will monitor closely. Time Spent Managing Pts Care (In Minutes): 55
[2020-04-19] MEDS: FERROUS SULFATE 325 MG TAB PO SCH (09:00)
[2020-04-19] MEDS: FUROSEMIDE 40 MG/4 ML VIAL IV SCH ×2 (09:37→21:24)
[2020-04-19] MEDS: NYSTATIN PWDR 100000 UNIT/GM TOP SCH ×2 (09:38→21:25)
[2020-04-19] MEDS ORDERED: POTASSIUM 25 MEQ EFFERV TAB PO ONE (10:41)
--- NOTE | 2020-04-19 17:52 | EKG ---
Test Date: 2020-04-18 Test Time: 16:50:28 Supply Teacher: CHAPITO MEASUREMENT RESULTS: Intervals: Rate: 76 [place]: QRSD: 110 QT: 434 QTc: 488 [place]: P: KS: QRS: 185 T: -34 INTERPRETIVE STATEMENTS: Atrial fibrillation with a competing junctional pacemaker Right superior axis deviation Anterior infarct, age undetermined Abnormal ECG Compared to ECG 05/31/2018 18:33:38 Right superior axis now present Ventricular premature complex(es) no longer present Intraventricular conduction delay no longer present ST (T wave) deviation no longer present Possible ischemia no longer present Prolonged QT interval no longer present Myocardial infarct finding still present Electronically Signed On 04-19-20 17:50:07 CDT by Deven Funes
[2020-04-19] MEDS: RIVAROXABAN 10 MG TABLET PO SCH (17:56)
--- NOTE | 2020-04-19 18:39 | CON ---
Date of Consultation: 04/18/2020 Reason For Consultation: Congestive heart failure. History Of Present Illness: Mr. Veloz is an 89-year-old male. He has a history of pacemaker, chroni c systolic congestive heart failure, ejection fraction 47%, hypertension, COPD, diabetes, dyslipidemi a, coronary artery disease. He came in with dyspnea on exertion, PND, orthopnea, pedal edema. No pa lpitation, no syncope. Chest x-ray showed bilateral pleural effusion. Venous Doppler was negative. He is in mild to moderate respiratory distress. Denied any fever or chills. Allergies: HE IS ALLERGIC TO CODEINE. Review of Systems: Negative. Social History: Negative. Family History: Negative. Past Medical History: As stated earlier. Medications: Include: 1.Inhalers. 2.Xarelto. 3.Insulin. 4.Lasix. Physical Examination: General: He appeared to be in mild respiratory distress. He was in the paced rhythm. HEENT: Negative. Neck: Supple with no bruit. Chest: Revealed bilateral decreased breath sounds. No rales. Cardiac: Revealed a paced rhythm. No S3, gallop. No murmurs. Abdomen: Benign. Extremities: Revealed 1 to 2+ edema. Diagnostic Data: As stated earlier. His potassium was 3.1. BNP was 2398. Troponin is negative. H is INR is 3.91. Impression And Plan: 1.Ogweq-lj-wdinyyg systolic congestive heart failure. 2.History of pacemaker. 3.Chronic obstructive pulmonary disease. 4.Coronary artery disease, stable. 5.Hypertension, well controlled. 6.Diabetes, well controlled. 7.Dyslipidemia, well controlled. 8.Elevated INR secondary to Xarelto. 9.Hypokalemia that needs to be corrected. The patient is on IV Lasix. He is on inhalers, Xarelto, and insulin. He is already diuresing well. His O2 saturation is adequate. I think, he will feel be tter by tomorrow. I suggest maybe using a low-dose beta-elijah in addition to correcting his potass ium. I discussed the case further with Dr. Tran. I would continue to follow him. LISHA/FRED Voice ID: [id number] Report ID: [id number]
--- NOTE | 2020-04-19 21:36 | PN ---
Date of Progress Note: 04/19/2020 Mr. Veloz is an 89-year-old white male, who was admitted for congestive heart failure by Dr. Marc paez 04/18/2020. He has a history of chronic systolic congestive heart failure with an ejection fractio n of 47%. He has a history of pacemaker placement, hypertension, diabetes, dyslipidemia, COPD, CAD, and CHF as stated earlier. He was taking inhaler, Xarelto, insulin, and Lasix at home. His potassiu m was low when he came in. This was supplemented. His BNP was 2398. No reason for much further car diac workup. Echocardiogram was pending still for today. His troponin was negative. His chest x-ra y showed bilateral pleural effusion. He has much improved today after IV Lasix. His last blood pres sure was 113/53. He remains in atrial fibrillation intermittent with paced rhythm. His I's and O's were adequate. His O2 saturation on room air was 94%, which is much better than yesterday. His last potassium was 3.8. His kidney function remains good with a creatinine of 0.7. I am comfortable wit h him going back home whenever it is okay with Dr. Tran. I think adding a low-dose beta-elijah to his regimen and increasing his Lasix at home would be reasonable. I will see him in the office in t he next 2 weeks. LISHA/FRED Voice ID: [id number] Report ID: [id number]
[2020-04-20 06:20] LABS: Absolute Lymphocytes (CBC) 1.7 K/uL (0.7-4.9); Basophils % 0.3 % (0-1.3); Hematocrit 35.4 % (39.6-49.0); Lymphocytes % 15.6 % (15.3-44.8); MPV 8.3 fL (7.6-11.3); RBC Red Blood Cell Count 5.02 M/uL (4.33-5.43)
[2020-04-20 06:39] LABS: ALT/SGPT 17 U/L (12-78); AST/SGOT 12 U/L (15-37); Albumin 3.5 g/dL (3.4-5.0); Alkaline Phosphatase 72 U/L (45-117); BUN Blood Urea Nitrogen 17 mg/dL (7-18); Bicarbonate 40 mmol/L (21-32); Bilirubin Total 0.6 mg/dL (0.2-1.0); Glucose Level 130 mg/dL (74-106); Magnesium 2.3 mg/dL (1.8-2.4); Protein, Total 6.8 g/dL (6.4-8.2); Sodium Level 141 mmol/L (136-145)
[2020-04-20] MEDS: INSULIN -REGULAR HUMAN 50 UNIT/0.5 ML ML SQ SCH ×4 (07:30→21:00)
--- NOTE | 2020-04-20 07:30 | RAD REPORT ---
EXAM DESCRIPTION: Guille Single View04/20/2020 6:46 am CLINICAL HISTORY: Chest pain COMPARISON: April 18, 2020 FINDINGS: Small to moderate right and small left pleural effusions. Mild bilateral interstitial lung opacities likely mild interstitial pulmonary edema The heart is mildly enlarged. Pacemaker leads are in place. IMPRESSION: Mild CHF
[2020-04-20] MEDS: FERROUS SULFATE 325 MG TAB PO SCH (08:09)
[2020-04-20] MEDS: FUROSEMIDE 40 MG/4 ML VIAL IV SCH (08:09)
[2020-04-20] MEDS: NYSTATIN PWDR 100000 UNIT/GM TOP SCH ×2 (08:10→21:37)
[2020-04-20] MEDS ORDERED: POTASSIUM CL SA 10 MEQ TAB PO ONE ×2 (09:00→16:00)
[2020-04-20] MEDS: CYANOCOBALAMIN 1,000 MCG TAB PO SCH (09:37)
[2020-04-20] MEDS: FINASTERIDE 5 MG TAB PO SCH (09:38)
[2020-04-20] MEDS: DULOXETINE 30 MG CAP PO SCH (09:38)
[2020-04-20] MEDS: SOTALOL HCL 80 MG TAB PO SCH ×2 (09:38→21:36)
[2020-04-20] MEDS: ASPIRIN 81 MG CHEWABLE TABLET PO SCH (09:38)
[2020-04-20] MEDS: DOCOSAHEXANOIC AC/EPA 1000 MG PO SCH ×2 (09:39→21:35)
--- NOTE | 2020-04-20 10:15 | P.DS ---
Admission Date: 04/18/20 Discharge Date: 04/21/20 Primary Care Provider: Dr. Mckeon Disposition: ROUTINE DISCHARGE Discharge Condition: GOOD Reason for Admission: CHF Exacerbation Consultations: Cardiology-Dr. Funes Procedures: Venous doppler: FINDINGS: Normal compressibility, flow augmentation, phasic flow and spontaneous flow are identified in the left and right lower extremity common femoral, superficial femoral, popliteal and posterior tibial veins. No intraluminal filling defects seen. IMPRESSION: No DVT in either lower extremity. Follow up CXR: COMPARISON: April 18, 2020 FINDINGS: Small to moderate right and small left pleural effusions. Mild bilateral interstitial lung opacities likely mild interstitial pulmonary edema The heart is mildly enlarged. Pacemaker leads are in place. IMPRESSION: Mild CHF Medical Problem List: Dyspnea, edema to the lower extremities secondary to Acute on chronic systolic congestive heart failure with hypoxia Atrial fibrillation on chronic anticoagulation therapy Diabetes mellitus type 2, controlled BPH Depression Iron deficiency anemia with Vitamin B12 def. 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 Patient presented with increasing shortness of breath and hypoxia. Patient found to have acute on chronic systolic CHF. Patient admitted for further evaluation and treatment. Hospital Course: Patient presented with dyspnea and edema to the lower extremities. This was secondary to acute on chronic systolic CHF. Patient also with hypoxia. Patient was started on IV Lasix. Patient also placed on a fluid restriction. Cardiology was consulted to further evaluate. Cardiology recommended no further intervention at this time. Patient has done well with diuresis. Patient understands the importance of the a 1500 cc per day fluid restriction. At discharge patient will continue with a 1500 cc per day fluid restriction and low-salt diet. Recommend to monitor his weight daily. If his weight increases by more than 5 lb he is to contact his PCP or cardiology for further recommendation. At discharge patient will continue with Lasix 40 mg 1 pill twice daily. Further adjustment in medication may be required if his weight increases or he becomes more short of breath. This can be done with the help of his PCP or cardiology. Recommend follow up with cardiology in 1 week to monitor his progress. Prior to discharge home oxygen has been arranged. Patient currently on 2 L per nasal cannula. Patient will continue with oxygen at discharge. Patient with atrial fibrillation on chronic anti coagulation therapy. This appears stable. At discharge patient will continue with aspirin 81 mg daily, Betapace 80 mg 1 pill twice daily and Xarelto 20 mg with supper daily. Recommend follow up with as pictures editor in 1-2 weeks to follow his progress. Patient with diabetes mellitus type 2. This is well controlled. Hemoglobin A1c 6.5. At discharge patient will continue with his current medication-metformin 500 mg one pill twice daily. Recommend to maintain blood sugar less than 140 fasting and less than 200 after meals. Further adjustment can be done by his PCP. Patient with anemia. Patient found to have iron deficiency anemia. Patient with B12 deficiency. At discharge patient will continue with iron supplementation 325 mg daily. Patient may continue with his vitamin B12 medication. Recommend to recheck CBC in 1-2 weeks to monitors progress. Consider GI evaluation as an outpatient to further address. Patient with CAD with prior pacemaker defibrillator and hyperlipidemia. This has remained stable. At discharge he will continue with his current medication- fish oil 1000 mg 1 pill twice daily and Zocor 40 mg daily. Follow up with cardiology as directed. Patient with BPH. At discharge patient will continue with his current medication of Proscar 5 mg daily and Flomax 0.4 mg daily. Patient had fungal dermatitis to the perianal and groin region. At discharge patient may continue with nystatin powder twice daily. Patient to keep area clean. Vital Signs/Physical Exam: Temp Pulse Resp BP Pulse Ox 98.1 F 83 20 101/57 L 95 04/20/20 08:00 04/20/20 08:09 04/20/20 08:00 04/20/20 08:09 04/20/20 08:00 General: Alert, In no apparent distress, Oriented x3, Cooperative HEENT: Atraumatic, Mucous membr. moist/pink Neck: Supple Respiratory: Other (Improved air movement. Minimal crackles) Cardiovascular: Irregular heart rate/rhythm (AFib rate controlled) Gastrointestinal: Normal bowel sounds, Soft and benign, Non-distended, No tenderness, No masses, No rebound, No guarding Integumentary: Tenderness/swelling (Lower extremity edema improved. 1+ noted) Neurological: Normal speech, Normal strength at 5/5 x4 extr, Normal tone, Normal affect Laboratory Data at Discharge: WBC 10.6 K/uL (4.3-10.9) D 04/20/20 05:45 Hgb 10.9 g/dL (13.6-17.9) L 04/20/20 05:45 Hct 35.4 % (39.6-49.0) L 04/20/20 05:45 Plt Count 279 K/uL (152-406) 04/20/20 05:45 PT 44.9 SECONDS (9.5-12.5) H 04/18/20 18:02 INR 3.91 04/18/20 18:02 Sodium 141 mmol/L (136-145) 04/20/20 05:45 Potassium 3.0 mmol/L (3.5-5.1) L 04/20/20 05:45 BUN 17 mg/dL (7-18) 04/20/20 05:45 Creatinine 0.60 mg/dL (0.55-1.3) 04/20/20 05:45 Glucose 130 mg/dL (74-106) H 04/20/20 05:45 Magnesium 2.3 mg/dL (1.8-2.4) 04/20/20 05:45 Total Bilirubin 0.6 mg/dL (0.2-1.0) 04/20/20 05:45 AST 12 U/L (15-37) L 04/20/20 05:45 ALT 17 U/L (12-78) 04/20/20 05:45 Alkaline Phosphatase 72 U/L (45-117) 04/20/20 05:45 Troponin I < 0.02 ng/mL (0.0-0.045) 04/19/20 06:00 Triglycerides 79 mg/dL (<150) 04/19/20 06:00 Cholesterol 97 mg/dL (<200) 04/19/20 06:00 HDL Cholesterol 44 mg/dL (40-60) 04/19/20 06:00 Cholesterol/HDL Ratio 2.20 04/19/20 06:00 Home Medications: Aspirin Chewable [Aspirin Chewable*] 81 mg PO DAILY 04/19/20 Cyanocobalamin [Vitamin B-12*] 1,000 mg PO DAILY 04/19/20 Docosahexanoic AC/Epa [Fish Oil 1,000 MG*] 1,000 mg PO BID 04/19/20 Duloxetine HCl [Cymbalta] 60 mg PO DAILY 04/19/20 Finasteride [Proscar*] 5 mg PO DAILY 04/19/20 Metformin ER [Glucophage ER*] 500 mg PO BID 04/19/20 Rivaroxaban [Xarelto] 20 mg PO DAILY AT SUPPER 04/19/20 Simvastatin [Zocor] 40 mg PO BEDTIME 04/19/20 Sotalol HCl [Betapace*] 80 mg PO BID 04/19/20 Tamsulosin HCl [Flomax] 0.4 mg PO BEDTIME 04/19/20 Ferrous Sulfate [Ferrous Sulfate*] 325 mg PO DAILY #90 tab 04/20/20 Furosemide [Lasix*] 40 mg PO BIDL #60 tab 04/20/20 Nystatin Powder [Mycostatin (Powder)*] 1 appl TOP BID #1 btl 04/20/20 New Medications: Ferrous Sulfate [Ferrous Sulfate*] 325 mg PO DAILY #90 tab Furosemide [Lasix*] 40 mg PO BIDL #60 tab Nystatin Powder [Mycostatin (Powder)*] 1 appl TOP BID #1 btl Patient Discharge Instructions: 1. Recommend follow up with PCP in 1 week to follow up this hospitalization. 2. Patient presented with dyspnea and edema to the lower extremities. This was secondary to acute on chronic systolic CHF. Patient also with hypoxia. Patient was started on IV Lasix. Patient also placed on a fluid restriction. Cardiology was consulted to further evaluate. Cardiology recommended no further intervention at this time. Patient has done well with diuresis. Patient understands the importance of the a 1500 cc per day fluid restriction. At discharge patient will continue with a 1500 cc per day fluid restriction and low-salt diet. Recommend to monitor his weight daily. If his weight increases by more than 5 lb he is to contact his PCP or cardiology for further recommendation. At discharge patient will continue with Lasix 40 mg 1 pill twice daily. Further adjustment in medication may be required if his weight increases or he becomes more short of breath. This can be done with the help of his PCP or cardiology. Recommend follow up with cardiology in 1 week to monitor his progress. Prior to discharge home oxygen has been arranged. Patient currently on 2 L per nasal cannula. Patient will continue with oxygen at discharge. 3. Patient with atrial fibrillation on chronic anti coagulation therapy. This appears stable. At discharge patient will continue with aspirin 81 mg daily, Betapace 80 mg 1 pill twice daily and Xarelto 20 mg with supper daily. Recommend follow up with as pictures editor in 1-2 weeks to follow his progress. 4. Patient with diabetes mellitus type 2. This is well controlled. Hemoglobin A1c 6.5. At discharge patient will continue with his current medication-metformin 500 mg one pill twice daily. Recommend to maintain blood sugar less than 140 fasting and less than 200 after meals. Further adjustment can be done by his PCP. 5. Patient with anemia. Patient found to have iron deficiency anemia. Patient with B12 deficiency. At discharge patient will continue with iron supplementation 325 mg daily. Patient may continue with his vitamin B12 medication. Recommend to recheck CBC in 1-2 weeks to monitors progress. Consider GI evaluation as an outpatient to further address. 6. Patient with CAD with prior pacemaker defibrillator and hyperlipidemia. This has remained stable. At discharge he will continue with his current medication- fish oil 1000 mg 1 pill twice daily and Zocor 40 mg daily. Follow up with cardiology as directed. 7. Patient with BPH. At discharge patient will con tinue with his current medication of Proscar 5 mg daily and Flomax 0.4 mg daily. 8. Patient had fungal dermatitis to the perianal and groin region. At discharge patient may continue with nystatin powder twice daily. Patient to keep area clean. Diet: ADA Activity: Ad alessio Followup: VICTOR MANUEL RUSH [Primary Care Provider] - Time spent managing pt's care (in minutes): 55
[2020-04-20] MEDS: RIVAROXABAN 10 MG TABLET PO SCH (16:19)
[2020-04-20] MEDS ORDERED: HOME MED 1 EA UNK (Simvastatin [Zocor] 40 MG) PO SCH (21:00)
[2020-04-20] MEDS: TAMSULOSIN 0.4 MG SR CAP PO SCH (21:35)
[2020-04-20] MEDS: FUROSEMIDE 40 MG TABLET PO SCH (21:35)
[2020-04-20] MEDS: ATORVASTATIN 20 MG TAB PO SCH (21:37)
[2020-04-21 06:08] LABS: BUN Blood Urea Nitrogen 19 mg/dL (7-18); Bicarbonate 39 mmol/L (21-32); Glucose Level 149 mg/dL (74-106); Magnesium 2.4 mg/dL (1.8-2.4); Potassium 3.8 mmol/L (3.5-5.1); Sodium Level 142 mmol/L (136-145)
[2020-04-21 06:52] LABS: Absolute Lymphocytes (CBC) 1.5 K/uL (0.7-4.9); Basophils % 0.5 % (0-1.3); Hematocrit 35.6 % (39.6-49.0); Lymphocytes % 11.5 % (15.3-44.8); MPV 9.1 fL (7.6-11.3); RBC Red Blood Cell Count 5.08 M/uL (4.33-5.43)
[2020-04-21] MEDS: INSULIN -REGULAR HUMAN 50 UNIT/0.5 ML ML SQ SCH ×4 (07:30→21:00)
[2020-04-21] MEDS: FINASTERIDE 5 MG TAB PO SCH (08:43)
[2020-04-21] MEDS: DOCOSAHEXANOIC AC/EPA 1000 MG PO SCH ×2 (08:43→21:07)
[2020-04-21] MEDS: DULOXETINE 30 MG CAP PO SCH (08:44)
[2020-04-21] MEDS: FERROUS SULFATE 325 MG TAB PO SCH (08:45)
[2020-04-21] MEDS: CYANOCOBALAMIN 1,000 MCG TAB PO SCH (08:45)
[2020-04-21] MEDS: ASPIRIN 81 MG CHEWABLE TABLET PO SCH (08:45)
[2020-04-21] MEDS: FUROSEMIDE 40 MG TABLET PO SCH ×2 (08:47→16:14)
[2020-04-21] MEDS: NYSTATIN PWDR 100000 UNIT/GM TOP SCH ×2 (08:48→21:08)
[2020-04-21] MEDS ORDERED: POTASSIUM CL SA 10 MEQ TAB PO ONE (09:00)
[2020-04-21] MEDS: SOTALOL HCL 80 MG TAB PO SCH ×2 (10:12→21:07)
--- NOTE | 2020-04-21 11:18 | P.PN ---
Subjective Date of Service: 04/21/20 Primary Care Provider: Dr. Mckeon Chief Complaint: CHF Exacerbation Subjective: Other (Patient doing well this time. Overall stable. Patient on 2 L per nasal cannula.) Physical Examination - Vital Signs Temperature: 97.9 F Blood Pressure: 100/55 Pulse: 85 Respirations: 19 Pulse Ox (%): 96 - Physical Exam General: Alert, In no apparent distress, Cooperative HEENT: Atraumatic Neck: Supple Respiratory: Crackles/rales (Minimal crackles to the bases) Cardiovascular: Irregular heart rate/rhythm (AFib rate controlled) Gastrointestinal: Normal bowel sounds, No masses, No rebound, No guarding Integumentary: Tenderness/swelling (Pitting edema to the lower extremities improved) Neurological: Normal speech, Normal strength at 5/5 x4 extr, Normal tone, Normal affect, Other (Patient with difficulty hearing) - Studies Microbiology Data (last 24 hrs): 04/18/20 17:45 Clean Catch Urine [place] Count - Final >100,000 CFU/ML. 04/18/20 17:45 Clean Catch Urine - Final Escherichia Coli Medications List Reviewed: Yes Assessment & Plan Discharge Plan: Home Plan to discharge in: 24 Hours Physician Review Additional Text: Impression: Dyspnea, edema to the lower extremities secondary to Acute on chronic systolic congestive heart failure with hypoxia Atrial fibrillation on chronic anticoagulation therapy Diabetes mellitus type 2, controlled Iron/B12 deficiency anemia CAD with history of pacemaker/defibrillator/hyperlipidemia UTI, urine culture positive for E coli BPH Depression Plan Dyspnea, edema to the lower extremities secondary to Acute on chronic systolic congestive heart failure with hypoxia: Patient overall improved. Patient was to be discharge yesterday but oxygen could not be arrange. I checked with case management again today. They reached out to oxygen [facility]. Oxygen [facility] not able to set up oxygen on till tomorrow. Apparently the routine of oxygen set up on the weekends has been discontinued. Patient remains on 2 L per nasal cannula. Will continue with close monitoring of input/output and daily weight. Will change Lasix to oral 40 mg twice daily. Case discussed at length with cardiology. Cardiology agrees with plan of care. Continue to teach on 1500 cc per day fluid restriction and low-salt diet. Medications reviewed. Anticipate discharge tomorrow once home oxygen can be arranged. Continue with r ecommendations. I will turn the service over to the hospitalist team tomorrow. I will go plan of care with him. Atrial fibrillation on chronic anticoagulation therapy: Continue with Xarelto, Betapace and amiodarone. Diabetes mellitus type 2, controlled: This is well controlled. Continue Accu- Cheks and sliding scale. Patient may continue with metformin at discharge. Anemia, iron/B12 deficiency anemia: Continue iron and B12 supplementation. Patient may benefit with GI evaluation in the future if this persists. CAD with history of pacemaker/defibrillator/hyperlipidemia: Case discussed with cardiology. Continue with fish oil and Zocor. Will monitor closely. UTI, urine culture positive for E coli: Urine culture was pending. Results today show E coli. White count slightly elevated. Will start Augmentin 500 mg twice daily for 7 days to complete treatment. UTI prevention will need to be enforced. Fungal dermatitis: Continue with nystatin powder. Patient needs to be dry and clean. Patient may continue with medication for 7-10 days. BPH: Continue with Flomax 0.4 mg daily and Proscar 5 mg daily. Depression: Continue with Cymbalta Time Spent Managing Pts Care (In Minutes): 55
[2020-04-21] MEDS: RIVAROXABAN 10 MG TABLET PO SCH (16:16)
[2020-04-21] MEDS: TAMSULOSIN 0.4 MG SR CAP PO SCH (21:07)
[2020-04-21] MEDS: ATORVASTATIN 20 MG TAB PO SCH (21:07)
[2020-04-21] MEDS: AMOX/K CLAV 500 MG TAB PO SCH (21:07)
[2020-04-22 06:06] LABS: BUN Blood Urea Nitrogen 18 mg/dL (7-18); Glucose Level 146 mg/dL (74-106); Magnesium 2.1 mg/dL (1.8-2.4); Potassium 3.3 mmol/L (3.5-5.1); Sodium Level 139 mmol/L (136-145)
[2020-04-22 06:11] LABS: Bicarbonate 41 mmol/L (21-32)
[2020-04-22 06:31] LABS: Basophils % 0.3 % (0-1.3); Hematocrit 33.2 % (39.6-49.0); Lymphocytes % 11.7 % (15.3-44.8); MPV 8.4 fL (7.6-11.3); RBC Red Blood Cell Count 4.72 M/uL (4.33-5.43)
--- NOTE | 2020-04-22 07:29 | ECHO ---
HEIGHT: 5 ft 10 in WEIGHT: 228 lb 0 oz DATE OF STUDY: 04/19/[address]: Garrick Alexandra NP 2-DIMENSIONAL: YES M.MODE: YES DOPPLER: YES COLOR FLOW: YES TDS: PORTABLE: DEFINITY: BUBBLE STUDY: DIAGNOSIS: CONGESTIVE HEART FAILURE CARDIAC HISTORY: CATHERIZATION: SURGERY: PROSTHETIC VALVE: PACEMAKER: MEASUREMENTS (cm) DIASTOLIC (NORMALS) SYSTOLIC (NORMALS) IVSd 1.1 (0.6-1.2) LA Diam 3.9 (1.9-4.0) LVEF 49% LVIDd 4.2 (3.5-5.7) LVIDs 3.2 (2.0-3.5) %FS 25% LVPWd 0.9 (0.6-1.2) Ao Diam 2.9 (2.0-3.7) 2 DIMENSIONAL ASSESSMENT: RIGHT ATRIUM: NORMAL LEFT ATRIUM: NORMAL RIGHT VENTRICLE: NORMAL LEFT VENTRICLE: NORMAL TRICUSPID VALVE: NORMAL MITRAL VALVE: MITRAL ANNULAR CALCIFICATION PULMONIC VALVE: NORMAL AORTIC VALVE: SCLEROSIS PERICARDIAL EFFUSION: NONE AORTIC ROOT: NORMAL LEFT VENTRICULAR WALL MOTION: MILD GLOBAL HYPOKINESIS DOPPLER/COLOR FLOW: MILD TRICUSPID REGURGITATION COMMENTS: MILD GLOBAL HYPOKINESIS. EJECTION FRACTION 49%. MITRAL ANNULAR CALCIFICATION. AORTIC SCLEROSIS. TECHNOLOGIST: ALEXEY ZUNIGA
[2020-04-22] MEDS: INSULIN -REGULAR HUMAN 50 UNIT/0.5 ML ML SQ SCH ×3 (07:30→15:32)
[2020-04-22 07:58] LABS: Platelet Estimate ADEQ; White Blood Cell Scan OK (OK)
[2020-04-22 07:59] LABS: Blood Morphology Comment NOTED (NOT SEEN); Hypochromasia 1+; Ovalocytes 1+
[2020-04-22] MEDS: FINASTERIDE 5 MG TAB PO SCH (08:21)
[2020-04-22] MEDS: FUROSEMIDE 40 MG TABLET PO SCH ×2 (08:21→16:05)
[2020-04-22] MEDS: FERROUS SULFATE 325 MG TAB PO SCH (08:22)
[2020-04-22] MEDS: ASPIRIN 81 MG CHEWABLE TABLET PO SCH (08:22)
[2020-04-22] MEDS: DOCOSAHEXANOIC AC/EPA 1000 MG PO SCH (08:22)
[2020-04-22] MEDS: SOTALOL HCL 80 MG TAB PO SCH (08:22)
[2020-04-22] MEDS: CYANOCOBALAMIN 1,000 MCG TAB PO SCH (08:22)
[2020-04-22] MEDS: AMOX/K CLAV 500 MG TAB PO SCH (08:22)
[2020-04-22] MEDS: DULOXETINE 30 MG CAP PO SCH (08:22)
[2020-04-22] MEDS: NYSTATIN PWDR 100000 UNIT/GM TOP SCH (08:23)
[2020-04-22] MEDS ORDERED: POTASSIUM CL SA 10 MEQ TAB PO ONE (09:00)
[2020-04-22 11:04] VITALS: O2SAT 98
[2020-04-22 16:06] VITALS: BP 110/60
--- NOTE | 2020-04-22 16:34 | P.DS ---
Discharge Date: 04/22/20 Primary Care Provider: Dr. Mckeon Disposition: ROUTINE DISCHARGE Discharge Condition: GOOD Reason for Admission: CHF Exacerbation Consultations: Cardiology Brief History of Present Illness: Patient is an 89-year-old gentleman who came to the hospital with difficulty breathing. Patient was found to have CHF exacerbation. Patient has a history diabetes mellitus type 2, hypertension, hyperlipidemia, atrial fibrillation on chronic anticoagulation therapy, heart failure systolic dysfunction, and presents to the emergency department for worsening shortness of breath over the last 2 weeks. Patient was seen at the [facility] and there told me need to come to the emergency department for further evaluation as he is trying to obtain home oxygen. Patient's workup in the emergency department revealed hypokalemia with potassium 3.1, elevated BNP 2398, microcytic anemia with hemoglobin 10.8/hematocrit 36, MCV 71.1. Chest x-ray shows small to moderate right-sided pleural effusion similar to were slightly increased from August and mildly prominent vasculature in the markings similar to comparison. Patient with 3+ pitting edema bilaterally to the level of the huitron and patient was hypoxic on room air of 88%. ED provider wishes to admit patient for further evaluation and management. Patient has Medicare in addition to [facility] and declined transfer to [facility] stating he would rather be treated here. Hospital Course: At this time, patient is doing well. Patient was diuresed effectively. Patient is feeling better and is anxious to go home. Patient was hypoxic and will need to arrange for home oxygen. At this time, patient stable for discharge home with outpatient follow-up. Vital Signs/Physical Exam: Temp Pulse Resp BP Pulse Ox 97.2 F 81 20 110/60 97 04/22/20 12:00 04/22/20 16:05 04/22/20 12:00 04/22/20 16:05 04/22/20 12:00 General: Alert, In no apparent distress, Oriented x3 Laboratory Data at Discharge: WBC 8.5 K/uL (4.3-10.9) D 04/22/20 05:12 Hgb 9.9 g/dL (13.6-17.9) L 04/22/20 05:12 Hct 33.2 % (39.6-49.0) L 04/22/20 05:12 Plt Count 225 K/uL (152-406) 04/22/20 05:12 PT 44.9 SECONDS (9.5-12.5) H 04/18/20 18:02 INR 3.91 04/18/20 18:02 Sodium 139 mmol/L (136-145) 04/22/20 05:12 Potassium 4.2 mmol/L (3.5-5.1) 04/22/20 13:51 BUN 18 mg/dL (7-18) 04/22/20 05:12 Creatinine 0.61 mg/dL (0.55-1.3) 04/22/20 05:12 Glucose 146 mg/dL (74-106) H 04/22/20 05:12 Magnesium 2.1 mg/dL (1.8-2.4) 04/22/20 05:12 Total Bilirubin 0.6 mg/dL (0.2-1.0) 04/20/20 05:45 AST 12 U/L (15-37) L 04/20/20 05:45 ALT 17 U/L (12-78) 04/20/20 05:45 Alkaline Phosphatase 72 U/L (45-117) 04/20/20 05:45 Troponin I < 0.02 ng/mL (0.0-0.045) 04/19/20 06:00 Triglycerides 79 mg/dL (<150) 04/19/20 06:00 Cholesterol 97 mg/dL (<200) 04/19/20 06:00 HDL Cholesterol 44 mg/dL (40-60) 04/19/20 06:00 Cholesterol/HDL Ratio 2.20 04/19/20 06:00 Home Medications: Aspirin Chewable [Aspirin Chewable*] 81 mg PO DAILY 04/19/20 Cyanocobalamin [Vitamin B-12*] 1,000 mg PO DAILY 04/19/20 Docosahexanoic AC/Epa [Fish Oil 1,000 MG*] 1,000 mg PO BID 04/19/20 Duloxetine HCl [Cymbalta] 60 mg PO DAILY 04/19/20 Finasteride [Proscar*] 5 mg PO DAILY 04/19/20 Metformin ER [Glucophage ER*] 500 mg PO BID 04/19/20 Rivaroxaban [Xarelto] 20 mg PO DAILY AT SUPPER 04/19/20 Simvastatin [Zocor] 40 mg PO BEDTIME 04/19/20 Sotalol HCl [Betapace*] 80 mg PO BID 04/19/20 Tamsulosin HCl [Flomax] 0.4 mg PO BEDTIME 04/19/20 Ferrous Sulfate [Ferrous Sulfate*] 325 mg PO DAILY #90 tab 04/20/20 Furosemide [Lasix*] 40 mg PO BIDL #60 tab 04/20/20 Nystatin Powder [Mycostatin (Powder)*] 1 appl TOP BID #1 btl 04/20/20 New Medications: Ferrous Sulfate [Ferrous Sulfate*] 325 mg PO DAILY #90 tab Furosemide [Lasix*] 40 mg PO BIDL #60 tab Nystatin Powder [Mycostatin (Powder)*] 1 appl TOP BID #1 btl Patient Discharge Instructions: 1. Recommend follow up with PCP in 1 week to follow up this hospitalization. 2. Patient presented with dyspnea and edema to the lower extremities. This was secondary to acute on chronic systolic CHF. Patient also with hypoxia. Patient was started on IV Lasix. Patient also placed on a fluid restriction. Cardiology was consulted to further evaluate. Cardiology recommended no further intervention at this time. Patient has done well with diuresis. Patient understands the importance of the a 1500 cc per day fluid restriction. At discharge patient will continue with a 1500 cc per day fluid restriction and low-salt diet. Recommend to monitor his weight daily. If his weight increases by more than 5 lb he is to contact his PCP or cardiology for further recommendation. At discharge patient will continue with Lasix 40 mg 1 pill twice daily. Further adjustment in medication may be required if his weight increases or he becomes more short of breath. This can be done with the help of his PCP or cardiology. Recommend follow up with cardiology in 1 week to monitor his progress. Prior to discharge home oxygen has been arranged. Patient currently on 2 L per nasal cannula. Patient will continue with oxygen at discharge. 3. Patient with atrial fibrillation on chronic anti coagulation therapy. This appears stable. At discharge patient will continue with aspirin 81 mg daily, Betapace 80 mg 1 pill twice daily and Xarelto 20 mg with supper daily. Recommend follow up with a branch manager trainee in 1-2 weeks to follow his progress. 4. Patient with diabetes mellitus type 2. This is well controlled. Hemoglobin A1c 6.5. At discharge patient will continue with his current medication-metformin 500 mg one pill twice daily. Recommend to maintain blood sugar less than 140 fasting and less than 200 after meals. Further adjustment can be done by his PCP. 5. Patient with anemia. Patient found to have iron deficiency anemia. Patient with B12 deficiency. At discharge patient will continue with iron supplementation 325 mg daily. Patient may continue with his vitamin B12 medication. Recommend to recheck CBC in 1-2 weeks to monitors progress. Consider GI evaluation as an outpatient to further address. 6. Patient with CAD with prior pacemaker defibrillator and hyperlipidemia. This has remained stable. At discharge he will continue with his current medication- fish oil 1000 mg 1 pill twice daily and Zocor 40 mg daily. Follow up with cardiology as directed. 7. Patient with BPH. At discharge patient will continue with his current medication of Proscar 5 mg daily and Flomax 0.4 mg daily. 8. Patient had fungal dermatitis to the perianal and groin region. At discharge patient may continue with nystatin powder twice daily. Patient to keep area clean. Please contact Dr. Fields, at [phone], if any question regarding hospitalization. Diet: ADA (Cardiac diet as well) Activity: Ad alessio Followup: VICTOR MANUEL RUSH [Primary Care Provider] - Time spent managing pt's care (in minutes): 37
[2020-04-22 16:38] VITALS: TEMP 98.1
[2020-04-22] MEDS ORDERED: RIVAROXABAN 20 MG TABLET PO SCH (17:00)
== END 2020-04-22 17:45 | disposition home or self-care (01) | DRG 293 ==
LOC: ER 16:33 → ERHOLD 20:41 → 2ND 21:38
PROVIDERS: ADMIT Family Medicine; ATTEND Hospitalist
DX: I11.0 Hypertensive heart disease with heart failure (principal); I50.23 Acute on chronic systolic (congestive) heart failure; E11.9 Type 2 diabetes mellitus without complications; E87.6 Hypokalemia; I25.10 Atherosclerotic heart disease of native coronary artery without angina pectoris; I48.91 Unspecified atrial fibrillation; D50.9 Iron deficiency anemia, unspecified; E78.5 Hyperlipidemia, unspecified; F32.9 Major depressive disorder, single episode, unspecified; D51.9 Vitamin B12 deficiency anemia, unspecified; N40.0 Benign prostatic hyperplasia without lower urinary tract symptoms; J44.9 Chronic obstructive pulmonary disease, unspecified; I25.2 Old myocardial infarction; B36.8 Other specified superficial mycoses; R09.02 Hypoxemia; R79.1 Abnormal coagulation profile; Z79.01 Long term (current) use of anticoagulants; Z88.5 Allergy status to narcotic agent; Z85.46 Personal history of malignant neoplasm of prostate; Z95.810 Presence of automatic (implantable) cardiac defibrillator; Z87.891 Personal history of nicotine dependence; Z79.82 Long term (current) use of aspirin; Z79.84 Long term (current) use of oral hypoglycemic drugs; Z79.899 Other long term (current) drug therapy; Z20.828 Contact with and (suspected) exposure to other viral communicable diseases
CPT/HCPCS: 36415; 71045; 80048; 80053; 80061; 80076; 81003; 81015; 82728; 82947; 83036; 83540; 83735; 83880; 84132; 84439; 84443; 84466; 84484; 85025; 85610; 87077; 87086; 87088; 87186; 93005; 93306; 93970; 96374; 96375; 97116; 97161; 97530; 99285; J0696; J1940; J3480; J7050; U0003

== ENCOUNTER 2020-05-14 14:05 | Emergency (ER) | payer OTHER ==
--- OUTSIDE RECORDS SUMMARY | 2020-05-14 14:08 | XMS REPORT | Clinical Summary ---
:1930 [facility] Address [address] [place] [address] Care Team Providers Name Role Phone Unavailable [...] Signs Not on file Plan of Treatment Health Maintenance Due Date Last Done Comments PNEUMOCOCCAL 65+ YRS (1 of 1 - [id number]) 12/05/1996 MEDICARE ANNUAL WELLNESS (YEAR 2 or FIRST YEAR if no 11/20/1997 IPPE) INFLUENZA VACCINE (#1) 2020 Results Not on fileafter 05/14/2019 Advance Directives For more information, please contact: [phone] Code Status Date Activated Date Inactivated Comments Full Code 06/01/2018 1:33 AM This code status was determined by: Patient
--- OUTSIDE RECORDS SUMMARY | 2020-05-14 14:09 | XMS REPORT | Continuity of Care Document ---
:1930 Author Organization [facility] t Address [address] [place] [address] Care Team Providers Name Role Phone SHAKIR [...] Date Quantity Comments Source Sex Assigned At [facility] Tobacco use and 2018-06-09 2018-06-09 Never used [facility] - exposure 00:00:00 00:00:00 [facility] Smoking Status Start Date Stop Date Source Former smoker 2018-06-09 00:00:00 2018-06-09 00:00:00 [facility] Medications Ordered Filled Start Stop Current Ordering Indication Dosage Frequency Signature Comments Components Source Medication Medication Date Date Medication? Clinician (SIG) Name Name DULoxetine 2017-06 Yes diabetic 60mg QD Take [address] [facility] (CYMBALTA) 2-20 peripheral by mouth [facility] - 60 MG 21:08: neuropathy daily. [facility] capsule 37 Center finasteride 2017-06 Yes benign [...] daily with Me dical tablet 37 dinner. [place] simvastatin 2017-06 Yes 40mg QD Take [address] [facility] (ZOCOR) 40 2-20 by mouth [facility] - MG tablet 21:08: nightly. [facility] 37 Center sotalol AF 2017-06 Yes 80mg Q.5D Take [address] (BETAPACE 2-20 by mouth 2 [facility] - AF) 80 MG 21:08: (two) Medical tablet 37 times Center daily. tamsulosin 2017-06 Yes .4mg QD Take 0.[address] [facility] (FLOMAX) 2-20 mg by [facility] - 0.4 mg Cap 21:08: mouth Medica l 24 hr 37 nightly. [place] capsule aspirin 81 2017-06 Yes 81mg QD [...] Medi tiffanie mg chewable 00 total) by [facility] ter tablet mouth daily. acetaminoph 2017-06 Yes 325mg Take [address] [facility] en 2-20 tablet [facility] - (TYLENOL) 00:00: (325 mg Medic al 325 MG 00 total) by Center tablet mouth every 6 (six) hours as needed for Pain. Procedures This patient has no known procedures. Plan of Care Planned Activity Planned Date Details Comments Source Future Scheduled 2020-02-20 INFLUENZA VACCINE (#1) [facility] - Test 00:00:00 [code = INFLUENZA Medical Ce nter VACCINE (#1)] Future Scheduled 1997-11-[address] [facility] - Test 00:00:00 WELLNESS (YEAR 2 or Medical Center FIRST YEAR if no IPPE) [code = MEDICARE ANNUAL WELLNESS (YEAR 2 or FIRST YEAR if no IPPE)] Future Scheduled 1996-12-05 PNEUMOCOCCAL 65+ YRS [facility] - Test 00:00:00 (1 of 1 - Medical Center [id number] PCV13) [code = PNEUMOCOCCAL 65+ YRS (1 of 1 - [id number] PCV13)] Results Test Description Test Time Test Comments Results Result Comments Source POCT-GLUCOSE METER 2018-06-09 18:41:00 Test Item Value Reference Range Interpretation Comme nts POC-GLUCOSE METER (ALICIA) (test 148 mg/dL 70-[address] 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 CG/ewPerformed. POCT-GLUCOSE [id number] 11:52:00 Test Item Value Reference Range Interpretation Comments POC-GLUCOSE METER 191 mg/dL 70-110 H TESTED AT [place] [address] ([facility]) (test code = [facility] Ana [facility] 1538) [address] POCT-GLUCOSE [id number] 08:05:00 Test Item Value Reference Range Interpretation Comments POC-GLUCOSE METER 219 mg/dL 70-110 H TESTED AT [place] [address] ([facility]) (test code = [facility] 1538) [address] B-TYPE NATRIURETIC FACTOR (BNP)2018-06-09 07:22:00 Test Item Value Reference Range Interpretation Comments B-TYPE NATRIURETIC PEPTIDE ([facility]) 257 pg/mL 0-100 H (test code = 700) POCT-GLUCOSE [id number] 21:45:00 Test Item Value Reference Range Interpretation Comments POC-GLUCOSE METER 165 mg/dL 70-110 H TESTED AT [place] [address] ([facility]) (test code = [facility] 1538) [address] RAD, CHEST, 1 VIEW, NON [id number] 18:25:00Reason for exam:->pacemaker check Should this be performed at the bedside?->YesFINAL REPORT Chest, 1 view Clinical history: pacemaker check Comparison: None Discussion: 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 There is no pneumothorax. Small bilateral pleural effusions are seen with bibasilar atelectasis or airspace disease. The cardiac silhouette is enlarged with asymmetric left-sided perihilar edema. No acute osseous abnormality. Signed: Chris Edmond [facility] Verified Date/Time: 06/08/2018 18:25:31 Reading Location: [facility] [id number] Consult Reading Room -GLUCOSE [id number] 16:08:00 Test Item Value Reference Range Interpretation Comments POC-GLUCOSE METER 154 mg/dL 70-[address] [facility] 67[address] (BEAKER) (test code = [address] [place] 1538) [address] POCT-GLUCOSE [id number] 11:33:00 Test Item Value Reference Range Interpretation Comments POC-GLUCOSE METER 161 mg/dL 70-[address] [facility] 6720 (BEAKER) (test code = [address] [place] 1538) [address] POCT-GLUCOSE [id number] 08:46:00 Test Item Value Reference Range Interpretation Comments POC-GLUCOSE METER 146 mg/dL 70-[address] [facility] 67[address] (BEAKER) [facility] 1538) [address] [id number] 07:15:00 Test Item Value Reference Range Interpretation Comments MAGNESIUM (BEAKER) 2.1 mg/dL 1.6-2.6 Specimen moderately (test code = 627) hemolyzed [id number] 07:15:00 Test Item Value Reference Range Interpretation Comments PHOSPHORUS (BEAKER) 3.4 mg/dL 2.3-4.7 Specimen moderately (test code = 604) hemolyzed BASIC METABOLIC [id number] 07:15:00 Test Item Value Reference Range Interpretation [...] APPLICABLE FOR DIALYSIS PATIEN TS. HEPATIC FUNCTION [id number] 07:15:00 Test Item Value Reference Range Interpretation [...] moderately (test code = 347) hemolyzed PROTHROMBIN [id number] 07:14:00 Test Item Value Reference Range Interpretation Comments PROTIME (BEAKER) (test code = 14.1 seconds 11.7-14.7 759) INR (BEAKER) (test code = 370) 1.1 <=5.9 RECOMMENDED COUMADIN/WARFARIN INR THERAPY RANGESSTANDARD DOSE: 2.0 - 3.0 Includes: PROPHYLAXIS forvenous thrombosis, systemic embolization; TREATMENT for venous thrombosis and/or pulmonary embolus.HIGH RISK: Target INR is 2.5-3.5 for patients with mechanical heart valves.POCT-GLUCOSE [id number] 07:06:00 Test Item Value Reference Range Interpretation Comments POC-GLUCOSE METER 179 mg/dL 70-[address] [facility] 67[address] (AKER) (test code = [place] 1454) [address] CBC W/PLT COUNT & AUTO [id number] 06:58:00 Test Item Value Reference Range Interpretation [...] PERCENT (BEAKER) (test code = 2801) POCT-GLUCOSE [id number] 21:03:00 Test Item Value Reference Range Interpretation Comments POC-GLUCOSE METER 142 mg/dL 70-[address] [facility] 67[address] (BEAKER) (test code = [place] 1538) [address] [id number] 19:39:00 Test Item Value Reference Range Interpretation Comments PHOSPHORUS (BEAKER) (test code = 2.2 mg/dL 2.3-4.7 L 604) [id number] 19:39:00 Test Item Value Reference Range Interpretation Comments MAGNESIUM (BEAKER) (test code = 1.8 mg/dL 1.6-2.6 627) BASIC METABOLIC [id number] 19:39:00 Test Item Value Reference Range Interpretation [...] APPLICABLE FOR DIALYSIS PATIEN TS. HEPATIC FUNCTION [id number] 19:39:00 Test Item Value Reference Range Interpretation [...] = 71 U/L 6-55 H 347) PROTHROMBIN [id number] 19:34:00 Test Item Value Reference Range Interpretation [...] IMMATURE GRANULOCYTES-RELATIVE 3 % 0-1 H PERCENT (BEAKER) (test code = 2801) POCT-GLUCOSE [id number] 17:55:00 Test Item Value Reference Range Interpretation Comments POC-GLUCOSE METER 305 mg/dL 70-110 H Notified R Levar MAJOR/TESTED (BEAKER) (test code = AT [place] 877218) [facility] 7703 0 POCT-GLUCOSE [id number] 11:56:00 Test Item Value Reference Range Interpretation Comments POC-GLUCOSE METER 137 mg/dL 70-110 H TESTED AT [place] [address] [facility] 1538) [address] POCT-GLUCOSE [id number] 09:01:00 Test Item Value Reference Range Interpretation Comments POC-GLUCOSE METER 158 mg/dL 70-110 H TESTED AT [place] [address] ([facility] ([facility] 1538) [address] BLOOD [id number] 05:00:00 Test Item Value Reference Range Interpretation Comments CULTURE (BEAKER) (test No growth in 5 days code = 1095) BLOOD [id number] 05:00:00 Test Item Value Reference Range Interpretation Comments CULTURE (BEAKER) (test No growth in 5 days code = 1095) POCT-GLUCOSE [id number] 21:31:00 Test Item Value Reference Range Interpretation Comments POC-GLUCOSE METER 297 mg/dL 70-110 H TESTED AT [place] [address] ([facility]) (test code = [address] [facility] 1538) [address] POCT-GLUCOSE [id number] 17:26:00 Test Item Value Reference Range Interpretation Comments POC-GLUCOSE METER 154 mg/dL 70-[address] [facility] 6720 ([facility] (test code = [address] [facility] 1538) [address] POCT-GLUCOSE [id number] 15:17:00 Test Item Value Reference Range Interpretation Comments POC-GLUCOSE METER 154 mg/dL 70-[address] [facility] 67 ([facility]) (test code = [address] [facility] 1538) [address] [place], [id number] 13:54:00INTRA OP IMAGINGReason for exam:->ABNORMAL IMAGING FINAL REPORT ERCP 4 views 06/06/2018 1:49 PM CLINICAL HISTORY: Instrument localization COMPARISON: None available IMPRESSION: Please correlate imaging report findings with the procedure note prepared by Dr. Hinojosa, as an intra-procedure imaging consultation was not requested. Reported fluoroscopy time: 91.0 seconds. Signed: Yunier Esparza Verified Date/Time: 06/06/2018 13:54:44 Reading Location: [facility] Reading Room COMPREHENSIVE METABOLIC [id number] 11:44:00 Test Item Value Reference Range Interpretation [...] NOT APPLICABLE FOR DIALYSIS PATIEN TS. POCT-GLUCOSE [id number] 08:58:00 Test Item Value Reference Range Interpretation Comments POC-GLUCOSE METER 174 mg/dL 70-[address] [facility] [address] ([facility]) (test code = [address] [place] 1538) [address] CBC (HEMOGRAM ONLY)2018-06-06 06:47:00 Test Item Value [...] 150-450 code = 756) MEAN PLATELET VOLUME ([facility]) 10.9 fL 9.4-12.4 (test code = 754) NUCLEATED RED BLOOD CELLS 0 /100 WBC 0-0 ([facility]) (test code = 413) POCT-GLUCOSE [id number] 21:43:00 Test Item Value Reference Range Interpretation Comments POC-GLUCOSE METER 213 mg/dL 70-110 H TESTED AT [place] [address] ([facility]) (test code = [facility] 1538) [address] POCT-GLUCOSE [id number] 18:37:00 Test Item Value Reference Range Interpretation Comments POC-GLUCOSE METER 144 mg/dL 70-110 H TESTED AT [place] [address] ([facility]) (test code = [facility] 1538) [address] POCT-GLUCOSE [id number] 12:41:00 Test Item Value Reference Range Interpretation Comments POC-GLUCOSE METER 171 mg/dL 70-110 H TESTED AT [place] [address] ([facility]) (test code = [facility] 1538) [address] POCT-GLUCOSE [id number] 08:33:00 Test Item Value Reference Range Interpretation Comments POC-GLUCOSE METER 165 mg/dL 70-110 H TESTED AT [place] [address] ([facility]) (test code = [facility] 1538) [address] POCT-GLUCOSE [id number] 08:27:00 Test Item Value Reference Range Interpretation Comments POC-GLUCOSE METER 165 mg/dL 70-110 H TESTED AT [place] [address] ([facility]) (test code = [facility] 1538) [address] VANCOMYCIN LEVEL, [id number] 07:59:00 Test Item Value Reference Range Interpretation Comments VANCOMYCIN TROUGH ([facility]) (test 15.0 ug/mL 10.0-20.0 code = 522) CBC (HEMOGRAM ONLY)2018-06-05 06:50:00 Test Item Value Reference Range Interpretation Comments WHITE BLOOD CELL COUNT ([facility]) 7.3 K/ L 3.5-10.5 (test code = 775) RED BLOOD CELL COUNT ([facility]) 5.05 M/ L 4.63-6.08 (test code = 761) HEMOGLOBIN ([facility]) (test code = 14.6 GM/DL 13.7-17.5 410) HEMATOCRIT (BEAKER) (test code = 45.6 % 40.1-51.0 411) MEAN CORPUSCULAR VOLUME (BEAKER) 90.3 fL 79.0-92.2 (test code = 753) MEAN CORPUSCULAR HEMOGLOBIN 28.9 pg 25.7-32.2 (BEAKER) (test code = 751) MEAN CORPUSCULAR HEMOGLOBIN CONC 32.0 GM/DL 32.3-36.5 L (BEAKER) (test code = 752) RED CELL DISTRIBUTION WIDTH 14.0 % 11.6-14.4 (BEAKER) (test code = 412) PLATELET COUNT (BEAKER) (test 146 K/CU MM 150-450 L code = 756) MEAN PLATELET VOLUME (BEAKER) 10.5 fL 9.4-12.4 (test code = 754) NUCLEATED RED BLOOD CELLS 0 /100 WBC 0-0 (BEAKER) (test code = 413) COMPREHENSIVE METABOLIC [id number] 05:48:00 Test Item Value Reference Range Interpretation [...] NOT APPLICABLE FOR DIALYSIS PATIEN TS. POCT-GLUCOSE [id number] 21:00:00 Test Item Value Reference Range Interpretation Comments POC-GLUCOSE METER 204 mg/dL 70-110 H TESTED AT [place] [address] ([facility]) (test code = [facility] 1538) [address] POCT-GLUCOSE [id number] 17:17:00 Test Item Value Reference Range Interpretation Comments POC-GLUCOSE METER 156 mg/dL 70-110 H TESTED AT [place] [address] ([facility]) (test code = [facility] 1538) [address] POCT-GLUCOSE [id number] 12:42:00 Test Item Value Reference Range Interpretation Comments POC-GLUCOSE METER 201 mg/dL 70-110 H TESTED AT [place] [address] ([facility]) (test code = [facility] 1538) [address] POCT-GLUCOSE [id number] 08:34:00 Test Item Value Reference Range Interpretation Comments POC-GLUCOSE METER 150 mg/dL 70-110 H TESTED AT [place] [address] ([facility]) (test code = [facility] 1538) [address] BASIC METABOLIC [id number] 05:20:00 Test Item Value Reference Range Interpretation [...] code = 412) PLATELET COUNT (BEAKER) (test 139 K/CU MM 150-450 L code = 756) MEAN PLATELET VOLUME (BEAKER) 10.8 fL 9.4-12.4 (test code = 754) NUCLEATED RED BLOOD CELLS 0 /100 WBC 0-0 (BEAKER) (test code = 413) POCT-GLUCOSE [id number] 20:49:00 Test Item Value Reference Range Interpretation Comments POC-GLUCOSE METER 219 mg/dL 70-110 H TESTED AT [place] [address] ([facility]) (test code = [place] 1538) [address] POCT-GLUCOSE [id number] 16:44:00 Test Item Value Reference Range Interpretation Comments POC-GLUCOSE METER 148 mg/dL 70-[address] [facility] 67[address] ([facility]) (test code = [place] 1538) [address] POCT-GLUCOSE [id number] 12:31:00 Test Item Value Reference Range Interpretation Comments POC-GLUCOSE METER 206 mg/dL 70-[address] [facility] 6720 (BEAKER) (test code = [address] [facility] 1538) [address] CBC W/PLT COUNT & AUTO [id number] 08:49:00 Test Item Value Reference Range Interpretation [...] % 0-1 PERCENT (BEAKER) (test code = 2809) POCT-GLUCOSE [id number] 08:22:00 Test Item Value Reference Range Interpretation Comments POC-GLUCOSE METER 158 mg/dL 70-[address] [facility] 6720 (BEAKER) (test code = [place] 1538) [address] VANCOMYCIN LEVEL, [id number] 07:54:00 Test Item Value Reference Range Interpretation Comments VANCOMYCIN TROUGH (BEAKER) (test 10.9 ug/mL 10.0-20.0 code = 522) BASIC METABOLIC [id number] 07:49:00 Test Item Value Reference Range Interpretation [...] DIALYSIS PATIEN TS. Specimen slightly ictericHEPATIC FUNCTION [id number] 07:49:00 Test Item Value Reference Range Interpretation Comments TOTAL PROTEIN (BEAKER) (test code = 5.9 gm/dL 6.0-8.3 L 770) ALBUMIN (BEAKER) (test code = 1145) 3.4 g/dL 3.5-5.0 L BILIRUBIN TOTAL ([facility]) (test code 2.5 mg/dL 0.2-1.2 H = 377) BILIRUBIN DIRECT ([facility]) (test 1.8 mg/dL 0.1-0.5 H code = 706) ALKALINE PHOSPHATASE ([facility]) (test 134 U/L 40-150 code = 346) AST (SGOT) (BEAKER) (test code = 117 U/L 5-34 H 353) ALT (SGPT) ([facility]) (test code = 259 U/L 6-55 H 347) Specimen slightly ictericPOCT-GLUCOSE [id number] 21:25:00 Test Item Value Reference Range Interpretation Comments POC-GLUCOSE METER 223 mg/dL 70-110 H TESTED AT [place] [address] ([facility]) (test code = [address] [facility] 1538) [address] POCT-GLUCOSE [id number] 17:09:00 Test Item Value Reference Range Interpretation Comments POC-GLUCOSE METER 161 mg/dL 70-110 H TESTED AT [place] [address] ([facility]) ([facility] = [facility] 1538) [address] POCT-GLUCOSE [id number] 10:58:00 Test Item Value Reference Range Interpretation Comments POC-GLUCOSE METER 113 mg/dL 70-110 H TESTED AT [place] [address] ([facility]) (test code = [address] Perez [facility] 1538) [address] CBC W/PLT COUNT & AUTO [id number] 09:48:00 Test Item Value Reference Range Interpretation Comments WHITE BLOOD CELL COUNT ([facility]) 16.1 K/ L 3.5-10.5 H (test code = 775) RED BLOOD CELL COUNT ([facility]) 4.85 M/ L 4.63-6.08 (test code = 761) HEMOGLOBIN ([facility]) (test code = 13.8 GM/DL 13.7-17.5 410) HEMATOCRIT ([facility]) (test code = 43.6 % 40.1-51.0 411) MEAN CORPUSCULAR VOLUME ([facility]) 89.9 fL 79.0-92.2 (test code = 753) [...] PERCENT (BEAKER) (test code = 2801) POCT-GLUCOSE [id number] 08:08:00 Test Item Value Reference Range Interpretation Comments POC-GLUCOSE METER 175 mg/dL 70-[address] [facility] 6720 (BEAKER) (test code = [place] 1538) [address] BASIC METABOLIC [id number] 05:28:00 Test Item Value Reference Range Interpretation [...] DIALYSIS PATIEN TS. Specimen slightly ictericHEPATIC FUNCTION [id number] 05:28:00 Test Item Value Reference Range Interpretation [...] code = 347) hemolyzed Specimen slightly ictericFL, [id number] 00:14:00Reason for exam:->CHOLEDOCHOLITHIASISFINAL REPORT ERCP: Comparison exam: Three C-arm images are provided. Introduction of contrast demonstrates multiple possible filling defects within the common bile duct. The final image demonstrates a stent placed across the common bile duct. A radiologist was not present duringthe performance of the procedure. Please see the procedure note for additional details. Fluoroscopy total 50.2 seconds Signed: Boris Valverde Verified Date/Time: 06/02/2018 00:14:16 Reading Location: [address] Reading Room POCT-GLUCOSE [id number] 23:14:00 Test Item Value Reference Range Interpretation Comments POC-GLUCOSE METER 176 mg/dL 70-110 H TESTED AT [place] [address] ([facility]) (test [facility] = [facility] 1538) [address] LACTIC ACID, VENOUS, WHOLE [id number] 17:47:00 Test Item Value Reference Range Interpretation Comments LACTATE BLOOD VENOUS 2.4 mmol/L 0.5-2.2 H Specime n slightly (2) ([facility]) (test hemolyzed code = 2872) Specimen slightly ictericPOCT-GLUCOSE [id number] 17:31:00 Test Item Value Reference Range Interpretation Comments POC-GLUCOSE METER 219 mg/dL 70-110 H TESTED AT [place] [address] ([facility]) (test code = [facility] [place] 1538) [address] POCT-GLUCOSE [id number] 13:48:00 Test Item Value Reference Range Interpretation Comments POC-GLUCOSE METER 209 mg/dL 70-110 H TESTED AT [place] [address] ([facility]) (test code = [facility] [place] 1538) [address] CBC W/PLT COUNT & AUTO [id number] 08:21:00 Test Item Value Reference Range Interpretation Comments WHITE BLOOD CELL COUNT ([facility]) 21.6 K/ L 3.5-10.5 H (test code = 775) RED BLOOD CELL COUNT (AKER) 5.77 M/ L 4.63-6.08 (test code = 761) HEMOGLOBIN (BEAKER) (test code = 16.3 GM/DL 13.7-17.5 410) HEMATOCRIT ([facility]) (test code = 52.1 % 40.1-51.0 H 411) MEAN CORPUSCULAR VOLUME ([facility]) 90.3 fL 79.0-92.2 (test code = 753) [...] Received comment: User comments: Slide comments:BASIC METABOLIC [id number] 08:12:00 Test Item Value Reference Range Interpretation [...] DIALYSIS PATIEN TS. Specimen moderately ictericHEPATIC FUNCTION [id number] 08:12:00 Test Item Value Reference Range Interpretation [...] U/L 6-55 H 347) Specimen moderately ictericPOCT-GLUCOSE [id number] 06:47:00 Test Item Value Reference Range Interpretation Comments POC-GLUCOSE METER 222 mg/dL 70-[address] [facility] 6720 (ALICIA) (test code = [place] 1538) [address]
[2020-05-14 14:58] LABS: Absolute Lymphocytes (CBC) 1.5 K/uL (0.7-4.9); Basophils % 0.5 % (0-1.3); Hematocrit 39.8 % (39.6-49.0); Lymphocytes % 14.8 % (15.3-44.8); RBC Red Blood Cell Count 5.38 M/uL (4.33-5.43)
[2020-05-14 15:15] LABS: ALT/SGPT 16 U/L (12-78); AST/SGOT 15 U/L (15-37); Albumin 3.3 g/dL (3.4-5.0); Alkaline Phosphatase 77 U/L (45-117); BUN Blood Urea Nitrogen 18 mg/dL (7-18); Bicarbonate 41 mmol/L (21-32); Bilirubin Total 0.7 mg/dL (0.2-1.0); Glucose Level 165 mg/dL (74-106); Protein, Total 6.8 g/dL (6.4-8.2); Sodium Level 141 mmol/L (136-145)
[2020-05-14 15:17] LABS: Potassium 2.8 mmol/L (3.5-5.1)
[2020-05-14 15:40] LABS: Anisocytosis 2+; Blood Morphology Comment NOTED (NOT SEEN); Platelet Estimate ADEQ; White Blood Cell Scan OK (OK)
[2020-05-14] MEDS ORDERED: NA CHLORIDE 0.9% 500 ML ONE (15:52)
[2020-05-14] MEDS ORDERED: POTASSIUM 25 MEQ EFFERV TAB ONE (15:52)
[2020-05-14] MEDS ORDERED: CEFTRIAXONE/SWI 1gm 1 GM/10 ML SYR ONE (15:52)
[2020-05-14] MEDS ORDERED: KCL 20 MEQ/100 mL IVPB 20 MEQ/100 ML BAG IV ONE (15:53)
[2020-05-14 16:45] LABS: Urine Bacteria 20-50 /HPF (NONE SEEN); Urine RBC <5 /HPF (NONE SEEN)
[2020-05-14 16:46] LABS: Urine Blood NEGATIVE (NEG); Urine Glucose NEGATIVE (NEG); Urine Protein NEGATIVE (NEG)
--- NOTE | 2020-05-14 16:48 | ER ---
Nurse's Notes [facility] Name: Valentin Veloz Age: 89 yrs Sex: Male : 1930 Arrival Date: 05/14/2020 Time: 14:07 Bed 2 Private MD: Diagnosis: Hypokalemia;Urinary tract infection, site not specified Presentation: 05/14 14:14 Chief complaint: Patient's son or daughter states: Daughter: Blood work done this ca1 morning by Home Health. Got a text that says, "Potassium lever 2.7 and also has a UTI". Contact Info of Nurse Maye is [phone]. Denies chest pain at this time. Coronavirus screen: Client denies travel out of the [place] in the last 14 days. At this time, the client does not indicate any symptoms associated with coronavirus-19. Ebola Screen: Patient negative for fever greater than or equal to 101.5 degrees Fahrenheit, and additional compatible Ebola Virus Disease symptoms Patient denies exposure to infectious person. Patient denies travel to an Ebola-affected area in the 21 days before illness onset. No symptoms or risks identified at this time. Initial Sepsis Screen: Does the patient meet any 2 criteria? No. Patient's initial sepsis screen is negative. Does the patient have a suspected source of infection? No. Patient's initial sepsis screen is negative. Risk Assessment: Do you want to hurt yourself or someone else? Patient reports no desire to harm self or others. Onset of symptoms was May 14, 2020. 14:14 Method Of Arrival: Wheelchair ca1 14:14 Acuity: EMILY 2 ca1 Historical: - Allergies: 14:18 Codeine; ca1 - PMHx: 14:18 CAD; CANCER - PROSTATE; CHF; COPD; Diabetes - NIDDM; High Cholesterol; Hypertension; ca1 Myocardial infarction; Pacemaker; - Immunization history:: Adult Immunizations up to date, Pneumococcal vaccine is up to date, Flu vaccine is up to date. - Social history:: Smoking status: Patient denies any tobacco usage or history of. Screenin:00 Abuse screen: Denies threats or abuse. Nutritional screening: No deficits noted. aa5 Tuberculosis screening: No symptoms or risk factors identified. Fall Risk IV access (20 points). Total [place] Fall Scale indicates No Risk (0-24 pts). Assessment: 14:30 General: Appears comfortable, Behavior is calm, cooperative. Pain: Denies pain. Neuro: aa5 Level of Consciousness is awake, alert, obeys commands, Oriented to person, place, time, situation. Cardiovascular: Heart tones S1 S2 present Rhythm is regular. Respiratory: Airway is patent Respiratory effort is even, unlabored, Respiratory pattern is regular, symmetrical. GI: Abdomen is round non-distended, Bowel sounds present X 4 quads. Abd is soft and non tender X 4 quads. Patient currently denies diarrhea, nausea, vomiting. : Parent/caregiver report the patient having foul smelling urine. EENT: Hearing aid noted, pt is hard of hearing. . Derm: Skin is pink, warm \\T\\ dry. Musculoskeletal: Range of motion: intact in all extremities. 15:20 Reassessment: Patient is alert, oriented x 3, equal unlabored respirations, skin aa5 warm/dry/pink. Pt attempted to catch urine for urine specimen collection, pt unable to, pt soiled shorts and brief, large amount of urine noted in brief, pt cleaned and clean brief applied. Foul smelling urine noted. RISK MANAGEMENT DIRECTOR was notified. . 16:30 Reassessment: Pt assisted with urinal, pt voided 100cc. . aa5 16:50 Reassessment: Patient is alert, oriented x 3, equal unlabored respirations, skin aa5 warm/dry/pink. Pt sitting up in bed holding a conversation with daughter. Awaiting potassium infusion to complete for d/c home. . Vital Signs: 14:14 BP 100 / 49; Pulse 71; Resp 16 S; Temp 97.8; Pulse Ox 95% on R/A; Weight 96.16 kg (R); ca1 Height 5 ft. 10 in. (177.80 cm) (R); Pain 0/10; 14:34 BP 106 / 55; ss 15:46 BP 103 / 72; Pulse 74; Resp 16 S; Pulse Ox 92% on R/A; aa5 17:00 BP 114 / 70; Pulse 75; Resp 18 S; Pulse Ox 94% on R/A; aa5 14:14 Body Mass Index 30.42 (96.16 kg, 177.80 cm) ca1 ED Course: 14:07 Patient arrived in ED. as 14:14 Arm band placed on right wrist. ca1 14:17 Triage completed. ca1 14:19 Harvey Duque NP is PHCP. pm1 14:19 Jt Camarillo MD is Attending Physician. pm1 14:23 Sydnee Khan, RN is Primary Nurse. aa5 14:30 Patient has correct armband on for positive identification. Placed in gown. Bed in low aa5 position. Call light in reach. Side rails up X2. Adult w/ patient. Pulse ox on. NIBP on. 14:40 Initial lab(s) drawn, by ED staff, sent to lab. Inserted saline lock: 20 gauge in left aa5 antecubital area, using aseptic technique. Blood collected. IV inserted by JACKIE Munguia. 17:55 No provider procedures requiring assistance completed. IV discontinued, intact, ss bleeding controlled, No redness/swelling at site. Pressure dressing applied. Administered Medications: 15:43 Drug: Potassium Effervescent Tablet 50 mEq Route: PO; ss 16:47 Follow up: Response: No adverse reaction aa5 15:45 Drug: Potassium Chloride 20 mEq Route: IV; Rate: calculated rate; Site: left aa5 antecubital; 17:56 Follow up: IV Status: Completed infusion ss 15:52 Drug: NS 0.9% 500 ml Route: IV; Rate: 75 ml/hr; Site: left antecubital; aa5 17:56 Follow up: IV Status: IV converted to saline lock ss 16:42 Drug: Rocephin 1 grams Route: IV; Rate: calculated rate; Site: left antecubital; aa5 16:45 Follow up: IV Status: Completed infusion ss Outcome: 16:47 Discharge ordered by MD. pm1 17:55 Discharged to home via wheelchair, with family. ss 17:55 Condition: good 17:55 Discharge instructions given to patient, Instructed on discharge instructions, follow up and referral plans. Demonstrated understanding of instructions, follow-up care. 17:56 Prescriptions given X 1. ss 17:56 Patient left the ED. ss Signatures: Wilma Tobias Audri, RN NORA aa5 Naida Crawford RN RN ss Harvey Duque NP RISK MANAGEMENT DIRECTOR pm1 Chanelle Varela RN RN ca1 Corrections: (The following items were deleted from the chart) 14:18 14:14 BP 100 / 49; Pulse 71bpm; Resp 16bpm; Spontaneous; Pulse Ox 92% RA; Temp 97.8F; ca1 96.16 kg Reported; Height 5 ft. 10 in. Reported; BMI: 30.4; Pain 0/10; ca1
--- NOTE | 2020-05-14 16:48 | EDPHYS ---
Physician Documentation [facility] Name: Valentin Veloz Age: 89 yrs Sex: Male : 1930 Arrival Date: 05/14/2020 Time: 14:07 Bed 2 Private MD: ED Physician Jt Camarillo HPI: 05/14 14:39 This 89 yrs old Male presents to ER via Wheelchair with complaints of pm1 Abnormal Lab Results. 14:39 Patient instructed to report to the ER for evaluation and treatment of his lab results. pm1 Patient had blood work and urine collected this AM at home by [employer] [facility]. Received a text that he has a low potassium level of 2.7 and also has a UTI. Patient without any complaints other than abnormal lab results. Historical: - Allergies: 14:18 Codeine; ca1 - PMHx: 14:18 CAD; CANCER - PROSTATE; CHF; COPD; Diabetes - NIDDM; High Cholesterol; Hypertension; ca1 Myocardial infarction; Pacemaker; - Immunization history:: Adult Immunizations up to date, Pneumococcal vaccine is up to date, Flu vaccine is up to date. - Social history:: Smoking status: Patient denies any tobacco usage or history of. ROS: 14:42 Constitutional: Negative for fever, chills, and weight loss, Neck: Negative for injury, pm1 pain, and swelling, Cardiovascular: Negative for chest pain, palpitations, and edema, Respiratory: Negative for shortness of breath, cough, wheezing, and pleuritic chest pain, Abdomen/GI: Negative for abdominal pain, nausea, vomiting, diarrhea, and constipation, Back: Negative for injury and pain. 14:42 MS/Extremity: Negative for injury and deformity, Skin: Negative for injury, rash, and discoloration, Neuro: Negative for headache, weakness, numbness, tingling, and seizure. 14:42 : Positive for A little burning at onset of urination. Has been ongoing for years, Negative for urinary frequency, difficulty urinating. Exam: 14:42 Constitutional: This is a well developed, well nourished patient who is awake, alert, pm1 and in no acute distress. Head/Face: Normocephalic, atraumatic. 14:42 Back: No spinal tenderness. No costovertebral tenderness. Full range of motion. Skin: Warm, dry with normal turgor. Normal color with no rashes, no lesions, and no evidence of cellulitis. MS/ Extremity: Pulses equal, no cyanosis. Neurovascular intact. Full, normal range of motion. 14:42 Cardiovascular: Exam negative for acute changes, Rate: normal, Rhythm: regular, Pulses: no pulse deficits are appreciated, Heart sounds: normal, Edema: is not appreciated. 14:42 Respiratory: Exam negative for acute changes, respiratory distress, shortness of breath, Breath sounds: are clear throughout. 14:42 Abdomen/GI: Inspection: abdomen appears normal, Palpation: abdomen is soft and non-tender, in all quadrants. 14:42 Neuro: Exam negative for acute changes, Orientation: is normal, Mentation: is normal, Motor: is normal, moves all fours. Vital Signs: 14:14 BP 100 / 49; Pulse 71; Resp 16 S; Temp 97.8; Pulse Ox 95% on R/A; Weight 96.16 kg (R); ca1 Height 5 ft. 10 in. (177.80 cm) (R); Pain 0/10; 14:34 BP 106 / 55; ss 15:46 BP 103 / 72; Pulse 74; Resp 16 S; Pulse Ox 92% on R/A; aa5 17:00 BP 114 / 70; Pulse 75; Resp 18 S; Pulse Ox 94% on R/A; aa5 14:14 Body Mass Index 30.42 (96.16 kg, 177.80 cm) ca1 MDM: 14:27 Patient medically screened. pm1 14:45 Data reviewed: vital signs. Data interpreted: Pulse oximetry: on room air is 95 %. pm1 Interpretation: normal. 15:36 Data reviewed: lab test result(s), electrolytes, serum bicarbonate, For the year of pm2019 patient's lab ranging between 33 and 41 prior today with 04/22/2020 being 41. Patient with CHF and COPD. Patient without any shortness of breath. Patient does not use any home O2. Advised patient to minimize mask wearing when he is in a safe environment to do so. 15:36 Data reviewed: lab test result(s), urine culture from 04/18/2020. Will treat with pm1 appropriate antibiotic from that culture pending a culture from today's visit. 15:49 Counseling: I had a detailed discussion with the patient and/or guardian regarding: the pm1 historical points, exam findings, and any diagnostic results supporting the discharge/admit diagnosis, lab results, the need for outpatient follow up, pending urine sample and infusion of potassium prior to discharge. 05/14 14:28 Order name: CMP; Complete Time: 15:18 pm1 05/14 14:28 Order name: CBC with Diff; Complete Time: 15:41 pm1 05/14 14:28 Order name: Urine Microscopic Only; Complete Time: 16:47 pm1 05/14 15:41 Order name: CBC Smear Scan; Complete Time: 15:41 EDMS 05/14 16:21 Order name: Urine Dipstick--Ancillary (enter results); Complete Time: 16:47 bd 05/14 16:47 Order name: Urine Culture [facility] 05/14 14:28 Order name: Urine Dipstick-Ancillary (obtain specimen); Complete Time: 16:46 pm1 05/14 14:28 Order name: IV Saline Lock; Complete Time: 14:41 pm1 Administered Medications: 15:43 Drug: Potassium Effervescent Tablet 50 mEq Route: PO; ss 16:47 Follow up: Response: No adverse reaction aa5 15:45 Drug: Potassium Chloride 20 mEq Route: IV; Rate: calculated rate; Site: left aa5 antecubital; 17:56 Follow up: IV Status: Completed infusion ss 15:52 Drug: NS 0.9% 500 ml Route: IV; Rate: 75 ml/hr; Site: left antecubital; aa5 17:56 Follow up: IV Status: IV converted to saline lock ss 16:42 Drug: Rocephin 1 grams Route: IV; Rate: calculated rate; Site: left antecubital; aa5 16:45 Follow up: IV Status: Completed infusion Disposition: 05/14/20 16:47 Discharged to Home. Impression: Hypokalemia, Urinary tract infection, site not specified. - Condition is Stable. - Discharge Instructions: Potassium Content of Foods, Urinary Tract Infection, Adult, Hypokalemia. - Prescriptions for Keflex 250 mg Oral Capsule - take 1 capsule by ORAL route every 6 hours for 10 days; 40 capsule. - Medication Reconciliation Form, Thank You Letter, Antibiotic Education, Prescription Opioid Use form. - Follow up: Emergency Department; When: As needed; Reason: Worsening of condition. Follow up: Private Physician; When: 2 - 3 days; Reason: Recheck today's complaints, Continuance of care, Re-evaluation by your physician. - Problem is new. - Symptoms have improved. Addendum: 05/19/2020 21:02 Co-signature as Attending Physician, Jt Camarillo MD Did not see or evaluate patient. p s1 Signature for administrative purposes. . Signatures: Dispatcher [employer] EDCO Sydnee Khan RN RN aa5 Naida Crawford RN RN ss Harvey Duque, MACHINE FELLER MACHINE FELLER pm1 Jt Camarillo MD MD ps1 Dallasob, Chanelle RN RN ca1 Corrections: (The following items were deleted from the chart) 05/14 17:56 16:47 05/14/2020 16:47 Discharged to Home. Impression: Hypokalemia; Urinary tract ss infection, site not specified. Condition is Stable. Forms are Medication Reconciliation Form, Thank You Letter, Antibiotic Education, Prescription Opioid Use. Follow up: Emergency Department; When: As needed; Reason: Worsening of condition. Follow up: Private Physician; When: 2 - 3 days; Reason: Recheck today's complaints, Continuance of care, Re-evaluation by your physician. Problem is new. Symptoms have improved. pm1 05/19 21:02 21:02 Co-signature as Attending Physician, Jt Camarillo MD ps1 ps1
[2020-05-14 23:40] VITALS: TEMP 97.8
[2020-05-14 23:55] VITALS: BP 114/70; O2SAT 94
== END 2020-05-14 17:56 | disposition home or self-care (01) ==
LOC: ER 14:05
DX: E87.6 Hypokalemia (principal); N39.0 Urinary tract infection, site not specified; I10 Essential (primary) hypertension; J44.9 Chronic obstructive pulmonary disease, unspecified; Z88.5 Allergy status to narcotic agent; Z95.0 Presence of cardiac pacemaker
CPT/HCPCS: 96365; 87088; 85025; 87086; 36415; 87077; 87186; 80053; 96375; 99284; 96366; J3480; J0696; J7040; 81003; 81015

== ENCOUNTER 2020-09-30 09:43 | Emergency (ER) | payer OTHER ==
--- OUTSIDE RECORDS SUMMARY | 2020-09-30 09:47 | XMS REPORT | Continuity of Care Document ---
:1930 Author Organization [facility] t Address [address] [place] [address] Care Team Providers Name Role Phone Doctor Unassigned, Name Attending Clinician Unavailable Daniel MAJOR Attending Clinician Blaine CHEEMA Attending Clinician SHAKIR DIAS Attending Clinician Unavailable SHAKIR DIAS [...] Date Quantity Comments Source Sex Assigned At [facility] Tobacco use and 2018-06-09 2018-06-09 Never used [facility] - exposure 00:00:00 00:00:00 [facility] Center Smoking Status Start Date Stop Date Source Former smoker 2018-06-09 00:00:00 2018-06-09 00:00:[address] [facility] Medications Ordered Filled Start Stop Current Ordering Indication Dosage Frequency Signature Comments Components Source Medication Medication Date Date Medication? Clinician (SIG) Name Name omega-3 2017-06 Yes 1g Q.5D Take 1 [...] daily with Me dical tablet 37 dinner. [place] simvastatin 2017-06 Yes 40mg QD Take [address] [facility] (ZOCOR) 40 2-20 by mouth [facility] MG tablet 21:08: nightly. [facility] tiffanie 37 [place] sotalol AF 2017-06 Yes 80mg Q.5D Take [address] (BETAPACE 2-20 by mouth 2 [facility] - AF) 80 MG 21:08: (two) Medical tablet 37 times Center daily. tamsulosin 2017-06 Yes .4mg QD Take 0.[address] [facility] (FLOMAX) 2-20 mg by [facility] - 0.4 mg Cap 21:08: mouth Medica l 24 hr 37 nightly. Center capsule aspirin 81 2017-06 Yes 81mg QD Take [address] MG EC 2-20 by mouth [facility] - tablet 21:08: daily. [facility] Center psyllium 2017-06 Yes .52g Q.5D Take 0.[address] [facility] 0.52 gram 2-20 g by mouth [facility] - capsule 21:08: 2 (two) Medical 37 times Center daily. DULoxetine 2017-06 Yes diabetic 60mg QD Take [address] [facility] (CYMBALTA) 2-20 peripheral by mouth [facility] - 60 MG 21:08: neuropathy daily. Medi tiffanie capsule 37 Center finasteride 2017-06 Yes benign 5mg QD Take [address] [facility] (PROSCAR) 5 2-20 prostatic by mouth [facility] - mg tablet 21:08: hyperplasia daily. Medical 37 with lower Center urinary tract sx calcium 2017-06 Yes 500mg QD Take [address] carbonate 2-20 tablet [facility] - (TUMS) 500 00:00: (500 mg Medi tiffanie mg chewable 00 total) by [facility] ter tablet mouth daily. acetaminoph 2017-06 [...] 00:00:00 (1 of 1 - Medical Center [id number] PCV13) [code = PNEUMOCOCCAL 65+ YRS (1 of 1 - [id number]_Bxdxjip PCV13)] Encounters Start End Encounter Admission Attending Care Care Encounter Source Date/Time Date/Time Type Type Clinicians Facility Department ID 2020-09-11 2020-09-11 Orders Doctor FLASH [id number] 00:00:00 00:00:00 Only Unassigned, ONI 350.1.13.10 [facility] [id number] 2020-09-10 2020-09-10 Telephone [facility] [id number] 00:00:00 00:00:00 Marcella Guerrero 350.1.13.10 [place] 4.2.7.2.686 [place] [id number] [address] 2020-09-09 2020-09-09 [facility] [id number] 00:00:00 00:00:00 Marcella Guerrero 350.1.13.10 [place] 4.2.7.2.686 Professio [id number] nal 059 [facility] 2020-08-15 2020-08-[address] [facility] [id number] 10:28:22 11:21:18 Visit Darrell Guerrero 350.1.13.10 [place] 4.2.7.2.686 Professio [id number] [facility] 085 [facility] Results Test Description Test Time Test Comments Results Result Comments Source POCT-GLUCOSE METER 2018-06-09 18:41:00 Test Item Value Reference Range Interpretation Comme nts POC-GLUCOSE METER (BEAKER) (test 148 mg/dL 70-110 H TESTED AT [facility] [address] [facility] code = 1538) [facility] 7703 0 TISSUE [id number] 16:35:00Surgical Pathology Report Case: [id number] Authorizing Provider: Haroldo Figueroa MD Collected: 06/08/2018 1444 Ordering Location: [facility] PERIOPERATIVE Received: 06/08/2018 1551 SERVICES Pathologist: Anny Chapman MD Specimen: Gallbladder GALLBLADDER, CHOLECYSTECTOMY: - 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 CG/ewPerformed. POCT-GLUCOSE [id number] 11:52:00 Test Item Value Reference Range Interpretation Comments POC-GLUCOSE METER 191 mg/dL 70-110 H TESTED AT [facility] 6720 (BEAKER) (test code = BERTNE R [facility] 1538) [address] POCT-GLUCOSE [id number] 08:05:00 Test Item Value Reference Range Interpretation Comments POC-GLUCOSE METER 219 mg/dL 70-110 H TESTED AT [facility] 6720 ([facility]) (test code = [place] 1538) [address] B-TYPE NATRIURETIC FACTOR (BNP)2018-06-09 07:22:00 Test Item Value Reference Range Interpretation Comments B-TYPE NATRIURETIC PEPTIDE ([facility]) 257 pg/mL 0-100 H (test code = 700) POCT-GLUCOSE [id number] 21:45:00 Test Item Value Reference Range Interpretation Comments POC-GLUCOSE METER 165 mg/dL 70-110 H TESTED AT [place] [address] ([facility]) (test code = [place] [facility] 1538) [address] RAD, CHEST, 1 VIEW, NON [id number] 18:25:00Reason for exam:->pacemaker check Should this be [...] MDReport Verified Date/Time: 06/08/2018 18:25:31 Reading Location: [address] Consult Reading Room -GLUCOSE [id number] 16:08:00 Test Item Value Reference Range Interpretation Comments POC-GLUCOSE METER 154 mg/dL 70-110 H TESTED AT [facility] 67 ([facility]) (test code = [place] [facility] 1538) [address] POCT-GLUCOSE [id number] 11:33:00 Test Item Value Reference Range Interpretation Comments POC-GLUCOSE METER 161 mg/dL 70-110 H TESTED AT [facility] 67 ([facility]) (test code = [place] [facility] 1538) [address] POCT-GLUCOSE [id number] 08:46:00 Test Item Value Reference Range Interpretation Comments POC-GLUCOSE METER 146 mg/dL 70-110 H TESTED AT [facility] 6720 (BEAKER) (test code = [place] 1538) [address] [id number] 07:15:00 Test Item Value Reference Range Interpretation Comments MAGNESIUM (BEAKER) 2.1 mg/dL 1.6-2.6 Specimen moderately (test code = 627) hemolyzed [id number] 07:15:00 Test Item Value Reference Range Interpretation Comments PHOSPHORUS (BEAKER) 3.4 mg/dL 2.3-4.7 Specimen moderately (test code = 604) hemolyzed BASIC METABOLIC [id number] 07:15:00 Test Item Value Reference Range Interpretation [...] APPLICABLE FOR DIALYSIS PATIEN TS. HEPATIC FUNCTION [id number] 07:15:00 Test Item Value Reference Range Interpretation Comments TOTAL PROTEIN (BEAKER) 6.1 gm/dL 6.0-8.3 Speci men moderately (test code = 770) hemolyzed ALBUMIN (BEAKER) (test 3.3 g/dL 3.5-5.0 L Speci men moderately code = 1145) hemolyzed BILIRUBIN TOTAL 1.2 mg/dL 0.2-1.2 Specimen mod erately ([facility]) (test code = hemoly zed 377) BILIRUBIN DIRECT 0.5 mg/dL 0.1-0.5 Specimen mo derately ([facility]) (test code = hemoly zed 706) ALKALINE PHOSPHATASE 129 U/L 40-150 (BEAKER) (test code = 346) AST (SGOT) (BEAKER) 29 U/L 5-34 Specimen moderately (test code = 353) hemolyzed ALT (SGPT) (AKER) 69 U/L 6-55 H Specimen moderately (test code = 347) hemolyzed PROTHROMBIN [id number] 07:14:00 Test Item Value Reference Range Interpretation Comments PROTIME ([facility]) (test code = 14.1 seconds 11.7-14.7 759) INR (AKER) (test code = 370) 1.1 <=5.9 RECOMMENDED COUMADIN/WARFARIN INR THERAPY RANGESSTANDARD DOSE: 2.0 - 3.0 Includes: PROPHYLAXIS forvenous thrombosis, systemic embolization; TREATMENT for venous thrombosis and/or pulmonary embolus.HIGH RISK: Target INR is 2.5-3.5 for patients with mechanical heart valves.POCT-GLUCOSE [id number] 07:06:00 Test Item Value Reference Range Interpretation Comments POC-GLUCOSE METER 179 mg/dL 70-110 H TESTED AT [facility] 6720 ([facility]) (test code = [place] 1538) [address] CBC W/PLT COUNT & AUTO [id number] 06:58:00 Test Item Value Reference Range Interpretation Comments WHITE BLOOD CELL COUNT (AKER) 9.0 K/ L 3.5-10.5 (test code = 775) RED BLOOD CELL COUNT (AKER) 5.09 M/ L 4.63-6.08 (test code = 761) HEMOGLOBIN (BEAKER) (test code = 14.7 GM/DL 13.7-17.5 410) HEMATOCRIT ([facility]) (test code = 46.7 % 40.1-51.0 411) MEAN CORPUSCULAR VOLUME ([facility]) 91.7 fL 79.0-92.2 (test code = 753) [...] 0-1 H PERCENT (BEAKER) (test code = 2804) POCT-GLUCOSE [id number] 21:03:00 Test Item Value Reference Range Interpretation Comments POC-GLUCOSE METER 142 mg/dL 70-110 H TESTED AT [facility] 6720 (BEAKER) (test code = [place]AMONIQUE [place] 1538) [address] [id number] 19:39:00 Test Item Value Reference Range Interpretation Comments PHOSPHORUS (BEAKER) (test code = 2.2 mg/dL 2.3-4.7 L 604) [id number] 19:39:00 Test Item Value Reference Range Interpretation Comments MAGNESIUM (BEAKER) (test code = 1.8 mg/dL 1.6-2.6 627) BASIC METABOLIC [id number] 19:39:00 Test Item Value Reference Range Interpretation [...] APPLICABLE FOR DIALYSIS PATIEN TS. HEPATIC FUNCTION [id number] 19:39:00 Test Item Value Reference Range Interpretation [...] = 71 U/L 6-55 H 347) PROTHROMBIN [id number] 19:34:00 Test Item Value Reference Range Interpretation [...] IMMATURE GRANULOCYTES-RELATIVE 3 % 0-1 H PERCENT (AKER) (test code = 2801) POCT-GLUCOSE [id number] 17:55:00 Test Item Value Reference Range Interpretation Comments POC-GLUCOSE METER 305 mg/dL 70-110 H Notified R Levar MAJOR/TESTED ([facility]) (test code = AT [address] 1538) [facility] 7[address] 0 POCT-GLUCOSE [id number] 11:56:00 Test Item Value Reference Range Interpretation Comments POC-GLUCOSE METER 137 mg/dL 70-110 H TESTED AT [place] [address] ([facility]) (test code = [place] [facility] 1538) [address] POCT-GLUCOSE [id number] 09:01:00 Test Item Value Reference Range Interpretation Comments POC-GLUCOSE METER 158 mg/dL 70-110 H TESTED AT [place] [address] ([facility]) (test code = [place] [facility] 1538) [address] BLOOD [id number] 05:00:00 Test Item Value Reference Range Interpretation Comments CULTURE (BEAKER) (test No growth in 5 days code = 1095) BLOOD [id number] 05:00:00 Test Item Value Reference Range Interpretation Comments CULTURE (BEAKER) (test No growth in 5 days code = 1095) POCT-GLUCOSE [id number] 21:31:00 Test Item Value Reference Range Interpretation Comments POC-GLUCOSE METER 297 mg/dL 70-110 H TESTED AT [place] [address] ([facility]) (test code = [place] [facility] 1538) [address] POCT-GLUCOSE [id number] 17:26:00 Test Item Value Reference Range Interpretation Comments POC-GLUCOSE METER 154 mg/dL 70-110 H TESTED AT [place] [address] ([facility]) (test code = [place] 1538) [address] POCT-GLUCOSE [id number] 15:17:00 Test Item Value Reference Range Interpretation Comments POC-GLUCOSE METER 154 mg/dL 70-110 H TESTED AT [facility] 6720 (BEAKER) (test code = [place] 1538) [address] [place], [id number] 13:54:00INTRA OP IMAGINGReason for exam:->ABNORMAL IMAGING FINAL REPORT ERCP 4 views 06/06/2018 1:49 PM CLINICAL HISTORY: Instrument localization COMPARISON: None available IMPRESSION: Please correlate imaging report findings with the procedure note prepared by Dr. Hinojosa, as an intra-procedure imaging consultation was not requested. Reported fluoroscopy time: 91.0 seconds. Signed: Yunier Esparza Verified Date/Time: 06/06/2018 13:54:44 Reading Location: [facility] Radiology Reading Room COMPREHENSIVE METABOLIC [id number] 11:44:00 Test Item Value Reference Range Interpretation [...] NOT APPLICABLE FOR DIALYSIS PATIEN TS. POCT-GLUCOSE [id number] 08:58:00 Test Item Value Reference Range Interpretation Comments POC-GLUCOSE METER 174 mg/dL 70-110 H TESTED AT [place] [address] ([facility]) (test code = [facility] 1538) [address] CBC (HEMOGRAM ONLY)2018-06-06 06:47:00 Test Item Value [...] 0-0 (BEAKER) (test code = 413) POCT-GLUCOSE [id number] 21:43:00 Test Item Value Reference Range Interpretation Comments POC-GLUCOSE METER 213 mg/dL 70-110 H TESTED AT [place] [address] ([facility]) (test code = [facility] 1538) [address] POCT-GLUCOSE [id number] 18:37:00 Test Item Value Reference Range Interpretation Comments POC-GLUCOSE METER 144 mg/dL 70-110 H TESTED AT [place] [address] ([facility]) (test code = [place] [facility] 1538) [address] POCT-GLUCOSE [id number] 12:41:00 Test Item Value Reference Range Interpretation Comments POC-GLUCOSE METER 171 mg/dL 70-110 H TESTED AT [place] [address] ([facility]) (test code = [place] [facility] 1538) [address] POCT-GLUCOSE [id number] 08:33:00 Test Item Value Reference Range Interpretation Comments POC-GLUCOSE METER 165 mg/dL 70-110 H TESTED AT [place] [address] ([facility]) (test code = [place] [facility] 1538) [address] POCT-GLUCOSE [id number] 08:27:00 Test Item Value Reference Range Interpretation Comments POC-GLUCOSE METER 165 mg/dL 70-110 H TESTED AT [place] [address] ([facility]) (test code = [facility] Ana [facility] 1538) [address] VANCOMYCIN LEVEL, [id number] 07:59:00 Test Item Value Reference Range Interpretation Comments VANCOMYCIN TROUGH ([facility]) (test 15.0 ug/mL 10.0-20.0 code = 522) CBC (HEMOGRAM ONLY)2018-06-05 06:50:00 Test Item Value Reference Range Interpretation Comments WHITE BLOOD CELL COUNT ([facility]) 7.3 K/ L 3.5-10.5 (test code = 775) RED BLOOD CELL COUNT ([facility]) 5.05 M/ L 4.63-6.08 (test code = 761) HEMOGLOBIN ([facility]) (test code = 14.6 GM/DL 13.7-17.5 410) HEMATOCRIT ([facility]) (test code = 45.6 % 40.1-51.0 411) MEAN CORPUSCULAR VOLUME ([facility]) 90.3 fL 79.0-92.2 (test code = 753) MEAN CORPUSCULAR HEMOGLOBIN 28.9 pg 25.7-32.2 ([facility]) (test code = 751) MEAN CORPUSCULAR HEMOGLOBIN [...] (BEAKER) (test code = 413) COMPREHENSIVE METABOLIC [id number] 05:48:00 Test Item Value Reference Range Interpretation [...] NOT APPLICABLE FOR DIALYSIS PATIEN TS. POCT-GLUCOSE [id number] 21:00:00 Test Item Value Reference Range Interpretation Comments POC-GLUCOSE METER 204 mg/dL 70-110 H TESTED AT [facility] 6720 ([facility] (test code = [place] [facility] 1538) [address] POCT-GLUCOSE [id number] 17:17:00 Test Item Value Reference Range Interpretation Comments POC-GLUCOSE METER 156 mg/dL 70-110 H TESTED AT [place] [address] ([facility]) (test code = [place]IT[place] [facility] 1538) [address] POCT-GLUCOSE [id number] 12:42:00 Test Item Value Reference Range Interpretation Comments POC-GLUCOSE METER 201 mg/dL 70-110 H TESTED AT [place] [address] ([facility]) (test code = [facility]IT[place] [facility] 1538) [address] POCT-GLUCOSE [id number] 08:34:00 Test Item Value Reference Range Interpretation Comments POC-GLUCOSE METER 150 mg/dL 70-110 H TESTED AT [place] [address] ([facility]) (test code = [facility] Ana [facility] 1538) [address] BASIC METABOLIC [id number] 05:20:00 Test Item Value Reference Range Interpretation [...] 0-0 (BEAKER) (test code = 413) POCT-GLUCOSE [id number] 20:49:00 Test Item Value Reference Range Interpretation Comments POC-GLUCOSE METER 219 mg/dL 70-110 H TESTED AT [place] [address] ([facility]) (test code = [place] [facility] 1538) [address] POCT-GLUCOSE [id number] 16:44:00 Test Item Value Reference Range Interpretation Comments POC-GLUCOSE METER 148 mg/dL 70-110 H TESTED AT [place] [address] ([facility]) ([facility] = [facility] 1538) [address] POCT-GLUCOSE [id number] 12:31:00 Test Item Value Reference Range Interpretation Comments POC-GLUCOSE METER 206 mg/dL 70-110 H TESTED AT [place] [address] ([facility]) (test [facility] = [facility] 1538) [address] CBC W/PLT COUNT & AUTO [id number] 08:49:00 Test Item Value Reference Range Interpretation [...] PERCENT (BEAKER) (test code = 2801) POCT-GLUCOSE [id number] 08:22:00 Test Item Value Reference Range Interpretation Comments POC-GLUCOSE METER 158 mg/dL 70-110 H TESTED AT [facility] 6720 (BEAKER) (test code = [place] 1538) [address] VANCOMYCIN LEVEL, [id number] 07:54:00 Test Item Value Reference Range Interpretation Comments VANCOMYCIN TROUGH (BEAKER) (test 10.9 ug/mL 10.0-20.0 code = 522) BASIC METABOLIC [id number] 07:49:00 Test Item Value Reference Range Interpretation [...] DIALYSIS PATIEN TS. Specimen slightly ictericHEPATIC FUNCTION [id number] 07:49:00 Test Item Value Reference Range Interpretation [...] U/L 6-55 H 347) Specimen slightly ictericPOCT-GLUCOSE [id number] 21:25:00 Test Item Value Reference Range Interpretation Comments POC-GLUCOSE METER 223 mg/dL 70-110 H TESTED AT [facility] 67 ([facility]) (test code = [place] 1538) [address] POCT-GLUCOSE [id number] 17:09:00 Test Item Value Reference Range Interpretation Comments POC-GLUCOSE METER 161 mg/dL 70-110 H TESTED AT [place] [address] ([facility]) (test code = [facility] 1538) [address] POCT-GLUCOSE [id number] 10:58:00 Test Item Value Reference Range Interpretation Comments POC-GLUCOSE METER 113 mg/dL 70-110 H TESTED AT [place] [address] ([facility]) (test code = [place] 1538) [address] CBC W/PLT COUNT & AUTO [id number] 09:48:00 Test Item Value Reference Range Interpretation [...] PERCENT (BEAKER) (test code = 2801) POCT-GLUCOSE [id number] 08:08:00 Test Item Value Reference Range Interpretation Comments POC-GLUCOSE METER 175 mg/dL 70-110 H TESTED AT [facility] 6720 (BEAKER) (test code = [place]IT[place] Perez [facility] 1538) [address] BASIC METABOLIC [id number] 05:28:00 Test Item Value Reference Range Interpretation [...] DIALYSIS PATIEN TS. Specimen slightly ictericHEPATIC FUNCTION [id number] 05:28:00 Test Item Value Reference Range Interpretation [...] code = 347) hemolyzed Specimen slightly ictericFL, [id number] 00:14:00Reason for exam:->CHOLEDOCHOLITHIASISFINAL REPORT ERCP: Comparison exam: [...] [place] Verified Date/Time: 06/02/2018 00:14:16 Reading Location: [address] Reading Room POCT-GLUCOSE [id number] 23:14:00 Test Item Value Reference Range Interpretation Comments POC-GLUCOSE METER 176 mg/dL 70-110 H TESTED AT [place] [address] ([facility]) (test code = [place] 1538) [address] LACTIC ACID, VENOUS, WHOLE [id number] 17:47:00 Test Item Value Reference Range Interpretation Comments LACTATE BLOOD VENOUS 2.4 mmol/L 0.5-2.2 H Specime n slightly (2) ([facility]) (test hemolyzed code = 2872) Specimen slightly ictericPOCT-GLUCOSE [id number] 17:31:00 Test Item Value Reference Range Interpretation Comments POC-GLUCOSE METER 219 mg/dL 70-110 H TESTED AT [place] [address] ([facility]) (test code = VIT[place] Perez [facility] 1538) [address] POCT-GLUCOSE [id number] 13:48:00 Test Item Value Reference Range Interpretation Comments POC-GLUCOSE METER 209 mg/dL 70-110 H TESTED AT [place] [address] ([facility]) (test code = [facility]IT[place] Perez [facility] 1538) [address] CBC W/PLT COUNT & AUTO [id number] 08:21:00 Test Item Value Reference Range Interpretation Comments WHITE BLOOD CELL COUNT (AKER) 21.6 K/ L 3.5-10.5 H (test code [...] Received comment: User comments: Slide comments:BASIC METABOLIC [id number] 08:12:00 Test Item Value Reference Range Interpretation [...] DIALYSIS PATIEN TS. Specimen moderately ictericHEPATIC FUNCTION [id number] 08:12:00 Test Item Value Reference Range Interpretation [...] U/L 6-55 H 347) Specimen moderately ictericPOCT-GLUCOSE [id number] 06:47:00 Test Item Value Reference Range Interpretation Comments POC-GLUCOSE METER 222 mg/dL 70-110 H TESTED AT [facility] 6720 (BEAKER) (test code = [place] 1538) [address]
--- NOTE | 2020-09-30 10:49 | ER ---
Nurse's Notes [facility] Name: Valentin Veloz Age: 89 yrs Sex: Male : 1930 Arrival Date: 09/30/2020 Time: 09:56 Bed 17 Private MD: Diagnosis: Postprocedural hemorrhage and hematoma of a genitourinary system organ or structure following other procedure-Bleeding from circumcision Presentation: 09/30 10:11 Chief complaint: Patient's son or daughter states: he had circumcision done 09/26/2020 to ca1 prevent frequent UTIs. The caregiver noticed bleeding on the surgical site this morning. Pt denies pain. Coronavirus screen: Client denies travel out of the [place] in the last 14 days. At this time, the client does not indicate any symptoms associated with coronavirus-19. Ebola Screen: Patient negative for fever greater than or equal to 101.5 degrees Fahrenheit, and additional compatible Ebola Virus Disease symptoms Patient denies exposure to infectious person. Patient denies travel to an Ebola-affected area in the 21 days before illness onset. No symptoms or risks identified at this time. Initial Sepsis Screen: Does the patient meet any 2 criteria? No. Patient's initial sepsis screen is negative. Does the patient have a suspected source of infection? No. Patient's initial sepsis screen is negative. Risk Assessment: Do you want to hurt yourself or someone else? Patient reports no desire to harm self or others. Onset of symptoms was September 30, 2020. 10:11 Method Of Arrival: Wheelchair ca1 10:11 Acuity: EMILY 3 ca1 Historical: - Allergies: 10:14 Codeine; ca1 - PMHx: 10:14 CAD; CANCER - PROSTATE; CHF; COPD; Diabetes - NIDDM; High Cholesterol; Hypertension; ca1 Myocardial infarction; Pacemaker; - PSHx: 10:14 Cholecystectomy; Knee surgery; back surgery; ca1 - Immunization history:: Client reports receiving the 2nd dose of the Covid vaccine, Client reports receiving the 1st dose of the Covid vaccine, . - Social history:: Smoking status: Patient/guardian denies using tobacco, the patient reports quitting approximately 20 years ago. Screenin:48 Abuse screen: Denies threats or abuse. Nutritional screening: No deficits noted. jd3 Tuberculosis screening: No symptoms or risk factors identified. Fall Risk Ambulatory Aid- None/Bed Rest/Nurse Assist (0 pts). Gait- Normal/Bed Rest/Wheelchair (0 pts) Mental Status- Oriented to own ability (0 pts). Total [place] Fall Scale indicates No Risk (0-24 pts). Assessment: 10:43 General: Appears in no apparent distress. comfortable, Behavior is calm, cooperative, jd3 appropriate for age. Pain: Denies pain. Neuro: Level of Consciousness is awake, alert, obeys commands, Oriented to person, place, time, situation. Cardiovascular: Denies chest pain, Capillary refill < 3 seconds Patient's skin is warm and dry. Respiratory: Airway is patent Respiratory effort is even, unlabored, Respiratory pattern is regular, symmetrical, Denies cough, shortness of breath. GI: No signs and/or symptoms were reported involving the gastrointestinal system. : Reports bleeding on the penis from recent surgical sight. bleeding stopped with pressure. site cleaned by Harvey LAW. EENT: No signs and/or symptoms were reported regarding the EENT system. Derm: Skin is intact, Skin is dry, Skin is normal, Skin temperature is warm. Musculoskeletal: Circulation, motion, and sensation intact. Range of motion: intact in all extremities. 11:02 Reassessment: Patient appears in no apparent distress at this time. Patient and/or jd3 family updated on plan of care and expected duration. Pain level reassessed. Patient is alert, oriented x 3, equal unlabored respirations, skin warm/dry/pink. Vital Signs: 10:11 BP 124 / 71; Pulse 74; Resp 16 S; Temp 97.6(O); Pulse Ox 96% on R/A; Weight 86.18 kg ca1 (R); Height 5 ft. 9 in. (175.26 cm) (R); Pain 0/10; 10:11 Body Mass Index 28.06 (86.18 kg, 175.26 cm) ca1 ED Course: 09:56 Patient arrived in ED. am2 10:06 Harvey Duque NP is PHCP. pm1 10:06 Austyn Padilla MD is Attending Physician. pm1 10:07 Ramón Rojas RN is Primary Nurse. jd3 10:13 Triage completed. ca1 10:14 Arm band placed on right wrist. ca1 10:48 Patient has correct armband on for positive identification. Bed in low position. Call jd3 light in reach. Side rails up X 1. Adult w/ patient. Pulse ox on. NIBP on. 11:01 No provider procedures requiring assistance completed. Patient did not have IV access jd3 during this emergency room visit. Administered Medications: No medications were administered Outcome: 10:48 Discharge ordered by . pm1 11:01 Discharged to home via wheelchair, with family. jd3 11:01 Condition: stable 11:01 Discharge instructions given to patient, family, Instructed on discharge instructions, follow up and referral plans. Demonstrated understanding of instructions, follow-up care. 11:02 Patient left the ED. jd3 Signatures: Harvey Duque NP [employer] pm1 Maura Lyman am2 Ramón Rojas RN RN jd3 Chanelle Varela RN RN ca1
--- NOTE | 2020-09-30 10:50 | EDPHYS ---
Physician Documentation [facility] Name: Valentin Veloz Age: 89 yrs Sex: Male : 1930 Arrival Date: 09/30/2020 Time: 09:56 Bed 17 Private MD: JJ Physician Austyn Padilla HPI: 09/30 10:46 This 89 yrs old Male presents to ER via Wheelchair with complaints of Penile pm1 Bleeding. 10:46 The patient presents with bleeding from penis after circumcision. Onset: The pm1 symptoms/episode began/occurred today. Modifying factors: The symptoms are alleviated by nothing, the symptoms are aggravated by nothing. Associated signs and symptoms: Pertinent negatives: abdominal pain, dysuria, fever. Severity of symptoms: in the emergency department the symptoms are unchanged. The patient has not experienced similar symptoms in the past. Patient with circumcision on 09/26/2020. Caregiver noticed bleeding from his penis this morning. Historical: - Allergies: 10:14 Codeine; ca1 - PMHx: 10:14 CAD; CANCER - PROSTATE; CHF; COPD; Diabetes - NIDDM; High Cholesterol; Hypertension; ca1 Myocardial infarction; Pacemaker; - PSHx: 10:14 Cholecystectomy; Knee surgery; back surgery; ca1 - Immunization history:: Client reports receiving the 2nd dose of the Covid vaccine, Client reports receiving the 1st dose of the Covid vaccine, . - Social history:: Smoking status: Patient/guardian denies using tobacco, the patient reports quitting approximately 20 years ago. ROS: 10:46 Constitutional: Negative for fever, chills, and weight loss, Cardiovascular: Negative pm1 for chest pain, palpitations, and edema, Respiratory: Negative for shortness of breath, cough, wheezing, and pleuritic chest pain, Abdomen/GI: Negative for abdominal pain, nausea, vomiting, diarrhea, and constipation. 10:46 MS/Extremity: Negative for injury and deformity, Skin: Negative for injury, rash, and discoloration, Neuro: Negative for headache, weakness, numbness, tingling, and seizure. 10:46 : Positive for bleeding from penis. Exam: 10:46 Constitutional: This is a well developed, well nourished patient who is awake, alert, pm1 and in no acute distress. Head/Face: Normocephalic, atraumatic. 10:46 Cardiovascular: Exam negative for acute changes, Rate: normal, Rhythm: regular, Pulses: no pulse deficits are appreciated. Vital Signs: 10:11 BP 124 / 71; Pulse 74; Resp 16 S; Temp 97.6(O); Pulse Ox 96% on R/A; Weight 86.18 kg ca1 (R); Height 5 ft. 9 in. (175.26 cm) (R); Pain 0/10; 10:11 Body Mass Index 28.06 (86.18 kg, 175.26 cm) ca1 MDM: 10:08 Patient medically screened. pm1 10:46 Data reviewed: vital signs. Data interpreted: Pulse oximetry: on room air is 96 %. pm1 Interpretation: normal. Counseling: I had a detailed discussion with the patient and/or guardian regarding: the historical points, exam findings, and any diagnostic results supporting the discharge/admit diagnosis, the need for outpatient follow up, a urologist, to return to the emergency department if symptoms worsen or persist or if there are any questions or concerns that arise at home. Administered Medications: No medications were administered Disposition: 09/30/20 10:48 Discharged to Home. Impression: Postprocedural hemorrhage and hematoma of a genitourinary system organ or structure following other procedure - Bleeding from circumcision. - Condition is Stable. - Discharge Instructions: Circumcision, Adult, Care After. - Medication Reconciliation Form, Thank You Letter, Antibiotic Education, Prescription Opioid Use form. - Follow up: Emergency Department; When: As needed; Reason: Worsening of condition. Follow up: Private Physician; When: 2 - 3 days; Reason: Recheck today's complaints, Continuance of care, Re-evaluation by your physician. - Problem is new. - Symptoms have improved. Addendum: 10/02/2020 06:38 Co-signature as Attending Physician, Austyn Padilla MD I agree with the assessment and c zavala plan of care. Signatures: Austyn Padilla MD MD cha Marinas, Patrick, NP [employer] pm1 Ramón Rojas, RN RN jd3 Chanelle Varela RN RN ca1 Corrections: (The following items were deleted from the chart) 09/30 11:02 10:48 09/30/2020 10:48 Discharged to Home. Impression: Postprocedural hemorrhage and jd3 hematoma of a genitourinary system organ or structure following other procedure - Bleeding from circumcision. Condition is Stable. Forms are Medication Reconciliation Form, Thank You Letter, Antibiotic Education, Prescription Opioid Use. Follow up: Emergency Department; When: As needed; Reason: Worsening of condition. Follow up: Private Physician; When: 2 - 3 days; Reason: Recheck today's complaints, Continuance of care, Re-evaluation by your physician. Problem is new. Symptoms have improved. pm1
[2020-09-30 11:07] VITALS: BP 124/71; TEMP 97.6; O2SAT 96
== END 2020-09-30 11:02 | disposition home or self-care (01) ==
LOC: ER 09:43
DX: N99.821 Postprocedural hemorrhage of a genitourinary system organ or structure following other procedure (principal); N99.841 Postprocedural hematoma of a genitourinary system organ or structure following other procedure; I10 Essential (primary) hypertension; Z88.5 Allergy status to narcotic agent; Z85.46 Personal history of malignant neoplasm of prostate; Z95.0 Presence of cardiac pacemaker
CPT/HCPCS: 99283

== ENCOUNTER 2020-12-22 13:35 | Emergency (ER) | payer OTHER ==
--- OUTSIDE RECORDS SUMMARY | 2020-12-22 14:07 | XMS REPORT | Continuity of Care Document ---
:1930 Author Organization [facility] t Address [address] [place] [address] Care Team Providers Name Role Phone Doctor [...] Tobacco use and 2018-06-09 2018-06-09 Never used [facility] - exposure 00:00:00 00:00:00 [facility] Smoking Status Start Date Stop Date Source Former smoker 2018-06-09 00:00:00 2018-06-09 00:00:[address] [facility] Medications Ordered Filled [...] daily with Me dical tablet 37 dinner. [facility] simvastatin 2017-06 Yes 40mg QD Take [address] [facility] (ZOCOR) 40 2-20 by mouth [facility] tablet 21:08: nightly. [facility] tiffanie 37 [facility] sotalol AF 2017-06 Yes 80mg Q.5D Take [...] Medi tiffanie mg chewable 00 total) by [facility] ter tablet mouth daily. acetaminoph [...] 00:00:00 (1 of 1 - Medical Center [id number] PCV13) [code = PNEUMOCOCCAL 65+ YRS (1 of 1 - WVXG37_Pmbvddx PCV13)] Encounters Start End Encounter Admission Attending Care Care Encounter Source Date/Time Date/Time Type Type Clinicians Facility Department ID 2020-11-12 2020-11-12 Orders Doctor VIDALES [id number] 00:00:00 00:00:00 Only Unassigned, ONI 350.1.13.10 [facility] 4.2.7.2.686 [id number] 2020-09-11 2020-09-11 Orders Doctor VIDALES [id number] 00:00:00 00:00:00 Only Unassigned, ONI 350.1.13.10 [facility] 4.2.7.2.686 [id number] 2020-09-10 2020-09-10 Telephone [facility] [id number] 00:00:00 00:00:00 Marcella Guerrero 350.1.13.10 [place] 4.2.7.2.686 Professio [phone] nal 059 [facility] 2020-09-09 2020-09-09 [facility] [id number] 00:00:00 00:00:00 Marcella Guerrero 350.1.13.10 [place] 4.2.7.2.686 Professio [phone] nal 059 [facility] 2020-08-15 2020-08-15 [facility] [id number] 10:28:22 11:21:18 Visit Darrell Guerrero 350.1.13.10 [place] 4.2.7.2.686 Professio [phone] [facility] Results Test Description Test Time Test Comments Results Result Comments Source POCT-GLUCOSE METER 2018-06-09 18:41:00 Test Item Value Reference Range Interpretation Comme [facility] POC-GLUCOSE METER (Netaplan) (test 148 mg/dL 70-110 H TESTED AT [facility] [address] [facility] 1538) [facility] 7703 0 TISSUE [id number] 16:35:00Surgical Pathology Report Case: [id number] Authorizing Provider: Haroldo Figueroa MD Collected: 06/08/2018 1444 Ordering Location: [facility] Received: 06/08/2018 1551 SERVICES Pathologist: Anny Chapman MD Specimen: Gallbladder GALLBLADDER, CHOLECYSTECTOMY: - MARKED ACUTE AND CHRONIC CHOLECYSTITIS - CHOLELITHIASIS Signing Pathologist Direct Phone Line: [phone] signed by Anny Chapman MD on 06/09/2018 [...] en face; A2, gallbladder wall. CG/ewPerformed. POCT-GLUCOSE [id number] 11:52:00 Test Item Value Reference Range Interpretation Comments POC-GLUCOSE METER 191 mg/dL 70-110 H TESTED AT [place] [address] ([facility]) (test code = VITOR Perez [facility] 1538) [address] POCT-GLUCOSE [id number] 08:05:00 Test Item Value Reference Range Interpretation Comments POC-GLUCOSE METER 219 mg/dL 70-110 H TESTED AT [place] [address] ([facility]) (test code = RADHAOR [place] [facility] 1538) [address] B-TYPE NATRIURETIC FACTOR (BNP)2018-06-09 07:22:00 Test Item Value Reference Range Interpretation Comments B-TYPE NATRIURETIC PEPTIDE ([facility]) 257 pg/mL 0-100 H (test code = 700) POCT-GLUCOSE [id number] 21:45:00 Test Item Value Reference Range Interpretation Comments POC-GLUCOSE METER 165 mg/dL 70-110 H TESTED AT [place] [address] ([facility]) (test code = RADHAOR Ana [facility] 1538) [address] RAD, CHEST, 1 VIEW, NON [id number] 18:25:00Reason for exam:->pacemaker check Should this be performed at the bedside?->YesFINAL REPORT Chest, 1 view Clinical history: pacemaker check Comparison: None Discussion: 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 There is no pneumothorax. Small bilateral pleural effusions are seen with bibasilar atelectasis or airspace disease. The cardiac silhouette is enlarged with asymmetric left-sided perihilar edema. No acute osseous abnormality. Signed: Chris Edmond [facility] Verified Date/Time: 06/08/2018 18:25:31 Reading Location: [address] Consult Reading Room -GLUCOSE [id number] 16:08:00 Test Item Value Reference Range Interpretation Comments POC-GLUCOSE METER 154 mg/dL 70-110 H TESTED AT [place] [address] ([facility]) (test code = [facility] Ana [facility] 1538) [address] POCT-GLUCOSE [id number] 11:33:00 Test Item Value Reference Range Interpretation Comments POC-GLUCOSE METER 161 mg/dL 70-110 H TESTED AT [facility] 6720 (BEAKER) (test code = VITOR Perez [facility] 1538) [address] POCT-GLUCOSE [id number] 08:46:00 Test Item Value Reference Range Interpretation Comments POC-GLUCOSE METER 146 mg/dL 70-110 H TESTED AT [facility] 6720 (BEAKER) (test code = VITOR Perez [facility] 1538) [address] [id number] 07:15:00 Test Item Value Reference Range Interpretation Comments MAGNESIUM (BEAKER) 2.1 mg/dL 1.6-2.6 Specimen moderately (test code = 627) hemolyzed [id number] 07:15:00 Test Item Value Reference Range Interpretation Comments PHOSPHORUS (BEAKER) 3.4 mg/dL 2.3-4.7 Specimen moderately (test code = 604) hemolyzed BASIC METABOLIC [id number] 07:15:00 Test Item Value Reference Range Interpretation [...] APPLICABLE FOR DIALYSIS PATIEN TS. HEPATIC FUNCTION [id number] 07:15:00 Test Item Value Reference Range Interpretation [...] moderately (test code = 347) hemolyzed PROTHROMBIN [id number] 07:14:00 Test Item Value Reference Range Interpretation Comments PROTIME (BEAKER) (test code = 14.1 seconds 11.7-14.7 759) INR (BEAKER) (test code = 370) 1.1 <=5.9 RECOMMENDED COUMADIN/WARFARIN INR THERAPY RANGESSTANDARD DOSE: 2.0 - 3.0 Includes: PROPHYLAXIS forvenous thrombosis, systemic embolization; TREATMENT for venous thrombosis and/or pulmonary embolus.HIGH RISK: Target INR is 2.5-3.5 for patients with mechanical heart valves.POCT-GLUCOSE [id number] 07:06:00 Test Item Value Reference Range Interpretation Comments POC-GLUCOSE METER 179 mg/dL 70-110 H TESTED AT [facility] 6720 ([facility]) (test code = VITOR Perez [place] 1538) [address] CBC W/PLT COUNT & AUTO [id number] 06:58:00 Test Item Value Reference Range Interpretation [...] 0-1 H PERCENT (BEAKER) (test code = 2803) POCT-GLUCOSE [id number] 21:03:00 Test Item Value Reference Range Interpretation Comments POC-GLUCOSE METER 142 mg/dL 70-110 H TESTED AT [facility] 6720 (BEAKER) (test code = VITOR [place] 1538) [address] [id number] 19:39:00 Test Item Value Reference Range Interpretation Comments PHOSPHORUS (BEAKER) (test code = 2.2 mg/dL 2.3-4.7 L 604) [id number] 19:39:00 Test Item Value Reference Range Interpretation Comments MAGNESIUM (BEAKER) (test code = 1.8 mg/dL 1.6-2.6 627) BASIC METABOLIC [id number] 19:39:00 Test Item Value Reference Range Interpretation [...] APPLICABLE FOR DIALYSIS PATIEN TS. HEPATIC FUNCTION [id number] 19:39:00 Test Item Value Reference Range Interpretation [...] = 71 U/L 6-55 H 347) PROTHROMBIN [id number] 19:34:00 Test Item Value Reference Range Interpretation [...] PERCENT (BEAKER) (test code = 2801) POCT-GLUCOSE [id number] 17:55:00 Test Item Value Reference Range Interpretation Comments POC-GLUCOSE METER 305 mg/dL 70-110 H Notified R Levar MAJOR/TESTED ([facility]) (test code = AT [address] 1538) [facility] 7703 0 POCT-GLUCOSE [id number] 11:56:00 Test Item Value Reference Range Interpretation Comments POC-GLUCOSE METER 137 mg/dL 70-110 H TESTED AT [place] [address] ([facility]) (test code = VITOR Perez [facility] 1538) [address] POCT-GLUCOSE [id number] 09:01:00 Test Item Value Reference Range Interpretation Comments POC-GLUCOSE METER 158 mg/dL 70-110 H TESTED AT [place] [address] ([facility]) (test code = VITOR Perez [facility] 1538) [address] BLOOD [id number] 05:00:00 Test Item Value Reference Range Interpretation Comments CULTURE (BEAKER) (test No growth in 5 days code = 1095) BLOOD [id number] 05:00:00 Test Item Value Reference Range Interpretation Comments CULTURE (BEAKER) (test No growth in 5 days code = 1095) POCT-GLUCOSE [id number] 21:31:00 Test Item Value Reference Range Interpretation Comments POC-GLUCOSE METER 297 mg/dL 70-110 H TESTED AT [place] [address] ([facility]) (test code = VITOR Perez [facility] 1538) [address] POCT-GLUCOSE [id number] 17:26:00 Test Item Value Reference Range Interpretation Comments POC-GLUCOSE METER 154 mg/dL 70-110 H TESTED AT [facility] 6720 (BEAKER) (test code = [place] 1538) [address] POCT-GLUCOSE [id number] 15:17:00 Test Item Value Reference Range Interpretation Comments POC-GLUCOSE METER 154 mg/dL 70-110 H TESTED AT [facility] 6720 (BEAKER) (test code = [place] 1538) [address] [place], [id number] 13:54:00INTRA OP IMAGINGReason for exam:->ABNORMAL IMAGING FINAL REPORT ERCP 4 views 06/06/2018 1:49 PM CLINICAL HISTORY: Instrument localization COMPARISON: None available IMPRESSION: Please correlate imaging report findings with the procedure note prepared by Dr. Hinojosa, as an intra-procedure imaging consultation was not requested. Reported fluoroscopy time: 91.0 seconds. Signed: Yunier Esparza Verified Date/Time: 06/06/2018 13:54:44 Reading Location: [facility] Radiology Reading Room COMPREHENSIVE METABOLIC [id number] 11:44:00 Test Item Value Reference Range Interpretation [...] NOT APPLICABLE FOR DIALYSIS PATIEN TS. POCT-GLUCOSE [id number] 08:58:00 Test Item Value Reference Range Interpretation Comments POC-GLUCOSE METER 174 mg/dL 70-110 H TESTED AT [facility] 6720 ([facility]) (test code = [place] 1538) [address] CBC (HEMOGRAM ONLY)2018-06-06 06:47:00 Test Item Value [...] RED BLOOD CELLS 0 /100 WBC 0-0 ([facility]) (test code = 413) POCT-GLUCOSE [id number] 21:43:00 Test Item Value Reference Range Interpretation Comments POC-GLUCOSE METER 213 mg/dL 70-110 H TESTED AT [place] [address] ([facility]) (test code = [facility] 1538) [address] POCT-GLUCOSE [id number] 18:37:00 Test Item Value Reference Range Interpretation Comments POC-GLUCOSE METER 144 mg/dL 70-110 H TESTED AT [place] [address] ([facility]) (test code = [facility] 1538) [address] POCT-GLUCOSE [id number] 12:41:00 Test Item Value Reference Range Interpretation Comments POC-GLUCOSE METER 171 mg/dL 70-110 H TESTED AT [place] [address] ([facility]) (test code = [facility] 1538) [address]52 POCT-GLUCOSE [id number] 08:33:00 Test Item Value Reference Range Interpretation Comments POC-GLUCOSE METER 165 mg/dL 70-110 H TESTED AT [place] [address] ([facility]) (test code = [facility] 1538) 55766 POCT-GLUCOSE [id number] 08:27:00 Test Item Value Reference Range Interpretation Comments POC-GLUCOSE METER 165 mg/dL 70-110 H TESTED AT [place] [address] ([facility]) (test code = [facility] 1538) [address] VANCOMYCIN LEVEL, [id number] 07:59:00 Test Item Value Reference Range Interpretation Comments VANCOMYCIN TROUGH ([facility]) (test 15.0 ug/mL 10.0-20.0 code = 522) CBC (HEMOGRAM ONLY)2018-06-05 06:50:00 Test Item Value Reference Range Interpretation Comments WHITE BLOOD CELL COUNT ([facility]) 7.3 K/ L 3.5-10.5 (test code = 775) RED BLOOD CELL COUNT ([facility]) 5.05 M/ L 4.63-6.08 (test code = 761) HEMOGLOBIN ([facility]) (test code = 14.6 GM/DL 13.7-17.5 410) HEMATOCRIT ([facility]) (test code = 45.6 % 40.1-51.0 411) [...] (BEAKER) (test code = 413) COMPREHENSIVE METABOLIC [id number] 05:48:00 Test Item Value Reference Range Interpretation [...] NOT APPLICABLE FOR DIALYSIS PATIEN TS. POCT-GLUCOSE [id number] 21:00:00 Test Item Value Reference Range Interpretation Comments POC-GLUCOSE METER 204 mg/dL 70-110 H TESTED AT [place] [address] ([facility]) (test code = [facility] 1538) 33049 POCT-GLUCOSE [id number] 17:17:00 Test Item Value Reference Range Interpretation Comments POC-GLUCOSE METER 156 mg/dL 70-110 H TESTED AT [place] [address] ([facility]) (test code = [facility] 1538) [address] POCT-GLUCOSE [id number] 12:42:00 Test Item Value Reference Range Interpretation Comments POC-GLUCOSE METER 201 mg/dL 70-110 H TESTED AT [place] [address] ([facility]) (test code = [facility] 1538) 8[address]52 POCT-GLUCOSE [id number] 08:34:00 Test Item Value Reference Range Interpretation Comments POC-GLUCOSE METER 150 mg/dL 70-110 H TESTED AT [place] [address] ([facility]) (test code = [facility] 1538) [address] BASIC METABOLIC [id number] 05:20:00 Test Item Value Reference Range Interpretation [...] 0-0 (BEAKER) (test code = 413) POCT-GLUCOSE [id number] 20:49:00 Test Item Value Reference Range Interpretation Comments POC-GLUCOSE METER 219 mg/dL 70-110 H TESTED AT [facility] 67 ([facility]) (test code = VITOR Perez [place] 1538) [address] POCT-GLUCOSE [id number] 16:44:00 Test Item Value Reference Range Interpretation Comments POC-GLUCOSE METER 148 mg/dL 70-110 H TESTED AT [facility] 6720 ([facility]) (test code = VITOR Perez [place] 1538) [address] POCT-GLUCOSE [id number] 12:31:00 Test Item Value Reference Range Interpretation Comments POC-GLUCOSE METER 206 mg/dL 70-110 H TESTED AT [facility] 6720 (BEAKER) (test code = [place] 1538) [address] CBC W/PLT COUNT & AUTO [id number] 08:49:00 Test Item Value Reference Range Interpretation [...] % 0-1 PERCENT (BEAKER) (test code = 2800) POCT-GLUCOSE [id number] 08:22:00 Test Item Value Reference Range Interpretation Comments POC-GLUCOSE METER 158 mg/dL 70-110 H TESTED AT [facility] 6720 (BEAKER) (test code = [place] 1538) [address] VANCOMYCIN LEVEL, [id number] 07:54:00 Test Item Value Reference Range Interpretation Comments VANCOMYCIN TROUGH (BEAKER) (test 10.9 ug/mL 10.0-20.0 code = 522) BASIC METABOLIC [id number] 07:49:00 Test Item Value Reference Range Interpretation [...] DIALYSIS PATIEN TS. Specimen slightly ictericHEPATIC FUNCTION [id number] 07:49:00 Test Item Value Reference Range Interpretation [...] U/L 6-55 H 347) Specimen slightly ictericPOCT-GLUCOSE [id number] 21:25:00 Test Item Value Reference Range Interpretation Comments POC-GLUCOSE METER 223 mg/dL 70-110 H TESTED AT [place] [address] ([facility]) (test code = [place] 1538) [address] POCT-GLUCOSE [id number] 17:09:00 Test Item Value Reference Range Interpretation Comments POC-GLUCOSE METER 161 mg/dL 70-110 H TESTED AT [place] [address] ([facility]) (test code = VITOR Perez [facility] 1538) [address] POCT-GLUCOSE [id number] 10:58:00 Test Item Value Reference Range Interpretation Comments POC-GLUCOSE METER 113 mg/dL 70-110 H TESTED AT [place] [address] ([facility]) ([facility] = [facility] 1538) [address] CBC W/PLT COUNT & AUTO [id number] 09:48:00 Test Item Value Reference Range Interpretation Comments WHITE BLOOD CELL COUNT ([facility]) 16.1 K/ L 3.5-10.5 H (test code = 775) RED BLOOD CELL COUNT (AKER) 4.85 M/ L 4.63-6.08 (test code = 761) HEMOGLOBIN (BEAKER) (test code = 13.8 GM/DL 13.7-17.5 410) HEMATOCRIT (BEAKER) (test code = 43.6 % 40.1-51.0 411) MEAN CORPUSCULAR VOLUME (AKER) 89.9 fL 79.0-92.2 (test code = 753) [...] PERCENT (BEAKER) (test code = 2801) POCT-GLUCOSE [id number] 08:08:00 Test Item Value Reference Range Interpretation Comments POC-GLUCOSE METER 175 mg/dL 70-110 H TESTED AT [facility] 6720 (BEAKER) (test code = RADHAMONIQUE [place] 1538) [address] BASIC METABOLIC [id number] 05:28:00 Test Item Value Reference Range Interpretation [...] DIALYSIS PATIEN TS. Specimen slightly ictericHEPATIC FUNCTION [id number] 05:28:00 Test Item Value Reference Range Interpretation [...] code = 347) hemolyzed Specimen slightly ictericFL, [id number] 00:14:00Reason for exam:->CHOLEDOCHOLITHIASISFINAL REPORT ERCP: Comparison exam: Three C-arm images are provided. Introduction of contrast demonstrates multiple possible filling defects within the common bile duct. The final image demonstrates a stent placed across the common bile duct. A radiologist was not present duringthe performance of the procedure. Please see the procedure note for additional details. Fluoroscopy total 50.2 seconds Signed: Boris Valverdeeport Verified Date/Time: 06/02/2018 00:14:16 Reading Location: [address] Reading Room POCT-GLUCOSE [id number] 23:14:00 Test Item Value Reference Range Interpretation Comments POC-GLUCOSE METER 176 mg/dL 70-110 H TESTED AT [place] [address] ([facility]) (test code = VITOR Perez [facility] 1538) [address] LACTIC ACID, VENOUS, WHOLE [id number] 17:47:00 Test Item Value Reference Range Interpretation Comments LACTATE BLOOD VENOUS 2.4 mmol/L 0.5-2.2 H Specime n slightly (2) ([facility]) (test hemolyzed code = 2872) Specimen slightly ictericPOCT-GLUCOSE [id number] 17:31:00 Test Item Value Reference Range Interpretation Comments POC-GLUCOSE METER 219 mg/dL 70-110 H TESTED AT [place] [address] ([facility]) (test code = VITOR Perez [facility] 1538) [address] POCT-GLUCOSE [id number] 13:48:00 Test Item Value Reference Range Interpretation Comments POC-GLUCOSE METER 209 mg/dL 70-110 H TESTED AT [place] [address] ([facility]) (test [facility] = [facility] 1538) [address] CBC W/PLT COUNT & AUTO [id number] 08:21:00 Test Item Value Reference Range Interpretation Comments WHITE BLOOD CELL COUNT ([facility]) 21.6 K/ L 3.5-10.5 H (test code = 775) RED BLOOD CELL COUNT ([facility]) 5.77 M/ L 4.63-6.08 (test code = 761) HEMOGLOBIN (BEAKER) (test code = 16.3 GM/DL 13.7-17.5 410) HEMATOCRIT ([facility]) (test code = 52.1 % 40.1-51.0 H 411) MEAN CORPUSCULAR VOLUME (AKER) 90.3 fL 79.0-92.2 (test code = 753) MEAN CORPUSCULAR HEMOGLOBIN 28.2 pg 25.7-32.2 (AKER) (test code = 751) [...] 966) ARTIFACT (CELLAVISION)(BEAKER) Present (test code = 1542) PLATELET CONCENTRATION Adequate (CELLAVISION)(BEAKER) (test code = 3438) Received comment: User comments: Slide comments:BASIC METABOLIC [id number] 08:12:00 Test Item Value Reference Range Interpretation [...] DIALYSIS PATIEN TS. Specimen moderately ictericHEPATIC FUNCTION [id number] 08:12:00 Test Item Value Reference Range Interpretation [...] U/L 6-55 H 347) Specimen moderately ictericPOCT-GLUCOSE [id number] 06:47:00 Test Item Value Reference Range Interpretation Comments POC-GLUCOSE METER 222 mg/dL 70-110 H TESTED AT [facility] 0552 (ALICIA) (test code = VITOR [place] 2876) [address]
[2020-12-22] MEDS ORDERED: NA CHLORIDE 0.9% 500 ML ONE (17:52)
[2020-12-22] MEDS ORDERED: ONDANSETRON 4 MG/2 ML VIAL ONE (17:52)
[2020-12-22] MEDS ORDERED: MORPHINE 2 MG/ML SYR ONE (17:52)
[2020-12-22] MEDS ORDERED: NA CHLORIDE 0.9% 1,000 ML ONE (17:53)
[2020-12-22 18:00] LABS: ALT/SGPT 16 U/L (12-78); AST/SGOT 12 U/L (15-37); Albumin 3.3 g/dL (3.4-5.0); Alkaline Phosphatase 75 U/L (45-117); BUN Blood Urea Nitrogen 24 mg/dL (7-18); Bicarbonate 37 mmol/L (21-32); Bilirubin Direct 0.2 mg/dL (0-0.2); Bilirubin Total 0.7 mg/dL (0.2-1.0); Glucose Level 97 mg/dL (74-106); Magnesium 2.1 mg/dL (1.8-2.4); NT PRO-BNP 2395 pg/mL (<450); Potassium 3.7 mmol/L (3.5-5.1); Protein, Total 6.7 g/dL (6.4-8.2); Sodium Level 140 mmol/L (136-145); Troponin (Emerg Dept Use Only) < 0.02 ng/mL (0.0-0.045)
--- NOTE | 2020-12-22 18:41 | RAD REPORT ---
EXAM DESCRIPTION: CT - Head C Spine Cap W Con - 12/22/2020 6:17 pm CLINICAL HISTORY: Pain;Lower back pain COMPARISON: Head Brain W Cont dated 06/23/2019 TECHNIQUE: Axial [address] head images were obtained. Axial [address] cervical spine images were obtaine d with sagittal and coronal reconstruction images reviewed. During dynamic enhancement of 100mL non-i onic contrast, axial 5 mm images of the chest, abdomen and pelvis were obtained. Biphasic technique p erformed of the abdomen and pelvis. All CT scans are performed using dose optimization technique as appropriate and may include automated exposure control or mA/KV adjustment according to patient size. FINDINGS: Acute intracranial hemorrhage is present. The patient has bilateral cortical contusion and subcortical edema changes in the bilateral subfrontal lobe region. In the medial right subfrontal re gion there is a 2 centimeter x 1 centimeter area of focally more prominent hemorrhage that could be i ntraparenchymal hemorrhage. In the lateral left frontal lobe the patient has cortical contusion, suba rachnoid hemorrhage in a thin rim of hemorrhage laterally that is believed to be subdural hematoma. E pidural hemorrhage is not confirmed at this time. Patient has a known meningioma along the inner tabl e left frontal bone superiorly. Atrophy and chronic ischemic changes are present as a baseline. Encep halomalacia changes involve the left cerebellum. The patient has approximately 4 mm of fcta-ge-jrnfs midline shift. Patient has a small amount of intraventricular hemorrhage as well collecting in the oc cipital horns of each lateral ventricle. An acute cortical based infarction is not identified. Mastoi d air cells are clear. Minimal air-fluid level is seen in the right lateral aspect of the sphenoid si nus without a skullbase fracture identifiable. No globe or orbital content abnormality. No skull frac ture. CT cervical spine imaging shows normal height. Normal alignment of the vertebrae. Disc space narrowin g present C4-5, C5-6, C6-7 and C7-T1. There is associated prominent endplate spurring and uncovertebr al joint hypertrophy. No fracture or acute cervical spine finding. There is a large calcified old mid line disc herniation C2-3 causing spinal stenosis to 8 mm. Mild foraminal encroachment at this level as well. Severe uncovertebral joint hypertrophy and facet degenerative change causes bilateral forami nal stenosis C3-4. Mild left-sided and moderately severe right-sided foraminal stenosis at C4-5 with spinal stenosis to 8-9 mm from protruding disc material and endplate spurring. Severe bilateral butch inal stenosis at C5-6 with central spinal stenosis to 6-7 mm. Central canal detail is inherently limi tri. Concerns for traumatic disc herniation or traumatic cord injury can be further addressed with MR imaging. No pneumothorax. Patient has large bilateral pleural effusions. There is partial atelectasis in each upper lobe with complete or near complete atelectasis of the right middle and right lower lobes. Ther e is a small amount of right lower lobe is aerated. There is partial atelectasis of the left lower lo be. This is believed all predate the fall. This does not appear to be pleural hemorrhage. No mediasti nal hematoma and the aorta and pulmonary arteries are unremarkable. No chest will mass or abnormal ax illary finding. No displaced rib fracture or other significant bony finding. Cardiomegaly is present without pericardial effusion. No traumatic injury to the liver. Nodular contour is seen. No focal lesions identified. Cholecystecto my clips are present with pneumobilia. No injury to the spleen. Kidneys show symmetric function witho ut acute injury. No pancreatic abnormality seen. No bowel injury or significant finding. No free air, free fluid or abnormal stranding. No urinary bladder abnormality. Degenerative changes are seen in the abdomen and pelvis. No pathologic bone process. Prominent disc a nd endplate degenerative changes are present in the lumbar spine. The advanced degenerative change in the thoracolumbar spine does not have an acute compression fracture component. No acute vascular finding. IMPRESSION: Patient has acute intracranial hemorrhage in the frontal lobes seen has bilateral subfro ntal cortical contusion an intraparenchymal hemorrhage along with left frontal lobe subarachnoid hemo rrhage and small left several dural hematoma. The lateral left frontal subdural hematoma is 3 mm in thickness. There is approximately 4 mm of left- to-right midline shift. Patient has severe multilevel central spinal stenosis and foraminal stenosis in the cervical spine. N o fracture or acute cervical vertebral body finding identifiable. Central canal detail is limited and any cord contusion or cord injury cannot be assessed on this study. Patient has large bilateral pleural effusions with complete or near complete atelectasis of the right middle and right lower lobes and substantial partial atelectasis of the left lower lobe. No hemorrha gic component to the pleural fluid identifiable. There is no pneumothorax. No acute traumatic changes to the abdomen or pelvis. No significant CT Cervical Spine finding. No significant CT Chest finding. No significant CT Abdomen and Pelvis finding.
[2020-12-22 18:52] LABS: Arterial Blood Carboxyhemoglob 1.5 % (0-1.5); Blood O2 Saturation 96.3 % (92-98.5)
--- NOTE | 2020-12-22 19:14 | ER ---
Nurse's Notes [facility] Name: Valentin Veloz Age: 89 yrs Sex: Male : 1930 Arrival Date: 12/22/2020 Time: 13:39 Bed 18 Private MD: Diagnosis: Fall on same level from slipping, tripping and stumbling with subsequent striking against object;Contusion of unspecified part of head;Low back pain;Traumatic subarachnoid hemorrhage;Traumatic subdural hemorrhage-3 MM THICK, 4MM SHIFT LEFT TO RIGHT;Pleural effusion in other conditions classified elsewhere-BILATERAL LARGE;Atelectasis;Unspecified intracranial injury without loss of consciousness, initial encounter-BILATERAL FRONTAL LOBE HEMORRHAGE;Chronic respiratory failure with hypercapnia;Unspecified atrial fibrillation-on Xarelto Presentation: 12/22 14:27 Chief complaint: Patient's son or daughter states: SON: tripped and fell backward on ca1 Wednesday evening 11/20/2020. Since then, mid back has been hurting him. Coronavirus screen: Client denies travel out of the [place] in the last 14 days. At this time, the client does not indicate any symptoms associated with coronavirus-19. Ebola Screen: Patient negative for fever greater than or equal to 101.5 degrees Fahrenheit, and additional compatible Ebola Virus Disease symptoms Patient denies exposure to infectious person. Patient denies travel to an Ebola-affected area in the 21 days before illness onset. No symptoms or risks identified at this time. Initial Sepsis Screen: Does the patient meet any 2 criteria? No. Patient's initial sepsis screen is negative. Does the patient have a suspected source of infection? No. Patient's initial sepsis screen is negative. Risk Assessment: Do you want to hurt yourself or someone else? Patient reports no desire to harm self or others. Onset of symptoms was December 22, 2020. 14:27 Method Of Arrival: Wheelchair ca1 14:27 Acuity: EMILY 4 ca1 17:00 Acuity: EMILY 3 ll1 20:06 Care prior to arrival: None. Mechanism of Injury: Fall From standing to ground. Fall kg was unwitnessed. Pt denies hitting head. Pt stated he hit left side of body. Trauma event details: Injury occurred in the [facility], Injury occurred: at home. Injury occurred: December 20, 2020. Historical: - Allergies: 14:30 Codeine; ca1 - PMHx: 14:30 CAD; CANCER - PROSTATE; CHF; COPD; Diabetes - NIDDM; High Cholesterol; Hypertension; ca1 Myocardial infarction; Pacemaker; - Immunization history:: Adult Immunizations up to date, Client reports receiving the 2nd dose of the Covid vaccine, Client reports receiving the 1st dose of the Covid vaccine, Pneumococcal vaccine is up to date, Flu vaccine is up to date. - Social history:: Smoking status: Patient/guardian denies using tobacco, the patient reports quitting approximately 30 years ago. - Family history:: not pertinent. Screenin:00 Abuse screen: Denies threats or abuse. Denies injuries from another. Nutritional kg screening: No deficits noted. Tuberculosis screening: No symptoms or risk factors identified. Fall Risk Fall in past 12 months (25 points). Secondary diagnosis (15 points) impaired mobility, IV access (20 points). Ambulatory Aid- Crutches/Cane/Walker (15 pts). Gait- Weak (10 pts.). Mental Status- Oriented to own ability (0 pts). Total Lancaster Fall Scale indicates High Risk Score (45 or more points). Fall prevention measures have been instituted. Side Rails Up X 2 Placed Close to Nursing Station Frequent Obs/Assessments Occuring Family Present and informed to notify staff if the need to leave the bedside As available patient and family educated on Fall Prevention Program and Strategies. Primary Survey: 18:00 NO uncontrolled hemorrhage observed. Breathing/Chest: Respiratory pattern: regular, kg Respiratory effort: spontaneous. Circulation: Heart tones present. Skin color: pink, Skin temperature: warm. Disability Alert. Assessment: 18:00 General: Appears in no apparent distress. Behavior is calm, cooperative, appropriate kg for age. Pain: Complains of pain in Left Side Pain currently is 8 out of 10 on a pain scale. at worst was 9 out of 10 on a pain scale. level that patient reports is acceptable is 3 out of 10 on a pain scale. Quality of pain is described as aching. Neuro: Level of Consciousness is awake, alert, obeys commands, confused, Oriented to person, place, situation. Cardiovascular: No deficits noted. Heart tones S1 S2. Respiratory: No deficits noted. Airway is patent Breath sounds are diminished. GI: No deficits noted. : No deficits noted. EENT: No deficits noted. Derm: No deficits noted. Musculoskeletal: Reports pain in back, Left side. Injury Description: Abrasion sustained to left calf is Abrasion. 19:47 General: report called to rn at [facility] neuro icu. ak2 21:10 Neuro: Level of Consciousness is awake, alert, obeys commands, confused, Oriented to ak2 person, place, [employer] are equal bilaterally Moves all extremities. Full function Speech is normal, Facial symmetry appears normal, Pupils are Intact. 21:11 Reassessment: Patient and/or family updated on plan of care and expected duration. Pain ak2 level reassessed. Vital Signs: 14:27 BP 112 / 59; Pulse 78; Resp 18 S; Temp 97.1(TE); Pulse Ox 90% ; Weight 95.25 kg (R); ca1 Height 5 ft. 11 in. (180.34 cm) (R); Pain 8/10; 19:38 BP 121 / 91; Pulse 62; Resp 20; Pulse Ox 95% on BiPAP; ak2 21:11 BP 138 / 78; Pulse 65; Resp 20; Pulse Ox 96% on BiPAP; ak2 22:07 BP 129 / 76; Pulse 66; Resp 20; Pulse Ox 95% on 3 lpm NC; ak2 14:27 Body Mass Index 29.29 (95.25 kg, 180.34 cm) ca1 14:27 son state, he normally has low 90s SPO2 ca1 Sharath Coma Score: 18:00 Eye Response: spontaneous(4). Verbal Response: oriented(5). Motor Response: obeys kg commands(6). Total: 15. Trauma Score (Adult): 18:00 Eye Response: spontaneous(1); Verbal Response: oriented(1); Motor Response: obeys kg commands(2); Systolic BP: > 89 mm Hg(4); Respiratory Rate: 10 to 29 per min(4); Sharath Score: 15; Trauma Score: 12 ED Course: 13:39 Patient arrived in ED. mr 14:29 Triage completed. ca1 14:30 Arm band placed on right wrist. ca1 16:34 Austyn Padilla MD is Attending Physician. nish 17:00 Inserted saline lock: 20 gauge in right antecubital area, using aseptic technique. kg 17:01 Emani Fletcher RN is Primary Nurse. kg 18:17 CT Traumagram (Head C Spine CAP W Con) In Process Unspecified. EDMS 18:23 XRAY Chest (1 view) In Process Unspecified. EDMS 18:58 Dr. Padilla initiated transfer at [facility] with Cassie Doran. tt3 19:08 Cassie Doran gave admin approval. The pt is going to [facility] tt3 Neuro ICU. The accepting is Dr. Rojas. Nurse to call report to . Face sheet and MOT faxed to [phone]. 20:08 Patient has correct armband on for positive identification. Bed in low position. Call kg light in reach. Side rails up X2. Adult w/ patient. Administered Medications: 19:41 Discontinued: NS 0.9% 1000 ml IV at 125 ml/hr continuous nish 17:10 Drug: NS 0.9% 500 ml Route: IV; Rate: bolus; Site: right antecubital; kg 17:40 Follow up: IV Status: Completed infusion; IV Intake: 500ml kg 20:09 Follow up: Response: No adverse reaction kg 17:15 Drug: NS 0.9% 1000 ml Route: IV; Rate: 125 ml/hr; Site: right antecubital; kg 17:15 Drug: morphine 2 mg Route: IVP; Site: right antecubital; kg 20:09 Follow up: Response: No adverse reaction; Marked relief of symptoms; Pain is decreased kg 17:15 Drug: Zofran (Ondansetron) 4 mg Route: IVP; Site: right antecubital; kg 20:09 Follow up: Response: No adverse reaction kg 19:39 Drug: Xopenex (levalbuterol) 2.5 mg Route: Inhalation; ak2 19:39 Drug: AtroVENT (ipratropium) Aerosol 0.5 mg Route: Inhalation; ak2 21:17 Drug: Lasix (furosemide) 20 mg Route: IVP; Site: right antecubital; ak2 Intake: 17:40 IV: 500ml; Total: 500ml. kg Outcome: 19:13 ER care complete, transfer ordered by . nish 22:08 Discharged to ak2 22:08 Transferred by ground EMS to [facility]. 22:08 Condition: good 22:08 Patient left the ED. ak2 Signatures: Dispatcher [employer] Austyn Avila MD MD cha Rivera, Anny mr Nichole, Chanelle, RN RN ca1 Saad Tinsley RN RN ll1 Ivan Duncan 3 Emani Fletcher RN RN kg Musa David nm2 Corrections: (The following items were deleted from the chart) 18:24 18:23 Acuity: EMILY 3 ll1 ll1
--- NOTE | 2020-12-22 19:14 | EDPHYS ---
Physician Documentation [facility] Name: Valentin Veloz Age: 89 yrs Sex: Male : 1930 Arrival Date: 12/22/2020 Time: 13:39 Bed 18 Private MD: ED Physician Austyn Padilla HPI: 12/22 18:59 This 89 yrs old Male presents to ER via Wheelchair with complaints of Fall nish Injury, Back Pain. 18:59 This 89 yrs old Male presents to ER via Wheelchair with complaints of Fall nish Injury, Back Pain. 18:59 Details of fall: The patient fell from an upright position, while standing, while nish walking. Onset: The symptoms/episode began/occurred 2 day(s) ago. Associated injuries: The patient sustained injury to the head, injury to the low back, contusion, decreased range of motion, pain. Severity of symptoms: At their worst the symptoms were mild, moderate, in the emergency department the symptoms are actually worse. The patient has not experienced similar symptoms in the past. Historical: - Allergies: 14:30 Codeine; ca1 - PMHx: 14:30 CAD; CANCER - PROSTATE; CHF; COPD; Diabetes - NIDDM; High Cholesterol; Hypertension; ca1 Myocardial infarction; Pacemaker; - Immunization history:: Adult Immunizations up to date, Client reports receiving the 2nd dose of the Covid vaccine, Client reports receiving the 1st dose of the Covid vaccine, Pneumococcal vaccine is up to date, Flu vaccine is up to date. - Social history:: Smoking status: Patient/guardian denies using tobacco, the patient reports quitting approximately 30 years ago. - Family history:: not pertinent. ROS: 18:59 Constitutional: Negative for fever, chills, and weight loss, Eyes: Negative for injury, nish pain, redness, and discharge, ENT: Negative for injury, pain, and discharge, Neck: Negative for injury, pain, and swelling, Cardiovascular: Negative for chest pain, palpitations, and edema, Abdomen/GI: Negative for abdominal pain, nausea, vomiting, diarrhea, and constipation, Back: Negative for injury and pain, : Negative for injury, bleeding, discharge, and swelling, MS/Extremity: Negative for injury and deformity, Skin: Negative for injury, rash, and discoloration, Psych: Negative for depression, anxiety, suicide ideation, homicidal ideation, and hallucinations, Allergy/Immunology: Negative for hives, rash, and allergies, Endocrine: Negative for neck swelling, polydipsia, polyuria, polyphagia, and marked weight changes, Hematologic/Lymphatic: Negative for swollen nodes, abnormal bleeding, and unusual bruising. 18:59 Respiratory: Positive for cough, shortness of breath, on exertion. 18:59 Neuro: Positive for dizziness, gait disturbance, headache, seizure activity, weakness. Exam: 18:59 Constitutional: This is a well developed, well nourished patient who is awake, alert, nish and in no acute distress. Eyes: Pupils equal round and reactive to light, extra-ocular motions intact. Lids and lashes normal. Conjunctiva and sclera are non-icteric and not injected. Cornea within normal limits. Periorbital areas with no swelling, redness, or edema. ENT: Nares patent. No nasal discharge, no septal abnormalities noted. Tympanic membranes are normal and external auditory canals are clear. Oropharynx with no redness, swelling, or masses, exudates, or evidence of obstruction, uvula midline. Mucous membranes moist. Neck: Trachea midline, no thyromegaly or masses palpated, and no cervical lymphadenopathy. Supple, full range of motion without nuchal rigidity, or vertebral point tenderness. No Meningismus. Chest/axilla: Normal chest wall appearance and motion. Nontender with no deformity. No lesions are appreciated. Cardiovascular: Regular rate and rhythm with a normal S1 and S2. No gallops, murmurs, or rubs. Normal PMI, no JVD. No pulse deficits. Abdomen/GI: Soft, non-tender, with normal bowel sounds. No distension or tympany. No guarding or rebound. No evidence of tenderness throughout. Back: No spinal tenderness. No costovertebral tenderness. Full range of motion. Male : Normal genitalia with no discharge or lesions. Skin: Warm, dry with normal turgor. Normal color with no rashes, no lesions, and no evidence of cellulitis. MS/ Extremity: Pulses equal, no cyanosis. Neurovascular intact. Full, normal range of motion. Neuro: Awake and alert, GCS 15, oriented to person, place, time, and situation. Cranial nerves II-XII grossly intact. Motor strength 5/5 in all extremities. Sensory grossly intact. Cerebellar exam normal. Normal gait. Psych: Awake, alert, with orientation to person, place and time. Behavior, mood, and affect are within normal limits. 18:59 Head/face: Noted is contusion, that is superficial, of the top of head, left frontal area and left side of the back of head. 18:59 Respiratory: the patient does not display signs of respiratory distress, Respirations: no acute changes, is not noted, labored breathing, is not present, Breath sounds: bronchial sounds, that are mild, decreased breath sounds, that are moderate, are heard in the right middle lobe, left lower lobe, right lower lobe, left posterior lower lobe, right posterior middle lobe and right posterior lower lobe. Vital Signs: 14:27 BP 112 / 59; Pulse 78; Resp 18 S; Temp 97.1(TE); Pulse Ox 90% ; Weight 95.25 kg (R); ca1 Height 5 ft. 11 in. (180.34 cm) (R); Pain 8/10; 19:38 BP 121 / 91; Pulse 62; Resp 20; Pulse Ox 95% on BiPAP; ak2 21:11 BP 138 / 78; Pulse 65; Resp 20; Pulse Ox 96% on BiPAP; ak2 22:07 BP 129 / 76; Pulse 66; Resp 20; Pulse Ox 95% on 3 lpm NC; ak2 14:27 Body Mass Index 29.29 (95.25 kg, 180.34 cm) ca1 14:27 son state, he normally has low 90s SPO2 ca1 Sharath Coma Score: 18:00 Eye Response: spontaneous(4). Verbal Response: oriented(5). Motor Response: obeys kg commands(6). Total: 15. Trauma Score (Adult): 18:00 Eye Response: spontaneous(1); Verbal Response: oriented(1); Motor Response: obeys kg commands(2); Systolic BP: > 89 mm Hg(4); Respiratory Rate: 10 to 29 per min(4); Davenport Score: 15; Trauma Score: 12 MDM: 16:34 Patient medically screened. nish 19:16 Differential diagnosis: abrasion, closed head injury, contusion, fracture, multiple nish trauma, sprain, strain. Data reviewed: vital signs, nurses notes, lab test result(s), EKG, radiologic studies. Data interpreted: ekg monitor: rate is 78 beats/min, rhythm is atrial fibrillation, Pulse oximetry: on room air is 90 %. Arterial blood gas: pH: 7.316, PO2: 66.8, PCO2: 96.2. Test interpretation: by ED physician or midlevel provider: ECG, plain radiologic studies. Counseling: I had a detailed discussion with the patient and/or guardian regarding: the historical points, exam findings, and any diagnostic results supporting the discharge/admit diagnosis, lab results, radiology results, the need to transfer to another facility, for higher level of care, [facility] does not immediately have the required specialist. 12/22 16:47 Order name: Basic Metabolic Panel; Complete Time: 18:04 [facility] 12/22 16:47 Order name: LFT's; Complete Time: 18:04 [facility] 12/22 16:47 Order name: Magnesium; Complete Time: 18:04 [facility] 12/22 16:47 Order name: NT PRO-BNP; Complete Time: 18:04 [facility] 12/22 16:47 Order name: Troponin (emerg Dept Use Only); Complete Time: 18:04 [facility] 12/22 16:47 Order name: XRAY Chest (1 view) [facility] 12/22 16:47 Order name: CT Traumagram (Head C Spine CAP W Con); Complete Time: 19:41 [facility] 12/22 18:06 Order name: ABG; Complete Time: 19:41 [facility] 12/22 18:58 Order name: COVID-19 : Document "Date of Symptom Onset" if Symptomatic. [facility] 12/22 20:20 Order name: SARS-COV-2 RT PCR [facility] 12/22 20:55 Order name: CREATININE WHOLE BLOOD [facility] 12/22 16:47 Order name: EKG; Complete Time: 16:48 [facility] 12/22 16:47 Order name: Cardiac monitoring; Complete Time: 19:05 [facility] 12/22 16:47 Order name: EKG - Nurse/Tech; Complete Time: 19:06 [facility] 12/22 16:47 Order name: IV Saline Lock; Complete Time: 20:10 [facility] 12/22 16:47 Order name: Labs collected and sent; Complete Time: 20:10 [facility] 12/22 16:47 Order name: O2 Per Protocol; Complete Time: 20:10 [facility] 12/22 16:47 Order name: O2 Sat Monitoring; Complete Time: 20:10 [facility] 12/22 16:47 Order name: Urine Dipstick-Ancillary (obtain specimen) [facility] 12/22 19:04 Order name: BIPAP nish Administered Medications: 19:41 Discontinued: NS 0.9% 1000 ml IV at 125 ml/hr continuous nish 17:10 Drug: NS 0.9% 500 ml Route: IV; Rate: bolus; Site: right antecubital; kg 17:40 Follow up: IV Status: Completed infusion; IV Intake: 500ml kg 20:09 Follow up: Response: No adverse reaction kg 17:15 Drug: NS 0.9% 1000 ml Route: IV; Rate: 125 ml/hr; Site: right antecubital; kg 17:15 Drug: morphine 2 mg Route: IVP; Site: right antecubital; kg 20:09 Follow up: Response: No adverse reaction; Marked relief of symptoms; Pain is decreased kg 17:15 Drug: Zofran (Ondansetron) 4 mg Route: IVP; Site: right antecubital; kg 20:09 Follow up: Response: No adverse reaction kg 19:39 Drug: Xopenex (levalbuterol) 2.5 mg Route: Inhalation; ak2 19:39 Drug: AtroVENT (ipratropium) Aerosol 0.5 mg Route: Inhalation; ak2 21:17 Drug: Lasix (furosemide) 20 mg Route: IVP; Site: right antecubital; ak2 Disposition Summary: 12/22/20 19:13 Transfer Ordered Transfer Location: [facility] Reason: Higher level of care nish Condition: Fair nish Problem: new nish Symptoms: are unchanged nish Accepting Physician: DR TOBIN [facility](12/22/20 22:08) ak2 Diagnosis - Fall on same level from slipping, tripping and stumbling with subsequent striking nish against object - Contusion of unspecified part of head nish - Low back pain nish - Traumatic subarachnoid hemorrhage nish - Traumatic subdural hemorrhage - 3 MM THICK, 4MM SHIFT LEFT TO RIGHT nish - Pleural effusion in other conditions classified elsewhere - BILATERAL LARGE nish - Atelectasis nsih - Unspecified intracranial injury without loss of consciousness, initial encounter - nish BILATERAL FRONTAL LOBE HEMORRHAGE - Chronic respiratory failure with hypercapnia nish - Unspecified atrial fibrillation - on Xarelto nish Forms: - Medication Reconciliation Form nish - SBAR form nish Signatures: Dispatcher [employer] EDAustyn Arriaga MD MD cha Acob, Cheryl RN RN ca1 Emani Fletcher RN RN kg Musa David ak2 Corrections: (The following items were deleted from the chart) 19:14 19:13 DR BRANDON [facility] 19:15 19:14 DR TOBIN [facility] 19:18 19:15 DR TOBIN [facility] 19:24 18:59 CORONAVIRUS ordered. EDMS EDMS :08 19:[address] [facility] [place]
--- NOTE | 2020-12-22 19:48 | RAD REPORT ---
EXAM DESCRIPTION: RAD - Chest Single View - 12/22/2020 7:01 pm CLINICAL HISTORY: COUGH COMPARISON: March 2020 TECHNIQUE: AP portable chest image was obtained 12/22/2020 7:01 pm . FINDINGS: Lung volumes are low. Single lead defibrillator in place. Large bilateral pleural effusion s are present with atelectasis and/ or infiltrate in the lung bases. Cardiac silhouette is enlarged b ut mostly obscured by the pleural and parenchymal changes. No pneumothorax. No acute bony abnormality seen. No acute aortic findings suspected. IMPRESSION: Large bilateral pleural effusions with lung base atelectasis. Mass and infiltrate can be obscured.
[2020-12-22] MEDS ORDERED: LEVALBUTEROL 1.25 MG/3 ML NEB ONE ×2 (19:52→20:03)
[2020-12-22] MEDS ORDERED: IPRATROPIUM BROM 0.5MG/2.5ML ONE ×2 (19:52→20:03)
[2020-12-22] MEDS ORDERED: FUROSEMIDE 20 MG/ 2ML VIAL ONE (21:37)
[2020-12-22 22:25] VITALS: TEMP 97.1
[2020-12-22 22:30] VITALS: BP 129/76; O2SAT 95
--- NOTE | 2020-12-23 10:29 | EKG ---
Test Date: 2020-12-22 Test Time: 19:10:52 Back Gray Cloth Washer: MEASUREMENT RESULTS: Intervals: Rate: 91 CT: QRSD: 112 QT: 400 QTc: 492 [place]: P: CT: QRS: 118 T: -5 INTERPRETIVE STATEMENTS: Atrial fibrillation with premature ventricular or aberrantly conducted complexes Right axis deviation Pulmonary disease pattern Abnormal QRS-T angle, consider primary T wave abnormality Abnormal ECG Compared to ECG 04/18/2020 16:50:28 Ventricular premature complex(es) now present Right-axis deviation now present T-wave abnormality now present Right superior axis no longer present Myocardial infarct finding no longer present Electronically Signed On 12-23-20 10:28:36 CDT by Deven Funes
== END 2020-12-22 22:08 | disposition short-term general hospital (02) ==
LOC: ER 13:35
DX: S06.5X0A Traumatic subdural hemorrhage without loss of consciousness, initial encounter (principal); S06.6X0A Traumatic subarachnoid hemorrhage without loss of consciousness, initial encounter; S00.83XA Contusion of other part of head, initial encounter; J96.12 Chronic respiratory failure with hypercapnia; J91.8 Pleural effusion in other conditions classified elsewhere; J98.11 Atelectasis; I48.91 Unspecified atrial fibrillation; I10 Essential (primary) hypertension; W01.198A Fall on same level from slipping, tripping and stumbling with subsequent striking against other object, initial encounter; Z79.01 Long term (current) use of anticoagulants; Z88.5 Allergy status to narcotic agent; Z95.0 Presence of cardiac pacemaker; Z20.822 Contact with and (suspected) exposure to COVID-19
CPT/HCPCS: 93005; 80048; 83735; 82565; 80076; 84484; 83880; 70450; 72125; 71260; 74177; 71045; 82805; 94660; 96375; 96374; 99285; U0003; Q9967; J1940; J2270; J7040; J7030; J2405

== ENCOUNTER 2021-03-17 13:13 | Inpatient (IN) | payer OTHER ==
[2021-03-17 15:03] LABS: Absolute Lymphocytes (CBC) 1.4 K/uL (0.7-4.9); Basophils % 0.5 % (0-1.3); Hematocrit 40.6 % (39.6-49.0); Lymphocytes % 10.2 % (15.3-44.8); MPV 7.5 fL (7.6-11.3); RBC Red Blood Cell Count 4.59 M/uL (4.33-5.43)
[2021-03-17 15:10] LABS: Protime INR 1.56
--- NOTE | 2021-03-17 15:18 | RAD REPORT ---
EXAM DESCRIPTION: CT - Head Brain Wo Cont - 03/17/2021 2:47 pm CLINICAL HISTORY: WEAKNESS Headache, drowsiness COMPARISON: Head Brain W Cont dated 06/23/2019; Facial Bones W/ Mpr dated 06/23/2019; Head C Spine Cap W Con dated 12/22/2020 TECHNIQUE: All CT scans are performed using dose optimization technique as appropriate and may inclu de automated exposure control or mA/KV adjustment according to patient size. FINDINGS: No intracranial hemorrhage, hydrocephalus or extra-axial fluid collection.Left convexity m oderate sized meningioma is again seen, incompletely assessed due to lack of contrast. Moderate periv entricular and deep white matter chronic microvascular ischemic changes. Left cerebellar hemispheres moderately atrophic. The paranasal sinuses and mastoids are clear. The calvarium is intact. IMPRESSION: No acute intracranial abnormality.
[2021-03-17 15:34] LABS: ALT/SGPT 14 U/L (12-78); AST/SGOT 13 U/L (15-37); Albumin 2.9 g/dL (3.4-5.0); Alkaline Phosphatase 86 U/L (45-117); BUN Blood Urea Nitrogen 19 mg/dL (7-18); Bicarbonate 38 mmol/L (21-32); Bilirubin Direct 0.1 mg/dL (0-0.2); Bilirubin Total 0.4 mg/dL (0.2-1.0); Glucose Level 129 mg/dL (74-106); Magnesium 2.3 mg/dL (1.8-2.4); NT PRO-BNP 10285 pg/mL (<450); Potassium 3.8 mmol/L (3.5-5.1); Sodium Level 138 mmol/L (136-145); Troponin (Emerg Dept Use Only) < 0.02 ng/mL (0.0-0.045)
--- NOTE | 2021-03-17 15:45 | RAD REPORT ---
EXAM DESCRIPTION: RAD - Chest Single View - 03/17/2021 2:52 pm CLINICAL HISTORY: weakness Chest pain. COMPARISON: Chest Single View dated 12/22/2020; Chest Single View dated 04/20/2020; Chest Single View dated 04/18/2020 FINDINGS: Portable technique limits examination quality. Avzg-sa-mmptnwar pulmonary edema pattern is noted. Moderate patchy opacity is seen in the right lung base. Small bilateral pleural effusions. The heart is moderately enlarged. Single lead pacer/defibril lator device present. IMPRESSION: Mild to moderate CHF pattern is observed. Increased right basilar opacity appears simila r to December 2020 study and may be chronic infiltrate.
[2021-03-17 17:09] LABS: Urine Blood Trace-lysed (Negative); Urine Glucose Negative (Negative); Urine Protein 1+ (Negative); Urine pH 6.5 (5.0-7.0)
[2021-03-17 17:23] LABS: Urine Bacteria LOADED /HPF (NONE SEEN); Urine RBC <5 /HPF (NONE SEEN)
[2021-03-17 18:05] LABS: Arterial Blood Carboxyhemoglob 1.9 % (0-1.5); Blood Gas Oxyhemoglobin 86.6 % (94-97)
--- NOTE | 2021-03-17 18:29 | ER ---
Nurse's Notes [facility] Name: Valentin Veloz Age: 89 yrs Sex: Male : 1930 Arrival Date: 03/17/2021 Time: 13:25 Bed 20 Private MD: Diagnosis: Unspecified combined systolic (congestive) and diastolic (congestive) heart failure;Acute and chronic respiratory failure with hypercapnia;UTI/ Urinary tract infection, site not specified Presentation: 03/17 13:55 Chief complaint: Pt's son reports chest congestion, weakness, and dizziness x 2-3 days aa5 ago. Reports being sent here by [facility]. Coronavirus screen: congestion. Initial Sepsis Screen: Does the patient meet any 2 criteria? No. Patient's initial sepsis screen is negative. Does the patient have a suspected source of infection? No. Patient's initial sepsis screen is negative. Risk Assessment: Do you want to hurt yourself or someone else? Patient reports no desire to harm self or others. Onset of symptoms was February 2021. 13:55 Method Of Arrival: Wheelchair aa5 13:55 Acuity: EMILY 3 aa5 19:48 Ebola Screen: Patient negative for fever greater than or equal to 101.5 degrees bc5 Fahrenheit, and additional compatible Ebola Virus Disease symptoms Patient denies exposure to infectious person. Patient denies travel to an Ebola-affected area in the 21 days before illness onset. No symptoms or risks identified at this time. Historical: - Allergies: 13:57 Codeine; aa5 - PMHx: 13:57 CAD; CANCER - PROSTATE; CHF; COPD; Diabetes - NIDDM; High Cholesterol; Hypertension; aa5 Myocardial infarction; Pacemaker; - Immunization history:: Client reports receiving the 1st dose of the Covid vaccine. - Social history:: Smoking status: Patient denies any tobacco usage or history of. Screenin:08 Abuse screen: Denies threats or abuse. Denies injuries from another. Nutritional tc5 screening: per pt son, pt not wanting to eat this past weekend.. Tuberculosis screening: No symptoms or risk factors identified. Fall Risk None identified. Assessment: 15:04 General: Appears in no apparent distress. Behavior is calm, cooperative, appropriate tc5 for age. Pain: Denies pain. Neuro: No deficits noted. Cardiovascular: Reports since dizzy, light headed all weekend. Respiratory: Reports shortness of breath cough that is productive, yellow sputum all weekend. GI: pt son reports pt has not wanted to eat all weekend. 19:09 Reassessment: Patient appears in no apparent distress at this time. Patient and/or aj2 family updated on plan of care and expected duration. Pain level reassessed. Patient is alert, oriented x 3, equal unlabored respirations, skin warm/dry/pink. Patient states feeling better. Cardiovascular: No deficits noted. Cardiovascular:. Cardiovascular: Rhythm is sinus rhythm. Respiratory: Airway is patent. 19:32 Reassessment: Initial contact. Pt sitting up in bed, on BiPAP RR is even and unlabored, bc5 c/o of "wet shorts" Pt changed into dry gown, placed back on monitor, no other requests or complaints at this time. NAD, VSS, WCTM. Cardiovascular: Denies chest pain. Respiratory: Breath sounds with crackles bilaterally. 20:24 Cardiovascular: Rhythm is bc5 20:24 Reassessment: Pt has glasses, and dentures. denture cup labeled Pt requests to "leave bc5 them in for now". Vital Signs: 13:55 BP 123 / 85; Pulse 99; Resp 18 S; Temp 98.4(TE); Pulse Ox 93% on R/A; Weight 77.11 kg aa5 (R); Height 5 ft. 10 in. (177.80 cm) (R); 15:07 BP 134 / 88; Pulse 91; Resp 16; Pulse Ox 92% 0 lpm ; Pain 0/10; tc5 18:34 BP 147 / 89; Pulse 99; Resp 15; Pulse Ox 100% on 40% BiPAP; Pain 0/10; tc5 19:09 BP 166 / 77; Pulse 88; Resp 18; Temp 98.4; Pulse Ox 100% ; aj2 19:44 BP 126 / 78; Pulse 94; Resp 19; Temp 98(T); Pulse Ox 99% on BiPAP; Pain 0/10; bc5 13:55 Body Mass Index 24.39 (77.11 kg, 177.80 cm) aa5 ED Course: 13:25 Patient arrived in ED. am2 13:55 Arm band placed on. aa5 13:57 Triage completed. aa5 14:06 Xin Guevara, NORA is Primary Nurse. tc5 14:25 Page, Austyn, PA is PHCP. cp 14:25 Austyn Padilla MD is Attending Physician. cp 14:42 XRAY Chest (1 view) Sent. kg 14:48 CT Head Brain wo Cont In Process Unspecified. EDMS 14:52 XRAY Chest (1 view) In Process Unspecified. EDMS 15:09 Inserted saline lock: 20 gauge in right antecubital area, using aseptic technique. IV tc5 placed, blood drawn by Concepción MELENDEZ. 17:16 Urine Microscopic Only Sent. ld1 17:34 Urine Culture Sent. ld1 18:27 Ed Tran DO is Hospitalizing Provider. cp 19:09 No apparent distress. Resting quietly. aj2 19:09 Patient has correct armband on for positive identification. aj2 19:09 No provider procedures requiring assistance completed. IV is patent, is intact. aj2 Administered Medications: 18:11 Drug: Rocephin (cefTRIAXone) 1 grams Route: IV; Rate: calculated rate; Site: right tc5 antecubital; 19:49 Follow up: IV Status: Completed infusion bc5 18:11 Drug: Lasix (furosemide) 40 mg Route: IVP; Site: right antecubital; tc5 19:49 Follow up: Urine output 700 ml bc5 19:43 Drug: SOLU-Medrol (methylPrednisoLONE) 125 mg Route: IVP; Site: right antecubital; bc5 19:49 Follow up: Response: No adverse reaction bc5 Output: 19:49 Urine: 700ml; Total: 700ml. bc5 Outcome: 18:29 Decision to Hospitalize by Provider. cp 21:17 Patient left the ED. bc5 Signatures: Dispatcher [employer] EDMS Sydnee Khan, RN RN aa5 Austyn Mosquera PA PA cp Maura Lyman am2 Siena Rodriguez RN RN ld1 Emani Fletcher RN RN kg Jenkins, Angelea aj2 Nancy Rosenthal RN RN bc5 Xin Guevara RN RN tc5 Corrections: (The following items were deleted from the chart) 14:12 13:55 Ebola Screen: Patient negative for fever greater than or equal to 101.5 degrees tc5 Fahrenheit, and additional compatible Ebola Virus Disease symptoms aa5
--- NOTE | 2021-03-17 18:29 | EDPHYS ---
Physician Documentation [facility] Name: Valentin Veloz Age: 89 yrs Sex: Male : 1930 Arrival Date: 03/17/2021 Time: 13:25 Bed 20 Private MD: JJ Physician Austyn Padilla HPI: 03/17 14:35 This 89 yrs old Male presents to ER via Wheelchair with complaints of cp Congestion, General Weakness. 14:35 general weakness. cp 14:35 Associated signs and symptoms: Pertinent positives: cough, chest congestion, Pertinent cp negatives: abdominal pain, chest pain, confusion. The patient has been recently seen by a physician: in [place] clinic and referred to ED for evaluation. Historical: - Allergies: 13:57 Codeine; aa5 - PMHx: 13:57 CAD; CANCER - PROSTATE; CHF; COPD; Diabetes - NIDDM; High Cholesterol; Hypertension; aa5 Myocardial infarction; Pacemaker; - Immunization history:: Client reports receiving the 1st dose of the Covid vaccine. - Social history:: Smoking status: Patient denies any tobacco usage or history of. ROS: 14:40 Constitutional: Negative for body aches, chills, fever, poor PO intake. cp 14:40 Eyes: Negative for injury, pain, redness, and discharge. cp 14:40 ENT: Negative for ear pain, sore throat, difficulty swallowing, difficulty handling secretions. 14:40 Cardiovascular: Negative for chest pain, palpitations. 14:40 Respiratory: Positive for cough. 14:40 Abdomen/GI: Negative for abdominal pain, nausea, vomiting, and diarrhea, black/tarry stool, rectal bleeding. 14:40 : Negative for urinary symptoms. 14:40 Skin: Negative for rash. 14:40 Neuro: Positive for weakness, Negative for altered mental status, headache, syncope. 14:40 All other systems are negative. Exam: 14:30 ECG was reviewed by the Attending Physician. cp 14:45 Constitutional: The patient appears in no acute distress, alert, awake, cp non-diaphoretic, non-toxic, well developed, well nourished. 14:45 Head/Face: Normocephalic, atraumatic. cp 14:45 Eyes: Periorbital structures: appear normal, Conjunctiva: normal, no exudate, no injection, Sclera: no appreciated abnormality, Lids and lashes: appear normal, bilaterally. 14:45 ENT: External ear(s): are unremarkable, Nose: is normal, Mouth: Lips: dry, Oral mucosa: moist, Posterior pharynx: Airway: no evidence of obstruction, patent. 14:45 Neck: ROM/movement: is normal, is supple, without pain, no range of motions limitations, no meningismus, no nuchal rigidity. 14:45 Chest/axilla: Inspection: normal, Palpation: is normal, no crepitus, no tenderness. 14:45 Cardiovascular: Rate: normal, Rhythm: regular, Edema: ankle edema, that is very mild, JVD: is not appreciated. 14:45 Respiratory: the patient does not display signs of respiratory distress, Respirations: labored breathing, is not present, intercostal retractions, are absent, Breath sounds: decreased breath sounds, that are mild, throughout, wheezing: is not appreciated. 14:45 Abdomen/GI: Inspection: abdomen appears normal, Bowel sounds: active, all quadrants, Palpation: abdomen is soft and non-tender, in all quadrants. 14:45 Back: pain, is absent, ROM is normal. 14:45 Skin: cellulitis, is not appreciated, no rash present. 14:45 Neuro: Orientation: to person, place \T\ time. Mentation: able to follow commands, slow to respond, Motor: moves all fours, general weakness with no focal deficits, Sensation: is normal. Vital Signs: 13:55 BP 123 / 85; Pulse 99; Resp 18 S; Temp 98.4(TE); Pulse Ox 93% on R/A; Weight 77.11 kg aa5 (R); Height 5 ft. 10 in. (177.80 cm) (R); 15:07 BP 134 / 88; Pulse 91; Resp 16; Pulse Ox 92% 0 lpm ; Pain 0/10; tc5 18:34 BP 147 / 89; Pulse 99; Resp 15; Pulse Ox 100% on 40% BiPAP; Pain 0/10; tc5 19:09 BP 166 / 77; Pulse 88; Resp 18; Temp 98.4; Pulse Ox 100% ; aj2 19:44 BP 126 / 78; Pulse 94; Resp 19; Temp 98(T); Pulse Ox 99% on BiPAP; Pain 0/10; bc5 13:55 Body Mass Index 24.39 (77.11 kg, 177.80 cm) aa5 MDM: 14:25 Patient medically screened. nish 17:45 Data reviewed: vital signs, nurses notes, lab test result(s), EKG, radiologic studies, cp CT scan, plain films, I have discussed the patient's presentation/case with the attending Emergency Department Physician; and as a result, I will admit patient. 18:15 Physician consultation: Garrick Alexandra was contacted at 18:05, regarding admission, to the telemetry unit. patient's condition, and will see patient in ED, shortly. 03/17 14:33 Order name: Basic Metabolic Panel; Complete Time: 15:48 03/17 15:48 Interpretation: Normal except: CL 95; CO2 38; GLUC 129; BUN 19. 03/17 14:33 Order name: CBC with Diff; Complete Time: 15:48 03/17 15:48 Interpretation: Normal except: WBC 13.90; HGB 13.2; MCV 88.3; MCH 28.7; RDW 15.7; MPV cp 7.5; ETHEL% 80.5; LYM% 10.2; NEUT A 11.2. 03/17 14:33 Order name: LFT's; Complete Time: 15:48 03/17 14:33 Order name: Magnesium; Complete Time: 15:48 03/17 14:33 Order name: NT PRO-BNP; Complete Time: 15:48 03/17 15:48 Interpretation: Abnormal: NT PRO-BNP 80573. 03/17 14:33 Order name: PT-INR; Complete Time: 15:48 03/17 14:33 Order name: Troponin (emerg Dept Use Only); Complete Time: 15:48 03/17 14:33 Order name: XRAY Chest (1 view); Complete Time: 15:48 03/17 14:33 Order name: Urine Microscopic Only; Complete Time: 17:29 03/17 17:29 Interpretation: Normal except: UWBC 20-50; UBACT LOADED. 03/17 17:09 Order name: Urine Dipstick-Ancillary; Complete Time: 17:19 EDMS 03/17 17:19 Interpretation: Normal except: UBLD Trace-lysed; UPROT 1+; UESTR 1+. 03/17 17:22 Order name: ABG 03/17 17:24 Order name: Urine Culture [facility] 03/17 17:25 Order name: SARS-COV-2 RT PCR; Complete Time: 17:29 EDMA 03/17 14:33 Order name: EKG; Complete Time: 14:34 03/17 14:33 Order name: Cardiac monitoring; Complete Time: 14:42 03/17 14:33 Order name: EKG - Nurse/Tech; Complete Time: 14:42 03/17 14:33 Order name: IV Saline Lock; Complete Time: 17:16 03/17 14:33 Order name: Labs collected and sent; Complete Time: 17:16 03/17 14:33 Order name: O2 Per Protocol; Complete Time: 17:16 03/17 14:33 Order name: O2 Sat Monitoring; Complete Time: 17:16 03/17 14:33 Order name: Urine Dipstick-Ancillary (obtain specimen); Complete Time: 17:16 03/17 14:33 Order name: CT Head Brain wo Cont; Complete Time: 15:48 03/17 18:51 Order name: BIPAP cp EC:30 Rate is 90 beats/min. Rhythm is irregular. QRS interval is prolonged at 124 msec. QT cp interval is normal. T waves are Inverted in lead V6. Interpreted by me. Reviewed by me. Administered Medications: 18:11 Drug: Rocephin (cefTRIAXone) 1 grams Route: IV; Rate: calculated rate; Site: right tc5 antecubital; 19:49 Follow up: IV Status: Completed infusion bc5 18:11 Drug: Lasix (furosemide) 40 mg Route: IVP; Site: right antecubital; tc5 19:49 Follow up: Urine output 700 ml bc5 19:43 Drug: SOLU-Medrol (methylPrednisoLONE) 125 mg Route: IVP; Site: right antecubital; bc5 19:49 Follow up: Response: No adverse reaction bc5 Disposition: 03/18 06:01 Co-signature as Attending Physician, Austyn Padilla MD I agree with the assessment and nish plan of care. Disposition Summary: 03/17/21 18:29 Hospitalization Ordered Hospitalization Status: Inpatient Admission cp Provider: Ed Tran cp Location: Telemetry/MedSurg (Inpatient) cp Condition: Stable cp Problem: an acute exacerbation cp Symptoms: have improved cp Bed/Room Type: Standard cp Room Assignment: 212(03/17/21 20:02) mw Diagnosis - Unspecified combined systolic (congestive) and diastolic (congestive) heart failure cp - Acute and chronic respiratory failure with hypercapnia cp - UTI/ Urinary tract infection, site not specified cp Forms: - Medication Reconciliation Form cp - SBAR form cp Signatures: Dispatcher [employer] EDMS Diane Shepherd RN RN mw Anderson, Corey, MD MD cha Calderon, Audri RN RN aa5 Austyn Mosquera PA PA cp Nancy Rosenthal RN RN bc5 Xin Guevara RN RN tc5 Corrections: (The following items were deleted from the chart) 03/17 16:14 14:33 CORONAVIRUS+[email or web address].BRZ ordered. EDMA EDMS 20:02 18:29 cp mw
[2021-03-17] MEDS ORDERED: CEFTRIAXONE 1000 MG/VIAL ONE (18:33)
[2021-03-17] MEDS ORDERED: FUROSEMIDE 40 MG/4 ML VIAL ONE (18:33)
--- NOTE | 2021-03-17 19:40 | P.HP ---
Certification for Inpatient Patient admitted to: Inpatient With expected LOS: >2 Midnights Patient will require the following post-hospital care: None Practitioner: I am a practitioner with admitting privileges, knowledge of patient current condition, hospital course, and medical plan of care. Services: Services provided to patient in accordance with Admission requirements found in Title 42 Section 412.3 of the Code of Federal Regulations Patient History Date of Service: 03/17/21 Primary Care Provider: Dr. Barrios Reason for admission: CHF exacerbation History of Present Illness: 89-year-old male with history of chronic systolic congestive heart failure, A. fib on chronic anticoagulation therapy, diabetes type 2, anemia, CAD with pacemaker/defibrillator, hyperlipidemia presents emergency room for shortness of breath. Patient reports increasing shortness of breath over the course of last 1 week. Patient was evaluated in the emergency department labs were significant for white blood cell count 13.9 hemoglobin 13.2 ABG with PCO2 53.7 PO2 60.8 chloride 95 CO2 38 BUN 19 glucose 129 BNP 10,285 chest x-ray de monstrated mild to moderate CHF pattern observed with increased right basilar opacity appears similar to previous studies likely chronic infiltrate. Patient also noted to have urinary tract infection. Patient was placed on BiPAP given hypercapnic respiratory failure, surrounding tolerating BiPAP well also was hypoxic on room air saturating in the 80s. ED provider wishes to admit for acute hypoxic hypercapnic restaurant failure secondary to CHF exacerbation. Allergies codeine Allergy (Verified 01/26/19 20:24) shaking Home Medications: Aspirin Chewable [Aspirin Chewable*] 81 mg PO DAILY 04/19/20 Cyanocobalamin [Vitamin B-12*] 1,000 mg PO DAILY 04/19/20 Docosahexanoic AC/Epa [Fish Oil 1,000 MG*] 1,000 mg PO BID 04/19/20 Duloxetine HCl [Cymbalta] 60 mg PO DAILY 04/19/20 Finasteride [Proscar*] 5 mg PO DAILY 04/19/20 Metformin ER [Glucophage ER*] 500 mg PO BID 04/19/20 Rivaroxaban [Xarelto] 20 mg PO DAILY AT SUPPER 04/19/20 Simvastatin [Zocor] 40 mg PO BEDTIME 04/19/20 Sotalol HCl [Betapace*] 80 mg PO BID 04/19/20 Tamsulosin HCl [Flomax] 0.4 mg PO BEDTIME 04/19/20 Ferrous Sulfate [Ferrous Sulfate*] 325 mg PO DAILY #90 tab 04/20/20 Furosemide [Lasix*] 40 mg PO BIDL #60 tab 04/20/20 Nystatin Powder [Mycostatin (Powder)*] 1 appl TOP BID #1 btl 04/20/20 - Past Medical/Surgical History Diabetic: Yes -: Diabetes mellitus type 2, non-insulin dependent -: History [place], CAD -: Diabetic neuropathy -: COPD -: HFrEF(systolic CHF) -: AFib, chronic anti coagulation therapy, pacemaker -: History prostate cancer -: pacer/ defib, back surgery, protate surgery, TURP -: BACK SURGERIES X3 -: PROSTATE SURGERY -: TURP -: gall bladder sx Psychosocial/ Personal History: Patient lives with son - Family History Father -: Heart disease Mother -: Heart disease, Diabetes - Social History Smoking Status: Former smoker Alcohol use: No CD- Drugs: No Caffeine use: Yes Place of Residence: Home Review of Systems 10-point ROS is otherwise unremarkable Respiratory: Dry, Shortness of Breath, SOB with Excertion Cardiovascular: Orthopnea, Edema, As per HPI Physical Examination - Physical Exam General: Alert, In no apparent distress, Oriented x3 HEENT: Atraumatic, PERRLA, Mucous membr. moist/pink, EOMI, Sclerae nonicteric Neck: Supple, 2+ carotid pulse no bruit, No LAD, Without JVD or thyroid abnormality Respiratory: Other (On BiPAP, mild increased respiratory effort) Cardiovascular: Normal S1 S2, Irregular heart rate/rhythm (AF) Capillary refill: <2 Seconds Gastrointestinal: Normal bowel sounds, No tenderness Musculoskeletal: No tenderness Integumentary: No rashes Neurological: Normal speech, Normal strength at 5/5 x4 extr, Normal tone, Normal affect - Studies Laboratory Data (last 24 hrs) 03/17/21 14:37: PT 18.0 H, INR 1.56 03/17/21 14:37: WBC 13.90 H, Hgb 13.2 L, Hct 40.6, Plt Count 345 03/17/21 14:37: Sodium 138, Potassium 3.8, BUN 19 H, Creatinine 0.73, Glucose 129 H, Magnesium 2.3, Total Bilirubin 0.4, AST 13 L, ALT 14, Alkaline Phosphatase 86 Assessment and Plan - Plan Assessment: Dyspnea, acute hypoxic hypercapnic respiratory failure secondary to acute on chronic systolic congestive heart failure complicated with history of COPD UTI, history of BPH Atrial fibrillation on chronic anticoagulation therapy Diabetes mellitus type 2 CAD history of pacemaker defibrillator Hyperlipidemia Plan: Dyspnea, acute hypoxic hypercapnic respiratory failure secondary to acute on chronic systolic congestive heart failure complicated with history of COPD: BNP elevated chest x-ray significant for mild to moderate CHF pattern, patient not aware of his medications but it is documented patient takes Lasix 40 mg p.o. twice daily, have increased this to 40 mg IV 3 times daily. 1500 cc/day fluid striction, daily weights. Cardiology consult in place. Possibly some COPD component although patient is not significantly wheezing at this time will consult pulmonology at inhaled and IV steroids overnight. Continue BiPAP as needed repeat ABG in the morning. UTI, history of BPH: Continue IV Rocephin, urine culture pending. Atrial fibrillation on chronic anticoagulation therapy: Have continued Xarelto, will need to obtain continue/confirm other home medications. Patient not aware what they are. Diabetes mellitus type 2: A [facility] Accu-Chek, sliding scale insulin CAD history of pacemaker defibrillator: Continue medications, monitor on telemetry Hyperlipidemia: Continue home meds DVT PPX: Lovenox Code status: Full Discharge Plan: Home Plan to discharge in: 48 Hours - Advance Directives Does patient have a Living Will: Yes Does patient have a Durable POA for Healthcare: No - Code Status/Comfort Care Code Status Assessed: Yes (FC) Critical Care: No Time Spent Managing Pts Care (In Minutes): 55
[2021-03-17] MEDS ORDERED: METHYLPREDNISOLONE 125 MG INJ ONE (20:06)
[2021-03-17] MEDS ORDERED: ONDANSETRON 4 MG/2 ML VIAL IV PRN (20:17)
[2021-03-17] MEDS ORDERED: DULERA 200/5 (MOMETASONE/FORMOTEROL) INHALER IH SCH (21:00)
[2021-03-17] MEDS: INSULIN -REGULAR HUMAN 50 UNIT/0.5 ML ML SQ SCH (21:00)
[2021-03-17] MEDS: TAMSULOSIN 0.4 MG SR CAP PO SCH (21:46)
[2021-03-17 21:55] VITALS: BMI 29.3
[2021-03-18] MEDS: FUROSEMIDE 40 MG/4 ML VIAL IV SCH ×3 (00:26→20:07)
[2021-03-18] MEDS: METHYLPREDNISOLONE 40 MG INJ IV SCH ×3 (00:26→20:07)
[2021-03-18 05:37] LABS: Arterial Blood Carboxyhemoglob 1.4 % (0-1.5); Blood Gas Oxyhemoglobin 95.3 % (94-97); Blood O2 Saturation 97.7 % (92-98.5)
--- NOTE | 2021-03-18 06:09 | P.PN ---
Subjective Date of Service: 03/18/21 Primary Care Provider: Dr. Barrios Chief Complaint: CHF exacerbation Subjective: Other (Overall stable. Patient on BiPAP.) Physical Examination - Vital Signs Temperature: 97 F Blood Pressure: 121/69 Pulse: 95 Respirations: 17 Pulse Ox (%): 98 - Studies Laboratory Data (last 24 hrs) 03/17/21 14:37: PT 18.0 H, INR 1.56 03/17/21 14:37: WBC 13.90 H, Hgb 13.2 L, Hct 40.6, Plt Count 345 03/17/21 14:37: Sodium 138, Potassium 3.8, BUN 19 H, Creatinine 0.73, Glucose 129 H, Magnesium 2.3, Total Bilirubin 0.4, AST 13 L, ALT 14, Alkaline Phosphatase 86 Assessment & Plan Discharge Plan: Home Plan to discharge in: 48 Hours Physician Review Additional Text: COVID: Negative CT Head: COMPARISON: Head Brain W Cont dated 06/23/2019; Facial Bones W/ Mpr dated 06/23/2019; Head C Spine Cap W Con dated 12/22/2020 TECHNIQUE: All CT scans are performed using dose optimization technique as appropriate and may include automated exposure control or mA/KV adjustment according to patient size. FINDINGS: No intracranial hemorrhage, hydrocephalus or extra-axial fluid collection.Left convexity moderate sized meningioma is again seen, incompletely assessed due to lack of contrast. Moderate periventricular and deep white matter chronic microvascular ischemic changes. Left cerebellar hemispheres moderately atrophic. The paranasal sinuses and mastoids are clear. The calvarium is intact. IMPRESSION: No acute intracranial abnormality. CXR: COMPARISON: Chest Single View dated 12/22/2020; Chest Single View dated 04/20/2020; Chest Single View dated 04/18/2020 FINDINGS: Portable technique limits examination quality. [id number] pulmonary edema pattern is noted. Moderate patchy opacity is seen in the right lung base. Small bilateral pleural effusions. The heart is moderately enlarged. Single lead pacer/defibrillator device present. IMPRESSION: Mild to moderate CHF pattern is observed. Increased right basilar opacity appears similar to December 2020 study and may be chronic infiltrate. Physical exam: General: Alert, In no apparent distress, Oriented x3 HEENT: Neck supple Respiratory: Currently on BiPAP Cardiovascular: Normal S1 S2, Irregular heart rate/rhythm (AF) Capillary refill: <2 Seconds Gastrointestinal: Normal bowel sounds, No tenderness Musculoskeletal: No tenderness Integumentary: No rashes Neurological: Normal speech, Normal strength at 5/5 x4 extr, Normal tone, Normal affect Impression: Dyspnea, acute hypoxic hypercapnic respiratory failure secondary to acute on chronic systolic congestive heart failure complicated with history of COPD BPH Atrial fibrillation on chronic anticoagulation therapy Diabetes mellitus type 2 CAD history of pacemaker defibrillator Hyperlipidemia Dementia Plan: Dyspnea, acute hypoxic hypercapnic respiratory failure secondary to acute on chronic systolic congestive heart failure complicated with history of COPD: Spoke with pulmonology. Pulmonology plans to discontinue IV antibiotic therapy. IV diuretic therapyLasix decreased. Pulmonology to add Brovana. Wean off BiPAP. Obtain echocardiogram. Spoke with cardiology. Await further r ecommendations. Will monitor closely. Continue with IV steroids. Anticipate continued improvement. BPH: Culture pending. Restart Flomax and Proscar Atrial fibrillation on chronic anticoagulation therapy: Continue Xarelto. Consider beta-elijah if blood pressure remains elevated. Diabetes mellitus type 2: Hold Metformin. Continue Accu-Cheks and sliding scale. CAD history of pacemaker defibrillator: We will monitor closely. Hyperlipidemia: Continue Zocor Dementia: Restart Namenda DVT PPX: Xarelto Code status: Full code Discharge Plan: Home at discharge Time Spent Managing Pts Care (In Minutes): 55
[2021-03-18 06:12] LABS: Absolute Lymphocytes (CBC) 0.5 K/uL (0.7-4.9); Basophils % 0.2 % (0-1.3); Hematocrit 40.1 % (39.6-49.0); Lymphocytes % 7.1 % (15.3-44.8); MPV 7.5 fL (7.6-11.3)
[2021-03-18 06:35] LABS: ALT/SGPT 14 U/L (12-78); AST/SGOT 7 U/L (15-37); Albumin 2.9 g/dL (3.4-5.0); Alkaline Phosphatase 82 U/L (45-117); BUN Blood Urea Nitrogen 17 mg/dL (7-18); Bicarbonate 37 mmol/L (21-32); Bilirubin Total 0.4 mg/dL (0.2-1.0); Glucose Level 182 mg/dL (74-106); HDL Cholesterol 73 mg/dL (40-60); LDL Cholesterol, Calculated 59 (<130); Magnesium 2.3 mg/dL (1.8-2.4); Potassium 3.7 mmol/L (3.5-5.1); Protein, Total 7.1 g/dL (6.4-8.2); Sodium Level 138 mmol/L (136-145); Thyroid Stimulating Hormone 0.235 uIU/mL (0.360-3.740); Troponin I < 0.02 ng/mL (0.0-0.045)
[2021-03-18] MEDS: INSULIN -REGULAR HUMAN 50 UNIT/0.5 ML ML SQ SCH ×4 (07:30→20:06)
[2021-03-18] MEDS: MOMETASONE IH SCH ×2 (08:06→20:09)
[2021-03-18] MEDS: FORMOTEROL IH SCH ×2 (08:06→20:09)
[2021-03-18 08:21] LABS: Platelet Estimate ADEQ; White Blood Cell Scan OK (OK)
[2021-03-18 08:22] LABS: Basophilic Stippling 1+; Blood Morphology Comment NOTED (NOT SEEN)
[2021-03-18 08:23] LABS: Hypochromasia 1+
[2021-03-18] MEDS ORDERED: CEFTRIAXONE 1 GM/NS 50 ML 1 GM/50 ML BAG IV SCH (09:00)
[2021-03-18] MEDS: ARFORMOTEROL TARTRATE 15 MCG/2 ML VIAL.NEB NEB SCH ×2 (12:04→20:00)
--- NOTE | 2021-03-18 12:05 | P.CNS ---
Date of Consult: 03/18/21 Reason for Consult: Resp failure Primary Care Provider: Dr. Barrios Chief Complaint: CHF exacerbation History of Present Illness: Age 89 hxof CHF and Afib metabolic synd aw SOB and resp failure on BIPAP nonverbal worse past week, hypoxic hypercapneic resp faiure On BIPAP andunresponsive Allergies codeine Allergy (Verified 01/26/19 20:24) shaking Home Medications: Duloxetine HCl [Cymbalta] 60 mg PO DAILY 04/19/20 Finasteride [Proscar*] 5 mg PO DAILY 04/19/20 Metformin ER [Glucophage ER*] 500 mg PO BID 04/19/20 Simvastatin [Zocor] 40 mg PO BEDTIME 04/19/20 Ferrous Sulfate [Ferrous Sulfate*] 325 mg PO DAILY #90 tab 04/20/20 Cholecalciferol (Vitamin D3) [Vitamin D3] 2 cap PO DAILY 03/18/21 Furosemide [Lasix*] 40 mg PO DAILY 03/18/21 Memantine HCl 0.5 tab PO DAILY 03/18/21 Rivaroxaban [Xarelto*] 1 tab PO SEECOM 03/18/21 - Past Medical/Surgical History Diabetic: Yes -: Diabetes mellitus type 2, non-insulin dependent -: History [place], CAD -: Diabetic neuropathy -: COPD -: HFrEF(systolic CHF) -: AFib, chronic anti coagulation therapy, pacemaker -: History prostate cancer -: pacer/ defib, back surgery, protate surgery, TURP -: BACK SURGERIES X3 -: PROSTATE SURGERY -: TURP -: gall bladder sx Psychosocial/ Personal History: Patient lives with son - Family History Father Medical History: Heart disease Mother Medical History: Heart disease, Diabetes - Social History Smoking Status: Unknown if ever smoked Alcohol use: No CD- Drugs: No Caffeine use: Yes Place of Residence: Home Review of Systems is unable to be obtained Physical Examination Temp Pulse Resp BP Pulse Ox 97.1 F 84 18 124/60 96 03/18/21 08:00 03/18/21 08:06 03/18/21 08:00 03/18/21 08:06 03/18/21 08:00 General: Alert, Cooperative Respiratory: Clear to auscultation bilaterally, Diminished Cardiovascular: No edema, Irregular heart rate/rhythm Laboratory Data (last 24 hrs) 03/17/21 14:37: PT 18.0 H, INR 1.56 03/17/21 14:37: WBC 13.90 H, Hgb 13.2 L, Hct 40.6, Plt Count 345 03/17/21 14:37: Sodium 138, Potassium 3.8, BUN 19 H, Creatinine 0.73, Glucose 129 H, Magnesium 2.3, Total Bilirubin 0.4, AST 13 L, ALT 14, Alkaline Phosphatase 86 - Problems (1) Respiratory failure Current Visit: Yes Status: Acute Plan: AW resp failure onBIPAP/ Hx of cOPD /CXRY cosnistent with CHF and effusion on the R side BNP over 10 k add Brovana, reduce dose of steroids/DC rocephin and reduce dose IV lasix,Echo with doppler Qualifiers: Respiratory failure complication: hypoxia and hypercapnia
[2021-03-18 12:28] LABS: Arterial Blood Carboxyhemoglob 1.4 % (0-1.5); Blood Gas Oxyhemoglobin 95.6 % (94-97); Blood O2 Saturation 97.8 % (92-98.5)
--- NOTE | 2021-03-18 16:42 | EKG ---
Test Date: 2021-03-17 Test Time: 14:24:32 Application Chemist: YASIR MEASUREMENT RESULTS: Intervals: Rate: 90 MA: QRSD: 124 QT: 410 QTc: 501 Donie: P: MA: QRS: -21 T: 214 INTERPRETIVE STATEMENTS: Atrial fibrillation Nonspecific intraventricular conduction delay Nonspecific T wave abnormality, probably digitalis effect Abnormal ECG Compared to ECG 12/22/2020 19:10:52 Intraventricular conduction delay now present Ventricular premature complex(es) no longer present Right-axis deviation no longer present T-wave abnormality still present Electronically Signed On 03-18-21 16:39:11 CDT by Deven Funes
[2021-03-18] MEDS ORDERED: RIVAROXABAN 20 MG TABLET PO SCH (17:00)
[2021-03-18] MEDS ORDERED: RIVAROXABAN 10 MG TABLET PO SCH (17:00)
[2021-03-18] MEDS: TAMSULOSIN 0.4 MG SR CAP PO SCH (20:08)
[2021-03-18] MEDS: ATORVASTATIN 40 MG TAB PO SCH (20:09)
[2021-03-18] MEDS ORDERED: POTASSIUM CL SA 10 MEQ TAB PO ONE (21:00)
--- NOTE | 2021-03-19 06:03 | P.PN ---
Subjective Date of Service: 03/19/21 Primary Care Provider: Dr. Barrios Chief Complaint: CHF exacerbation Subjective: Improving, Doing well Physical Examination - Vital Signs Temperature: 98.4 F Blood Pressure: 120/61 Pulse: 72 Respirations: 17 Pulse Ox (%): 96 Assessment & Plan Discharge Plan: Home (Home health and physical therapy) Plan to discharge in: 24 Hours Physician Review Additional Text: COVID: Negative CT Head: COMPARISON: Head Brain W Cont dated 06/23/2019; Facial Bones W/ Mpr dated 06/23/2019; Head C Spine Cap W Con dated 12/22/2020 TECHNIQUE: All CT scans are performed using dose optimization technique as appropriate and may include automated exposure control or mA/KV adjustment according to patient size. FINDINGS: No intracranial hemorrhage, hydrocephalus or extra-axial fluid collection.Left convexity moderate sized meningioma is again seen, incompletely assessed due to lack of contrast. Moderate periventricular and deep white matter chronic microvascular ischemic changes. Left cerebellar hemispheres moderately atrophic. The paranasal sinuses and mastoids are clear. The calvarium is intact. IMPRESSION: No acute intracranial abnormality. CXR: COMPARISON: Chest Single View dated 12/22/2020; Chest Single View dated 04/20/2020; Chest Single View dated 04/18/2020 FINDINGS: Portable technique limits examination quality. [id number] pulmonary edema pattern is noted. Moderate patchy opacity is seen in the right lung base. Small bilateral pleural effusions. The heart is mod erately enlarged. Single lead pacer/defibrillator device present. IMPRESSION: Mild to moderate CHF pattern is observed. Increased right basilar opacity appears similar to December 2020 study and may be chronic infiltrate. Physical exam: General: Alert, In no apparent distress, Oriented x3 HEENT: Neck supple Respiratory: Doing well at this time. Currently on 2 L per nasal cannula. Cardiovascular: Normal S1 S2, Irregular heart rate/rhythm (AF) Capillary refill: <2 Seconds Gastrointestinal: Normal bowel sounds, No tenderness Musculoskeletal: No tenderness Integumentary: No rashes Neurological: Normal speech, Normal strength at 5/5 x4 extr, Normal tone, Normal affect Impression: Dyspnea, acute hypoxic hypercapnic respiratory failure secondary to acute on chronic systolic congestive heart failure complicated with history of COPD BPH Atrial fibrillation on chronic anticoagulation therapy Diabetes mellitus type 2 CAD history of pacemaker defibrillator Hyperlipidemia Dementia UTI, urine culture positive for E. coli Plan: Dyspnea, acute hypoxic hypercapnic respiratory failure secondary to acute on chronic systolic congestive heart failure complicated with history of COPD: Patient doing well. Much improved. Currently on 2 L/min. Continue with IV Lasix and Aldactone 25 mg daily. Patient has been transitioned to oral steroids. Continue Brovana and COPD medication. Spoke with patient and son. We will plan for likely discharge tomorrow with home oxygen to maintain sats above 93%. We will also need to continue with home health and physical therapy at discharge. Patient uses walker at home. Patient has hospital bed. BPH: Continue Flomax 0.4 mg daily and Proscar 5 mg daily Atrial fibrillation on chronic anticoagulation therapy: Continue Xarelto 15 mg daily. Consider beta-elijah if blood pressure remains elevated. Diabetes mellitus type 2: We will continue Metformin at discharge. Continue Accu-Cheks and sliding scale. CAD history of pacemaker defibrillator: Overall stable. Hyperlipidemia: Continue Lipitor Dementia: Continue Namenda 5 mg daily UTI, urine culture positive for E. coli: We will discuss with pharmacy about transitioning from IV antibiotic therapy to oral. DVT PPX: Xarelto Code status: Full code Discharge Plan: Home at discharge with home oxygen and continued home health and physical therapy. Time Spent Managing Pts Care (In Minutes): 55
[2021-03-19 07:05] LABS: Absolute Lymphocytes (CBC) 0.9 K/uL (0.7-4.9); Basophils % 0.1 % (0-1.3); Hematocrit 39.7 % (39.6-49.0); Lymphocytes % 6.4 % (15.3-44.8); MPV 7.7 fL (7.6-11.3); RBC Red Blood Cell Count 4.45 M/uL (4.33-5.43)
[2021-03-19 07:21] LABS: ALT/SGPT 10 U/L (12-78); AST/SGOT 7 U/L (15-37); Albumin 2.8 g/dL (3.4-5.0); Alkaline Phosphatase 75 U/L (45-117); BUN Blood Urea Nitrogen 25 mg/dL (7-18); Bicarbonate 40 mmol/L (21-32); Bilirubin Total 0.3 mg/dL (0.2-1.0); Glucose Level 180 mg/dL (74-106); Magnesium 2.3 mg/dL (1.8-2.4); Potassium 4.3 mmol/L (3.5-5.1); Protein, Total 6.5 g/dL (6.4-8.2); Sodium Level 138 mmol/L (136-145)
[2021-03-19] MEDS: INSULIN -REGULAR HUMAN 50 UNIT/0.5 ML ML SQ SCH ×4 (07:30→21:25)
--- NOTE | 2021-03-19 07:43 | CON ---
Date of Consultation: 03/18/2021 Reason For Consultation: Atrial fibrillation and congestive heart failure. History Of Present Illness: Mr. Veloz is an 89-year-old who was admitted on 03/17/2021 after he came in and admitted with congestion, general weakness, was found to have atrial fibrillation with a rate of 99, normal blood pressure, he had O2 saturation of 93% on room air and he was afebrile, respirato ry rate was 18. He denied any chest pain. Denies any nausea, vomiting, diaphoresis, PND, orthopnea, pedal edema, palpitations, or syncope. He was seen in the [facility], and was sent to the [facility] and congestion. Allergies: CODEINE. Review of Systems: Negative. Social History: Negative. Family History: Noncontributory. Past Medical History: Include coronary artery disease, prostate cancer, congestive heart failure, [place] PD, diabetes, hypertension, and dyslipidemia. Medications: At home include Cymbalta, iron, Proscar, Lasix, memantine, Glucophage, Xarelto, and Zoc or. Physical Examination: Vital Signs: His blood pressure was 147/89. He was in atrial fibrillation at a rate of 95. HEENT: Negative. Neck: Supple. No bruits. Chest: Reveals some crackles at both bases. Cardiac: Revealed atrial fibrillation. Abdomen: Benign. Extremities: Revealed no clubbing, cyanosis, or edema. Diagnostic Data: Basically his pO2 was 60, pCO2 of 53, pH of 7.44. His EKG showed atrial fibrillati on at a rate of 90. Chest x-ray showed [id number] congestive heart failure and chronic infiltr ate. CT of his head was negative. His creatinine was 0.73. White count was 14,000. His BNP was 10 ,285, troponin was negative. His urinalysis was loaded with bacteria. He was COVID negative. Impression And Plan: 1.Acute on chronic diastolic congestive heart failure. 2.Possible chronic obstructive pulmonary disease exacerbation. Echocardiogram which was done on Mar showed mild global hypokinesis. Ejection fraction 49%. Mitral annular calcification and a ortic sclerosis. 3.Hypertension. 4.Diabetes. 5.Dyslipidemia. 6.Dementia. 7.History of coronary artery disease. 8.History of pacemaker placement. I agree with his present regimen. He is on inhalers, Lipitor Lasix, insulin, steroids, potassium Xar elto, and tamsulosin as well as antibiotics. I will continue to follow him. No need for any extensi ve cardiac workup at this point. LISHA/FRED Voice ID: [id number] Report ID: [id number]
[2021-03-19] MEDS: FINASTERIDE 5 MG TAB PO SCH (08:12)
--- NOTE | 2021-03-19 08:12 | RAD REPORT ---
EXAM DESCRIPTION: RAD - Chest Single View - 03/19/2021 5:28 am CLINICAL HISTORY: Follow-up CHF/COPD COMPARISON: Chest Single View dated 03/17/2021; Chest Single View dated 12/22/2020; Chest Single View d ated 04/20/2020; Chest Single View dated 04/18/2020 FINDINGS: Lines: Pacemaker. Lungs: Widespread bilateral airspace opacities . Pleural: Moderate effusions appear Cardiac: Cardiomegaly. Bones: No acute fractures. Other: IMPRESSION: Increasing pulmonary edema.
[2021-03-19] MEDS: DULOXETINE 30 MG CAP PO SCH (08:13)
[2021-03-19] MEDS: MEMANTINE HCL 10 MG TABLET PO SCH (08:13)
[2021-03-19] MEDS: METHYLPREDNISOLONE 40 MG INJ IV SCH (08:13)
[2021-03-19] MEDS: FUROSEMIDE 40 MG/4 ML VIAL IV SCH (08:13)
[2021-03-19] MEDS: MOMETASONE IH SCH ×2 (08:14→21:00)
[2021-03-19] MEDS: FERROUS SULFATE 325 MG TAB PO SCH (08:14)
[2021-03-19] MEDS: FORMOTEROL IH SCH ×2 (08:14→21:00)
[2021-03-19] MEDS: ARFORMOTEROL TARTRATE 15 MCG/2 ML VIAL.NEB NEB SCH ×2 (09:00→20:00)
[2021-03-19] MEDS ORDERED: CEFTRIAXONE 1 GM/NS 50 ML 1 GM/50 ML BAG IV SCH (09:00)
--- NOTE | 2021-03-19 10:23 | ECHO ---
HEIGHT: 5 ft 7 in WEIGHT: 187 lb 4.8 oz DATE OF STUDY: 03/18/[address]: Bebo Mullins MD 2-DIMENSIONAL: YES M.MODE: YES DOPPLER: YES COLOR FLOW: YES TDS: PORTABLE: DEFINITY: BUBBLE STUDY: DIAGNOSIS: CONGESTIVE HEART FAILURE CARDIAC HISTORY: CATHERIZATION: NO SURGERY: NO PROSTHETIC VALVE: NO PACEMAKER: YES MEASUREMENTS (cm) DIASTOLIC (NORMALS) SYSTOLIC (NORMALS) IVSd 1.0 (0.6-1.2) LA Diam 3.0 (1.9-4.0) LVEF 30-35% LVIDd 5.3 (3.5-5.7) LVIDs 4.3 (2.0-3.5) %FS % LVPWd 1.1 (0.6-1.2) Ao Diam 3.1 (2.0-3.7) 2 DIMENSIONAL ASSESSMENT: RIGHT ATRIUM: LEFT ATRIUM: RIGHT VENTRICLE: LEFT VENTRICLE: TRICUSPID VALVE: MITRAL VALVE: PULMONIC VALVE: AORTIC VALVE: PERICARDIAL EFFUSION: AORTIC ROOT: LEFT VENTRICULAR WALL MOTION: PARADOXICAL SEPTUM. MODERATE SEVERE GLOBAL HYPOKINESIS. DOPPLER/COLOR FLOW: NORMAL COMMENTS: MODERATE TO SEVERE GLOBAL HYPOKINESIS. EJECTION 30-35%. NO EFFUSION. TECHNOLOGIST: RANDY MONTANEZ
--- NOTE | 2021-03-19 13:01 | P.PN ---
Subjective Date of Service: 03/19/21 Primary Care Provider: Dr. Barrios Chief Complaint: CHF exacerbation Subjective: Improving (Much better very hard of hearing) Review of Systems is unable to be obtained Physical Examination - Vital Signs Temperature: 98.7 F Blood Pressure: 113/62 Pulse: 90 Respirations: 20 Pulse Ox (%): 97 - Physical Exam General: Alert Respiratory: Clear to auscultation bilaterally Cardiovascular: No edema, Abnormal pulses - Studies Microbiology Data (last 24 hrs): 03/17/21 17:00 Clean Catch Urine [place] Count - Final >100,000 CFU/ML. 03/17/21 17:00 Clean Catch Urine - Final Escherichia Coli Assessment & Plan - Problems (Diagnosis) (1) Respiratory failure Current Visit: Yes Status: Acute Plan: Much better Severe CHF,on ECHO.ECOLI poss UTI cxry suspect bilateral effusions/ change to po pred labs rev Qualifiers: Respiratory failure complication: hypoxia and hypercapnia
[2021-03-19] MEDS: SPIRONOLACTONE 25 MG TABLET PO SCH (13:27)
[2021-03-19] MEDS ORDERED: RIVAROXABAN 15 MG TABLET PO SCH (17:00)
[2021-03-19] MEDS: predniSONE 20 MG TAB PO SCH (21:24)
[2021-03-19] MEDS: TAMSULOSIN 0.4 MG SR CAP PO SCH (21:24)
[2021-03-19] MEDS: SMZ./TMP. 800/160 MG TABLET PO SCH (21:25)
[2021-03-19] MEDS: ATORVASTATIN 40 MG TAB PO SCH (21:25)
[2021-03-20 04:23] VITALS: TEMP 97.6
--- NOTE | 2021-03-20 05:58 | P.PN ---
Subjective Date of Service: 03/20/21 Primary Care Provider: Dr. Barrios Chief Complaint: CHF exacerbation Subjective: Improving, Doing well (Currently on 1 L per nasal cannula patient doing well) Physical Examination - Vital Signs Temperature: 97.6 F Blood Pressure: 139/68 Pulse: 95 Respirations: 18 Pulse Ox (%): 93 - Studies Microbiology Data (last 24 hrs): 03/17/21 17:00 Clean Catch Urine [place] Count - Final >100,000 CFU/ML. 03/17/21 17:00 Clean Catch Urine - Final Escherichia Coli Assessment & Plan Discharge Plan: Home (With home health and physical therapy along with home oxygen) Plan to discharge in: 24 Hours Physician Review Additional Text: COVID: Negative CT Head: COMPARISON: Head Brain W Cont dated 06/23/2019; Facial Bones W/ Mpr dated 06/23/2019; Head C Spine Cap W Con dated 12/22/2020 TECHNIQUE: All CT scans are performed using dose optimization technique as appropriate and may include automated exposure control or mA/KV adjustment according to patient size. FINDINGS: No intracranial hemorrhage, hydrocephalus or extra-axial fluid collection.Left convexity moderate sized meningioma is again seen, incompletely assessed due to lack of contrast. Moderate periventricular and deep white matter chronic microvascular ischemic changes. Left cerebellar hemispheres moderately atrophic. The paranasal sinuses and mastoids are clear. The calvarium is intact. IMPRESSION: No acute intracranial abnormality. CXR: COMPARISON: Chest Single View dated 12/22/2020; Chest Single View dated 04/20/2020; Chest Single View dated 04/18/2020 FINDINGS: Portable technique limits examination quality. [id number]-[id number] pulmonary edema pattern is noted. Moderate patchy opacity is seen in the right lung base. Small bilateral pleural effusions. The heart is moderately enlarged. Single lead pacer/defibrillator device present. IMPRESSION: Mild to moderate CHF pattern is observed. Increased right basilar opacity appears similar to December 2020 study and may be chronic infiltrate. Physical exam: General: Alert, In no apparent distress, Oriented x3 HEENT: Neck supple Respiratory: Doing well at this time. Currently on 2 L per nasal cannula. Cardiovascular: Normal S1 S2, Irregular heart rate/rhythm (AF) Capillary refill: <2 Seconds Gastrointestinal: Normal bowel sounds, No tenderness Musculoskeletal: No tenderness Integumentary: No rashes Neurological: Normal speech, Normal strength at 5/5 x4 extr, Normal tone, Normal affect Impression: Dyspnea, acute hypoxic hypercapnic respiratory failure secondary to acute on chronic systolic congestive heart failure complicated with history of COPD BPH Atrial fibrillation on chronic anticoagulation therapy Diabetes mellitus type 2 CAD history of pacemaker defibrillator Hyperlipidemia Dementia UTI, urine culture positive for E. coli Plan: Dyspnea, acute hypoxic hypercapnic respiratory failure secondary to acute on chronic systolic congestive heart failure complicated with history of COPD: Patient has done well. Currently on 1 L per nasal cannula. Patient will be discharged home today. We will continue with Lasix 40 mg daily and Aldactone 25 mg daily at discharge. Patient will continue with the 1500 cc/day fluid restriction and low-salt diet. Patient will continue with prednisone taper. Continue with COPD medication. Follow-up with pulmonology in 1 week to follow- up his hospitalization. Oxygen can be weaned off as an outpatient. Patient will go home with home health and physical therapy at home. Patient uses a walker as well. Patient with hospital bed at home. Case discussed with son yesterday. BPH: Continue Flomax 0.4 mg daily and Proscar 5 mg daily Atrial fibrillation on chronic anticoagulation therapy: Continue Xarelto 15 mg daily. Consider low-dose beta-elijah therapy as an outpatient if blood pressure elevated.. Diabetes mellitus type 2: We will continue Metformin at discharge. Continue Accu-Cheks and sliding scale. CAD history of pacemaker defibrillator: Overall stable. Hyperlipidemia: Continue Lipitor Dementia: Continue Namenda 5 mg daily UTI, urine culture positive for E. coli: Bactrim. DVT PPX: Xarelto Code status: Full code Discharge Plan: Home at discharge with home oxygen and continued home health and physical therapy. Time Spent Managing Pts Care (In Minutes): 55
[2021-03-20 06:19] LABS: Absolute Lymphocytes (CBC) 0.8 K/uL (0.7-4.9); Basophils % 0.1 % (0-1.3); Hematocrit 38.3 % (39.6-49.0); Lymphocytes % 4.9 % (15.3-44.8); MPV 7.8 fL (7.6-11.3); RBC Red Blood Cell Count 4.29 M/uL (4.33-5.43)
[2021-03-20 06:45] LABS: ALT/SGPT 12 U/L (12-78); AST/SGOT 5 U/L (15-37); Albumin 2.8 g/dL (3.4-5.0); Alkaline Phosphatase 78 U/L (45-117); BUN Blood Urea Nitrogen 32 mg/dL (7-18); Bicarbonate 38 mmol/L (21-32); Bilirubin Total 0.3 mg/dL (0.2-1.0); Glucose Level 171 mg/dL (74-106); Magnesium 2.3 mg/dL (1.8-2.4); Protein, Total 6.4 g/dL (6.4-8.2); Sodium Level 137 mmol/L (136-145)
[2021-03-20] MEDS: INSULIN -REGULAR HUMAN 50 UNIT/0.5 ML ML SQ SCH (07:27)
[2021-03-20] MEDS: ARFORMOTEROL TARTRATE 15 MCG/2 ML VIAL.NEB NEB SCH (08:05)
--- NOTE | 2021-03-20 08:36 | P.DS ---
Admission Date: 03/17/21 Discharge Date: 03/20/21 Primary Care Provider: Dr. Barrios Disposition: DC HOME/HOME HEALTH CARE Discharge Condition: GOOD Reason for Admission: CHF exacerbation Consultations: Pulmonary-Dr. Mullins Procedures: COVID: Negative CT Head: COMPARISON: Head Brain W Cont dated 06/23/2019; Facial Bones W/ Mpr dated 06/23/2019; Head C Spine Cap W Con dated 12/22/2020 TECHNIQUE: All CT scans are performed using dose optimization technique as appropriate and may include automated exposure control or mA/KV adjustment according to patient size. FINDINGS: No intracranial hemorrhage, hydrocephalus or extra-axial fluid collection.Left convexity moderate sized meningioma is again seen, incompletely assessed due to lack of contrast. Moderate periventricular and deep white matter chronic microvascular ischemic changes. Left cerebellar hemispheres moderately atrophic. The paranasal sinuses and mastoids are clear. The calvarium is intact. IMPRESSION: No acute intracranial abnormality. CXR: COMPARISON: Chest Single View dated 12/22/2020; Chest Single View dated 04/20/2020; Chest Single View dated 04/18/2020 FINDINGS: Portable technique limits examination quality. [id number] pulmonary edema pattern is noted. Moderate patchy opacity is seen in the right lung base. Small bilateral pleural effusions. The heart is moderately enlarged. Single lead pacer/defibrillator device present. IMPRESSION: Mild to moderate CHF pattern is observed. Increased right basilar opacity appears similar to December 2020 study and may be chronic infiltrate. Medical Problem List: Dyspnea, acute hypoxic hypercapnic respiratory failure secondary to acute on chronic systolic congestive heart failure complicated with history of COPD BPH Atrial fibrillation on chronic anticoagulation therapy Diabetes mellitus type 2 CAD history of pacemaker defibrillator Hyperlipidemia Dementia UTI, urine culture positive for E. coli Brief History of Present Illness: 89-year-old male with history of chronic systolic congestive heart failure, A. fib on chronic anticoagulation therapy, diabetes type 2, anemia, CAD with pacemaker/defibrillator, hyperlipidemia presents emergency room for shortness of breath. Patient reports increasing shortness of breath over the course of last 1 week. Patient was evaluated in the emergency department labs were significant for white blood cell count 13.9 hemoglobin 13.2 ABG with PCO2 53.7 PO2 60.8 chloride 95 CO2 38 BUN 19 glucose 129 BNP 10,285 chest x-ray demonstrated mild to moderate CHF pattern observed with increased right basilar opacity appears similar to previous studies likely chronic infiltrate. Patient also noted to have urinary tract infection. Patient was placed on BiPAP given hypercapnic respiratory failure. Patient was admitted for further evaluation and treatment. Hospital Course: Patient presented with dyspnea secondary to acute hypoxic hypercapnic respiratory failure secondary to acute on chronic systolic CHF complicated with COPD exacerbation. Patient was seen by pulmonology and cardiology. Patient received IV steroids, IV Lasix. Patient condition has improved. Patient has been weaned down to 1 L per nasal cannula. At discharge patient without significant shortness of breath. Patient will require home oxygen at discharge. Currently on 1 L per nasal cannula. Maintain oxygen saturations above 93%. At discharge for his COPD patient will continue with Brovana 1 unit dose twice daily and Xopenex 1 unit dose 3 times a day as needed for shortness of breath. Will make arrangements for the patient to receive nebulizer at home with medication. The patient will continue with prednisone 20 mg 1 pill twice daily for 7 days then 1 pill once daily for 7 days. The patient will follow up with pulmonology within 1 week to follow-up his hospitalization. Pulmonology will help wean the patient off oxygen. At discharge home health and physical therapy will be continued. For his CHF at discharge the patient will continue with Lasix 40 mg daily. New medication includes Aldactone 25 mg daily. Recommend to continue 1500 cc/day fluid restriction and low-salt diet. Education on CHF will be provided. Recommend to monitor his weight daily. If his weight increases by more than 5 pounds he is to contact his PCP or cardiology for further recommendation. Recommend follow-up with cardiology within 1 week to follow-up his hospitalization. Patient with chronic atrial fibrillation on chronic anticoagulation therapy. At discharge the patient will continue with Xarelto 20 mg daily. If blood pressure elevated consider beta-elijah therapy in the future. This can be done with the help of his PCP or cardiology. Patient with history of CAD with prior pacemaker defibrillator. Patient also with underlying hyperlipidemia. At discharge patient will continue with Zocor 40 mg daily. Recommend follow-up with cardiology as directed. Patient with underlying dementia. At discharge patient will continue with Namenda 5 mg daily. Patient with chronic pain. At discharge patient will continue with Cymbalta 60 mg daily. Patient with diabetes mellitus type 2. Overall stable at this time. At discharge patient may continue with metformin 500 mg 1 pill twice daily. Recommend to maintain blood sugar less than 140 fasting and less than 200 after meals. Recommend follow-up with PCP to further monitor his care. Recommend to recheck hemoglobin A1c every 3 months to monitor his progress. Patient was found to have a UTI. E. coli was identified. At discharge patient will continue with Bactrim 1 pill twice daily for 6 more days. UTI prevention provided. Vital Signs/Physical Exam: Temp Pulse Resp BP Pulse Ox 97.6 F 95 H 18 139/68 93 03/20/21 08:30 03/20/21 08:30 03/20/21 08:30 03/20/21 08:30 03/20/21 08:30 General: Alert, In no apparent distress, Oriented x3, Cooperative HEENT: Atraumatic Neck: Supple Respiratory: Other (Patient breathing appropriately. Currently on 1 L) Cardiovascular: Other (Atrial fibrillation rate controlled) Gastrointestinal: Normal bowel sounds Musculoskeletal: No erythema, No tenderness, No warmth Integumentary: No tenderness/swelling Neurological: Normal speech, Normal strength at 5/5 x4 extr, Normal tone Laboratory Data at Discharge: WBC 15.30 K/uL (4.3-10.9) H 03/20/21 05:42 Hgb 12.4 g/dL (13.6-17.9) L 03/20/21 05:42 Hct 38.3 % (39.6-49.0) L 03/20/21 05:42 Plt Count 350 K/uL (152-406) 03/20/21 05:42 PT 18.0 SECONDS (9.5-12.5) H 03/17/21 14:37 INR 1.56 03/17/21 14:37 Sodium 137 mmol/L (136-145) 03/20/21 05:42 Potassium 4.0 mmol/L (3.5-5.1) 03/20/21 05:42 BUN 32 mg/dL (7-18) H 03/20/21 05:42 Creatinine 0.78 mg/dL (0.55-1.3) 03/20/21 05:42 Glucose 171 mg/dL (74-106) H 03/20/21 05:42 Magnesium 2.3 mg/dL (1.8-2.4) 03/20/21 05:42 Total Bilirubin 0.3 mg/dL (0.2-1.0) 03/20/21 05:42 AST 5 U/L (15-37) L 03/20/21 05:42 ALT 12 U/L (12-78) 03/20/21 05:42 Alkaline Phosphatase 78 U/L (45-117) 03/20/21 05:42 Troponin I < 0.02 ng/mL (0.0-0.045) 03/18/21 05:45 Triglycerides 61 mg/dL (<150) 03/18/21 05:45 Cholesterol 144 mg/dL (<200) 03/18/21 05:45 HDL Cholesterol 73 mg/dL (40-60) H 03/18/21 05:45 Cholesterol/HDL Ratio 1.97 03/18/21 05:45 Home Medications: Duloxetine HCl [Cymbalta] 60 mg PO DAILY 04/19/20 Finasteride [Proscar*] 5 mg PO DAILY 04/19/20 Metformin ER [Glucophage ER*] 500 mg PO BID 04/19/20 Simvastatin [Zocor] 40 mg PO BEDTIME 04/19/20 Ferrous Sulfate [Ferrous Sulfate*] 325 mg PO DAILY #90 tab 04/20/20 Cholecalciferol (Vitamin D3) [Vitamin D3] 2 cap PO DAILY 03/18/21 Memantine HCl 0.5 tab PO DAILY 03/18/21 Rivaroxaban [Xarelto] 1 tab PO SEECOM 03/18/21 Arformoterol Tartrate [Brovana] 15 mcg NEB BIDRESP #60 vial.neb 03/20/21 Furosemide [Lasix*] 40 mg PO DAILY #30 tab 03/20/21 Levalbuterol HCl [Xopenex] 3 ml IH TID PRN #90 vial.neb 03/20/21 Smz./Tmp. [Bactrim Ds 800 MG/160 MG*] 1 tab PO BID #12 tab 03/20/21 Spironolactone [Aldactone*] 25 mg PO DAILY #30 tab 03/20/21 predniSONE [Prednisone*] 20 mg PO SEECOM #21 tab 03/20/21 New Medications: Spironolactone [Aldactone*] 25 mg PO DAILY #30 tab Smz./Tmp. [Bactrim Ds 800 MG/160 MG*] 1 tab PO BID #12 tab Arformoterol Tartrate [Brovana] 15 mcg NEB BIDRESP #60 vial.neb Furosemide [Lasix*] 40 mg PO DAILY #30 tab predniSONE [Prednisone*] 20 mg PO SEECOM #21 tab Levalbuterol HCl [Xopenex] 3 ml IH TID PRN #90 vial.neb PRN Reason: Shortness Of Breath Physician Discharge Instructions: Patient presented with dyspnea secondary to acute hypoxic hypercapnic respiratory failure secondary to acute on chronic systolic CHF complicated with COPD exacerbation. Patient was seen by pulmonology and cardiology. Patient received IV steroids, IV Lasix. Patient condition has improved. Patient has been weaned down to 1 L per nasal cannula. At discharge patient without significant shortness of breath. Patient will require home oxygen at discharge. Currently on 1 L per nasal cannula. Maintain oxygen saturations above 93%. At discharge for his COPD patient will continue with Brovana 1 unit dose twice daily and Xopenex 1 unit dose 3 times a day as needed for shortness of breath. Will make arrangements for the patient to receive nebulizer at home with medication. The patient will continue with prednisone 20 mg 1 pill twice daily for 7 days then 1 pill once daily for 7 days. The patient will follow up with pulmonology within 1 week to follow-up his hospitalization. Pulmonology will help wean the patient off oxygen. At discharge home health and physical therapy will be continued. For his CHF at discharge the patient will continue with Lasix 40 mg daily. New medication includes Aldactone 25 mg daily. Recommend to continue 1500 cc/day fluid restriction and low-salt diet. Education on CHF will be provided. Recommend to monitor his weight daily. If his weight increases by more than 5 pounds he is to contact his PCP or cardiology for further recommendation. Recommend follow-up with cardiology within 1 week to follow-up his hospitalization. Patient with chronic atrial fibrillation on chronic anticoagulation therapy. At discharge the patient will continue with Xarelto 20 mg daily. If blood pressure elevated consider beta-elijah therapy in the future. This can be done with the help of his PCP or cardiology. Patient with history of CAD with prior pacemaker defibrillator. Patient also with underlying hyperlipidemia. At discharge patient will continue with Zocor 40 mg daily. Recommend follow-up with cardiology as directed. Patient with underlying dementia. At discharge patient will continue with Namen da 5 mg daily. Patient with chronic pain. At discharge patient will continue with Cymbalta 60 mg daily. Patient with diabetes mellitus type 2. Overall stable at this time. At discharge patient may continue with metformin 500 mg 1 pill twice daily. Recommend to maintain blood sugar less than 140 fasting and less than 200 after meals. Recommend follow-up with PCP to further monitor his care. Recommend to recheck hemoglobin A1c every 3 months to monitor his progress. Patient was found to have a UTI. E. coli was identified. At discharge patient will continue with Bactrim 1 pill twice daily for 6 more days. UTI prevention provided. Diet: AHA Activity: Ad alessio Followup: VICTOR MANUEL RUSH [Primary Care Provider] - Time spent managing pt's care (in minutes): 55
[2021-03-20] MEDS: SPIRONOLACTONE 25 MG TABLET PO SCH (08:55)
[2021-03-20] MEDS: FERROUS SULFATE 325 MG TAB PO SCH (08:55)
[2021-03-20] MEDS: SMZ./TMP. 800/160 MG TABLET PO SCH (08:55)
[2021-03-20] MEDS: MEMANTINE HCL 10 MG TABLET PO SCH (08:55)
[2021-03-20] MEDS: DULOXETINE 30 MG CAP PO SCH (08:56)
[2021-03-20] MEDS: FINASTERIDE 5 MG TAB PO SCH (08:56)
[2021-03-20] MEDS: MOMETASONE IH SCH (08:57)
[2021-03-20] MEDS: FORMOTEROL IH SCH (08:57)
[2021-03-20] MEDS: predniSONE 20 MG TAB PO SCH (08:57)
[2021-03-20 08:58] VITALS: BP 140/92
[2021-03-20] MEDS ORDERED: FUROSEMIDE 40 MG/4 ML VIAL IV SCH (09:00)
[2021-03-20 09:31] VITALS: O2SAT 90
--- NOTE | 2021-03-20 13:38 | PN ---
Date of Progress Note: 03/19/2021 Mr. Veloz's weight has remained stable. His vital signs are stable. He was in atrial fibrillation a t a rate of 86. Last glucose was 182. He is feeling better. Is and Os are adequate. His white cou nt 14,000. Last PO2 was 103. He has hypertension, diabetes, dyslipidemia, dementia, coronary artery disease, status post pacemaker, acute on chronic diastolic congestive heart failure and COPD exacerb ation. He is improving. Continue present regimen. No need for further cardiac workup at this point . LISHA/FRED Voice ID: [id number] Report ID: [id number]
--- NOTE | 2021-03-23 15:40 | PN ---
Date of Progress Note: 03/20/2021 Mr. Veloz had came in with acute on chronic diastolic congestive heart failure, COPD exacerbation, zavala s known ejection fraction of 49%. He has history of coronary artery disease, pacemaker, dementia, dy slipidemia, diabetes, and hypertension. Today, his blood pressure was 140/90. He is in a paced rhyt hm with a rate of 77. His last glucose was 165. His O2 saturation was 96% on 1 L nasal cannula. Hi s last white count was 15.3. He is feeling better. He is alert and oriented x3. His last set of me dications include inhalers, Lipitor, furosemide, insulin, Namenda, potassium. He is on Xarelto, spir onolactone, tamsulosin, prednisone. He remains on antibiotics, but I think he can go home on p.o. an tibiotics and continue the rest of his regimen and we will see him in the office in the very near fut ure. Please note that an echocardiogram which was done showed an ejection fraction of 30% to 35% now . I think he should be on low-dose beta elijah in addition to his Lasix. He needs to continue his spironolactone. I will see him in the office in the near future. LISHA/FRED Voice ID: [id number] Report ID: [id number]
== END 2021-03-20 10:58 | disposition home health service (06) | DRG 291 ==
LOC: ER 13:13 → ERHOLD 19:31 → 2ND 20:07
PROVIDERS: ADMIT Family Medicine; ATTEND Family Medicine
PROC: 5A09357 Assistance with Respiratory Ventilation, Less than 24 Consecutive Hours, Continuous Positive Airway Pressure (ICD-10-PCS; principal; 2021-03-17)
DX: I11.0 Hypertensive heart disease with heart failure (principal); J96.02 Acute respiratory failure with hypercapnia; J96.01 Acute respiratory failure with hypoxia; N39.0 Urinary tract infection, site not specified; J44.1 Chronic obstructive pulmonary disease with (acute) exacerbation; I50.23 Acute on chronic systolic (congestive) heart failure; N40.0 Benign prostatic hyperplasia without lower urinary tract symptoms; I48.91 Unspecified atrial fibrillation; E11.9 Type 2 diabetes mellitus without complications; I25.10 Atherosclerotic heart disease of native coronary artery without angina pectoris; E78.5 Hyperlipidemia, unspecified; F03.90 Unspecified dementia, unspecified severity, without behavioral disturbance, psychotic disturbance, mood disturbance, and anxiety; B96.20 Unspecified Escherichia coli [E. coli] as the cause of diseases classified elsewhere; G89.29 Other chronic pain; Z95.810 Presence of automatic (implantable) cardiac defibrillator; Z79.01 Long term (current) use of anticoagulants; Z20.822 Contact with and (suspected) exposure to COVID-19
CPT/HCPCS: 36415; 70450; 71045; 80048; 80053; 80061; 80076; 81003; 81015; 82805; 82947; 83735; 83880; 84439; 84443; 84484; 85025; 85610; 87077; 87086; 87088; 87186; 93005; 93306; 94660; 94760; 96365; 96366; 96375; 97116; 97161; 97530; 99284; J0696; J1940; J2920; J2930; J7512; J7605; J7606; U0003